=== PATIENT | male | born 1965 | race Caucasian/White ===

== ENCOUNTER 2016-11-10 09:14 | Day surgery (SDC) | payer OTHER ==
[2016-11-04 13:09] VITALS: BMI 28.1
[2016-11-10 16:20] VITALS: PULSE 90
[2016-11-10 16:58] VITALS: TEMP 97.8
[2016-11-10 17:15] VITALS: BP 142/80
== END 2016-11-10 17:16 | disposition home or self-care (01) ==
LOC: JRADIR 09:14
PROVIDERS: ATTEND Internal Medicine Nephrology
PROC: BT42ZZZ Ultrasonography of Left Kidney (ICD-10-PCS; principal; 2016-11-10)
PROC: 0TB03ZX Excision of Right Kidney, Percutaneous Approach, Diagnostic (ICD-10-PCS; 2016-11-10)
DX: N28.9 Disorder of kidney and ureter, unspecified (principal)
CPT/HCPCS: 50200; 76775-TC; 76942-TC

== ENCOUNTER 2016-11-13 16:09 | Inpatient (IN) | payer OTHER ==
--- NOTE | 2016-11-13 16:45 | PDOC ---
History of Present Illness <Fawad Savage - Last Filed: 11/13/16 18:50> - General History Source: Patient Exam Limitations: No Limitations - History of Present Illness Initial Comments: 11/13/16 16:42 51y M hx of ckd presents with worsening sob, pt states that the past few days when he is walking around he feels very out of breath. The patient had a recent diagnosis of kidney failure upon admission, and then was referred out to renal. The pt had a recent renal biopsy on 11/11 for his workup. The pt denies any fever/chills, abd pain, chest pain, back pain. Pt does note that his legs have beeen more swollen and he is on lasix. pt noted to be hypoxic 82% on RA here. pt staets he went to his doctors office yesterday and was given a neb but his SOB has worsened since then. <Jameson Meehan - Last Filed: 11/18/16 09:30> - General Chief Complaint: Shortness of Breath Stated Complaint: DIFF BREATHING/TIRED Time Seen by Provider: 11/13/16 16:23 Past History <Fawad Savage - Last Filed: 11/13/16 18:50> - Past Medical History Dementia: Yes Diabetes: Yes HTN: Yes - Immunization History Immunization Up to Date: Yes - Psycho/Social/Smoking Cessation Hx Anxiety: No Suicidal Ideation: No Smoking History: Never smoked Have you smoked in the past 12 months: No Information on smoking cessation initiated: No Hx Alcohol Use: No Drug/Substance Use Hx: No Substance Use Type: None Hx Substance Use Treatment: No <Jameson Meehan - Last Filed: 11/18/16 09:30> - Past Medical History Allergies/Adverse Reactions: Allergies Allergy/AdvReac Type Severity Reaction Status Date / Time Penicillins Allergy Verified 11/10/16 10:22 Home Medications: Ambulatory Orders Amlodipine Besylate [Norvasc -] 10 mg PO DAILY 10/31/16 Ferrous Gluconate [Fergon -] 324 mg PO BID 10/31/16 Lisinopril 5 mg PO DAILY 10/31/16 Folic Acid - 1 mg PO DAILY #30 tablet 11/04/16 Thiamine HCl [Vitamin B1 -] 100 mg PO DAILY #30 tablet 11/04/16 Furosemide [Lasix -] 60 mg PO BID@0600,1400 11/13/16 Review of Systems - Review of Systems Able to Perform ROS?: Yes Comments:: 11/13/16 16:47 Constitutional - no reported Fever, Chills, weakness, HEENT: no reported vision changes, sore throat Respiratory: +sob, no reported cough, hemoptysis Cardiac: +leg swelling no reported chest pain, palpitations, light headedness, Abd/GI: no reported abd pain, nausea, vomiting, blood per rectum, melena, diarrhea : no reported dysuria, frequency, discharge Musculskelatal - no reported back pain, joint swelling skin - no reported bruising, erythema, rash neurological: no reported headache, numbness, focal weakness, tingling, ataxia, weakness hematologic: no reported anemia, easy bruising, easy bleeding <Jameson Meehan - Last Filed: 11/18/16 09:30> *Physical Exam - Vital Signs Last Vital Signs Temp Pulse Resp BP Pulse Ox 98.3 F 101 H 20 150/86 91 L 11/13/16 16:19 11/13/16 16:19 11/13/16 17:00 11/13/16 16:19 11/13/16 17:00 <Fawad Savage - Last Filed: 11/13/16 18:50> - Vital Signs Last Vital Signs Temp Pulse Resp BP Pulse Ox 98.3 F 101 H 22 150/86 82 L 11/13/16 16:19 11/13/16 16:19 11/13/16 16:19 11/13/16 16:19 11/13/16 16:19 - Physical Exam Comments: 11/13/16 16:47 GENERAL: The patient is awake, alert, and fully oriented, Nontoxic - in no acute distress. HEAD: Normocephalic, atraumatic. EYES: extraocular movements intact, sclera anicteric, conjunctiva clear. ENT: Normal voice, Moist mucous membranes. NECK: Normal range of motion, supple LUNGS: basilar rales b/l HEART: Regular rate and rhythm, normal S1 and S2 without murmur, rub or gallop. ABDOMEN: Soft, nontender, normoactive bowel sounds. No guarding, no rebound. . No CVA tenderness EXTREMITIES: Normal range of motion, +2pitting edema bl without any calf tenderness. NEUROLOGICAL: No facial assymetry, Normal speech, PSYCH: Normal mood, normal affect. SKIN: Warm, Dry, normal turgor, <Jameson Meehan - Last Filed: 11/18/16 09:30> Heart Score/ECG Review - ECG Impressions Comment:: 11/13/16 16:48 Twelve-lead EKG was performed and reviewed by me. There is normal sinus rhythm with a rate of 103 The axis is normal. The intervals are normal. There is normal R wave progression There are no ST or T wave abnormalities. Impression: sinus tachcyardia <Jameson Meehan - Last Filed: 11/18/16 09:30> ED Treatment Course - LABORATORY CBC & Chemistry Diagram: 11/13/16 17:00 11/13/16 17:00 - ADDITIONAL ORDERS Additional order review: Laboratory Results 11/13/16 11/13/16 17:00 17:00 INR 1.20 H Sodium 142 Potassium 4.7 Chloride 111 H Carbon Dioxide 20 L Anion Gap 11 BUN 50 H Creatinine 2.8 H Creat Clearance w eGFR 24.21 Random Glucose 94 Calcium 8.0 L Magnesium 1.9 Total Bilirubin 0.4 AST 21 D ALT 24 Alkaline Phosphatase 213 H Creatine Kinase 115 Troponin I < 0.02 B-Natriuretic Peptide 01676.64 H Total Protein 7.3 Albumin 2.5 L 11/13/16 17:00 RBC 3.16 L MCV 79.1 L MCHC 32.5 RDW 15.1 MPV 7.9 Neutrophils % 74.5 Lymphocytes % 12.6 Monocytes % 7.9 Eosinophils % 3.6 Basophils % 1.4 <Fawad Savage - Last Filed: 11/13/16 18:50> - LABORATORY CBC & Chemistry Diagram: 11/17/16 06:20 11/18/16 06:45 - RADIOLOGY Radiology Studies Ordered: Category Date Time Status CHEST PA & LAT [RAD] Stat Radiology 11/13/16 16:37 Ordered <Jameson Meehan - Last Filed: 11/18/16 09:30> Medical Decision Making - Medical Decision Making 11/13/16 18:50 Call made to , awaiting call back. <Fawad Savage - Last Filed: 11/13/16 18:50> - Medical Decision Making 11/13/16 16:50 51y M hx of ckd/nephrotic syndrome presenting with maurer/sob fort he past several days, noted to be hypxoic to 82% here cxr noted to have vascular congestion likely secondary to fulid retention/ ovarload the patients labs are consistent with his prior cr pt was given supplemental o2 with improvement case d/w dr. thibodeaux who agrees with admission for further management and giving the pt lasix for diuresis case d/w hospitalist regarding admission stable for admissiont o med surg Case discussed in detail with admitting physician including history, physical exam and ancillary studies. Admitting physician has assumed care for the patient, will follow all pending diagnostics and will complete the evaluation and treatment. <Jameson Meehan - Last Filed: 11/18/16 09:30> *DC/Admit/Observation/Transfer <Fawad Savage - Last Filed: 11/13/16 18:50> - Discharge Dispostion Admit: Yes <Jameson Meehan - Last Filed: 11/18/16 09:30> Diagnosis at time of Disposition: Nephrotic syndrome Fluid overload, unspecified Qualifiers: Hypervolemia type: unspecified Qualified Code(s): E87.70 - Fluid overload, unspecified
[2016-11-13 17:19] LABS: BASOPHIL 1.4 % (0-2.0); EOSINOPHIL 3.6 % (0-4.5); MCH 25.7 pg (25.7-33.7); MCHC 32.5 g/dl (32.0-35.9); MEAN CELL VOLUME 79.1 fl (80-96); MEAN PLT VOLUME 7.9 fl (7.5-11.1); NEUTROPHILS 74.5 % (42.8-82.8); PLATELET COUNT 229 K/MM3 (134-434); RDW 15.1 % (11.9-15.9); WHITE BLOOD COUNT 8.5 K/mm3 (4.0-10.0)
[2016-11-13 17:53] LABS: INR 1.2 (0.82-1.09); PROTHROMBIN TIME (PATIENT) 13.3 SEC (9.98-11.88)
[2016-11-13 18:10] LABS: ALBUMIN 2.5 g/dl (3.4-5.0); ANION GAP 11 (8-16); CO2 20 mmol/L (21-32); GLUCOSE,RANDOM 94 mg/dL (74-106); MAGNESIUM 1.9 mg/dL (1.8-2.4)
[2016-11-13 18:16] LABS: ALK PHOS 213 U/L (45-117); BILIRUBIN,TOTAL 0.4 mg/dL (0.2-1.0); CREATININE 2.8 mg/dL (0.7-1.3); SGOT/AST 21 U/L (15-37); SGPT/ALT 24 U/L (12-78); TOT PROT 7.3 g/dl (6.4-8.2); TROPONIN I < 0.02 ng/ml (0.00-0.05)
[2016-11-13] MEDS ORDERED: FUROSEMIDE 40 MG/4 ML INJECTABLE VIAL IVPUSH ONE (19:01)
--- NOTE | 2016-11-13 19:16 | HP ---
CHIEF COMPLAINT: SOB PCP: Dr. Katherine Cruz HISTORY OF PRESENT ILLNESS: This is a 51 y/o male with a past medical history of HTN, DM, CKD. Who presents to the emergency department with increased SOB x 1-2 days. Patient reports being seen by his PCP for SOB, but became worse today. He reports having a non-productive cough. Patient had a recent admission 10/31-11/04 for SOB and Renal Failure. Patient denies fever, chills, CP, AP, N/V/D ER course was notable for: (1) Hypoxia- on arrival Spo2 80's- placed on venturi mask 50%, given Lasix IV- now improved Spo2 96-97% (2) Chest Xray- congestive changes, cardiomegaly (3) BNP 99201 Recent Travel: None PAST MEDICAL HISTORY: See HPI PAST SURGICAL HISTORY: Social History: Smoking: Never Alcohol: None Drugs: None Family History: Allergies Penicillins Allergy (Verified 11/10/16 10:22) GENERALIZED EDEMA "MY KIDNEYS FAILED>" HOME MEDICATIONS: Home Medications Medication Instructions Recorded Amlodipine Besylate [Norvasc -] 10 mg PO DAILY 10/31/16 Ferrous Gluconate [Fergon -] 324 mg PO BID 10/31/16 Lisinopril 5 mg PO DAILY 10/31/16 Folic Acid - 1 mg PO DAILY #30 tablet 11/04/16 Furosemide [Lasix -] 40 mg PO BID@0600,1400 #60 tablet 11/04/16 Thiamine HCl [Vitamin B1 -] 100 mg PO DAILY #30 tablet 11/04/16 REVIEW OF SYSTEMS CONSTITUTIONAL: Absent: fever, chills, diaphoresis, generalized weakness, malaise, loss of appetite, weight change HEENT: Absent: rhinorrhea, nasal congestion, throat pain, throat swelling, difficulty swallowing, mouth swelling, ear pain, eye pain, visual changes CARDIOVASCULAR: Absent: chest pain, syncope, palpitations, irregular heart rate, lightheadedness , peripheral edema RESPIRATORY: cough, shortness of breath, dyspnea with exertion Absent: orthopnea, wheezing, stridor, hemoptysis GASTROINTESTINAL: Absent: abdominal pain, abdominal distension, nausea, vomiting, diarrhea, constipation, melena, hematochezia GENITOURINARY: Absent: dysuria, frequency, urgency, hesitancy, hematuria, flank pain, genital pain MUSCULOSKELETAL: Absent: myalgia, arthralgia, joint swelling, back pain, neck pain SKIN: Absent: rash, itching, pallor HEMATOLOGIC/IMMUNOLOGIC: Absent: easy bleeding, easy bruising, lymphadenopathy, frequent infections ENDOCRINE: Absent: unexplained weight gain, unexplained weight loss, heat intolerance, cold intolerance NEUROLOGIC: Absent: headache, focal weakness or paresthesias, dizziness, unsteady gait, seizure, mental status changes, bladder or bowel incontinence PSYCHIATRIC: Absent: anxiety, depression, suicidal or homicidal ideation, hallucinations. PHYSICAL EXAMINATION Vital Signs - 24 hr 11/13/16 11/13/16 16:19 17:00 Temperature 98.3 F Pulse Rate 101 H Respiratory 22 20 Rate Blood Pressure 150/86 O2 Sat by Pulse 82 L 91 L Oximetry (%) GENERAL: Asleep but arousable and fully oriented, in no acute distress. HEAD: Normal with no signs of trauma. EYES: Pupils equal, round and reactive to light, extraocular movements intact, sclera anicteric, conjunctiva clear. No lid lag. EARS, NOSE, THROAT: Ears normal, nares patent, oropharynx clear without exudates. Moist mucous membranes. NECK: Normal range of motion, supple without lymphadenopathy, JVD, or masses. LUNGS: Breath sounds diminished to bases. No wheezes, and no crackles. No accessory muscle use. HEART: Regular rate and rhythm, normal S1 and S2 without murmur, rub or gallop. ABDOMEN: Soft, nontender, not distended, normoactive bowel sounds, no guarding, no rebound, no masses. No hepatomegaly or splenomegaly. MUSCULOSKELETAL: Normal range of motion at all joints. No bony deformities or tenderness. No CVA tenderness. UPPER EXTREMITIES: 2+ pulses, warm, well-perfused. No cyanosis. No clubbing. Cap refill <2 seconds. No peripheral edema. LOWER EXTREMITIES: 2+ pulses, warm, well-perfused. No calf tenderness. No peripheral edema. NEUROLOGICAL: Cranial nerves II-XII intact. Normal speech. Gait not observed. PSYCHIATRIC: Cooperative. Good eye contact. Appropriate mood and affect. SKIN: Warm, dry, normal turgor, no rashes or lesions noted. Laboratory Results - last 24 hr 11/13/16 11/13/16 11/13/16 17:00 17:00 17:00 WBC 8.5 RBC 3.16 L Hgb 8.1 L Hct 25.0 L MCV 79.1 L MCHC 32.5 RDW 15.1 Plt Count 229 MPV 7.9 Neutrophils % 74.5 Lymphocytes % 12.6 Monocytes % 7.9 Eosinophils % 3.6 Basophils % 1.4 INR 1.20 H Sodium 142 Potassium 4.7 Chloride 111 H Carbon Dioxide 20 L Anion Gap 11 BUN 50 H Creatinine 2.8 H Creat Clearance w eGFR 24.21 Random Glucose 94 Calcium 8.0 L Magnesium 1.9 Total Bilirubin 0.4 AST 21 D ALT 24 Alkaline Phosphatase 213 H Creatine Kinase 115 Troponin I < 0.02 B-Natriuretic Peptide 21349.64 H Total Protein 7.3 Albumin 2.5 L ECG Impressions Comment:: 11/13/16 16:48 Twelve-lead EKG was performed and reviewed by me. There is normal sinus rhythm with a rate of 103 The axis is normal. The intervals are normal. There is normal R wave progression There are no ST or T wave abnormalities. Impression: sinus tachycardia ASSESSMENT/PLAN: This is a 51 y/o male with a PMHx of: CKD, DM, HTN. Who presents to the ED with SOB, POMPA. Admitted to M/[facility] for Nephrotic Syndrome for further evaluation of their emergent condition. Plan: 1. Nephrotic Syndrome - Likely secondary to fluid overload - Given Lasix in the ED - Continue Lasix IV - Strict INOs - Appreciate Nephrology Consult - Monitor BMP 2. Hypoxia - Likely secondary to Fluid Overload - Continue O2- Venturi Mask 50% - 2LNC as tolerated - ABG reviewed - Monitor Spo2 3. Diabetes Mellitus - BGMs - ISS - HgbA1C in am 4. HTN - Monitor BP - Continue home med 5. FEN - PO fluid restriction < 1L - Replete lytes prn - Low Na, Renal Diet 6. DVT Prophylaxis - OOB - SCDs - Heparin SQ, monitor H/H Code Status: Full Code Problem List - Problem (1) Nephrotic syndrome Code(s): N04.9 - NEPHROTIC SYNDROME WITH UNSPECIFIED MORPHOLOGIC CHANGES (2) Fluid overload, unspecified Code(s): E87.70 - FLUID OVERLOAD, UNSPECIFIED Qualifiers: Hypervolemia type: unspecified Qualified Code(s): E87.70 - Fluid overload, unspecified (3) Hypoxia Code(s): R09.02 - HYPOXEMIA (4) Diabetes 1.5, managed as type 1 Code(s): E13.9 - OTHER SPECIFIED DIABETES MELLITUS WITHOUT COMPLICATIONS (5) Hypertension Code(s): I10 - ESSENTIAL (PRIMARY) HYPERTENSION Qualifiers: Hypertension type: essential hypertension Qualified Code(s): I10 - Essential (primary) hypertension (6) Renal failure Code(s): N19 - UNSPECIFIED KIDNEY FAILURE (7) Liver disease Code(s): K76.9 - LIVER DISEASE, UNSPECIFIED (8) DVT prophylaxis Code(s): OOM3370 - Visit type - Emergency Visit Emergency Visit: Yes ED Registration Date: 11/13/16 Care time: The patient presented to the Emergency Department on the above date and was hospitalized for further evaluation of their emergent condition. - New Patient This patient is new to me today: Yes Date on this admission: 11/13/16 - Critical Care Critical Care patient: No
[2016-11-13 19:49] LABS: ARTERIAL BLOOD GAS BASE EXCESS -6.3 meq/l (-2-2)
[2016-11-13 19:50] LABS: ALLENS TEST POSITIVE; ART PUNCT SITE RIGHT RADIAL; LPM/O2% 3L; METHEMOGLOBIN 1.5 % (0.4-1.5); PT. ON O2? YES; TYPE OF O2 NASAL
[2016-11-13 19:51] LABS: ARTERIAL BLD GAS O2 SATURATION 79.7 % (90-98.9); ARTERIAL BLOOD GAS HCO3 18.8 meq/L (22-26); ARTERIAL BLOOD GAS PO2 48.3 mmHg (80-100); ARTERIAL BLOOD GAS pH 7.31 (7.35-7.45)
[2016-11-13 23:21] VITALS: BMI 28.1
[2016-11-14] MEDS ORDERED: FUROSEMIDE 40 MG/4 ML INJECTABLE VIAL IVPUSH SCH (06:00)
[2016-11-14] MEDS: FUROSEMIDE 40 MG/4 ML INJECTABLE VIAL IVPUSH SCH ×2 (06:08→13:50)
[2016-11-14 08:20] LABS: MCH 25.3 pg (25.7-33.7); MCHC 31.7 g/dl (32.0-35.9); MEAN CELL VOLUME 79.6 fl (80-96); MEAN PLT VOLUME 7.9 fl (7.5-11.1); NEUTROPHILS 70.8 % (42.8-82.8); PLATELET COUNT 233 K/MM3 (134-434); WHITE BLOOD COUNT 7.3 K/mm3 (4.0-10.0)
[2016-11-14 08:50] LABS: CALCIUM 8.3 mg/dL (8.5-10.1); CREATININE 2.7 mg/dL (0.7-1.3)
--- NOTE | 2016-11-14 08:50 | PN ---
Physical Exam: SUBJECTIVE: Patient seen and examined at bedside. Describes several months of worsening SOB, POMPA, and orthopnea. Has been followed by multiple providers at [facility] and has been to [facility] multiple times. He describes episodes of edema that extend from is feet to his abdomen. He takes Lasix at home, but the SOB has gotten progressively worse. He used to take diabetic medication but not any longer. OBJECTIVE: Vital Signs Period Temp Pulse Resp BP Sys/Benz Pulse Ox Last 24 Hr 99.0 F 98-102 20-21 132-142/75-85 100 GENERAL: The patient is awake, alert, and fully oriented, in no acute distress. HEAD: Normal with no signs of trauma. EYES: PERRL, extraocular movements intact, sclera anicteric, conjunctiva clear. No ptosis. ENT: Ears normal, nares patent, oropharynx clear without exudates, moist mucous membranes. NECK: Trachea midline, full range of motion, supple. LUNGS: Diffuse crackles. No wheezing, no rhonchi. No accessory muscle use on nasal cannula. HEART: Regular rate and rhythm, S1, S2 without murmur, rub or gallop. ABDOMEN: Soft, +distended, not tender EXTREMITIES: 1+ bilateral pedal edema. NEUROLOGICAL: Cranial nerves II through XII grossly intact. Normal speech, gait not observed. Laboratory Results - last 24 hr 11/13/16 11/14/16 19:39 07:30 Puncture Site Right radial ABG pH 7.31 L ABG pCO2 at Pt Temp 38.2 ABG pO2 at Pt Temp 48.3 L* D ABG HCO3 18.8 L ABG O2 Sat (Measured) 79.7 L ABG O2 Content 9.3 L* ABG Base Excess -6.3 L Ty Test Positive Carboxyhemoglobin 1.8 Methemoglobin 1.5 O2 Delivery Device Nasal Oxygen Flow Rate 3l PEEP 0.0 Sodium 143 Potassium 4.4 Chloride 112 H Current Medications Generic Name Dose Route Start Last Admin Trade Name Freq PRN Reason Stop Dose Admin Amlodipine Besylate 10 mg 11/14/16 10:00 11/14/16 09:13 Norvasc - PO 10 mg DAILY LEMUEL Administration Aspirin 81 mg 11/14/16 11:30 11/14/16 11:42 Ecotrin - PO 81 mg DAILY LEMUEL Administration Ferrous Gluconate 324 mg 11/13/16 22:00 11/14/16 09:13 Fergon - PO 324 mg BID LEMUEL Administration Folic Acid 1 mg 11/14/16 10:00 11/14/16 09:14 Folic Acid - PO 1 mg DAILY LEMUEL Administration Furosemide 60 mg 11/14/16 06:00 11/14/16 06:08 Lasix Injection - IVPUSH 60 mg BID@0600,1400 LEMUEL Administration Lisinopril 5 mg 11/14/16 10:00 11/14/16 09:13 Prinivil PO 5 mg DAILY LEMUEL Administration Metoprolol Tartrate 25 mg 11/14/16 11:30 11/14/16 11:42 Lopressor - PO 25 mg BID LEMUEL Administration Thiamine HCl 100 mg 11/14/16 10:00 11/14/16 09:14 Vitamin B1 - PO 100 mg DAILY LEMUEL Administration Imaging 11/02/16 Echo: LV normal; RV normal; mild to moderate MR; mild to moderate TR; mild pHTN 11/13/16 CXR: pulmonary vascular congestion; bilateral pleural effusions; CHF ASSESSMENT/PLAN 51 year-old male with a PMH of HTN, CKD, and DM, admitted for hypoxia secondary to volume overload. Acute hypoxic respiratory failure secondary to volume overload --initial ABG showed PaO2 48 on 3L NC --aggressively diuresed, off venti mask, on NC, satting in high 90s Acute on chronic diastolic heart failure --patient describes bilateral lower extremity edema, SOB, POMPA, 4-pillow orthopnea, and BNP 11,881 --echo on 11/02 as above --continue IV Lasix 60 BID --continue lisinopril, amlodipine, add metoprolol 25mg BID --consider nuclear myocardial perfusion imaging once euvolemic --cardiology following CKD --admitted to [facility] 11/01-->11/04 for CKD, Cr 2.9 on date of discharge; Cr today 2.7 --renal biopsy done on 11/10, need to get results --renal consult requested IDDM --HgbA1C 7.1 --Novolog sliding scale coverage Hypertension --continue lisinopril, amlodipine, metoprolol F/E/N Fluids: PO intake adequate Electrolytes: replete as indicated Nutrition: diabetic low sodium DVT prophylaxis: subq heparin, oob, ambulation Rehab PT evaluation Daily PT Dispo: continues to require inpatient care. Full Code. Visit type - Emergency Visit Emergency Visit: Yes ED Registration Date: 11/13/16 Care time: The patient presented to the Emergency Department on the above date and was hospitalized for further evaluation of their emergent condition. - New Patient This patient is new to me today: Yes Date on this admission: 11/14/16 - Critical Care Critical Care patient: No
[2016-11-14 08:52] LABS: URINE APPEARANCE CLEAR; URINE BILIRUBIN NEGATIVE (NEGATIVE); URINE COLOR STRAW; URINE GLUCOSE (UA) 1+ (NEGATIVE); URINE KETONE NEGATIVE (NEGATIVE); URINE LEUK ESTERASE NEGATIVE (NEGATIVE); URINE NITRITE NEGATIVE (NEGATIVE); URINE UROBILINOGEN NEGATIVE E.U./dl (0.2-1.0)
[2016-11-14 08:57] LABS: URINE BLOOD 1+ (NEGATIVE); URINE PROTEIN 3+ (NEGATIVE)
[2016-11-14 08:59] LABS: GRANULAR CASTS 1 /lpf; URINE MUCUS RARE; URINE RBC 1 /hpf (0-3); URINE WBC 1 /hpf (3-5)
[2016-11-14] MEDS: FERROUS GLUCONATE 324 MG TAB (FP) PO SCH ×3 (09:07→22:06)
[2016-11-14] MEDS: LISINOPRIL 5 MG TABLET (FP) PO SCH (09:13)
[2016-11-14] MEDS: amLODIPine BESYLATE 10 MG TABLET (FP) PO SCH (09:13)
[2016-11-14] MEDS: FOLIC ACID 1 MG TABLET (FP) PO SCH (09:14)
[2016-11-14] MEDS: THIAMINE HCL 100 MG TABLET (FP) PO SCH (09:14)
--- NOTE | 2016-11-14 11:06 | CON.CARD ---
Consult Consult Specialty:: Cardiology Referred by:: Hospitalist Reason for Consultation:: Cardiac evaluation - History of Present Illness Chief Complaint: Shortness of breath History of Present Illness: Patient is a 51 year old male with history of HTN, Insulin requiring diabetes mellitus and CKD now presents with increased shortness of breath. He was hypoxic to 82% on room air. Currently he is on O2 via NC. He denies chest pain or palpitations. He denies paroxysmal nocturnal dyspnea, but appears to have mild orthopnea. He denies fever or chills. Denies headache or lightheadedness. He denies prior episodes of current symptoms. Patient had a transthoracic echocardiography (October 2016) which revealed normal left ventricular systolic function, mild to moderate mitral valve and tricuspid valve regurgitation and mild pulmonary hypertension. Patient also had a renal biopsy for which pathology is pending. He is on diuretics at this time. Cardiology consultation was called for further evaluation. - History Source History Provided By: Patient, Medical Record Limitations to Obtaining History: No Limitations - Past Medical History Cardio/Vascular: Yes: HTN Renal/: Yes: Renal Inusuff Endocrine: Yes: Diabetes Mellitus - Past Surgical History Additional Surgical History: Renal biopsy - Alcohol/Substance Use Hx Alcohol Use: Yes (social) - Smoking History Smoking history: Never smoked Have you smoked in the past 12 months: No Home Medications - Allergies Allergies/Adverse Reactions: Allergies Allergy/AdvReac Type Severity Reaction Status Date / Time Penicillins Allergy Verified 11/10/16 10:22 - Home Medications Home Medications: Ambulatory Orders Amlodipine Besylate [Norvasc -] 10 mg PO DAILY 10/31/16 Ferrous Gluconate [Fergon -] 324 mg PO BID 10/31/16 Lisinopril 5 mg PO DAILY 10/31/16 Folic Acid - 1 mg PO DAILY #30 tablet 11/04/16 Thiamine HCl [Vitamin B1 -] 100 mg PO DAILY #30 tablet 11/04/16 Furosemide [Lasix -] 60 mg PO BID@0600,1400 11/13/16 Family Disease History - Family Disease History Family Disease History: Diabetes: Mother, Heart Disease: Mother Review of Systems - Review of Systems Constitutional: denies: Chills, Fever Cardiovascular: reports: Shortness of Breath. denies: Chest Pain, Palpitations Respiratory: reports: Orthopnea, SOB, SOB on Exertion. denies: Cough, Hemoptysis, PND, Wheezing Gastrointestinal: denies: Abdominal Pain, Constipation, Diarrhea, Melena, Nausea , Rectal Bleeding, Vomiting Genitourinary: denies: Dysuria Musculoskeletal: denies: Joint Pain Neurological: denies: Dizziness, Headache, Seizure, Syncope Vital Signs: Vital Signs Temperature 99.0 F 11/14/16 06:05 Pulse Rate 98 H 11/14/16 06:05 Respiratory Rate 21 11/14/16 06:05 Blood Pressure 132/75 11/14/16 06:05 O2 Sat by Pulse Oximetry (%) 95 11/14/16 09:00 Neck: Yes: Supple Respiratory: Yes: Diminished Gastrointestinal: Yes: Normal Bowel Sounds, Soft. No: Tenderness Cardiovascular: Yes: Regular Rate and Rhythm, Tachycardia JVD: No Carotid Bruit: No PMI: Non-Displaced Heart Sounds: Yes: S1, S2 Murmur: Yes: Systolic Murmur, Grade 1 Edema: No - Other Data Labs, Other Data: CBC, BMP 11/14/16 07:30 11/14/16 07:30 INR, PTT INR 1.20 (0.82-1.09) H 11/13/16 17:00 Laboratory Results - last 24 hr 11/13/16 11/13/16 11/13/16 17:00 17:00 17:00 WBC 8.5 RBC 3.16 L Hgb 8.1 L Hct 25.0 L MCV 79.1 L MCHC 32.5 RDW 15.1 Plt Count 229 MPV 7.9 Neutrophils % 74.5 Lymphocytes % 12.6 Monocytes % 7.9 Eosinophils % 3.6 Basophils % 1.4 INR 1.20 H Puncture Site ABG pH ABG pCO2 at Pt Temp ABG pO2 at Pt Temp ABG HCO3 ABG O2 Sat (Measured) ABG O2 Content ABG Base Excess Ty Test Carboxyhemoglobin Methemoglobin O2 Delivery Device Oxygen Flow Rate PEEP Sodium 142 Potassium 4.7 Chloride 111 H Carbon Dioxide 20 L Anion Gap 11 BUN 50 H Creatinine 2.8 H Creat Clearance w eGFR 24.21 Random Glucose 94 Lactic Acid Calcium 8.0 L Magnesium 1.9 Total Bilirubin 0.4 AST 21 D ALT 24 Alkaline Phosphatase 213 H Creatine Kinase 115 Troponin I < 0.02 B-Natriuretic Peptide 38669.64 H Total Protein 7.3 Albumin 2.5 L Urine Color Urine Appearance Urine pH Ur Specific [place] Urine Protein Urine Glucose (UA) Urine Ketones Urine Blood Urine Nitrite Urine Bilirubin Urine Urobilinogen Ur Leukocyte Esterase Urine RBC Urine WBC Granular Casts Urine Mucus 11/13/16 11/13/16 11/14/16 17:00 19:39 07:00 WBC RBC Hgb Hct MCV MCHC RDW Plt Count MPV Neutrophils % Lymphocytes % Monocytes % Eosinophils % Basophils % INR Puncture Site Right radial ABG pH 7.31 L ABG pCO2 at Pt Temp 38.2 ABG pO2 at Pt Temp 48.3 L* D ABG HCO3 18.8 L ABG O2 Sat (Measured) 79.7 L ABG O2 Content 9.3 L* ABG Base Excess -6.3 L Ty Test Positive Carboxyhemoglobin 1.8 Methemoglobin 1.5 O2 Delivery Device Nasal Oxygen Flow Rate 3l PEEP 0.0 Sodium Potassium Chloride Carbon Dioxide Anion Gap BUN Creatinine Creat Clearance w eGFR Random Glucose Lactic Acid 0.908 Calcium Magnesium Total Bilirubin AST ALT Alkaline Phosphatase Creatine Kinase Troponin I B-Natriuretic Peptide Total Protein Albumin Urine Color Straw Urine Appearance Clear Urine pH 5.0 Ur Specific [place] 1.010 Urine Protein 3+ H Urine Glucose (UA) 1+ H Urine Ketones Negative Urine Blood 1+ H Urine Nitrite Negative Urine Bilirubin Negative Urine Urobilinogen Negative Ur Leukocyte Esterase Negative Urine RBC 1 Urine WBC 1 Granular Casts 1 Urine Mucus Rare 11/14/16 11/14/16 07:30 07:30 WBC 7.3 RBC 3.31 L Hgb 8.4 L Hct 26.3 L MCV 79.6 L MCHC 31.7 L RDW 15.0 Plt Count 233 MPV 7.9 Neutrophils % 70.8 Lymphocytes % 16.7 D Monocytes % 7.5 Eosinophils % 4.0 Basophils % 1.0 INR Puncture Site ABG pH ABG pCO2 at Pt Temp ABG pO2 at Pt Temp ABG HCO3 ABG O2 Sat (Measured) ABG O2 Content ABG Base Excess Ty Test Carboxyhemoglobin Methemoglobin O2 Delivery Device Oxygen Flow Rate PEEP Sodium 143 Potassium 4.4 Chloride 112 H Carbon Dioxide 20 L Anion Gap 11 BUN 50 H Creatinine 2.7 H Creat Clearance w eGFR Random Glucose 72 L D Lactic Acid Calcium 8.3 L Magnesium Total Bilirubin AST ALT Alkaline Phosphatase Creatine Kinase Troponin I B-Natriuretic Peptide Total Protein Albumin Urine Color Urine Appearance Urine pH Ur Specific [place] Urine Protein Urine Glucose (UA) Urine Ketones Urine Blood Urine Nitrite Urine Bilirubin Urine Urobilinogen Ur Leukocyte Esterase Urine RBC Urine WBC Granular Casts Urine Mucus Sinus tachycardia, no ST-T abnormality Echo: Report Reviewed (As reported on HPI) Imaging - Results Chest X-ray: Report Reviewed EKG: Report Reviewed Problem List - Problems (1) Fluid overload, unspecified Code(s): E87.70 - FLUID OVERLOAD, UNSPECIFIED Qualifiers: Hypervolemia type: unspecified Qualified Code(s): E87.70 - Fluid overload, unspecified (2) Diabetes 1.5, managed as type 1 Code(s): E13.9 - OTHER SPECIFIED DIABETES MELLITUS WITHOUT COMPLICATIONS (3) Hypertension Code(s): I10 - ESSENTIAL (PRIMARY) HYPERTENSION Qualifiers: Hypertension type: essential hypertension Qualified Code(s): I10 - Essential (primary) hypertension (4) Hypoxia Code(s): R09.02 - HYPOXEMIA (5) Renal failure Code(s): N19 - UNSPECIFIED KIDNEY FAILURE Assessment/Plan 1. Clinical presentation suggest acute on chronic diastolic heart failure with elevated BNP in the presence of renal insufficiency and volume overload 2. CKD 3. HTN 4. Sinus tachycardia PLAN: 1. Continue diuretics IV and monitor renal function and electrolytes 2. Continue Lisinopril and Amlodipine 3. Consider Metoprolol Tartrate 25 mg twice a day 4. Add ASA 81 mg once a day 5. Echocardiography report was noted 6. Consider nuclear myocardial perfusion imaging once euvolemic 7. If patient continues to be hypoxic, may consider further pulmonary evaluation (lung scan as patient not able to get CT chest with contrast due to underlying renal insufficiency) 8. Await renal biopsy result Further plans are to follow Mitul Hightower MD
[2016-11-14] MEDS: METOPROLOL TARTRATE 25 MG TABLET (FP) PO SCH ×2 (11:42→22:06)
[2016-11-14] MEDS: ASPIRIN COATED 81 MG TABLET.EC PO SCH (11:42)
--- NOTE | 2016-11-14 13:39 | EKG ---
Test Reason : Blood Pressure : / mmHG Vent. Rate : 103 BPM Atrial Rate : 103 BPM P-R Int : 136 ms QRS Dur : 082 ms QT Int : 330 ms P-R-T Axes : 059 056 007 degrees QTc Int : 432 ms SINUS TACHYCARDIA POSSIBLE LEFT ATRIAL ENLARGEMENT BORDERLINE ECG WHEN COMPARED WITH ECG OF 01-NOV-2016 11:15, NO SIGNIFICANT CHANGE WAS FOUND Confirmed by CRISTOPHER TEJEDA MD ([id number]) on 11/14/2016 1:39:25 PM Referred By: Confirmed By:CRISTOPHER TEJEDA MD
--- NOTE | 2016-11-14 13:41 | CON.NEP ---
Consult Consult Specialty:: Nephrology Referred by:: Dr Meehan Reason for Consultation:: CKD - History of Present Illness History of Present Illness: Patient is a 51 year old male with history of HTN, DM and CKD with Nephrotic Syndrom that presented with increased shortness of breath on exertion and with orthopnea. He has been unable to walk up inclines and can only walk 1/2 a block on level ground prior to having to stop because of dyspnea.He has no associated chest pain or palpitations. ALEE (October 2016) which revealed normal left ventricular systolic function, mild to moderate mitral valve and tricuspid valve regurgitation and mild pulmonary hypertension. Patient renal presentation was atypical for a diabetic nephropathy so a diagnostic percutaneous right renal biopsy was done last week and the the result of which is still pending. - History Source History Provided By: Patient Limitations to Obtaining History: No Limitations - Past Medical History Cardio/Vascular: Yes: HTN Renal/: Yes: Renal Inusuff Endocrine: Yes: Diabetes Mellitus - Past Surgical History Additional Surgical History: Renal biopsy - Alcohol/Substance Use Hx Alcohol Use: Yes (social) - Smoking History Smoking history: Never smoked Have you smoked in the past 12 months: No Home Medications - Allergies Allergies/Adverse Reactions: Allergies Allergy/AdvReac Type Severity Reaction Status Date / Time Penicillins Allergy Verified 11/10/16 10:22 - Home Medications Home Medications: Ambulatory Orders Amlodipine Besylate [Norvasc -] 10 mg PO DAILY 10/31/16 Ferrous Gluconate [Fergon -] 324 mg PO BID 10/31/16 Lisinopril 5 mg PO DAILY 10/31/16 Folic Acid - 1 mg PO DAILY #30 tablet 11/04/16 Thiamine HCl [Vitamin B1 -] 100 mg PO DAILY #30 tablet 11/04/16 Furosemide [Lasix -] 60 mg PO BID@0600,1400 11/13/16 Family Disease History - Family Disease History Family Disease History: Diabetes: Mother, Heart Disease: Mother Nephrology Consult - Height Height: 5 ft 7 in - Weight Weight: 180 lb - BMI Body Mass Index (BMI): 28.1 - Lab Results CBC,BMP: CBC, BMP 11/14/16 07:30 11/14/16 07:30 Laboratory Tests 11/13/16 11/14/16 19:39 07:00 ABG pH 7.31 L ABG pCO2 at Pt Temp 38.2 ABG pO2 at Pt Temp 48.3 L* D ABG HCO3 18.8 L ABG O2 Sat (Measured) 79.7 L Urine Appearance Clear Urine pH 5.0 Ur Specific [place] 1.010 Urine Protein 3+ H Urine Glucose (UA) 1+ H Urine Ketones Negative Urine Blood 1+ H Urine Nitrite Negative Urine Bilirubin Negative Urine Urobilinogen Negative Ur Leukocyte Esterase Negative Urine RBC 1 Urine WBC 1 Granular Casts 1 Urine Mucus Rare Anion Gap: Anion Gap Anion Gap 11 (8-16) 11/14/16 07:30 - Imaging Chest X-ray: Report Reviewed EKG: Other (Sinus Tachycardia with LAE) - Physical Examination Vital Signs: Vital Signs Temperature 99 F 11/14/16 12:00 Pulse Rate 105 H 11/14/16 12:00 Respiratory Rate 19 11/14/16 12:00 Blood Pressure 148/72 11/14/16 12:00 O2 Sat by Pulse Oximetry (%) 95 11/14/16 09:00 Cardiovascular: Yes: JVD, S1, S2, Other (SSEM) Respiratory: Yes: Other (Decreased BS at posterior bases) Gastrointestinal: Yes: Soft, Other. No: Tenderness, Rebound Renal/: Yes: Other. No: Bladder Distention Edema: LLE: 2+, RLE: 2+ Assessment/Plan Impression Dyspnea on exertion and orthopnea in pt with Nephrotic Syndrome, CKD and Valvular heart disease NS Ruling out other causes besides DM DM HTN Microcytic anemia Plan Continue with BID IV Lasix at 60 mgs for now Daily wts GI and DVT PPX- High risk for DVT given the NS Await Bx results Rpt labs in am with lipid panel Increase ACEi slowly Statin as indicated Anemia w/u as per primary care- Needs a colonoscopy if not recently done especially if renal bx shows a membranous GN. Appreciated cardiology opinion Discussed with Hospitalist Thank You Will follow Dr Hebert
[2016-11-14] MEDS: INSULIN (NOVOLOG) ASPART 100 UNITS/ML 10ML VIAL SQ SCH ×2 (17:08→22:06)
[2016-11-14] MEDS: HEPARIN NA (PORCINE) 5,000 UNITS/ML 1ML VIAL SQ SCH (22:07)
[2016-11-15] MEDS: INSULIN (NOVOLOG) ASPART 100 UNITS/ML 10ML VIAL SQ SCH ×4 (06:11→22:36)
[2016-11-15] MEDS: FUROSEMIDE 40 MG/4 ML INJECTABLE VIAL IVPUSH SCH ×2 (06:11→14:43)
[2016-11-15 07:25] LABS: BASOPHIL 0.9 % (0-2.0); EOSINOPHIL 6.2 % (0-4.5); MCH 25.4 pg (25.7-33.7); MCHC 32.2 g/dl (32.0-35.9); MEAN CELL VOLUME 78.6 fl (80-96); MEAN PLT VOLUME 7.8 fl (7.5-11.1); NEUTROPHILS 62.6 % (42.8-82.8); PLATELET COUNT 223 K/MM3 (134-434); RDW 15.2 % (11.9-15.9); WHITE BLOOD COUNT 6.5 K/mm3 (4.0-10.0)
[2016-11-15 08:26] LABS: ALBUMIN 2.3 g/dl (3.4-5.0); BILIRUBIN,TOTAL 0.4 mg/dL (0.2-1.0); CREATININE 2.8 mg/dL (0.7-1.3); FERRITIN 64.15 ng/ml (16.4-293.9); MAGNESIUM 1.7 mg/dL (1.8-2.4); PHOSPHOROUS 3.8 mg/dL (2.5-4.9); TOT PROT 7.1 g/dl (6.4-8.2)
[2016-11-15] MEDS: HEPARIN NA (PORCINE) 5,000 UNITS/ML 1ML VIAL SQ SCH ×2 (09:35→22:41)
[2016-11-15] MEDS: METOPROLOL TARTRATE 25 MG TABLET (FP) PO SCH ×2 (09:36→22:41)
[2016-11-15] MEDS: ASPIRIN COATED 81 MG TABLET.EC PO SCH (09:36)
[2016-11-15] MEDS: FOLIC ACID 1 MG TABLET (FP) PO SCH (09:36)
[2016-11-15] MEDS: amLODIPine BESYLATE 10 MG TABLET (FP) PO SCH (09:36)
[2016-11-15] MEDS: THIAMINE HCL 100 MG TABLET (FP) PO SCH (09:36)
[2016-11-15] MEDS: PANTOPRAZOLE 40 MG TABLET (FP) PO SCH (09:36)
[2016-11-15] MEDS: LISINOPRIL 5 MG TABLET (FP) PO SCH (09:36)
[2016-11-15] MEDS: FERROUS GLUCONATE 324 MG TAB (FP) PO SCH ×2 (09:36→22:40)
--- NOTE | 2016-11-15 10:29 | PN ---
Progress Note, Physician Chief Complaint: Feels better History of Present Illness: Patient was seen and examined. Awake and alert. Chart was reviewed Denies chest pain or palpitations Intermittent shortness of breath - Current Medication List Current Medications: Active Medications Amlodipine Besylate (Norvasc -) 10 mg PO DAILY [facility] Last Admin: 11/15/16 09:36 Dose: 10 mg Aspirin (Ecotrin -) 81 mg PO DAILY [facility] Last Admin: 11/15/16 09:36 Dose: 81 mg Ferrous Gluconate (Fergon -) 324 mg PO BID [facility] Last Admin: 11/15/16 09:36 Dose: 324 mg Folic Acid (Folic Acid -) 1 mg PO DAILY [facility] Last Admin: 11/15/16 09:36 Dose: 1 mg Furosemide (Lasix Injection -) 60 mg IVPUSH BID@0600,1400 [facility] Last Admin: 11/15/16 06:11 Dose: 60 mg Heparin Sodium (Porcine) (Heparin -) 5,000 unit SQ BID [facility] Last Admin: 11/15/16 09:35 Dose: 5,000 unit Insulin Aspart (Novolog Vial) 0 units SQ ACHS [facility] PRN Reason: Protocol Last Admin: 11/15/16 06:11 Dose: Not Given Lisinopril (Prinivil) 5 mg PO DAILY [facility] Last Admin: 11/15/16 09:36 Dose: 5 mg Metoprolol Tartrate (Lopressor -) 25 mg PO BID [facility] Last Admin: 11/15/16 09:36 Dose: 25 mg Pantoprazole Sodium (Protonix -) 40 mg PO DAILY [facility] Last Admin: 11/15/16 09:36 Dose: 40 mg Thiamine HCl (Vitamin B1 -) 100 mg PO DAILY [facility] Last Admin: 11/15/16 09:36 Dose: 100 mg - Objective Vital Signs: Vital Signs Temperature 98.2 F 11/15/16 06:00 Pulse Rate 85 11/15/16 06:00 Respiratory Rate 18 11/15/16 06:00 Blood Pressure 138/74 11/15/16 06:00 O2 Sat by Pulse Oximetry (%) 94 L 11/14/16 21:00 Neck: Yes: Supple Cardiovascular: Yes: Regular Rate and Rhythm, Murmur (Soft SM), S1, S2 Respiratory: Yes: Diminished Gastrointestinal: Yes: Normal Bowel Sounds, Soft. No: Tenderness Edema: No Labs: CBC, BMP 11/15/16 06:35 11/15/16 06:35 Problem List - Problems (1) Fluid overload, unspecified Code(s): E87.70 - FLUID OVERLOAD, UNSPECIFIED Qualifiers: Hypervolemia type: unspecified Qualified Code(s): E87.70 - Fluid overload, unspecified (2) Diabetes 1.5, managed as type 1 Code(s): E13.9 - OTHER SPECIFIED DIABETES MELLITUS WITHOUT COMPLICATIONS (3) Hypertension Code(s): I10 - ESSENTIAL (PRIMARY) HYPERTENSION Qualifiers: Hypertension type: essential hypertension Qualified Code(s): I10 - Essential (primary) hypertension (4) Hypoxia Code(s): R09.02 - HYPOXEMIA (5) Renal failure Code(s): N19 - UNSPECIFIED KIDNEY FAILURE Assessment/Plan 1. Clinical presentation suggest acute on chronic diastolic heart failure with elevated BNP in the presence of renal insufficiency and volume overload 2. CKD 3. HTN 4. Sinus tachycardia PLAN: 1. Continue diuretics IV and monitor renal function and electrolytes 2. Continue Lisinopril and Amlodipine 3. Consider Metoprolol Tartrate 4. Continue ASA 81 mg once a day 5. Consider nuclear myocardial perfusion imaging once euvolemic 6. Await renal biopsy result Further plans are to follow Mitul Hightower MD
--- NOTE | 2016-11-15 12:32 | PN ---
Progress Note, Physician History of Present Illness: Renal F/U Pt has less dyspnea and orthopnea since he states he was able to sleep more in the recumbent position last night than previous evening. He lost 2-3 lbs since yesterday LDL 81 - Current Medication List Current Medications: Active Medications Amlodipine Besylate (Norvasc -) 10 mg PO DAILY [facility] Last Admin: 11/15/16 09:36 Dose: 10 mg Aspirin (Ecotrin -) 81 mg PO DAILY [facility] Last Admin: 11/15/16 09:36 Dose: 81 mg Ferrous Gluconate (Fergon -) 324 mg PO BID [facility] Last Admin: 11/15/16 09:36 Dose: 324 mg Folic Acid (Folic Acid -) 1 mg PO DAILY [facility] Last Admin: 11/15/16 09:36 Dose: 1 mg Furosemide (Lasix Injection -) 60 mg IVPUSH BID@0600,1400 [facility] Last Admin: 11/15/16 06:11 Dose: 60 mg Heparin Sodium (Porcine) (Heparin -) 5,000 unit SQ BID [facility] Last Admin: 11/15/16 09:35 Dose: 5,000 unit Insulin Aspart (Novolog Vial) 0 units SQ ACHS [facility] PRN Reason: Protocol Last Admin: 11/15/16 11:07 Dose: Not Given Lisinopril (Prinivil) 5 mg PO DAILY [facility] Last Admin: 11/15/16 09:36 Dose: 5 mg Metoprolol Tartrate (Lopressor -) 25 mg PO BID [facility] Last Admin: 11/15/16 09:36 Dose: 25 mg Pantoprazole Sodium (Protonix -) 40 mg PO DAILY [facility] Last Admin: 11/15/16 09:36 Dose: 40 mg Thiamine HCl (Vitamin B1 -) 100 mg PO DAILY [facility] Last Admin: 11/15/16 09:36 Dose: 100 mg - Objective Vital Signs: Vital Signs Temperature 98.2 F 11/15/16 12:00 Pulse Rate 97 H 11/15/16 12:00 Respiratory Rate 20 11/15/16 12:00 Blood Pressure 140/79 11/15/16 12:00 O2 Sat by Pulse Oximetry (%) 96 11/15/16 09:00 Constitutional: Yes: No Distress Cardiovascular: Yes: S1, S2 Respiratory: Yes: Other (Decreased BS at vthe posterior bases) Gastrointestinal: Yes: Soft. No: Tenderness, Rebound Genitourinary: No: Bladder Distention Edema: LLE: 1+, RLE: 1+ Wound/Incision: Yes: Other (Presacral edema Trace) Labs: CBC, BMP 11/15/16 06:35 11/15/16 06:35 INR, PTT INR 1.20 (0.82-1.09) H 11/13/16 17:00 Assessment/Plan Impression Dyspnea on exertion and orthopnea in pt with Nephrotic Syndrome, CKD and Valvular heart disease NS Ruling out other causes besides DM DM HTN Microcytic anemia Plan Will add Metolazone 5 mg JENNIFER an hour before the next lasix dose Lasix is 60 mgs IV BID Daily wts GI and DVT PPX- High risk for DVT given the NS Await Bx results Awaiting lipid panel Increase ACEi slowly Statin as indicated Anemia w/u as per primary care- Needs a colonoscopy if not recently done especially if renal bx shows a membranous GN. Dr Hebert
[2016-11-15] MEDS ORDERED: METOLAZONE 5 MG TABLET PO ONE (12:33)
[2016-11-15] MEDS ORDERED: MAGNESIUM OXIDE 400 MG TABLET (FP) PO ONE (12:35)
--- NOTE | 2016-11-15 13:20 | PN ---
Physical Exam: SUBJECTIVE: Patient seen and examined. Observed lying almost completely flat without SOB. OBJECTIVE: Vital Signs Period Temp Pulse Resp BP Sys/Benz Pulse Ox Last 24 Hr 98.2 F-98.3 F 85-98 18-20 138-147/74-82 94-96 GENERAL: The patient is awake, alert, and fully oriented, in no acute distress. HEAD: Normal with no signs of trauma. EYES: PERRL, extraocular movements intact, sclera anicteric, conjunctiva clear. No ptosis. ENT: Ears normal, nares patent, oropharynx clear without exudates, moist mucous membranes. NECK: Trachea midline, full range of motion, supple. LUNGS: Bilateral crackles intermediate up, improved from yesterday. No wheezing, no rhonchi. No accessory muscle use on nasal cannula. HEART: Regular rate and rhythm, S1, S2 without murmur, rub or gallop. ABDOMEN: Soft, +distended, not tender EXTREMITIES: Bilateral edema resolved. NEUROLOGICAL: Cranial nerves II through XII grossly intact. Normal speech, gait not observed. Laboratory Results - last 24 hr 11/14/16 11/14/16 11/15/16 16:49 22:05 06:10 WBC RBC Hgb Hct MCV MCHC RDW Plt Count MPV Neutrophils % Lymphocytes % Monocytes % Eosinophils % Basophils % Sodium Potassium Chloride Carbon Dioxide Anion Gap BUN Creatinine Creat Clearance w eGFR POC Glucometer 91 123 100 Random Glucose Calcium Phosphorus Magnesium Ferritin Total Bilirubin AST ALT Alkaline Phosphatase Total Protein Albumin Triglycerides Cholesterol Total LDL Cholesterol HDL Cholesterol 11/15/16 11/15/16 11/15/16 06:35 06:35 11:07 WBC 6.5 RBC 3.32 L Hgb 8.4 L Hct 26.1 L MCV 78.6 L MCHC 32.2 RDW 15.2 Plt Count 223 MPV 7.8 Neutrophils % 62.6 Lymphocytes % 21.9 D Monocytes % 8.4 Eosinophils % 6.2 H Basophils % 0.9 Sodium 142 Potassium 4.5 Chloride 111 H Carbon Dioxide 20 L Anion Gap 11 BUN 50 H Creatinine 2.8 H Creat Clearance w eGFR 24.21 POC Glucometer 147 Random Glucose 86 Calcium 8.0 L Phosphorus 3.8 Magnesium 1.7 L Ferritin 64.150 Total Bilirubin 0.4 AST 22 ALT 25 Alkaline Phosphatase 218 H Total Protein 7.1 Albumin 2.3 L Triglycerides 103 D Cholesterol 125 Total LDL Cholesterol 81 D HDL Cholesterol 37 L Active Medications Generic Name Dose Route Start Last Admin Trade Name Stephanie PRN Reason Stop Dose Admin Amlodipine Besylate 10 mg 11/14/16 10:00 11/15/16 09:36 Norvasc - PO 10 mg DAILY [facility] Administration Aspirin 81 mg 11/14/16 11:30 11/15/16 09:36 Ecotrin - PO 81 mg DAILY [facility] Administration Ferrous Gluconate 324 mg 11/13/16 22:00 11/15/16 09:36 Fergon - PO 324 mg BID [facility] Administration Folic Acid 1 mg 11/14/16 10:00 11/15/16 09:36 Folic Acid - PO 1 mg DAILY [facility] Administration Furosemide 60 mg 11/14/16 06:00 11/15/16 06:11 Lasix Injection - IVPUSH 60 mg BID@0600,1400 [facility] Administration Heparin Sodium (Porcine) 5,000 unit 11/14/16 22:00 11/15/16 09:35 Heparin - SQ 5,000 unit BID [facility] Administration Insulin Aspart 0 units 11/14/16 16:30 11/15/16 11:07 Novolog Vial SQ Not Given [facility]S [facility] Protocol Lisinopril 5 mg 11/14/16 10:00 11/15/16 09:36 Prinivil PO 5 mg DAILY [facility] Administration Metoprolol Tartrate 25 mg 11/14/16 11:30 11/15/16 09:36 Lopressor - PO 25 mg BID [facility] Administration Pantoprazole Sodium 40 mg 11/15/16 10:00 11/15/16 09:36 Protonix - PO 40 mg DAILY [facility] Administration Thiamine HCl 100 mg 11/14/16 10:00 11/15/16 09:36 Vitamin B1 - PO 100 mg DAILY [facility] Administration Imaging 11/02/16 Echo: LV normal; RV normal; mild to moderate MR; mild to moderate TR; mild pHTN 11/13/16 CXR: pulmonary vascular congestion; bilateral pleural effusions; CHF ASSESSMENT/PLAN 51 year-old male with a PMH of HTN, CKD, and DM, admitted for hypoxia secondary to volume overload. Acute hypoxic respiratory failure secondary to volume overload --improved with aggressive diuresis, satting 96% on 3L Acute on chronic diastolic heart failure --echo on 11/02 as above --continue IV Lasix 60 BID; down 1.1kg from 05/13 --continue lisinopril, amlodipine, metoprolol --consider nuclear myocardial perfusion imaging once euvolemic --cardiology following CKD --Cr 2.8 --renal biopsy done on 11/10, pending results --renal following Microcytic anemia --iron studies pending IDDM --HgbA1C 7.1 --Novolog sliding scale coverage Hypertension --BP well-controlled --continue lisinopril, amlodipine, metoprolol F/E/N Fluids: PO intake adequate Electrolytes: replete as indicated Nutrition: diabetic low sodium DVT prophylaxis: subq heparin, oob, ambulation Rehab PT evaluation Daily PT Dispo: continues to require inpatient care. Full Code. Visit type - Emergency Visit Emergency Visit: Yes ED Registration Date: 11/13/16 Care time: The patient presented to the Emergency Department on the above date and was hospitalized for further evaluation of their emergent condition. - New Patient This patient is new to me today: No - Critical Care Critical Care patient: No
[2016-11-15] MEDS ORDERED: MAGNESIUM SULF 50% (8.12 MEQ/2 ML-1 GM VIAL) IVPB ONE (13:29)
[2016-11-16 06:06] LABS: SERUM IRON 24 ug/dL (38-169); TOTAL IRON BINDING CAPACITY 242 ug/dL (250-450); UIBC 218 ug/dL (111-343)
[2016-11-16] MEDS: FUROSEMIDE 40 MG/4 ML INJECTABLE VIAL IVPUSH SCH ×2 (06:06→13:34)
[2016-11-16] MEDS: INSULIN (NOVOLOG) ASPART 100 UNITS/ML 10ML VIAL SQ SCH ×4 (06:10→21:38)
[2016-11-16 08:24] LABS: MCH 25.2 pg (25.7-33.7); MCHC 32.5 g/dl (32.0-35.9); MEAN CELL VOLUME 77.7 fl (80-96); MEAN PLT VOLUME 7.6 fl (7.5-11.1); NEUTROPHILS 67.8 % (42.8-82.8); PLATELET COUNT 238 K/MM3 (134-434); WHITE BLOOD COUNT 6.6 K/mm3 (4.0-10.0)
[2016-11-16 09:14] LABS: ALBUMIN 2.5 g/dl (3.4-5.0); BILIRUBIN,TOTAL 0.5 mg/dL (0.2-1.0); CALCIUM 8.6 mg/dL (8.5-10.1); CREATININE 2.8 mg/dL (0.7-1.3); MAGNESIUM 2.1 mg/dL (1.8-2.4); PHOSPHOROUS 3.9 mg/dL (2.5-4.9); TOT PROT 7.5 g/dl (6.4-8.2)
[2016-11-16] MEDS: FERROUS GLUCONATE 324 MG TAB (FP) PO SCH ×2 (09:21→21:36)
[2016-11-16] MEDS: amLODIPine BESYLATE 10 MG TABLET (FP) PO SCH (09:21)
[2016-11-16] MEDS: PANTOPRAZOLE 40 MG TABLET (FP) PO SCH (09:21)
[2016-11-16] MEDS: FOLIC ACID 1 MG TABLET (FP) PO SCH (09:21)
[2016-11-16] MEDS: LISINOPRIL 5 MG TABLET (FP) PO SCH (09:22)
[2016-11-16] MEDS: THIAMINE HCL 100 MG TABLET (FP) PO SCH (09:22)
[2016-11-16] MEDS: ASPIRIN COATED 81 MG TABLET.EC PO SCH (09:22)
[2016-11-16] MEDS: METOPROLOL TARTRATE 25 MG TABLET (FP) PO SCH ×2 (09:22→21:37)
[2016-11-16] MEDS: HEPARIN NA (PORCINE) 5,000 UNITS/ML 1ML VIAL SQ SCH ×2 (09:22→21:36)
--- NOTE | 2016-11-16 11:40 | PN ---
Physical Exam: SUBJECTIVE: Patient seen and examined at bedside. OBJECTIVE: Vital Signs Period Temp Pulse Resp BP Sys/Benz Pulse Ox Last 24 Hr 98.0 F-98.4 F 62-97 16-20 140-160/79-87 95 GENERAL: The patient is awake, alert, and fully oriented, in no acute distress. HEAD: Normal with no signs of trauma. EYES: PERRL, extraocular movements intact, sclera anicteric, conjunctiva clear. No ptosis. ENT: Ears normal, nares patent, oropharynx clear without exudates, moist mucous membranes. NECK: Trachea midline, full range of motion, supple. LUNGS: Bilateral crackles nursing home up. unchanged from yesterday. No wheezing, no rhonchi. No accessory muscle use. HEART: Regular rate and rhythm, S1, S2 without murmur, rub or gallop. ABDOMEN: Soft, +distended, not tender EXTREMITIES: Bilateral edema resolved. NEUROLOGICAL: Cranial nerves II through XII grossly intact. Normal speech, gait not observed. Laboratory Results - last 24 hr 11/15/16 11/15/16 11/15/16 06:35 16:40 22:35 WBC RBC Hgb Hct MCV MCHC RDW Plt Count MPV Neutrophils % Lymphocytes % Monocytes % Eosinophils % Basophils % Sodium Potassium Chloride Carbon Dioxide Anion Gap BUN Creatinine Creat Clearance w eGFR POC Glucometer 142 150 Random Glucose Calcium Phosphorus Magnesium Iron 24 L TIBC 242 L Iron Saturation 10 L Total Bilirubin AST ALT Alkaline Phosphatase Total Protein Albumin 11/16/16 11/16/16 11/16/16 06:09 07:00 07:00 WBC 6.6 RBC 3.43 L Hgb 8.6 L Hct 26.6 L MCV 77.7 L MCHC 32.5 RDW 15.0 Plt Count 238 MPV 7.6 Neutrophils % 67.8 Lymphocytes % 17.7 Monocytes % 7.5 Eosinophils % 6.0 H Basophils % 1.0 Sodium 141 Potassium 4.5 Chloride 109 H Carbon Dioxide 24 Anion Gap 8 BUN 51 H Creatinine 2.8 H Creat Clearance w eGFR 24.21 POC Glucometer 108 Random Glucose 100 Calcium 8.6 Phosphorus 3.9 Magnesium 2.1 D Iron TIBC Iron Saturation Total Bilirubin 0.5 D AST 20 ALT 23 Alkaline Phosphatase 222 H Total Protein 7.5 Albumin 2.5 L Active Medications Generic Name Dose Route Start Last Admin Trade Name Freq PRN Reason Stop Dose Admin Amlodipine Besylate 10 mg 11/14/16 10:00 11/16/16 09:21 Norvasc - PO 10 mg DAILY [facility] Administration Aspirin 81 mg 11/14/16 11:30 11/16/16 09:22 Ecotrin - PO 81 mg DAILY [facility] Administration Ferrous Gluconate 324 mg 11/13/16 22:00 11/16/16 09:21 Fergon - PO 324 mg BID [facility] Administration Folic Acid 1 mg 11/14/16 10:00 11/16/16 09:21 Folic Acid - PO 1 mg DAILY [facility] Administration Furosemide 60 mg 11/14/16 06:00 11/16/16 06:06 Lasix Injection - IVPUSH 60 mg BID@0600,1400 [facility] Administration Heparin Sodium (Porcine) 5,000 unit 11/14/16 22:00 11/16/16 09:22 Heparin - SQ 5,000 unit BID [facility] Administration Insulin Aspart 0 units 11/14/16 16:30 11/16/16 06:10 Novolog Vial SQ Not Given ACHS [facility] Protocol Lisinopril 5 mg 11/14/16 10:00 11/16/16 09:22 Prinivil PO 5 mg DAILY [facility] Administration Metoprolol Tartrate 25 mg 11/14/16 11:30 11/16/16 09:22 Lopressor - PO 25 mg BID [facility] Administration Pantoprazole Sodium 40 mg 11/15/16 10:00 11/16/16 09:21 Protonix - PO 40 mg DAILY [facility] Administration Thiamine HCl 100 mg 11/14/16 10:00 11/16/16 09:22 Vitamin B1 - PO 100 mg DAILY [facility] Administration Imaging 11/02/16 Echo: LV normal; RV normal; mild to moderate MR; mild to moderate TR; mild pHTN 11/13/16 CXR: pulmonary vascular congestion; bilateral pleural effusions; CHF ASSESSMENT/PLAN 51 year-old male with a PMH of HTN, CKD, and DM, admitted for hypoxia secondary to volume overload. Acute hypoxic respiratory failure secondary to volume overload --improved with aggressive diuresis, satting 95% on room air --pre post for discharge planning Acute on chronic diastolic heart failure --echo on 11/02 as above --continue IV Lasix 60 BID; down 1.6 kg from 11/13 without rise in Cr --continue lisinopril, amlodipine, metoprolol --consider nuclear myocardial perfusion imaging once euvolemic --cardiology following CKD --Cr 2.8, baseline, stable --renal biopsy done on 11/10, pending results --renal following Anemia of chronic disease --continue ferrous gluconate --h/h stable IDDM --HgbA1C 7.1 --Novolog sliding scale coverage Hypertension --BP well-controlled --continue lisinopril, amlodipine, metoprolol F/E/N Fluids: PO intake adequate Electrolytes: replete as indicated Nutrition: diabetic low sodium DVT prophylaxis: subq heparin, oob, ambulation Rehab PT evaluation Daily PT Dispo: continues to require inpatient care. Full Code. Visit type - Emergency Visit Emergency Visit: Yes ED Registration Date: 11/13/16 Care time: The patient presented to the Emergency Department on the above date and was hospitalized for further evaluation of their emergent condition. - New Patient This patient is new to me today: No - Critical Care Critical Care patient: No
--- NOTE | 2016-11-16 13:17 | PN ---
Progress Note, Physician Chief Complaint: Feels better Sitting in chair History of Present Illness: Patient was seen and examined. Awake and alert. Chart was reviewed Denies chest pain or palpitations Intermittent shortness of breath improved - Current Medication List Current Medications: Active Medications Amlodipine Besylate (Norvasc -) 10 mg PO DAILY [facility] Last Admin: 11/16/16 09:21 Dose: 10 mg Aspirin (Ecotrin -) 81 mg PO DAILY [facility] Last Admin: 11/16/16 09:22 Dose: 81 mg Ferrous Gluconate (Fergon -) 324 mg PO BID [facility] Last Admin: 11/16/16 09:21 Dose: 324 mg Folic Acid (Folic Acid -) 1 mg PO DAILY [facility] Last Admin: 11/16/16 09:21 Dose: 1 mg Furosemide (Lasix Injection -) 60 mg IVPUSH BID@0600,1400 [facility] Last Admin: 11/16/16 06:06 Dose: 60 mg Heparin Sodium (Porcine) (Heparin -) 5,000 unit SQ BID [facility] Last Admin: 11/16/16 09:22 Dose: 5,000 unit Insulin Aspart (Novolog Vial) 0 units SQ ACHS [facility] PRN Reason: Protocol Last Admin: 11/16/16 11:56 Dose: Not Given Lisinopril (Prinivil) 5 mg PO DAILY [facility] Last Admin: 11/16/16 09:22 Dose: 5 mg Metoprolol Tartrate (Lopressor -) 25 mg PO BID [facility] Last Admin: 11/16/16 09:22 Dose: 25 mg Pantoprazole Sodium (Protonix -) 40 mg PO DAILY [facility] Last Admin: 11/16/16 09:21 Dose: 40 mg Thiamine HCl (Vitamin B1 -) 100 mg PO DAILY [facility] Last Admin: 11/16/16 09:22 Dose: 100 mg - Objective Vital Signs: Vital Signs Temperature 98.4 F 11/16/16 05:55 Pulse Rate 85 11/16/16 11:00 Respiratory Rate 18 11/16/16 11:00 Blood Pressure 151/80 11/16/16 11:00 O2 Sat by Pulse Oximetry (%) 98 11/16/16 09:00 Neck: Yes: Supple Cardiovascular: Yes: Regular Rate and Rhythm, Murmur (Soft SM), S1, S2 Respiratory: Yes: Diminished Gastrointestinal: Yes: Normal Bowel Sounds, Soft. No: Tenderness Edema: No Labs: CBC, BMP 11/16/16 07:00 11/16/16 07:00 Problem List - Problems (1) Fluid overload, unspecified Code(s): E87.70 - FLUID OVERLOAD, UNSPECIFIED Qualifiers: Hypervolemia type: unspecified Qualified Code(s): E87.70 - Fluid overload, unspecified (2) Diabetes 1.5, managed as type 1 Code(s): E13.9 - OTHER SPECIFIED DIABETES MELLITUS WITHOUT COMPLICATIONS (3) Hypertension Code(s): I10 - ESSENTIAL (PRIMARY) HYPERTENSION Qualifiers: Hypertension type: essential hypertension Qualified Code(s): I10 - Essential (primary) hypertension (4) Hypoxia Code(s): R09.02 - HYPOXEMIA (5) Renal failure Code(s): N19 - UNSPECIFIED KIDNEY FAILURE Assessment/Plan 1. Clinical presentation suggest acute on chronic diastolic heart failure with elevated BNP in the presence of renal insufficiency and volume overload 2. CKD 3. HTN 4. Sinus tachycardia PLAN: 1. Continue diuretics IV and monitor renal function and electrolytes 2. Continue Lisinopril and Amlodipine 3. Continue Metoprolol Tartrate - increase dose to 50 mg BID 4. Continue ASA 81 mg once a day 5. Nuclear myocardial perfusion imaging tomorrow 6. Await renal biopsy result Further plans are to follow Mitul Hightower MD
--- NOTE | 2016-11-16 14:24 | PN ---
Progress Note, Physician History of Present Illness: Pt seen and examined at bedside. He feels that his breathing is improved. He denies shortness of breath at this time. - Current Medication List Current Medications: Active Medications Amlodipine Besylate (Norvasc -) 10 mg PO DAILY [facility] Last Admin: 11/16/16 09:21 Dose: 10 mg Aspirin (Ecotrin -) 81 mg PO DAILY [facility] Last Admin: 11/16/16 09:22 Dose: 81 mg Ferrous Gluconate (Fergon -) 324 mg PO BID [facility] Last Admin: 11/16/16 09:21 Dose: 324 mg Folic Acid (Folic Acid -) 1 mg PO DAILY [facility] Last Admin: 11/16/16 09:21 Dose: 1 mg Furosemide (Lasix Injection -) 60 mg IVPUSH BID@0600,1400 [facility] Last Admin: 11/16/16 13:34 Dose: 60 mg Heparin Sodium (Porcine) (Heparin -) 5,000 unit SQ BID [facility] Last Admin: 11/16/16 09:22 Dose: 5,000 unit Insulin Aspart (Novolog Vial) 0 units SQ ACHS [facility] PRN Reason: Protocol Last Admin: 11/16/16 11:56 Dose: Not Given Lisinopril (Prinivil) 5 mg PO DAILY [facility] Last Admin: 11/16/16 09:22 Dose: 5 mg Metoprolol Tartrate (Lopressor -) 25 mg PO BID [facility] Last Admin: 11/16/16 09:22 Dose: 25 mg Pantoprazole Sodium (Protonix -) 40 mg PO DAILY [facility] Last Admin: 11/16/16 09:21 Dose: 40 mg Thiamine HCl (Vitamin B1 -) 100 mg PO DAILY [facility] Last Admin: 11/16/16 09:22 Dose: 100 mg - Objective Vital Signs: Vital Signs Temperature 97.9 F 11/16/16 14:00 Pulse Rate 80 11/16/16 14:00 Respiratory Rate 20 11/16/16 14:00 Blood Pressure 151/80 11/16/16 11:00 O2 Sat by Pulse Oximetry (%) 98 11/16/16 09:00 Constitutional: Yes: Calm Eyes: Yes: Conjunctiva Clear HENT: Yes: Atraumatic Neck: Yes: Supple Cardiovascular: Yes: S1, S2 Respiratory: Yes: CTA Bilaterally Gastrointestinal: Yes: Soft Genitourinary: Yes: WNL Musculoskeletal: Yes: WNL Edema: Yes Edema: LLE: Trace, RLE: Trace Neurological: Yes: Oriented Psychiatric: Yes: Oriented Labs: CBC, BMP 11/16/16 07:00 11/16/16 07:00 INR, PTT INR 1.20 (0.82-1.09) H 11/13/16 17:00 Problem List - Problems (1) Fluid overload, unspecified Code(s): E87.70 - FLUID OVERLOAD, UNSPECIFIED Qualifiers: Hypervolemia type: unspecified Qualified Code(s): E87.70 - Fluid overload, unspecified (2) Anasarca Code(s): R60.1 - GENERALIZED EDEMA (3) Diabetes 1.5, managed as type 1 Code(s): E13.9 - OTHER SPECIFIED DIABETES MELLITUS WITHOUT COMPLICATIONS (4) Hypertension Code(s): I10 - ESSENTIAL (PRIMARY) HYPERTENSION Qualifiers: Hypertension type: essential hypertension Qualified Code(s): I10 - Essential (primary) hypertension (5) CKD (chronic kidney disease) Code(s): N18.9 - CHRONIC KIDNEY DISEASE, UNSPECIFIED Assessment/Plan Current Medications Generic Name Dose Route Start Last Admin Trade Name Stephanie PRN Reason Stop Dose Admin Amlodipine Besylate 10 mg 11/14/16 10:00 11/16/16 09:21 Norvasc - PO 10 mg DAILY [facility] Administration Aspirin 81 mg 11/14/16 11:30 11/16/16 09:22 Ecotrin - PO 81 mg DAILY [facility] Administration Ferrous Gluconate 324 mg 11/13/16 22:00 11/16/16 09:21 Fergon - PO 324 mg BID [facility] Administration Folic Acid 1 mg 11/14/16 10:00 11/16/16 09:21 Folic Acid - PO 1 mg DAILY [facility] Administration Furosemide 60 mg 11/14/16 06:00 11/16/16 13:34 Lasix Injection - IVPUSH 60 mg BID@0600,1400 [facility] Administration Heparin Sodium (Porcine) 5,000 unit 11/14/16 22:00 11/16/16 09:22 Heparin - SQ 5,000 unit BID [facility] Administration Insulin Aspart 0 units 11/14/16 16:30 11/16/16 11:56 Novolog Vial SQ Not Given ACHS [facility] Protocol Lisinopril 5 mg 11/14/16 10:00 11/16/16 09:22 Prinivil PO 5 mg DAILY [facility] Administration Metoprolol Tartrate 25 mg 11/14/16 11:30 11/16/16 09:22 Lopressor - PO 25 mg BID [facility] Administration Pantoprazole Sodium 40 mg 11/15/16 10:00 11/16/16 09:21 Protonix - PO 40 mg DAILY [facility] Administration Thiamine HCl 100 mg 11/14/16 10:00 11/16/16 09:22 Vitamin B1 - PO 100 mg DAILY [facility] Administration Impression 1. CKD 2. fluid overload 3. HTN 4. DM 5. proteinuria 6. dyspnea Plan - cont with lasix - cont dontae - pt has nephrotic range proteinuria - prelim biopsy shows diabetic nephropathy, spoke to path on phone but did not see report - will follow Dr Oleary
[2016-11-17] MEDS: FUROSEMIDE 40 MG/4 ML INJECTABLE VIAL IVPUSH SCH ×2 (06:10→14:20)
[2016-11-17] MEDS: INSULIN (NOVOLOG) ASPART 100 UNITS/ML 10ML VIAL SQ SCH ×4 (06:11→21:30)
[2016-11-17 08:01] LABS: BASOPHIL 0.9 % (0-2.0); EOSINOPHIL 5.1 % (0-4.5); MCH 24.8 pg (25.7-33.7); MCHC 31.9 g/dl (32.0-35.9); MEAN CELL VOLUME 77.5 fl (80-96); MEAN PLT VOLUME 7.5 fl (7.5-11.1); NEUTROPHILS 67.5 % (42.8-82.8); PLATELET COUNT 215 K/MM3 (134-434); RDW 14.8 % (11.9-15.9); WHITE BLOOD COUNT 6.8 K/mm3 (4.0-10.0)
[2016-11-17 08:43] LABS: ALBUMIN 2.3 g/dl (3.4-5.0); BILIRUBIN,TOTAL 0.5 mg/dL (0.2-1.0); CALCIUM 8.1 mg/dL (8.5-10.1); PHOSPHOROUS 4.3 mg/dL (2.5-4.9)
[2016-11-17] MEDS ORDERED: WATER IVPB ONE (10:00)
[2016-11-17] MEDS ORDERED: DIPYRIDAMOLE STRESS TEST IVPB ONE (10:00)
[2016-11-17] MEDS ORDERED: DEXTROSE 5% IVPB ONE (10:00)
[2016-11-17] MEDS: ASPIRIN COATED 81 MG TABLET.EC PO SCH ×2 (10:26→14:21)
[2016-11-17] MEDS: HEPARIN NA (PORCINE) 5,000 UNITS/ML 1ML VIAL SQ SCH ×3 (10:27→21:36)
[2016-11-17] MEDS: FERROUS GLUCONATE 324 MG TAB (FP) PO SCH ×3 (10:27→21:36)
[2016-11-17] MEDS: amLODIPine BESYLATE 10 MG TABLET (FP) PO SCH ×2 (10:27→14:22)
[2016-11-17] MEDS: FOLIC ACID 1 MG TABLET (FP) PO SCH ×2 (10:27→14:22)
[2016-11-17] MEDS: METOPROLOL TARTRATE 25 MG TABLET (FP) PO SCH ×2 (10:27→14:21)
[2016-11-17] MEDS: THIAMINE HCL 100 MG TABLET (FP) PO SCH ×2 (10:28→14:22)
[2016-11-17] MEDS: LISINOPRIL 5 MG TABLET (FP) PO SCH ×2 (10:28→14:22)
[2016-11-17] MEDS: PANTOPRAZOLE 40 MG TABLET (FP) PO SCH ×2 (10:28→14:22)
--- NOTE | 2016-11-17 15:29 | PN ---
Progress Note, Physician History of Present Illness: Pt seen and examined at bedside. He feels much better. He feels that his lower extremity edema is improving. - Current Medication List Current Medications: Active Medications Amlodipine Besylate (Norvasc -) 10 mg PO DAILY [facility] Last Admin: 11/17/16 14:22 Dose: 10 mg Aspirin (Ecotrin -) 81 mg PO DAILY [facility] Last Admin: 11/17/16 14:21 Dose: 81 mg Ferrous Gluconate (Fergon -) 324 mg PO BID [facility] Last Admin: 11/17/16 14:21 Dose: 324 mg Folic Acid (Folic Acid -) 1 mg PO DAILY [facility] Last Admin: 11/17/16 14:22 Dose: 1 mg Furosemide (Lasix Injection -) 60 mg IVPUSH BID@0600,1400 [facility] Last Admin: 11/17/16 14:20 Dose: 60 mg Heparin Sodium (Porcine) (Heparin -) 5,000 unit SQ BID [facility] Last Admin: 11/17/16 14:21 Dose: 5,000 unit Insulin Aspart (Novolog Vial) 0 units SQ ACHS [facility] PRN Reason: Protocol Last Admin: 11/17/16 10:28 Dose: Not Given Lisinopril (Prinivil) 5 mg PO DAILY [facility] Last Admin: 11/17/16 14:22 Dose: 5 mg Metoprolol Tartrate (Lopressor -) 25 mg PO BID [facility] Last Admin: 11/17/16 14:21 Dose: 25 mg Pantoprazole Sodium (Protonix -) 40 mg PO DAILY [facility] Last Admin: 11/17/16 14:22 Dose: 40 mg Thiamine HCl (Vitamin B1 -) 100 mg PO DAILY [facility] Last Admin: 11/17/16 14:22 Dose: 100 mg - Objective Vital Signs: Vital Signs Temperature 98.1 F 11/17/16 13:33 Pulse Rate 80 11/17/16 13:33 Respiratory Rate 21 11/17/16 13:33 Blood Pressure 152/88 11/17/16 08:00 O2 Sat by Pulse Oximetry (%) 94 L 11/17/16 13:14 Constitutional: Yes: Calm Eyes: Yes: Conjunctiva Clear HENT: Yes: Atraumatic Neck: Yes: Supple Cardiovascular: Yes: S1, S2 Respiratory: Yes: CTA Bilaterally Gastrointestinal: Yes: Soft Genitourinary: Yes: WNL Musculoskeletal: Yes: WNL Edema: Yes Edema: LLE: Trace, RLE: Trace Integumentary: Yes: WNL Neurological: Yes: Oriented Psychiatric: Yes: Oriented Labs: CBC, BMP 11/17/16 06:20 11/17/16 06:20 INR, PTT INR 1.20 (0.82-1.09) H 11/13/16 17:00 Problem List - Problems (1) Fluid overload, unspecified Code(s): E87.70 - FLUID OVERLOAD, UNSPECIFIED Qualifiers: Hypervolemia type: unspecified Qualified Code(s): E87.70 - Fluid overload, unspecified (2) Anasarca Code(s): R60.1 - GENERALIZED EDEMA (3) Diabetes 1.5, managed as type 1 Code(s): E13.9 - OTHER SPECIFIED DIABETES MELLITUS WITHOUT COMPLICATIONS (4) Hypertension Code(s): I10 - ESSENTIAL (PRIMARY) HYPERTENSION Qualifiers: Hypertension type: essential hypertension Qualified Code(s): I10 - Essential (primary) hypertension (5) CKD (chronic kidney disease) Code(s): N18.9 - CHRONIC KIDNEY DISEASE, UNSPECIFIED Assessment/Plan Current Medications Generic Name Dose Route Start Last Admin Trade Name Freq PRN Reason Stop Dose Admin Amlodipine Besylate 10 mg 11/14/16 10:00 11/17/16 14:22 Norvasc - PO 10 mg DAILY [facility] Administration Aspirin 81 mg 11/14/16 11:30 11/17/16 14:21 Ecotrin - PO 81 mg DAILY [facility] Administration Ferrous Gluconate 324 mg 11/13/16 22:00 11/17/16 14:21 Fergon - PO 324 mg BID [facility] Administration Folic Acid 1 mg 11/14/16 10:00 11/17/16 14:22 Folic Acid - PO 1 mg DAILY [facility] Administration Furosemide 60 mg 11/14/16 06:00 11/17/16 14:20 Lasix Injection - IVPUSH 60 mg BID@0600,1400 [facility] Administration Heparin Sodium (Porcine) 5,000 unit 11/14/16 22:00 11/17/16 14:21 Heparin - SQ 5,000 unit BID [facility] Administration Insulin Aspart 0 units 11/14/16 16:30 11/17/16 10:28 Novolog Vial SQ Not Given ACHS [facility] Protocol Lisinopril 5 mg 11/14/16 10:00 11/17/16 14:22 Prinivil PO 5 mg DAILY [facility] Administration Metoprolol Tartrate 25 mg 11/14/16 11:30 11/17/16 14:21 Lopressor - PO 25 mg BID [facility] Administration Pantoprazole Sodium 40 mg 11/15/16 10:00 11/17/16 14:22 Protonix - PO 40 mg DAILY [facility] Administration Thiamine HCl 100 mg 11/14/16 10:00 11/17/16 14:22 Vitamin B1 - PO 100 mg DAILY [facility] Administration Impression 1. CKD 2. fluid overload 3. HTN 4. DM 5. proteinuria 6. dyspnea Plan - increase lisinopril to 10 mg - monitor renal function - cont with lasix, can switch over to PO tomorrow - pt will need close outpt follow up with Dr Willingham, this was explained to him - pt has nephrotic range proteinuria - prelim biopsy shows diabetic nephropathy, spoke to path on phone but did not see report - will follow Dr Oleary
[2016-11-17] MEDS ORDERED: INSULIN (NOVOLOG) ASPART 100 UNITS/ML 10ML VIAL ONE (15:49)
--- NOTE | 2016-11-17 17:18 | PN ---
Progress Note, Physician Chief Complaint: Feels better Patient was seen in Cardiology while having nuclear myocardial perfusion imaging History of Present Illness: Patient was seen and examined. Awake and alert. Chart was reviewed Denies chest pain or palpitations Intermittent shortness of breath improved Nuclear stress test performed - Current Medication List Current Medications: Active Medications Amlodipine Besylate (Norvasc -) 10 mg PO DAILY [facility] Last Admin: 11/17/16 14:22 Dose: 10 mg Aspirin (Ecotrin -) 81 mg PO DAILY [facility] Last Admin: 11/17/16 14:21 Dose: 81 mg Ferrous Gluconate (Fergon -) 324 mg PO BID [facility] Last Admin: 11/17/16 14:21 Dose: 324 mg Folic Acid (Folic Acid -) 1 mg PO DAILY [facility] Last Admin: 11/17/16 14:22 Dose: 1 mg Furosemide (Lasix Injection -) 60 mg IVPUSH BID@0600,1400 [facility] Last Admin: 11/17/16 14:20 Dose: 60 mg Heparin Sodium (Porcine) (Heparin -) 5,000 unit SQ BID [facility] Last Admin: 11/17/16 14:21 Dose: 5,000 unit Insulin Aspart (Novolog Vial) 0 units SQ ACHS [facility] PRN Reason: Protocol Last Admin: 11/17/16 15:54 Dose: 2 units Lisinopril (Prinivil) 10 mg PO DAILY [facility] Metoprolol Tartrate (Lopressor -) 25 mg PO BID [facility] Last Admin: 11/17/16 14:21 Dose: 25 mg Pantoprazole Sodium (Protonix -) 40 mg PO DAILY [facility] Last Admin: 11/17/16 14:22 Dose: 40 mg Thiamine HCl (Vitamin B1 -) 100 mg PO DAILY [facility] Last Admin: 11/17/16 14:22 Dose: 100 mg - Objective Vital Signs: Vital Signs Temperature 98.1 F 11/17/16 13:33 Pulse Rate 80 11/17/16 13:33 Respiratory Rate 21 11/17/16 13:33 Blood Pressure 152/88 11/17/16 08:00 O2 Sat by Pulse Oximetry (%) 94 L 11/17/16 13:14 Neck: Yes: Supple Cardiovascular: Yes: Regular Rate and Rhythm, Murmur (Soft SM), S1, S2 Respiratory: Yes: CTA Bilaterally Gastrointestinal: Yes: Normal Bowel Sounds, Soft. No: Tenderness Edema: Yes Edema: LLE: Trace, RLE: Trace Additional Findings/Remarks: - Review of Systems Constitutional: denies: Chills, Fever Cardiovascular: (+) Shortness of Breath. denies: Chest Pain, Palpitations Respiratory: denies: Cough. denies: Hemoptysis, Orthopnea, PND Gastrointestinal: denies: Abdominal Pain, Constipation, Diarrhea, Melena, Nausea , Rectal Bleeding, Vomiting Musculoskeletal: denies: Joint Pain Neurological: denies: Dizziness, denies: Headache, Seizure, Syncope Labs: CBC, BMP 11/17/16 06:20 11/17/16 06:20 Problem List - Problems (1) Fluid overload, unspecified Code(s): E87.70 - FLUID OVERLOAD, UNSPECIFIED Qualifiers: Hypervolemia type: unspecified Qualified Code(s): E87.70 - Fluid overload, unspecified (2) Diabetes 1.5, managed as type 1 Code(s): E13.9 - OTHER SPECIFIED DIABETES MELLITUS WITHOUT COMPLICATIONS (3) Hypertension Code(s): I10 - ESSENTIAL (PRIMARY) HYPERTENSION Qualifiers: Hypertension type: essential hypertension Qualified Code(s): I10 - Essential (primary) hypertension (4) Hypoxia Code(s): R09.02 - HYPOXEMIA (5) Renal failure Code(s): N19 - UNSPECIFIED KIDNEY FAILURE (6) CAD (coronary artery disease) Code(s): I25.10 - ATHSCL HEART DISEASE OF [place] CORONARY ARTERY W/O ANG PCTRS Qualifiers: Coronary Disease-Associated Artery/Lesion type: [place] artery [place] vs. transplanted heart: [place] heart Associated angina: without angina Qualified Code(s): I25.10 - Atherosclerotic heart disease of [place] coronary artery without angina pectoris Assessment/Plan 1. Clinical presentation suggest acute on chronic diastolic heart failure with elevated BNP in the presence of renal insufficiency and volume overload 2. Rule out CAD 3. CKD 4. HTN PLAN: 1. Continue diuretics IV and monitor renal function and electrolytes - consider switch to PO 2. Continue Lisinopril and Amlodipine 3. Continue Metoprolol Tartrate - continue with 50 mg BID 4. Continue ASA 81 mg once a day 5. Nuclear myocardial perfusion imaging reveals small to moderate inferior and inferolateral reversible defect from base to apex and small anterior defect base to mid-cavity c/w mild ischemia and LVEF of 56%. In view of above result, he should proceed with cardiac catheterization/coronary angiography, but would wait until renal function stabilizes. Monitor BUN/cr and will need to discuss with renal team. Further decision and timing to follow 6. Await renal biopsy result Further plans are to follow Mitul Hightower MD
--- NOTE | 2016-11-17 17:23 | PN ---
Physical Exam: SUBJECTIVE: Patient seen and examined. OBJECTIVE: Vital Signs Period Temp Pulse Resp BP Sys/Benz Pulse Ox Last 24 Hr 98.0 F-98.7 F 78-92 18-21 148-156/82-95 94-96 GENERAL: The patient is awake, alert, and fully oriented, in no acute distress. HEAD: Normal with no signs of trauma. EYES: PERRL, extraocular movements intact, sclera anicteric, conjunctiva clear. No ptosis. ENT: Ears normal, nares patent, oropharynx clear without exudates, moist mucous membranes. NECK: Trachea midline, full range of motion, supple. LUNGS: Bilateral crackles long-term up. unchanged from yesterday. No wheezing, no rhonchi. No accessory muscle use. HEART: Regular rate and rhythm, S1, S2 without murmur, rub or gallop. ABDOMEN: Soft, +distended, not tender EXTREMITIES: Bilateral edema resolved. NEUROLOGICAL: Cranial nerves II through XII grossly intact. Normal speech, gait not observed. Laboratory Results - last 24 hr 11/16/16 11/17/16 11/17/16 21:38 06:06 06:20 WBC 6.8 RBC 3.40 L Hgb 8.4 L Hct 26.3 L MCV 77.5 L MCHC 31.9 L RDW 14.8 Plt Count 215 MPV 7.5 Neutrophils % 67.5 Lymphocytes % 18.3 Monocytes % 8.2 Eosinophils % 5.1 H Basophils % 0.9 Sodium Potassium Chloride Carbon Dioxide Anion Gap BUN Creatinine Creat Clearance w eGFR POC Glucometer 153 119 Random Glucose Calcium Phosphorus Magnesium Total Bilirubin AST ALT Alkaline Phosphatase Total Protein Albumin 11/17/16 11/17/16 06:20 15:47 WBC RBC Hgb Hct MCV MCHC RDW Plt Count MPV Neutrophils % Lymphocytes % Monocytes % Eosinophils % Basophils % Sodium 139 Potassium 4.5 Chloride 106 Carbon Dioxide 27 Anion Gap 6 L BUN 54 H Creatinine 3.0 H Creat Clearance w eGFR 22.35 POC Glucometer 179 Random Glucose 119 H Calcium 8.1 L Phosphorus 4.3 Magnesium 2.0 Total Bilirubin 0.5 AST 21 ALT 21 Alkaline Phosphatase 200 H Total Protein 7.0 Albumin 2.3 L Active Medications Generic Name Dose Route Start Last Admin Trade Name Freq PRN Reason Stop Dose Admin Amlodipine Besylate 10 mg 11/14/16 10:00 11/17/16 14:22 Norvasc - PO 10 mg DAILY LEMUEL Administration Aspirin 81 mg 11/14/16 11:30 11/17/16 14:21 Ecotrin - PO 81 mg DAILY LEMUEL Administration Ferrous Gluconate 324 mg 11/13/16 22:00 11/17/16 14:21 Fergon - PO 324 mg BID LEMUEL Administration Folic Acid 1 mg 11/14/16 10:00 11/17/16 14:22 Folic Acid - PO 1 mg DAILY LEMUEL Administration Furosemide 60 mg 11/14/16 06:00 11/17/16 14:20 Lasix Injection - IVPUSH 60 mg BID@0600,1400 LEMUEL Administration Heparin Sodium (Porcine) 5,000 unit 11/14/16 22:00 11/17/16 14:21 Heparin - SQ 5,000 unit BID LEMUEL Administration Insulin Aspart 0 units 11/14/16 16:30 11/17/16 15:54 Novolog Vial SQ 2 units ACHS LEMUEL Administration Protocol Lisinopril 10 mg 11/17/16 15:29 Prinivil PO DAILY [facility] Metoprolol Tartrate 25 mg 11/14/16 11:30 11/17/16 14:21 Lopressor - PO 25 mg BID LEMUEL Administration Pantoprazole Sodium 40 mg 11/15/16 10:00 11/17/16 14:22 Protonix - PO 40 mg DAILY LEMUEL Administration Thiamine HCl 100 mg 11/14/16 10:00 11/17/16 14:22 Vitamin B1 - PO 100 mg DAILY LEMUEL Administration Imaging 11/02/16 Echo: LV normal; RV normal; mild to moderate MR; mild to moderate TR; mild pHTN 11/13/16 CXR: pulmonary vascular congestion; bilateral pleural effusions; CHF ASSESSMENT/PLAN 51 year-old male with a PMH of HTN, CKD, and DM, admitted for hypoxia secondary to volume overload. Acute hypoxic respiratory failure secondary to volume overload --resolved with aggressive diuresis --satting 97% on room air, 94% on room air with ambulation Acute on chronic diastolic heart failure --echo on 11/02 as above --down 5.2 kg from 11/13 --continue lisinopril, amlodipine, metoprolol increased to 50mg BID Ischemic heart disease --11/17 Persantine stress: small to moderate zone of inferior and inferolateral defect from base to apex, and small anterior defect from base to mid-cavity which appears to reverse with rest; EF 56% --continue ASA --start statin CKD --Cr bump top 3.0 from 2.8 baseline --scale back Lasix to 40mg PO BID --renal biopsy done on 11/10, pending results Anemia of chronic disease --continue ferrous gluconate --h/h stable IDDM --HgbA1C 7.1 --Novolog sliding scale coverage Hypertension --BP well-controlled --continue lisinopril, amlodipine, metoprolol F/E/N Fluids: PO intake adequate Electrolytes: replete as indicated Nutrition: diabetic low sodium DVT prophylaxis: subq heparin, oob, ambulation Rehab PT evaluation Daily PT Dispo: continues to require inpatient care. Full Code. Visit type - Emergency Visit Emergency Visit: Yes ED Registration Date: 11/13/16 Care time: The patient presented to the Emergency Department on the above date and was hospitalized for further evaluation of their emergent condition. - New Patient This patient is new to me today: No - Critical Care Critical Care patient: No
[2016-11-17] MEDS: ATORVASTATIN CA 20 MG TABLET (FP) PO SCH (21:36)
[2016-11-17] MEDS: METOPROLOL TARTRATE 50 MG TABLET (FP) PO SCH (21:36)
[2016-11-18] MEDS: INSULIN (NOVOLOG) ASPART 100 UNITS/ML 10ML VIAL SQ SCH ×4 (06:11→21:43)
[2016-11-18] MEDS: FUROSEMIDE 40 MG TABLET (FP) PO SCH ×2 (06:13→14:18)
[2016-11-18 07:43] LABS: CALCIUM 7.8 mg/dL (8.5-10.1)
[2016-11-18] MEDS: ASPIRIN COATED 81 MG TABLET.EC PO SCH (09:15)
[2016-11-18] MEDS: LISINOPRIL 10 MG TABLET (FP) PO SCH (09:15)
[2016-11-18] MEDS: PANTOPRAZOLE 40 MG TABLET (FP) PO SCH (09:15)
[2016-11-18] MEDS: FERROUS GLUCONATE 324 MG TAB (FP) PO SCH ×2 (09:15→21:43)
[2016-11-18] MEDS: THIAMINE HCL 100 MG TABLET (FP) PO SCH (09:15)
[2016-11-18] MEDS: HEPARIN NA (PORCINE) 5,000 UNITS/ML 1ML VIAL SQ SCH ×2 (09:15→21:45)
[2016-11-18] MEDS: FOLIC ACID 1 MG TABLET (FP) PO SCH (09:15)
[2016-11-18] MEDS: METOPROLOL TARTRATE 50 MG TABLET (FP) PO SCH ×2 (09:15→21:42)
[2016-11-18] MEDS: amLODIPine BESYLATE 10 MG TABLET (FP) PO SCH (09:15)
[2016-11-18] MEDS ORDERED: INSULIN (NOVOLOG) ASPART 100 UNITS/ML 10ML VIAL ONE ×2 (11:15→21:39)
--- NOTE | 2016-11-18 12:14 | PN ---
Physical Exam: SUBJECTIVE: Patient seen and examined sitting on edge of bed eating lunch. Feels well. Offers no complaints. Seen ambulating in hallway. OBJECTIVE: Vital Signs Period Temp Pulse Resp BP Sys/Benz Pulse Ox Last 24 Hr 98.1 F-98.4 F 80-92 20-21 139-146/76-89 94-98 GENERAL: The patient is awake, alert, and fully oriented, in no acute distress. HEAD: Normal with no signs of trauma. EYES: PERRL, extraocular movements intact, sclera anicteric, conjunctiva clear. No ptosis. ENT: Ears normal, nares patent, oropharynx clear without exudates, moist mucous membranes. NECK: Trachea midline, full range of motion, supple. LUNGS: Bilateral crackles care home up. unchanged from yesterday. No wheezing, no rhonchi. No accessory muscle use. HEART: Regular rate and rhythm, S1, S2 without murmur, rub or gallop. ABDOMEN: Soft, +distended, not tender EXTREMITIES: Bilateral edema resolved. NEUROLOGICAL: Cranial nerves II through XII grossly intact. Normal speech, steady gait. Laboratory Results - last 24 hr 11/17/16 11/17/16 11/18/16 15:47 21:13 04:16 Sodium Potassium Chloride Carbon Dioxide Anion Gap BUN Creatinine POC Glucometer 179 204 112 Random Glucose Calcium 11/18/16 11/18/16 11/18/16 06:07 06:45 11:13 Sodium 141 Potassium 4.5 Chloride 108 H Carbon Dioxide 27 Anion Gap 6 L BUN 55 H Creatinine 3.0 H POC Glucometer 119 166 Random Glucose 107 H Calcium 7.8 L Active Medications Generic Name Dose Route Start Last Admin Trade Name Fuentesq PRN Reason Stop Dose Admin Amlodipine Besylate 10 mg 11/14/16 10:00 11/18/16 09:15 Norvasc - PO 10 mg DAILY LEMUEL Administration Aspirin 81 mg 11/14/16 11:30 11/18/16 09:15 Ecotrin - PO 81 mg DAILY LEMUEL Administration Atorvastatin Calcium 20 mg 11/17/16 22:00 11/17/16 21:36 Lipitor - PO 20 mg HS LEMUEL Administration Ferrous Gluconate 324 mg 11/13/16 22:00 11/18/16 09:15 Fergon - PO 324 mg BID LEMUEL Administration Folic Acid 1 mg 11/14/16 10:00 11/18/16 09:15 Folic Acid - PO 1 mg DAILY LEMUEL Administration Furosemide 40 mg 11/18/16 06:00 11/18/16 06:13 Lasix - PO 40 mg BID@0600,1400 LEMUEL Administration Heparin Sodium (Porcine) 5,000 unit 11/14/16 22:00 11/18/16 09:15 Heparin - SQ 5,000 unit BID LEMUEL Administration Insulin Aspart 0 units 11/14/16 16:30 11/18/16 11:18 Novolog Vial SQ 2 units ACHS LEMUEL Administration Protocol Lisinopril 10 mg 11/17/16 15:29 11/18/16 09:15 Prinivil PO 10 mg DAILY LEMUEL Administration Metoprolol Tartrate 50 mg 11/17/16 17:32 11/18/16 09:15 Lopressor - PO 50 mg BID LEMUEL Administration Pantoprazole Sodium 40 mg 11/15/16 10:00 11/18/16 09:15 Protonix - PO 40 mg DAILY LEMUEL Administration Thiamine HCl 100 mg 11/14/16 10:00 11/18/16 09:15 Vitamin B1 - PO 100 mg DAILY LEMUEL Administration Imaging 11/02/16 Echo: LV normal; RV normal; mild to moderate MR; mild to moderate TR; mild pHTN 11/13/16 CXR: pulmonary vascular congestion; bilateral pleural effusions; CHF ASSESSMENT/PLAN 51 year-old male with a PMH of HTN, CKD, and DM, admitted for hypoxia secondary to volume overload. Acute hypoxic respiratory failure secondary to volume overload --resolved with aggressive diuresis --satting 97% on room air, 94% on room air with ambulation Acute on chronic diastolic heart failure --echo on 11/02 as above --down 6.2 kg from 11/13 --continue lisinopril, amlodipine, metoprolol Ischemic heart disease --11/17 Persantine stress: small to moderate zone of inferior and inferolateral defect from base to apex, and small anterior defect from base to mid-cavity which appears to reverse with rest; EF 56% --continue ASA --start statin --cardiology following, to decide on cath CKD --Cr 3.0 (baseline 2.8) --continue Lasix --renal biopsy done on 11/10, findings suggestive of diabetic nephropathy Anemia of chronic disease --continue ferrous gluconate --h/h stable IDDM --HgbA1C 7.1 --Novolog sliding scale coverage Hypertension --BP well-controlled --continue lisinopril, amlodipine, metoprolol F/E/N Fluids: PO intake adequate Electrolytes: replete as indicated Nutrition: diabetic low sodium DVT prophylaxis: subq heparin, oob, ambulation Rehab PT evaluation Daily PT Dispo: cardiology to make decision re: cath; renal workup is complete; continues to require inpatient care. Full Code. Visit type - Emergency Visit Emergency Visit: Yes ED Registration Date: 11/13/16 Care time: The patient presented to the Emergency Department on the above date and was hospitalized for further evaluation of their emergent condition. - New Patient This patient is new to me today: No - Critical Care Critical Care patient: No
--- NOTE | 2016-11-18 17:55 | PN ---
Progress Note, Physician History of Present Illness: Pt seen and examined at bedside. He is awake and alert. He denies shortness of breath. - Current Medication List Current Medications: Active Medications Amlodipine Besylate (Norvasc -) 10 mg PO DAILY [facility] Last Admin: 11/18/16 09:15 Dose: 10 mg Aspirin (Ecotrin -) 81 mg PO DAILY [facility] Last Admin: 11/18/16 09:15 Dose: 81 mg Atorvastatin Calcium (Lipitor -) 20 mg PO HS [facility] Last Admin: 11/17/16 21:36 Dose: 20 mg Ferrous Gluconate (Fergon -) 324 mg PO BID [facility] Last Admin: 11/18/16 09:15 Dose: 324 mg Folic Acid (Folic Acid -) 1 mg PO DAILY [facility] Last Admin: 11/18/16 09:15 Dose: 1 mg Furosemide (Lasix -) 40 mg PO BID@0600,1400 [facility] Last Admin: 11/18/16 14:18 Dose: 40 mg Heparin Sodium (Porcine) (Heparin -) 5,000 unit SQ BID [facility] Last Admin: 11/18/16 09:15 Dose: 5,000 unit Insulin Aspart (Novolog Vial) 0 units SQ ACHS [facility] PRN Reason: Protocol Last Admin: 11/18/16 11:18 Dose: 2 units Lisinopril (Prinivil) 10 mg PO DAILY [facility] Last Admin: 11/18/16 09:15 Dose: 10 mg Metoprolol Tartrate (Lopressor -) 50 mg PO BID [facility] Last Admin: 11/18/16 09:15 Dose: 50 mg Pantoprazole Sodium (Protonix -) 40 mg PO DAILY [facility] Last Admin: 11/18/16 09:15 Dose: 40 mg Thiamine HCl (Vitamin B1 -) 100 mg PO DAILY [facility] Last Admin: 11/18/16 09:15 Dose: 100 mg - Objective Vital Signs: Vital Signs Temperature 98.1 F 11/18/16 14:00 Pulse Rate 77 11/18/16 14:00 Respiratory Rate 17 11/18/16 14:00 Blood Pressure 148/81 11/18/16 12:00 O2 Sat by Pulse Oximetry (%) 95 11/18/16 11:19 Constitutional: Yes: Calm Eyes: Yes: Conjunctiva Clear HENT: Yes: Atraumatic Neck: Yes: Supple Cardiovascular: Yes: S1, S2 Respiratory: Yes: CTA Bilaterally Gastrointestinal: Yes: Soft Genitourinary: Yes: WNL Musculoskeletal: Yes: WNL Edema: Yes Edema: LLE: Trace, RLE: Trace Integumentary: Yes: Venous Stasis Changes Neurological: Yes: Oriented Psychiatric: Yes: Oriented Labs: CBC, BMP 11/17/16 06:20 11/18/16 06:45 INR, PTT INR 1.20 (0.82-1.09) H 11/13/16 17:00 Problem List - Problems (1) Fluid overload, unspecified Code(s): E87.70 - FLUID OVERLOAD, UNSPECIFIED Qualifiers: Hypervolemia type: unspecified Qualified Code(s): E87.70 - Fluid overload, unspecified (2) Anasarca Code(s): R60.1 - GENERALIZED EDEMA (3) Diabetes 1.5, managed as type 1 Code(s): E13.9 - OTHER SPECIFIED DIABETES MELLITUS WITHOUT COMPLICATIONS (4) Hypertension Code(s): I10 - ESSENTIAL (PRIMARY) HYPERTENSION Qualifiers: Hypertension type: essential hypertension Qualified Code(s): I10 - Essential (primary) hypertension (5) CKD (chronic kidney disease) Code(s): N18.9 - CHRONIC KIDNEY DISEASE, UNSPECIFIED Assessment/Plan Current Medications Generic Name Dose Route Start Last Admin Trade Name Freq PRN Reason Stop Dose Admin Amlodipine Besylate 10 mg 11/14/16 10:00 11/18/16 09:15 Norvasc - PO 10 mg DAILY LEMUEL Administration Aspirin 81 mg 11/14/16 11:30 11/18/16 09:15 Ecotrin - PO 81 mg DAILY LEMUEL Administration Atorvastatin Calcium 20 mg 11/17/16 22:00 11/17/16 21:36 Lipitor - PO 20 mg HS LEMUEL Administration Ferrous Gluconate 324 mg 11/13/16 22:00 11/18/16 09:15 Fergon - PO 324 mg BID LEMUEL Administration Folic Acid 1 mg 11/14/16 10:00 11/18/16 09:15 Folic Acid - PO 1 mg DAILY LEMUEL Administration Furosemide 40 mg 11/18/16 06:00 11/18/16 14:18 Lasix - PO 40 mg BID@0600,1400 LEMUEL Administration Heparin Sodium (Porcine) 5,000 unit 11/14/16 22:00 11/18/16 09:15 Heparin - SQ 5,000 unit BID LEMUEL Administration Insulin Aspart 0 units 02/18/17 16:30 11/18/16 11:18 Novolog Vial SQ 2 units ACHS LEMUEL Administration Protocol Lisinopril 10 mg 11/17/16 15:29 11/18/16 09:15 Prinivil PO 10 mg DAILY LEMUEL Administration Metoprolol Tartrate 50 mg 11/17/16 17:32 11/18/16 09:15 Lopressor - PO 50 mg BID LEMUEL Administration Pantoprazole Sodium 40 mg 11/15/16 10:00 11/18/16 09:15 Protonix - PO 40 mg DAILY LEMUEL Administration Thiamine HCl 100 mg 11/14/16 10:00 11/18/16 09:15 Vitamin B1 - PO 100 mg DAILY LEMUEL Administration Impression 1. CKD 2. fluid overload 3. HTN 4. DM 5. proteinuria 6. dyspnea Plan - cont current meds - discussed with medical team, pt will need to be prepped before cath if her were to go for cath - cardio follow up - cont with lasix - pt will need close outpt follow up with Dr Willingham, this was explained to him - pt has nephrotic range proteinuria, cont with dontae - prelim biopsy shows diabetic nephropathy - will follow Dr Oleary
[2016-11-18] MEDS: ATORVASTATIN CA 20 MG TABLET (FP) PO SCH (21:43)
[2016-11-19] MEDS: INSULIN (NOVOLOG) ASPART 100 UNITS/ML 10ML VIAL SQ SCH ×2 (06:00→11:37)
[2016-11-19 07:28] LABS: BASOPHIL 0.9 % (0-2.0); EOSINOPHIL 4.6 % (0-4.5); MCH 24.6 pg (25.7-33.7); MCHC 31.8 g/dl (32.0-35.9); MEAN CELL VOLUME 77.3 fl (80-96); MEAN PLT VOLUME 7.8 fl (7.5-11.1); NEUTROPHILS 69.6 % (42.8-82.8); PLATELET COUNT 202 K/MM3 (134-434); RDW 15.1 % (11.9-15.9); WHITE BLOOD COUNT 7.5 K/mm3 (4.0-10.0)
[2016-11-19 08:09] LABS: ALBUMIN 2.3 g/dl (3.4-5.0); BILIRUBIN,TOTAL 0.5 mg/dL (0.2-1.0); CREATININE 3.3 mg/dL (0.7-1.3); PHOSPHOROUS 4.6 mg/dL (2.5-4.9)
[2016-11-19] MEDS ORDERED: FUROSEMIDE 40 MG TABLET (FP) PO SCH (10:00)
[2016-11-19] MEDS: THIAMINE HCL 100 MG TABLET (FP) PO SCH (10:13)
[2016-11-19] MEDS: HEPARIN NA (PORCINE) 5,000 UNITS/ML 1ML VIAL SQ SCH (10:13)
[2016-11-19] MEDS: PANTOPRAZOLE 40 MG TABLET (FP) PO SCH (10:13)
[2016-11-19] MEDS: LISINOPRIL 10 MG TABLET (FP) PO SCH (10:13)
[2016-11-19] MEDS: METOPROLOL TARTRATE 50 MG TABLET (FP) PO SCH (10:13)
[2016-11-19] MEDS: amLODIPine BESYLATE 10 MG TABLET (FP) PO SCH (10:13)
[2016-11-19] MEDS: ASPIRIN COATED 81 MG TABLET.EC PO SCH (10:14)
[2016-11-19] MEDS: FERROUS GLUCONATE 324 MG TAB (FP) PO SCH (10:14)
[2016-11-19] MEDS: FOLIC ACID 1 MG TABLET (FP) PO SCH (10:14)
--- NOTE | 2016-11-19 10:54 | PN ---
Progress Note, Physician History of Present Illness: Dyspnea on exertion resolved, can climb stairs without sxs, denies chest pain. - Current Medication List Current Medications: Active Medications Amlodipine Besylate (Norvasc -) 10 mg PO DAILY [facility] Last Admin: 11/19/16 10:13 Dose: 10 mg Aspirin (Ecotrin -) 81 mg PO DAILY [facility] Last Admin: 11/19/16 10:14 Dose: 81 mg Atorvastatin Calcium (Lipitor -) 20 mg PO HS [facility] Last Admin: 11/18/16 21:43 Dose: 20 mg Ferrous Gluconate (Fergon -) 324 mg PO BID [facility] Last Admin: 11/19/16 10:14 Dose: 324 mg Folic Acid (Folic Acid -) 1 mg PO DAILY [facility] Last Admin: 11/19/16 10:14 Dose: 1 mg Furosemide (Lasix -) 40 mg PO DAILY [facility] Last Admin: 11/19/16 10:16 Dose: 40 mg Heparin Sodium (Porcine) (Heparin -) 5,000 unit SQ BID [facility] Last Admin: 11/19/16 10:13 Dose: 5,000 unit Insulin Aspart (Novolog Vial) 0 units SQ [facility] PRN Reason: Protocol Last Admin: 11/19/16 06:00 Dose: Not Given Lisinopril (Prinivil) 10 mg PO DAILY [facility] Last Admin: 11/19/16 10:13 Dose: 10 mg Metoprolol Tartrate (Lopressor -) 50 mg PO BID [facility] Last Admin: 11/19/16 10:13 Dose: 50 mg Pantoprazole Sodium (Protonix -) 40 mg PO DAILY [facility] Last Admin: 11/19/16 10:13 Dose: 40 mg Thiamine HCl (Vitamin B1 -) 100 mg PO DAILY [facility] Last Admin: 11/19/16 10:13 Dose: 100 mg - Objective Vital Signs: Vital Signs Temperature 98.2 F 11/19/16 08:35 Pulse Rate 89 11/19/16 08:49 Respiratory Rate 20 11/19/16 08:49 Blood Pressure 137/79 11/19/16 08:49 O2 Sat by Pulse Oximetry (%) 95 11/19/16 06:00 Constitutional: Yes: No Distress, Calm Neck: Yes: Supple Cardiovascular: Yes: Regular Rate and Rhythm Respiratory: Yes: Regular, CTA Bilaterally Gastrointestinal: Yes: Normal Bowel Sounds, Soft Edema: No Labs: CBC, BMP 11/19/16 05:35 11/19/16 05:35 INR, PTT INR 1.20 (0.82-1.09) H 11/13/16 17:00 Problem List - Problems (1) CAD (coronary artery disease) Code(s): I25.10 - ATHSCL HEART DISEASE OF [place] CORONARY ARTERY W/O ANG PCTRS Qualifiers: Coronary Disease-Associated Artery/Lesion type: [place] artery [place] vs. transplanted heart: [place] heart Associated angina: without angina Qualified Code(s): I25.10 - Atherosclerotic heart disease of [place] coronary artery without angina pectoris (2) CKD (chronic kidney disease) Code(s): N18.9 - CHRONIC KIDNEY DISEASE, UNSPECIFIED Qualifiers: Chronic kidney disease stage: stage 4 (severe) Qualified Code(s): N18.4 - Chronic kidney disease, stage 4 (severe) (3) Nephrotic syndrome Code(s): N04.9 - NEPHROTIC SYNDROME WITH UNSPECIFIED MORPHOLOGIC CHANGES (4) Diabetes 1.5, managed as type 1 Code(s): E13.9 - OTHER SPECIFIED DIABETES MELLITUS WITHOUT COMPLICATIONS (5) Hypertension Code(s): I10 - ESSENTIAL (PRIMARY) HYPERTENSION Qualifiers: Hypertension type: essential hypertension Qualified Code(s): I10 - Essential (primary) hypertension (6) Renal failure Code(s): N19 - UNSPECIFIED KIDNEY FAILURE Assessment/Plan Nuclear myocardial perfusion imaging reveals small to moderate inferior and inferolateral reversible defect from base to apex and small anterior defect base to mid-cavity c/w mild ischemia and LVEF of 56%. In view of above result, he should proceed with cardiac catheterization/coronary angiography, but would wait until renal function stabilizes. Monitor BUN/cr and will need to discuss with renal team. Further decision and timing to follow 1. Acute on chronic diastolic heart failure with elevated BNP in the presence of renal insufficiency and volume overload resolved 2. Rule out CAD 3. CKD with proteinuria 4. HTN 5. Type 2 DM PLAN: 1. Continue Lasix 40 qd and monitor renal function and electrolytes 2. Change lisinopril to Diovan 160 qd and Amlodipine 10 qd 3. Continue Metoprolol Tartrate 50 mg BID and Lipitor 20 qhs 4. Continue ASA 81 mg once a day 5. Prelim renal biopsy result shows diabetic nephropathy 6. F/u echocardiogram to assess LV and valve fxn, will defer cath given significant renal insufficiency, risk of AUSTEN and resolution of CHF sxs
[2016-11-19 11:54] VITALS: TEMP 97.8
--- NOTE | 2016-11-19 12:31 | DS ---
Physical Exam: SUBJECTIVE: Patient seen and examined. OBJECTIVE: Vital Signs Period Temp Pulse Resp BP Sys/Benz Pulse Ox Last 24 Hr 97.8 F-98.8 F 77-89 17-20 137-154/76-87 95-96 PHYSICAL EXAM GENERAL: The patient is awake, alert, and fully oriented, in no acute distress. HEAD: Normal with no signs of trauma. EYES: PERRL, extraocular movements intact, sclera anicteric, conjunctiva clear. No ptosis. ENT: Ears normal, nares patent, oropharynx clear without exudates, moist mucous membranes. NECK: Trachea midline, full range of motion, supple. LUNGS: Bilateral crackles chcf up. unchanged from yesterday. No wheezing, no rhonchi. No accessory muscle use. HEART: Regular rate and rhythm, S1, S2 without murmur, rub or gallop. ABDOMEN: Soft, +distended, not tender EXTREMITIES: Bilateral edema resolved. NEUROLOGICAL: Cranial nerves II through XII grossly intact. Normal speech, steady gait. LABS Laboratory Results - last 24 hr 11/18/16 11/19/16 11/19/16 21:22 05:35 05:35 WBC 7.5 RBC 3.55 L Hgb 8.7 L Hct 27.5 L MCV 77.3 L MCHC 31.8 L RDW 15.1 Plt Count 202 MPV 7.8 Neutrophils % 69.6 Lymphocytes % 17.1 Monocytes % 7.8 Eosinophils % 4.6 H Basophils % 0.9 Sodium 139 Potassium 4.5 Chloride 105 Carbon Dioxide 24 Anion Gap 10 BUN 56 H Creatinine 3.3 H Creat Clearance w eGFR 20.03 POC Glucometer 194 Random Glucose 126 H Calcium 8.0 L Phosphorus 4.6 Magnesium 2.0 Total Bilirubin 0.5 AST 22 ALT 23 Alkaline Phosphatase 196 H Total Protein 7.0 Albumin 2.3 L 11/19/16 11/19/16 05:43 11:04 WBC RBC Hgb Hct MCV MCHC RDW Plt Count MPV Neutrophils % Lymphocytes % Monocytes % Eosinophils % Basophils % Sodium Potassium Chloride Carbon Dioxide Anion Gap BUN Creatinine Creat Clearance w eGFR POC Glucometer 146 228 Random Glucose Calcium Phosphorus Magnesium Total Bilirubin AST ALT Alkaline Phosphatase Total Protein Albumin HOSPITAL COURSE: Date of Admission:11/13/16 Date of Discharge: 11/19/16 Imaging 11/02/16 Echo: LV normal; RV normal; mild to moderate MR; mild to moderate TR; mild pHTN 11/13/16 CXR: pulmonary vascular congestion; bilateral pleural effusions; CHF Initial hospital course This is a 51 y/o male with a past medical history of HTN, DM, CKD who presented to the emergency department with increased SOB x 1-2 days. Patient reported being seen by his PCP for SOB, but became worse. He reported a non-productive cough. Patient had a recent admission 10/31-11/04 for SOB and renal failure. ER course was notable for: (1) Hypoxia- on arrival Spo2 80's- placed on venturi mask 50%, given Lasix IV- now improved Spo2 96-97% (2) Chest Xray- congestive changes, cardiomegaly (3) BNP 16428 Subsequent hospital course 51 year-old male with a PMH of HTN, CKD, and DM, admitted for hypoxia secondary to volume overload. Acute hypoxic respiratory failure secondary to volume overload --resolved with aggressive diuresis --satting 97% on room air, 94% on room air with ambulation Acute on chronic diastolic heart failure --echo on 11/02 as above --down 6.2 kg from 11/13 --increased lisinopril, amlodipine, added metoprolol Ischemic heart disease --11/17 Persantine stress: small to moderate zone of inferior and inferolateral defect from base to apex, and small anterior defect from base to mid-cavity which appears to reverse with rest; EF 56% --continue ASA --started Lipitor --per cardiology, should proceed with cardiac catheterization/coronary angiography, but defer given significant renal insufficiency, risk of AUSTEN and resolution of CHF sxs --close outpatient followup CKD with proteinuria --Cr 3.3 (baseline 2.8) --continue Lasix --renal biopsy done on 11/10, findings suggestive of diabetic nephropathy --close outpatient followup with renal Anemia of chronic disease --continue ferrous gluconate --h/h stable IDDM --HgbA1C 7.1 --Novolog sliding scale coverage Hypertension --BP well-controlled --increased lisinopril, amlodipine, metoprolol Minutes to complete discharge: 45 Discharge Summary Reason For Visit: NEPHROTIC SYNDROME Current Active Problems CAD (coronary artery disease) (Acute) CKD (chronic kidney disease) (Acute) DVT prophylaxis (Acute) Fluid overload, unspecified (Acute) Nephrotic syndrome (Acute) - Instructions Referrals: Katherine Cruz [Primary Care Provider] - - Home Medications Comprehensive Discharge Medication List: Ambulatory Orders Amlodipine Besylate [Norvasc -] 10 mg PO DAILY 10/31/16 Ferrous Gluconate [Fergon -] 324 mg PO BID 10/31/16 Lisinopril 5 mg PO DAILY 10/31/16 Folic Acid - 1 mg PO DAILY #30 tablet 11/04/16 Thiamine HCl [Vitamin B1 -] 100 mg PO DAILY #30 tablet 11/04/16 Furosemide [Lasix -] 60 mg PO BID@0600,1400 11/13/16 This patient is new to me today: No Emergency Visit: Yes ED Registration Date: 11/13/16 Care time: The patient presented to the Emergency Department on the above date and was hospitalized for further evaluation of their emergent condition. Critical Care patient: No - Discharge Referral Referred to [facility] Med P.C.: No
--- NOTE | 2016-11-19 13:36 | PN ---
Progress Note, Physician History of Present Illness: Pt seen and examined at bedside. He is awake and alert. He denies shortness of breath. He feels that his lower extremity edema is improved. His sat is 97 percent on room air while ambulating. - Current Medication List Current Medications: Active Medications Amlodipine Besylate (Norvasc -) 10 mg PO DAILY [facility] Last Admin: 11/19/16 10:13 Dose: 10 mg Aspirin (Ecotrin -) 81 mg PO DAILY [facility] Last Admin: 11/19/16 10:14 Dose: 81 mg Atorvastatin Calcium (Lipitor -) 20 mg PO HS [facility] Last Admin: 11/18/16 21:43 Dose: 20 mg Ferrous Gluconate (Fergon -) 324 mg PO BID [facility] Last Admin: 11/19/16 10:14 Dose: 324 mg Folic Acid (Folic Acid -) 1 mg PO DAILY [facility] Last Admin: 11/19/16 10:14 Dose: 1 mg Furosemide (Lasix -) 40 mg PO DAILY [facility] Last Admin: 11/19/16 10:16 Dose: 40 mg Heparin Sodium (Porcine) (Heparin -) 5,000 unit SQ BID [facility] Last Admin: 11/19/16 10:13 Dose: 5,000 unit Insulin Aspart (Novolog Vial) 0 units SQ ACHS [facility] PRN Reason: Protocol Last Admin: 11/19/16 11:37 Dose: 4 units Lisinopril (Prinivil) 20 mg PO DAILY [facility] Metoprolol Tartrate (Lopressor -) 50 mg PO BID [facility] Last Admin: 11/19/16 10:13 Dose: 50 mg Pantoprazole Sodium (Protonix -) 40 mg PO DAILY [facility] Last Admin: 11/19/16 10:13 Dose: 40 mg Thiamine HCl (Vitamin B1 -) 100 mg PO DAILY [facility] Last Admin: 11/19/16 10:13 Dose: 100 mg - Objective Vital Signs: Vital Signs Temperature 97.8 F 11/19/16 11:53 Pulse Rate 77 11/19/16 11:53 Respiratory Rate 18 11/19/16 11:53 Blood Pressure 144/79 11/19/16 11:53 O2 Sat by Pulse Oximetry (%) 95 11/19/16 06:00 Constitutional: Yes: Calm Eyes: Yes: Conjunctiva Clear HENT: Yes: Atraumatic Neck: Yes: Supple Cardiovascular: Yes: S1, S2 Respiratory: Yes: CTA Bilaterally Gastrointestinal: Yes: Soft Genitourinary: Yes: WNL Musculoskeletal: Yes: WNL Edema: LLE: Trace, RLE: Trace Peripheral Pulses WNL: Yes Neurological: Yes: Oriented Psychiatric: Yes: Oriented Labs: CBC, BMP 11/19/16 05:35 11/19/16 05:35 INR, PTT INR 1.20 (0.82-1.09) H 11/13/16 17:00 Problem List - Problems (1) Fluid overload, unspecified Code(s): E87.70 - FLUID OVERLOAD, UNSPECIFIED Qualifiers: Hypervolemia type: unspecified Qualified Code(s): E87.70 - Fluid overload, unspecified (2) Anasarca Code(s): R60.1 - GENERALIZED EDEMA (3) Diabetes 1.5, managed as type 1 Code(s): E13.9 - OTHER SPECIFIED DIABETES MELLITUS WITHOUT COMPLICATIONS (4) Hypertension Code(s): I10 - ESSENTIAL (PRIMARY) HYPERTENSION Qualifiers: Hypertension type: essential hypertension Qualified Code(s): I10 - Essential (primary) hypertension (5) CKD (chronic kidney disease) Code(s): N18.9 - CHRONIC KIDNEY DISEASE, UNSPECIFIED Qualifiers: Chronic kidney disease stage: stage 4 (severe) Qualified Code(s): N18.4 - Chronic kidney disease, stage 4 (severe) Assessment/Plan Current Medications Generic Name Dose Route Start Last Admin Trade Name Freq PRN Reason Stop Dose Admin Amlodipine Besylate 10 mg 11/14/16 10:00 11/19/16 10:13 Norvasc - PO 10 mg DAILY [facility] Administration Aspirin 81 mg 11/14/16 11:30 11/19/16 10:14 Ecotrin - PO 81 mg DAILY [facility] Administration Atorvastatin Calcium 20 mg 11/17/16 22:00 11/18/16 21:43 Lipitor - PO 20 mg HS [facility] Administration Ferrous Gluconate 324 mg 11/13/16 22:00 11/19/16 10:14 Fergon - PO 324 mg BID [facility] Administration Folic Acid 1 mg 11/14/16 10:00 11/19/16 10:14 Folic Acid - PO 1 mg DAILY [facility] Administration Furosemide 40 mg 11/19/16 10:00 11/19/16 10:16 Lasix - PO 40 mg DAILY [facility] Administration Heparin Sodium (Porcine) 5,000 unit 11/14/16 22:00 11/19/16 10:13 Heparin - SQ 5,000 unit BID [facility] Administration Insulin Aspart 0 units 11/14/16 16:30 11/19/16 11:37 Novolog Vial SQ 4 units ACHS [facility] Administration Protocol Lisinopril 20 mg 11/20/16 10:00 Prinivil PO DAILY [facility] Metoprolol Tartrate 50 mg 11/17/16 17:32 11/19/16 10:13 Lopressor - PO 50 mg BID [facility] Administration Pantoprazole Sodium 40 mg 11/15/16 10:00 11/19/16 10:13 Protonix - PO 40 mg DAILY [facility] Administration Thiamine HCl 100 mg 11/14/16 10:00 11/19/16 10:13 Vitamin B1 - PO 100 mg DAILY [facility] Administration Impression 1. CKD 2. fluid overload 3. HTN 4. DM 5. proteinuria 6. dyspnea Plan - cont with diuretics - pts weight is 156 pounds and he feels comfortable - will need follow up with cardiology - will monitor renal function as outpt - will need to be prepped if he were to get a cardiac cath - renal biopsy shows diabetic nephropathy - cont with dontae - will follow Dr Oleary
[2016-11-19 16:22] VITALS: BP 140/80; PULSE 76
[2016-11-20] MEDS ORDERED: VALSARTAN 160 MG TABLET (UD) PO SCH (10:00)
[2016-11-20] MEDS ORDERED: LISINOPRIL 20 MG TABLET (FP) PO SCH (10:00)
== END 2016-11-19 17:24 | disposition home or self-care (01) | DRG 462 ==
LOC: JER 16:09 → JERBED 19:29 → J6S 21:15 → J4W 11-18 14:35
PROVIDERS: ADMIT Internal Medicine; ATTEND Nurse Practitioner Acute Care
PROC: 3E0F7GC Introduction of Other Therapeutic Substance into Respiratory Tract, Via Natural or Artificial Opening (ICD-10-PCS; principal; 2016-11-13)
DX: N04.9 Nephrotic syndrome with unspecified morphologic changes (principal); E87.70 Fluid overload, unspecified; J96.01 Acute respiratory failure with hypoxia; E11.21 Type 2 diabetes mellitus with diabetic nephropathy; E11.22 Type 2 diabetes mellitus with diabetic chronic kidney disease; I13.0 Hypertensive heart and chronic kidney disease with heart failure and stage 1 through stage 4 chronic kidney disease, or unspecified chronic kidney disease; N18.4 Chronic kidney disease, stage 4 (severe); I50.33 Acute on chronic diastolic (congestive) heart failure; I34.0 Nonrheumatic mitral (valve) insufficiency; I36.1 Nonrheumatic tricuspid (valve) insufficiency; R00.0 Tachycardia, unspecified; D63.1 Anemia in chronic kidney disease; R80.9 Proteinuria, unspecified; I25.10 Atherosclerotic heart disease of native coronary artery without angina pectoris; I25.9 Chronic ischemic heart disease, unspecified
CPT/HCPCS: 36415; 36600; 71010-TC; 78452-TC; 80048; 80053; 80061; 81003; 81015; 82375; 82550; 82728; 82803; 83050; 83540; 83550; 83605; 83721; 83735; 83880; 84100; 84484; 85025; 85610; 93005; 93010; 93017; 94761; 97116-GP; 97161-GP; 99283-25; A9502; J1245; J1644

== ENCOUNTER 2017-04-23 12:58 | Inpatient (IN) | payer OTHER ==
[2017-04-23] MEDS ORDERED: ONDANSETRON 4 MG/2 ML VIAL IVPUSH ONE (14:38)
[2017-04-23] MEDS ORDERED: ONDANSETRON 4 MG/2 ML VIAL ONE (14:55)
[2017-04-23 15:21] LABS: URINE APPEARANCE CLEAR; URINE BILIRUBIN NEGATIVE (NEGATIVE); URINE BLOOD 1+ (NEGATIVE); URINE COLOR STRAW; URINE GLUCOSE (UA) 2+ (NEGATIVE); URINE KETONE NEGATIVE (NEGATIVE); URINE LEUK ESTERASE NEGATIVE (NEGATIVE); URINE NITRITE NEGATIVE (NEGATIVE); URINE PROTEIN 3+ (NEGATIVE); URINE UROBILINOGEN NEGATIVE mg/dL (0.2-1.0)
[2017-04-23 15:25] LABS: BASOPHIL 0.7 % (0-2.0); EOSINOPHIL 1.9 % (0-4.5); MCH 25.1 pg (25.7-33.7); MCHC 31.7 g/dl (32.0-35.9); MEAN CELL VOLUME 79.4 fl (80-96); MEAN PLT VOLUME 7.8 fl (7.5-11.1); NEUTROPHILS 76.9 % (42.8-82.8); PLATELET COUNT 154 K/MM3 (134-434); RDW 19.1 % (11.9-15.9); WHITE BLOOD COUNT 7.7 K/mm3 (4.0-10.0)
[2017-04-23 15:29] LABS: INR 1.15 (0.82-1.09); PROTHROMBIN TIME (PATIENT) 12.7 SEC (9.98-11.88)
[2017-04-23 15:31] LABS: URINE MUCUS RARE; URINE RBC 5 /hpf (0-3); URINE WBC 1 /hpf (3-5)
[2017-04-23 16:00] LABS: ALBUMIN 1.8 g/dl (3.4-5.0); ALK PHOS 91 U/L (45-117); ANION GAP 10 (8-16); BILIRUBIN,TOTAL 0.3 mg/dL (0.2-1.0); CO2 21 mmol/L (21-32); CPK 138 IU/L (39-308); CREATININE 6.1 mg/dL (0.7-1.3); GLUCOSE,RANDOM 83 mg/dL (74-106); MAGNESIUM 2.1 mg/dL (1.8-2.4); SGOT/AST 15 U/L (15-37); SGPT/ALT 11 U/L (12-78); TOT PROT 5.6 g/dl (6.4-8.2)
[2017-04-23 16:02] LABS: TROPONIN I 0.02 ng/ml (0.00-0.05)
[2017-04-23 16:07] LABS: CALCIUM 6.9 mg/dL (8.5-10.1)
--- NOTE | 2017-04-23 16:55 | PDOC ---
History of Present Illness - General Chief Complaint: Shortness of Breath Stated Complaint: SOB, VOMITING Time Seen by Provider: 04/23/17 13:37 History Source: Patient Exam Limitations: No Limitations - History of Present Illness Initial Comments: 04/23/17 16:41 51-year-old female male presents to the ED for evaluation of intermittent diarrhea for the past 6 months associated with nausea. Patient has no other complaints at this time but does state history of hypertension and borderline renal failure. Patient states was placed on Lasix by his PCP 6 months ago but stopped taking it since he said the fluid in his feet improved and has been drinking and urinating adequately. Patient is followed at the [facility]. Pt sates for the past week has been having more dyspnea on exertion but denies cough, palpitations chest pain, or lower extremity edema. Timing/Duration: intermittent Severity: moderate Associated Symptoms: reports: nausea/vomiting, shortness of breath (on exertion) Past History - Past Medical History Allergies/Adverse Reactions: Allergies Allergy/AdvReac Type Severity Reaction Status Date / Time Penicillins Allergy Verified 04/23/17 13:06 Home Medications: Ambulatory Orders Amlodipine Besylate [Norvasc -] 10 mg PO DAILY 10/31/16 Ferrous Gluconate [Fergon -] 324 mg PO BID 10/31/16 Folic Acid - 1 mg PO DAILY #30 tablet 11/04/16 Thiamine HCl [Vitamin B1 -] 100 mg PO DAILY #30 tablet 11/04/16 Aspirin Coated [Ecotrin -] 81 mg PO DAILY tablet.ec 11/19/16 Atorvastatin Ca [Lipitor] 20 mg PO HS #30 tablet 11/19/16 Furosemide [Lasix -] 40 mg PO DAILY #30 tablet 11/19/16 Lisinopril [Prinivil] 20 mg PO DAILY #30 tablet 11/19/16 Metoprolol Tartrate [Lopressor -] 50 mg PO BID #60 tablet 11/19/16 Cardiac Disorders: Yes (valvular heart disease) Dementia: Yes Diabetes: Yes HTN: Yes - Immunization History Immunization Up to Date: Yes - Psycho/Social/Smoking Cessation Hx Anxiety: No Suicidal Ideation: No Smoking History: Former smoker Have you smoked in the past 12 months: No Information on smoking cessation initiated: No Hx Alcohol Use: No Drug/Substance Use Hx: No Substance Use Type: None Hx Substance Use Treatment: No Patient Lives Alone: No Review of Systems - Review of Systems Able to Perform ROS?: Yes Constitutional: No: Symptoms Reported HEENTM: No: Symptoms Reported Respiratory: Yes: SOB with Exertion ABD/GI: Yes: Diarrhea, Nausea, Vomiting (dry heaving) : No: Symptoms Reported Musculoskeletal: No: Symptoms Reported Integumentary: No: Symptoms Reported Neurological: No: Symptoms reported Hematologic/Lymphatic: No: Symptoms Reported *Physical Exam - Vital Signs Last Vital Signs Temp Pulse Resp BP Pulse Ox 99 F 96 H 19 164/100 99 04/23/17 13:07 04/23/17 13:07 04/23/17 13:07 04/23/17 13:04/23/17 13:07 - Physical Exam General Appearance: Yes: Nourished, Appropriately Dressed. No: Apparent Distress HEENT: positive: EOMI, Pharynx Normal. negative: Pale Conjunctivae Neck: negative: Lymphadenopathy (R), Lymphadenopathy (L) Respiratory/Chest: positive: Lungs Clear, Normal Breath Sounds. negative: Chest Tender, Respiratory Distress, Accessory Muscle Use Cardiovascular: positive: Regular Rhythm, Regular Rate. negative: Murmur Gastrointestinal/Abdominal: positive: Normal Bowel Sounds, Soft. negative: Distended, Guarding, Rebound, Tenderness Musculoskeletal: negative: CVA Tenderness Extremity: positive: Normal Capillary Refill, Pedal Edema (1+ pitting ble) Integumentary: positive: Normal Color, Dry, Warm Neurologic: positive: Normal Mood/Affect, Motor Strength 5/5 (ambulatory) Heart Score/ECG Review - ECG Intrepretation Rhythm: Regular Rhythm (rate 98. Normal sinus rhythm. unchanged from previous October 2016) ED Treatment Course - LABORATORY CBC & Chemistry Diagram: 04/23/17 14:53 04/23/17 14:53 - ADDITIONAL ORDERS Additional order review: Laboratory Results 04/23/17 04/23/17 04/23/17 14:53 14:53 14:53 INR 1.15 H Sodium 141 Potassium 4.8 Chloride 110 H Carbon Dioxide 21 Anion Gap 10 BUN 66 H Creatinine 6.1 H D Creat Clearance w eGFR 9.86 Random Glucose 83 D Calcium 6.9 L* Magnesium 2.1 Total Bilirubin 0.3 D AST 15 D ALT 11 L D Alkaline Phosphatase 91 D Creatine Kinase 138 Troponin I 0.02 Total Protein 5.6 L Albumin 1.8 L D Urine Color Straw Urine Appearance Clear Urine pH 6.0 Urine Protein 3+ H Urine Glucose (UA) 2+ H Urine Ketones Negative Urine Blood 1+ H Urine Nitrite Negative Urine Bilirubin Negative Urine Urobilinogen Negative Ur Leukocyte Esterase Negative Urine RBC 5 Urine WBC 1 Ur Epithelial Cells Rare Urine Mucus Rare 04/23/17 14:53 RBC 3.12 L MCV 79.4 L MCHC 31.7 L RDW 19.1 H D MPV 7.8 Neutrophils % 76.9 Lymphocytes % 15.0 Monocytes % 5.5 Eosinophils % 1.9 Basophils % 0.7 - RADIOLOGY Radiology Studies Ordered: Category Date Time Status ABDOMEN & PELVIS CT W/O CONTR [CT] Stat CT Scan 04/23/17 14:37 Ordered CHEST X-RAY PORTABLE* [RAD] Stat Radiology 04/23/17 14:38 Completed - Medications Given in the ED: ED Medications Discontinued Medications Generic Name Dose Route Start Last Admin Trade Name Freq PRN Reason Stop Dose Admin Ondansetron HCl 4 mg 04/23/17 14:38 04/23/17 14:52 Zofran Injection IVPUSH 04/23/17 14:39 4 mg ONCE ONE Administration Medical Decision Making - Medical Decision Making 04/23/17 16:05 Patient here for continual intermittent diarrhea along with nausea and vomiting for the past 6 months. Patient states he just feels like something's wrong and stating he's had more shortness of breath on exertion. Patient was admitted here back in October to the hospitalist team for renal insufficiency and had a punch biopsy done and at that time was placed on Lasix which he discontinued on his own since he felt the swelling of his lower extremities had decreased and had no other concerns. Patient concerning for worsening renal failure patient ordered for chest x-ray, EKG, labs, urinalysis coags, magnesium, and abdomen/ pelvic CT with by mouth contrast. patient will revitalized 04/23/17 17:17 Laboratory Tests 11/17/16 11/18/16 11/19/16 06:20 06:45 05:35 WBC Hgb 8.4 L 8.7 L Hct Plt Count INR Sodium Potassium Chloride Carbon Dioxide Anion Gap BUN Creatinine 3.0 H Calcium Magnesium AST ALT Albumin Urine Protein Urine Glucose (UA) Urine Blood Ur Leukocyte Esterase Urine RBC Urine WBC 11/19/16 04/23/17 04/23/17 05:35 14:53 14:53 WBC 7.7 Hgb 7.8 L D Hct 24.7 L Plt Count 154 D INR 1.15 H Sodium Potassium Chloride Carbon Dioxide Anion Gap BUN Creatinine 3.3 H Calcium Magnesium AST ALT Albumin Urine Protein Urine Glucose (UA) Urine Blood Ur Leukocyte Esterase Urine RBC Urine WBC 04/23/17 04/23/17 14:53 14:53 WBC Hgb Hct Plt Count INR Sodium 141 Potassium 4.8 Chloride 110 H Carbon Dioxide 21 Anion Gap 10 BUN 66 H Creatinine 6.1 H D Calcium 6.9 L* Magnesium 2.1 AST 15 D ALT 11 L D Albumin 1.8 L D Urine Protein 3+ H Urine Glucose (UA) 2+ H Urine Blood 1+ H Ur Leukocyte Esterase Negative Urine RBC 5 Urine WBC 1 Patient ordered for 1 unit of packed cells secondary to symptomatic anemia and 1 g of calcium gluconate for corrective calcium of 8.2. Case discussed with hospitalist MANUFACTURING HELPER and accepted to [facility]. Dr. Hebert drawing kiln supervisor had consult on patient in the past. *DC/Admit/Observation/Transfer Diagnosis at time of Disposition: Symptomatic anemia, Worsening renal function - Discharge Dispostion Admit: Yes
[2017-04-23] MEDS ORDERED: CALCIUM GLUCONATE 10% - 1,000 MG/10 ML VIAL IVPB ONE (17:00)
[2017-04-23] MEDS ORDERED: ONDANSETRON 4 MG/2 ML VIAL IVPB PRN (17:14)
[2017-04-23] MEDS ORDERED: ACETAMINOPHEN 325 MG TABLET (FP) PO PRN (17:14)
--- NOTE | 2017-04-23 17:16 | HP ---
CHIEF COMPLAINT: Diarrhea PCP: [facility] HISTORY OF PRESENT ILLNESS: This is a 51 year old male with a history of CKD and nephrotic syndrome (has not been following with a digital performance analyst), anemia, NIDDM (no longer on medications), HTN, and CHF (self-discontinued his Lasix) who presented to the ED complaining of 6 months of diarrhea which has been "constant" throughout the day. He was hospitalized in October and underwent a renal biopsy at that time; he states that symptoms began shortly after this. He denies recent travel or sick contacts. He has had subjective fevers. He has not had abdominal pain. He has had mild nausea, but no vomiting. He also endorses dyspnea on exertion and generalized weakness. ER course was notable for: (1) Cr 6.1 (3.3 on prior visit in October) (2) H/H 7.8/24.7 Recent Travel: None PAST MEDICAL HISTORY: As above PAST SURGICAL HISTORY: None Social History: , employed Smoking: None Alcohol: None Drugs: None Allergies Penicillins Allergy (Verified 04/23/17 13:06) GENERALIZED EDEMA "MY KIDNEYS FAILED>" HOME MEDICATIONS: Home Medications Medication Instructions Recorded Amlodipine Besylate [Norvasc -] 10 mg PO DAILY 10/31/16 Ferrous Gluconate [Fergon -] 324 mg PO BID 10/31/16 Folic Acid - 1 mg PO DAILY #30 tablet 11/04/16 Thiamine HCl [Vitamin B1 -] 100 mg PO DAILY #30 tablet 11/04/16 Aspirin Coated [Ecotrin -] 81 mg PO DAILY tablet.ec 11/19/16 Atorvastatin Ca [Lipitor] 20 mg PO HS #30 tablet 11/19/16 Furosemide [Lasix -] 40 mg PO DAILY #30 tablet 11/19/16 Lisinopril [Prinivil] 20 mg PO DAILY #30 tablet 11/19/16 Metoprolol Tartrate [Lopressor -] 50 mg PO BID #60 tablet 11/19/16 REVIEW OF SYSTEMS CONSTITUTIONAL: Subjective fever, generalized weakness, malaise Absent: diaphoresis, loss of appetite, weight change HEENT: Absent: rhinorrhea, nasal congestion, throat pain, throat swelling, difficulty swallowing, mouth swelling, ear pain, eye pain, visual changes CARDIOVASCULAR: Absent: chest pain, syncope, palpitations, irregular heart rate, lightheadedness , peripheral edema RESPIRATORY: Absent: cough, shortness of breath, dyspnea with exertion, orthopnea, wheezing, stridor, hemoptysis GASTROINTESTINAL: Diarrhea, nausea Absent: abdominal pain, abdominal distension, nausea, constipation, melena, hematochezia GENITOURINARY: Absent: dysuria, frequency, urgency, hesitancy, hematuria, flank pain, genital pain MUSCULOSKELETAL: Absent: myalgia, arthralgia, joint swelling, back pain, neck pain SKIN: Absent: rash, itching, pallor HEMATOLOGIC/IMMUNOLOGIC: Absent: easy bleeding, easy bruising, lymphadenopathy, frequent infections ENDOCRINE: Absent: unexplained weight gain, unexplained weight loss, heat intolerance, cold intolerance NEUROLOGIC: Absent: headache, focal weakness or paresthesias, dizziness, unsteady gait, seizure, mental status changes, bladder or bowel incontinence PSYCHIATRIC: Absent: anxiety, depression, suicidal or homicidal ideation, hallucinations. PHYSICAL EXAMINATION Vital Signs - 24 hr 04/23/17 13:07 Temperature 99 F Pulse Rate 96 H Respiratory 19 Rate Blood Pressure 164/100 O2 Sat by Pulse 99 Oximetry (%) GENERAL: Awake, alert, and fully oriented, in no acute distress. HEAD: Normal with no signs of trauma. EYES: Pupils equal, round and reactive to light, extraocular movements intact, sclera anicteric, conjunctiva clear. No lid lag. EARS, NOSE, THROAT: Ears normal, nares patent, oropharynx clear without exudates. Moist mucous membranes. NECK: Normal range of motion, supple without lymphadenopathy, JVD, or masses. LUNGS: Fine rales at bases. No wheezing or accessory muscle use. HEART: Regular rate and rhythm, normal S1 and S2 without murmur, rub or gallop. ABDOMEN: Soft, nontender, not distended, normoactive bowel sounds, no guarding, no rebound, no masses. No hepatomegaly or splenomegaly. MUSCULOSKELETAL: Normal range of motion at all joints. No bony deformities or tenderness. No CVA tenderness. UPPER EXTREMITIES: 2+ pulses, warm, well-perfused. No cyanosis. No clubbing. No peripheral edema. LOWER EXTREMITIES: 2+ pulses, warm, well-perfused. No calf tenderness. Trace peripheral edema. NEUROLOGICAL: Cranial nerves II-XII intact. Normal speech. Normal gait. PSYCHIATRIC: Cooperative. Good eye contact. Appropriate mood and affect. SKIN: Warm, dry, normal turgor, no rashes or lesions noted, normal capillary refill. Laboratory Results - last 24 hr 04/23/17 04/23/17 04/23/17 14:53 14:53 14:53 WBC 7.7 RBC 3.12 L Hgb 7.8 L D Hct 24.7 L MCV 79.4 L MCH 25.1 L MCHC 31.7 L RDW 19.1 H D Plt Count 154 D MPV 7.8 Neutrophils % 76.9 Lymphocytes % 15.0 Monocytes % 5.5 Eosinophils % 1.9 Basophils % 0.7 INR 1.15 H Sodium Potassium Chloride Carbon Dioxide Anion Gap BUN Creatinine Creat Clearance w eGFR Random Glucose Calcium Magnesium Total Bilirubin AST ALT Alkaline Phosphatase Creatine Kinase Troponin I Total Protein Albumin Urine Color Straw Urine Appearance Clear Urine pH 6.0 Urine Protein 3+ H Urine Glucose (UA) 2+ H Urine Ketones Negative Urine Blood 1+ H Urine Nitrite Negative Urine Bilirubin Negative Urine Urobilinogen Negative Ur Leukocyte Esterase Negative Urine RBC 5 Urine WBC 1 Ur Epithelial Cells Rare Urine Mucus Rare 04/23/17 14:53 WBC RBC Hgb Hct MCV MCH MCHC RDW Plt Count MPV Neutrophils % Lymphocytes % Monocytes % Eosinophils % Basophils % INR Sodium 141 Potassium 4.8 Chloride 110 H Carbon Dioxide 21 Anion Gap 10 BUN 66 H Creatinine 6.1 H D Creat Clearance w eGFR 9.86 Random Glucose 83 D Calcium 6.9 L* Magnesium 2.1 Total Bilirubin 0.3 D AST 15 D ALT 11 L D Alkaline Phosphatase 91 D Creatine Kinase 138 Troponin I 0.02 Total Protein 5.6 L Albumin 1.8 L D Urine Color Urine Appearance Urine pH Urine Protein Urine Glucose (UA) Urine Ketones Urine Blood Urine Nitrite Urine Bilirubin Urine Urobilinogen Ur Leukocyte Esterase Urine RBC Urine WBC Ur Epithelial Cells Urine Mucus ASSESSMENT/PLAN: 51 year old male with BETH-on-CKD and symptomatic anemia. Problem List - Problem (1) BETH (acute kidney injury) Assessment/Plan: -Does have history of several months of diarrhea, however BUN:Cr ratio suggestive of intra-renal process -Send urine electrolytes -Renal biopsy 11/11/16: Nodular diabetic glomerulosclerosis, moderate to severe; tubular atrophy and interstitial fibrosis, moderate to severe; arteriosclerosis with hyalinosis, severe -Hold Lisinopril -Nephrology consultation requested Code(s): N17.9 - ACUTE KIDNEY FAILURE, UNSPECIFIED (2) Symptomatic anemia Assessment/Plan: -Dyspnea on exertion -Transfused 1 unit PRBC in ED -Add on iron studies to pre-transfusion labs -Follow Code(s): D64.9 - ANEMIA, UNSPECIFIED (3) CAD (coronary artery disease) Assessment/Plan: -No active issues -Continue ASA, Lipitor, Metoprolol Code(s): I25.10 - ATHSCL HEART DISEASE OF [place] CORONARY ARTERY W/O ANG PCTRS Qualifiers: Coronary Disease-Associated Artery/Lesion type: [place] artery [place] vs. transplanted heart: [place] heart Associated angina: without angina Qualified Code(s): I25.10 - Atherosclerotic heart disease of [place] coronary artery without angina pectoris (4) Diabetes Assessment/Plan: -No home medications -Euglycemic here -Check A1C Code(s): E11.9 - TYPE 2 DIABETES MELLITUS WITHOUT COMPLICATIONS (5) Diarrhea Assessment/Plan: -Follow up CTAP results -Send stool for c difficile Code(s): R19.7 - DIARRHEA, UNSPECIFIED (6) Hypertension Assessment/Plan: -Above goal in 200s systolic -Home dose Metoprolol, Norvasc (did not take today) -Hydralazine 10mg po x 1 dose -Hold Lisinopril in setting of BETH -Monitor Code(s): I10 - ESSENTIAL (PRIMARY) HYPERTENSION Qualifiers: Hypertension type: essential hypertension Qualified Code(s): I10 - Essential (primary) hypertension (7) DVT prophylaxis Assessment/Plan: -Ambulation -SCDs -No chemical ppx for now given anemia Code(s): [id number] - Visit type - Emergency Visit Emergency Visit: Yes ED Registration Date: 04/23/17 Care time: The patient presented to the Emergency Department on the above date and was hospitalized for further evaluation of their emergent condition. - New Patient This patient is new to me today: Yes Date on this admission: 04/23/17 - Critical Care Critical Care patient: No
[2017-04-23] MEDS ORDERED: CALCIUM GLUCONATE 10% - 1,000 MG/10 ML VIAL ONE (17:21)
[2017-04-23] MEDS ORDERED: SODIUM CHLORIDE 1,000 ML IV SCH (18:15)
[2017-04-23 18:30] VITALS: BMI 27.3
[2017-04-23] MEDS ORDERED: hydrALAZINE HCL 25 MG TABLET (FP) PO ONE (19:23)
[2017-04-23] MEDS ORDERED: METOPROLOL TARTRATE 50 MG TABLET (FP) PO ONE (19:25)
[2017-04-23] MEDS ORDERED: amLODIPine BESYLATE 10 MG TABLET (FP) PO ONE (19:26)
[2017-04-23 20:51] LABS: FERRITIN 56.135 ng/ml (16.4-293.9)
[2017-04-23] MEDS: ATORVASTATIN CA 20 MG TABLET (FP) PO SCH (22:47)
[2017-04-23] MEDS: METOPROLOL TARTRATE 50 MG TABLET (FP) PO SCH (22:47)
[2017-04-23] MEDS: FERROUS GLUCONATE 324 MG TAB (FP) PO SCH (22:47)
[2017-04-24 07:54] LABS: BASOPHIL 0.7 % (0-2.0); EOSINOPHIL 4.5 % (0-4.5); MCH 26.4 pg (25.7-33.7); MCHC 33.1 g/dl (32.0-35.9); MEAN CELL VOLUME 79.8 fl (80-96); MEAN PLT VOLUME 7.6 fl (7.5-11.1); NEUTROPHILS 72.4 % (42.8-82.8); PLATELET COUNT 169 K/MM3 (134-434); RDW 18.7 % (11.9-15.9); WHITE BLOOD COUNT 7.8 K/mm3 (4.0-10.0)
[2017-04-24 08:11] LABS: ALBUMIN 1.7 g/dl (3.4-5.0); ANION GAP 11 (8-16); CALCIUM 7.5 mg/dL (8.5-10.1); CO2 20 mmol/L (21-32); GLUCOSE,RANDOM 89 mg/dL (74-106)
[2017-04-24 08:16] LABS: ALK PHOS 87 U/L (45-117); BILIRUBIN,TOTAL 0.7 mg/dL (0.2-1.0); CREATININE 6.1 mg/dL (0.7-1.3); PHOSPHOROUS 6.4 mg/dL (2.5-4.9); SGOT/AST 15 U/L (15-37); SGPT/ALT 10 U/L (12-78); TOT PROT 5.5 g/dl (6.4-8.2)
[2017-04-24] MEDS: ASPIRIN COATED 81 MG TABLET.EC PO SCH (10:07)
[2017-04-24] MEDS: amLODIPine BESYLATE 10 MG TABLET (FP) PO SCH (10:07)
[2017-04-24] MEDS: FERROUS GLUCONATE 324 MG TAB (FP) PO SCH ×2 (10:07→22:10)
[2017-04-24] MEDS: THIAMINE HCL 100 MG TABLET (FP) PO SCH (10:07)
[2017-04-24] MEDS: METOPROLOL TARTRATE 50 MG TABLET (FP) PO SCH ×2 (10:07→22:10)
[2017-04-24] MEDS: FOLIC ACID 1 MG TABLET (FP) PO SCH (10:08)
--- NOTE | 2017-04-24 10:18 | PN ---
Progress Note (short form) - Note Progress Note: Subjective: The patient was seen and examined at the bedside, he reports feeling good today. He states he is still experiencing diarrhea Cr 6.1 today. Patient reports making urine Current Medications Generic Name Dose Route Start Last Admin Trade Name Freq PRN Reason Stop Dose Admin Acetaminophen 650 mg 04/23/17 17:14 04/23/17 19:44 Tylenol - PO 650 mg Q4H PRN Administration FEVER OR PAIN Amlodipine Besylate 10 mg 04/24/17 10:00 04/24/17 10:07 Norvasc - PO 10 mg DAILY LEMUEL Administration Aspirin 81 mg 04/24/17 10:00 04/24/17 10:07 Ecotrin - PO 81 mg DAILY LEMUEL Administration Atorvastatin Calcium 20 mg 04/23/17 22:00 04/23/17 22:47 Lipitor - PO 20 mg HS LEMUEL Administration Ferrous Gluconate 324 mg 04/23/17 22:00 04/24/17 10:07 Fergon - PO 324 mg BID LEMUEL Administration Folic Acid 1 mg 04/24/17 10:00 04/24/17 10:08 Folic Acid - PO 1 mg DAILY LEMUEL Administration Metoprolol Tartrate 50 mg 04/23/17 22:00 04/24/17 10:07 Lopressor - PO 50 mg BID LEMUEL Administration Ondansetron HCl 4 mg 04/23/17 17:14 Zofran Injection IVPB Q6H PRN NAUSEA Thiamine HCl 100 mg 04/24/17 10:00 04/24/17 10:07 Vitamin B1 - PO 100 mg DAILY LEMUEL Administration Objective: Vital Signs Period Temp Pulse Resp BP Sys/Benz Pulse Ox Last 24 Hr 98.1 F-99 F 84-96 18-20 150-204/82-111 94-99 Physical Exam: Patient refused CBCD WBC 7.8 K/mm3 (4.0-10.0) 04/24/17 06:00 RBC 3.52 M/mm3 (4.00-5.60) L 04/24/17 06:00 Hgb 9.3 GM/dL (11.7-16.9) L D 04/24/17 06:00 Hct 28.1 % (35.4-49) L 04/24/17 06:00 MCV 79.8 fl (80-96) L 04/24/17 06:00 MCHC 33.1 g/dl (32.0-35.9) 04/24/17 06:00 RDW 18.7 % (11.9-15.9) H 04/24/17 06:00 Plt Count 169 K/MM3 (134-434) 04/24/17 06:00 MPV 7.6 fl (7.5-11.1) 04/24/17 06:00 CMP Sodium 141 mmol/L (136-145) 04/24/17 06:00 Potassium 4.8 mmol/L (3.5-5.1) 04/24/17 06:00 Chloride 110 mmol/L (98-107) H 04/24/17 06:00 Carbon Dioxide 20 mmol/L (21-32) L 04/24/17 06:00 Anion Gap 11 (8-16) 04/24/17 06:00 BUN 66 mg/dL (7-18) H 04/24/17 06:00 Creatinine 6.1 mg/dL (0.7-1.3) H 04/24/17 06:00 Creat Clearance w eGFR 9.86 (>60) 04/24/17 06:00 Random Glucose 89 mg/dL (74-106) 04/24/17 06:00 Calcium 7.5 mg/dL (8.5-10.1) L 04/24/17 06:00 Total Bilirubin 0.7 mg/dL (0.2-1.0) D 04/24/17 06:00 AST 15 U/L (15-37) 04/24/17 06:00 ALT 10 U/L (12-78) L 04/24/17 06:00 Alkaline Phosphatase 87 U/L (45-117) 04/24/17 06:00 Total Protein 5.5 g/dl (6.4-8.2) L 04/24/17 06:00 Albumin 1.7 g/dl (3.4-5.0) L 04/24/17 06:00 CARDIAC ENZYMES Creatine Kinase 138 IU/L (39-308) 04/23/17 14:53 Troponin I 0.02 ng/ml (0.00-0.05) 04/23/17 14:53 CTAP: A very small amount of free fluid is seen within the lover pelvis. Small bilateral pleural effusions. Mild bilateral thickening of the anterior and posterior pararenal fasciae. The pancreatic head is mildly prominent probably on the basis of normal variation and less likely inflammation or neoplastic disease. Mild splenomegaly. Cholelithiasis. 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 Plan: 1) : BETH on CKD - Baseline Cr ~3 - Renal biopsy 11/11/16: Nodular diabetic glomerulosclerosis, moderate to severe ; tubular atrophy and interstitial fibrosis, moderate to severe; arteriosclerosis with hyalinosis - F/u urine electrolytes - Strict I&O - Hold all nephrotoxic agents - F/u neprhology consult 2) GI: Diarrhea x 6 months - F/u c.diff, stool culture, ova and parasite Prominent pancreatic head - Follow-up with pcp as an outpatient for MRI to evaluate pancreas 3) Cardiology: CAD - Continue ASA - Continue Lipitor - Continue Metoprolol HTN - Continue Norvasc - Continue Lopressor - Hold Lisinopril in setting of BETH 4) Endocrine: DM? - HgbA1c 6.5 - Not on home medications - Glucose here in the 80s - Will place on diabetic diet and instruct the patient on lifestyle modifications 5) F/E/N: - Monitor electrolytes - Renal, diabetic diet 6) Prophylaxis: - OOB ambulating - Heparin 5,000u sq tid 7) Dispo: - Requires continued inpatient care CODE STATUS: FULL CODE Visit type - Emergency Visit Emergency Visit: Yes ED Registration Date: 04/23/17 Care time: The patient presented to the Emergency Department on the above date and was hospitalized for further evaluation of their emergent condition. - New Patient This patient is new to me today: Yes Date on this admission: 04/25/17 - Critical Care Critical Care patient: No
[2017-04-24] MEDS: HEPARIN NA (PORCINE) 5,000 UNITS/ML 1ML VIAL SQ SCH ×2 (13:27→22:10)
--- NOTE | 2017-04-24 18:48 | CONSULT ---
Consult Consult Specialty:: Nephrology Reason for Consultation:: BETH on CKD - History of Present Illness Chief Complaint: diarhhea History of Present Illness: Pt is a 51 year old make with pmhx of CKD, HTN and DM who presents to the ER complaining of diarrhea. He says that it has been a problem for about 6 months. He says it has worsening recently so he came to ER. He has not followed up in the office since he was last discharged for CKD. He has poor outpt follow up and titrated his medications on his own. He was found to have worsening of his renal failure. He denies cchest pain or palpitations. He denies shortness of breath. He denies edema and has stopped his diuretics months ago. He denies dysuria. He denies nsaid use. - History Source History Provided By: Patient - Past Medical History Cardio/Vascular: Yes: HTN Renal/: Yes: Renal Inusuff Endocrine: Yes: Diabetes Mellitus - Alcohol/Substance Use Hx Alcohol Use: No - Smoking History Smoking history: Former smoker Have you smoked in the past 12 months: No Home Medications - Allergies Allergies/Adverse Reactions: Allergies Allergy/AdvReac Type Severity Reaction Status Date / Time Penicillins Allergy Verified 04/23/17 13:06 - Home Medications Home Medications: Ambulatory Orders Amlodipine Besylate [Norvasc -] 10 mg PO DAILY 10/31/16 Ferrous Gluconate [Fergon -] 324 mg PO BID 10/31/16 Folic Acid - 1 mg PO DAILY #30 tablet 11/04/16 Thiamine HCl [Vitamin B1 -] 100 mg PO DAILY #30 tablet 11/04/16 Aspirin Coated [Ecotrin -] 81 mg PO DAILY tablet.ec 11/19/16 Atorvastatin Ca [Lipitor] 20 mg PO HS #30 tablet 11/19/16 Furosemide [Lasix -] 40 mg PO DAILY #30 tablet 11/19/16 Lisinopril [Prinivil] 20 mg PO DAILY #30 tablet 11/19/16 Metoprolol Tartrate [Lopressor -] 50 mg PO BID #60 tablet 11/19/16 Family Disease History - Family Disease History Family Disease History: Diabetes: Mother, Heart Disease: Mother Review of Systems - Review of Systems Constitutional: reports: No Symptoms Eyes: reports: No Symptoms HENT: reports: No Symptoms Neck: reports: No Symptoms Cardiovascular: reports: No Symptoms Respiratory: reports: No Symptoms Gastrointestinal: reports: Diarrhea Genitourinary: reports: No Symptoms Musculoskeletal: reports: No Symptoms Integumentary: reports: No Symptoms Neurological: reports: No Symptoms Endocrine: reports: No Symptoms Hematology/Lymphatic: reports: No Symptoms Psychiatric: reports: No Symptoms Physical Exam Vital Signs: Vital Signs Temperature 98.0 F 04/24/17 14:00 Pulse Rate 81 04/24/17 14:00 Respiratory Rate 20 04/24/17 14:00 Blood Pressure 141/73 04/24/17 14:00 O2 Sat by Pulse Oximetry (%) 95 04/23/17 21:44 Constitutional: Yes: Calm Eyes: Yes: Conjunctiva Clear HENT: Yes: Atraumatic Cardiovascular: Yes: S1, S2 Respiratory: Yes: CTA Bilaterally Gastrointestinal: Yes: Normal Bowel Sounds, Soft Renal/: Yes: WNL Musculoskeletal: Yes: WNL Edema: No Neurological: Yes: Oriented Psychiatric: Yes: Oriented Labs: CBC, BMP 04/24/17 06:00 04/24/17 06:00 Laboratory Tests 11/17/16 11/18/16 11/19/16 06:20 06:45 05:35 WBC Hgb Sodium Potassium Chloride Carbon Dioxide BUN Creatinine 3.0 H 3.0 H 3.3 H Calcium Albumin 04/23/17 04/23/17 04/24/17 14:53 14:53 06:00 WBC 7.8 Hgb 7.8 L D 9.3 L D Sodium Potassium Chloride Carbon Dioxide BUN Creatinine 6.1 H D Calcium Albumin 04/24/17 06:00 WBC Hgb Sodium 141 Potassium 4.8 Chloride 110 H Carbon Dioxide 20 L BUN 66 H Creatinine 6.1 H Calcium 7.5 L Albumin 1.7 L Imaging - Results Chest X-ray: Report Reviewed Problem List - Problems (1) BETH (acute kidney injury) Code(s): N17.9 - ACUTE KIDNEY FAILURE, UNSPECIFIED (2) Diabetes Code(s): E11.9 - TYPE 2 DIABETES MELLITUS WITHOUT COMPLICATIONS (3) Diarrhea Code(s): R19.7 - DIARRHEA, UNSPECIFIED (4) Worsening renal function Code(s): N25.9 - DISORDER RSLT FROM IMPAIRED RENAL TUBULAR FUNCTION, UNSP (5) CAD (coronary artery disease) Code(s): I25.10 - ATHSCL HEART DISEASE OF [place] CORONARY ARTERY W/O ANG PCTRS Qualifiers: Coronary Disease-Associated Artery/Lesion type: [place] artery [place] vs. transplanted heart: [place] heart Associated angina: without angina Qualified Code(s): I25.10 - Atherosclerotic heart disease of [place] coronary artery without angina pectoris Assessment/Plan Current Medications Generic Name Dose Route Start Last Admin Trade Name Freq PRN Reason Stop Dose Admin Acetaminophen 650 mg 04/23/17 17:14 04/23/17 19:44 Tylenol - PO 650 mg Q4H PRN Administration FEVER OR PAIN Amlodipine Besylate 10 mg 04/24/17 10:00 04/24/17 10:07 Norvasc - PO 10 mg DAILY LEMUEL Administration Aspirin 81 mg 04/24/17 10:00 04/24/17 10:07 Ecotrin - PO 81 mg DAILY LEMUEL Administration Atorvastatin Calcium 20 mg 04/23/17 22:00 04/23/17 22:47 Lipitor - PO 20 mg HS LEMUEL Administration Ferrous Gluconate 324 mg 04/23/17 22:00 04/24/17 10:07 Fergon - PO 324 mg BID LEMUEL Administration Folic Acid 1 mg 04/24/17 10:00 04/24/17 10:08 Folic Acid - PO 1 mg DAILY LEMUEL Administration Heparin Sodium (Porcine) 5,000 unit 04/24/17 14:00 04/24/17 13:27 Heparin - SQ 5,000 unit TID LEMUEL Administration Metoprolol Tartrate 50 mg 04/23/17 22:00 04/24/17 10:07 Lopressor - PO 50 mg BID LEMUEL Administration Ondansetron HCl 4 mg 04/23/17 17:14 Zofran Injection IVPB Q6H PRN NAUSEA Thiamine HCl 100 mg 04/24/17 10:00 04/24/17 10:07 Vitamin B1 - PO 100 mg DAILY LEMUEL Administration Impression 1. CKD 2. BETH 3. HTN 4. DM 5. proteinuria 6. 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
[2017-04-24] MEDS ORDERED: SODIUM CHLORIDE 0.45% 1,000 ML IV SCH ×2 (19:00)
[2017-04-24] MEDS: SODIUM BICARBONATE 650 MG TABLET PO SCH (22:10)
[2017-04-24] MEDS: ATORVASTATIN CA 20 MG TABLET (FP) PO SCH (22:10)
[2017-04-25 00:05] LABS: URINE APPEARANCE CLEAR; URINE BILIRUBIN NEGATIVE (NEGATIVE); URINE BLOOD 1+ (NEGATIVE); URINE COLOR LTYELLOW; URINE GLUCOSE (UA) 3+ (NEGATIVE); URINE KETONE NEGATIVE (NEGATIVE); URINE LEUK ESTERASE NEGATIVE (NEGATIVE); URINE NITRITE NEGATIVE (NEGATIVE); URINE UROBILINOGEN NEGATIVE mg/dL (0.2-1.0)
[2017-04-25 00:11] LABS: URINE PROTEIN 3+ (NEGATIVE)
[2017-04-25 00:14] LABS: URINE BACTERIA FEW /hpf (NONE SEEN); URINE MUCUS RARE; URINE RBC 2 /hpf (0-3); URINE WBC 3 /hpf (3-5)
[2017-04-25] MEDS: HEPARIN NA (PORCINE) 5,000 UNITS/ML 1ML VIAL SQ SCH ×3 (06:03→21:11)
[2017-04-25 06:36] LABS: SERUM IRON 50 ug/dL (38-169); TOTAL IRON BINDING CAPACITY 230 ug/dL (250-450); UIBC 180 ug/dL (111-343)
[2017-04-25 08:11] LABS: BASOPHIL 0.8 % (0-2.0); MCH 26.4 pg (25.7-33.7); MCHC 33.3 g/dl (32.0-35.9); MEAN CELL VOLUME 79.3 fl (80-96); MEAN PLT VOLUME 7.8 fl (7.5-11.1); NEUTROPHILS 73.2 % (42.8-82.8); PLATELET COUNT 175 K/MM3 (134-434); RDW 18.1 % (11.9-15.9); WHITE BLOOD COUNT 8.1 K/mm3 (4.0-10.0)
[2017-04-25 08:58] LABS: ALBUMIN 1.8 g/dl (3.4-5.0); ALK PHOS 95 U/L (45-117); ANION GAP 10 (8-16); BILIRUBIN,TOTAL 0.5 mg/dL (0.2-1.0); CALCIUM 7.1 mg/dL (8.5-10.1); CO2 18 mmol/L (21-32); CREATININE 6.2 mg/dL (0.7-1.3); GLUCOSE,RANDOM 101 mg/dL (74-106); SGPT/ALT 12 U/L (12-78); TOT PROT 5.7 g/dl (6.4-8.2)
[2017-04-25 09:03] LABS: SGOT/AST 17 U/L (15-37)
[2017-04-25] MEDS: amLODIPine BESYLATE 10 MG TABLET (FP) PO SCH (09:58)
[2017-04-25] MEDS: FERROUS GLUCONATE 324 MG TAB (FP) PO SCH ×2 (09:58→21:11)
[2017-04-25] MEDS: FOLIC ACID 1 MG TABLET (FP) PO SCH (09:58)
[2017-04-25] MEDS: THIAMINE HCL 100 MG TABLET (FP) PO SCH (09:59)
[2017-04-25] MEDS: METOPROLOL TARTRATE 50 MG TABLET (FP) PO SCH ×2 (09:59→21:11)
[2017-04-25] MEDS: ASPIRIN COATED 81 MG TABLET.EC PO SCH (09:59)
[2017-04-25] MEDS: SODIUM BICARBONATE 650 MG TABLET PO SCH ×2 (10:00→21:11)
--- NOTE | 2017-04-25 13:44 | PN ---
Progress Note (short form) - Note Progress Note: Subjective: The patient was seen and examined at the bedside, he reports feeling good today. He denies having any diarrhea since arriving in the ED Current Medications Generic Name Dose Route Start Last Admin Trade Name Stephanie PRN Reason Stop Dose Admin Acetaminophen 650 mg 04/23/17 17:14 04/23/17 19:44 Tylenol - PO 650 mg Q4H PRN Administration FEVER OR PAIN Amlodipine Besylate 10 mg 04/24/17 10:00 04/25/17 09:58 Norvasc - PO 10 mg DAILY LEMUEL Administration Aspirin 81 mg 04/24/17 10:00 04/25/17 09:59 Ecotrin - PO 81 mg DAILY LEMUEL Administration Atorvastatin Calcium 20 mg 04/23/17 22:00 04/24/17 22:10 Lipitor - PO 20 mg HS LEMUEL Administration Ferrous Gluconate 324 mg 04/23/17 22:00 04/25/17 09:58 Fergon - PO 324 mg BID LEMUEL Administration Folic Acid 1 mg 04/24/17 10:00 04/25/17 09:58 Folic Acid - PO 1 mg DAILY LEMUEL Administration Heparin Sodium (Porcine) 5,000 unit 04/24/17 14:00 04/25/17 06:03 Heparin - SQ 5,000 unit TID LEMUEL Administration Sodium Chloride 1,000 mls @ 40 mls/hr 04/24/17 19:00 04/24/17 20:11 1/2 Normal Saline IV 40 mls/hr ASDIR LEMUEL Administration Metoprolol Tartrate 50 mg 04/23/17 22:00 04/25/17 09:59 Lopressor - PO 50 mg BID LEMUEL Administration Ondansetron HCl 4 mg 04/23/17 17:14 Zofran Injection IVPB Q6H PRN NAUSEA Sodium Bicarbonate 650 mg 04/24/17 22:00 04/25/17 10:00 Sodium Bicarbonate - PO 650 mg BID LEMUEL Administration Thiamine HCl 100 mg 04/24/17 10:00 04/25/17 09:59 Vitamin B1 - PO 100 mg DAILY LEMUEL Administration Objective: Vital Signs Period Temp Pulse Resp BP Sys/Benz Pulse Ox Last 24 Hr 98 F-98.6 F 81-89 20-20 141-158/73-89 95 Physical Exam: General: NAD, A&Ox3 Lungs: CTA bilaterally Heart: RRR, S1S2 AbD: Soft, non-tender, non-distended. Normoactive bowel sounds Ext: Warm, well-perfused CBCD WBC 8.1 K/mm3 (4.0-10.0) 04/25/17 06:20 RBC 3.47 M/mm3 (4.00-5.60) L 04/25/17 06:20 Hgb 9.2 GM/dL (11.7-16.9) L 04/25/17 06:20 Hct 27.5 % (35.4-49) L 04/25/17 06:20 MCV 79.3 fl (80-96) L 04/25/17 06:20 MCHC 33.3 g/dl (32.0-35.9) 04/25/17 06:20 RDW 18.1 % (11.9-15.9) H 04/25/17 06:20 Plt Count 175 K/MM3 (134-434) 04/25/17 06:20 MPV 7.8 fl (7.5-11.1) 04/25/17 06:20 CMP Sodium 136 mmol/L (136-145) 04/25/17 06:20 Potassium 4.8 mmol/L (3.5-5.1) 04/25/17 06:20 Chloride 108 mmol/L (98-107) H 04/25/17 06:20 Carbon Dioxide 18 mmol/L (21-32) L 04/25/17 06:20 Anion Gap 10 (8-16) 04/25/17 06:20 BUN 67 mg/dL (7-18) H 04/25/17 06:20 Creatinine 6.2 mg/dL (0.7-1.3) H 04/25/17 06:20 Creat Clearance w eGFR 9.67 (>60) 04/25/17 06:20 Random Glucose 101 mg/dL (74-106) 04/25/17 06:20 Calcium 7.1 mg/dL (8.5-10.1) L 04/25/17 06:20 Total Bilirubin 0.5 mg/dL (0.2-1.0) D 04/25/17 06:20 AST 17 U/L (15-37) 04/25/17 06:20 ALT 12 U/L (12-78) 04/25/17 06:20 Alkaline Phosphatase 95 U/L (45-117) 04/25/17 06:20 Total Protein 5.7 g/dl (6.4-8.2) L 04/25/17 06:20 Albumin 1.8 g/dl (3.4-5.0) L 04/25/17 06:20 CARDIAC ENZYMES Creatine Kinase 138 IU/L (39-308) 04/23/17 14:53 Troponin I 0.02 ng/ml (0.00-0.05) 04/23/17 14:53 Microbiology 04/23/17 14:53 Urine - Urine Clean Catch Urine Culture - Preliminary Strep Agalactiae Group B CTAP: A very small amount of free fluid is seen within the lover pelvis. Small bilateral pleural effusions. Mild bilateral thickening of the anterior and posterior pararenal fasciae. The pancreatic head is mildly prominent probably on the basis of normal variation and less likely inflammation or neoplastic disease. Mild splenomegaly. Cholelithiasis. Atheroclerotic vascular calcifications Renal/Bladder ultrasound: No interval change from prior ultrasound 10/2016. Kidneys appear unremarkable. 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 Plan: 1) : BETH on CKD - Baseline Cr ~3 - Renal biopsy 11/11/16: Nodular diabetic glomerulosclerosis, moderate to severe ; tubular atrophy and interstitial fibrosis, moderate to severe; arteriosclerosis with hyalinosis - FeNa 2.2, intrinsic - Strict I&O - Hold all nephrotoxic agents - Appreciate neprhology consult 2) GI: Diarrhea x 6 months - Patient now reporting no longer experiencing diarrhea - F/u c.diff, stool culture, ova and parasite Prominent pancreatic head - Follow-up with pcp as an outpatient for MRI to evaluate pancreas 3) Cardiology: CAD - Continue ASA - Continue Lipitor - Continue Metoprolol HTN - Continue Norvasc - Continue Lopressor - Hold Lisinopril in setting of BETH 4) Endocrine: DM? - HgbA1c 6.5 - Not on home medications - Glucose here in the 80s - Will place on diabetic diet and instruct the patient on lifestyle modifications 5) F/E/N: - Monitor electrolytes - Renal, diabetic diet 6) Prophylaxis: - OOB ambulating - Heparin 5,000u sq tid 7) Dispo: - Requires continued inpatient care CODE STATUS: FULL CODE Visit type - Emergency Visit Emergency Visit: Yes ED Registration Date: 04/23/17 Care time: The patient presented to the Emergency Department on the above date and was hospitalized for further evaluation of their emergent condition. - New Patient This patient is new to me today: No - Critical Care Critical Care patient: No
--- NOTE | 2017-04-25 17:25 | PN ---
Progress Note, Physician History of Present Illness: Pt seen and examined at bedside. He is awake and alert. He denies shortness of breath or palpitations. He denies loss of appetite. We discussed HD and HD access at length. I also discussed PD with with him. - Current Medication List Current Medications: Active Medications Acetaminophen (Tylenol -) 650 mg PO Q4H PRN PRN Reason: FEVER OR PAIN Last Admin: 04/23/17 19:44 Dose: 650 mg Amlodipine Besylate (Norvasc -) 10 mg PO DAILY [facility] Last Admin: 04/25/17 09:58 Dose: 10 mg Aspirin (Ecotrin -) 81 mg PO DAILY [facility] Last Admin: 04/25/17 09:59 Dose: 81 mg Atorvastatin Calcium (Lipitor -) 20 mg PO HS [facility] Last Admin: 04/24/17 22:10 Dose: 20 mg Ferrous Gluconate (Fergon -) 324 mg PO BID [facility] Last Admin: 04/25/17 09:58 Dose: 324 mg Folic Acid (Folic Acid -) 1 mg PO DAILY [facility] Last Admin: 04/25/17 09:58 Dose: 1 mg Heparin Sodium (Porcine) (Heparin -) 5,000 unit SQ TID [facility] Last Admin: 04/25/17 14:33 Dose: 5,000 unit Sodium Chloride (1/2 Normal Saline) 1,000 mls @ 40 mls/hr IV ASDIR [facility] Last Admin: 04/24/17 20:11 Dose: 40 mls/hr Metoprolol Tartrate (Lopressor -) 50 mg PO BID [facility] Last Admin: 04/25/17 09:59 Dose: 50 mg Ondansetron HCl (Zofran Injection) 4 mg IVPB Q6H PRN PRN Reason: NAUSEA Sodium Bicarbonate (Sodium Bicarbonate -) 650 mg PO BID [facility] Last Admin: 04/25/17 10:00 Dose: 650 mg Thiamine HCl (Vitamin B1 -) 100 mg PO DAILY [facility] Last Admin: 04/25/17 09:59 Dose: 100 mg - Objective Vital Signs: Vital Signs Temperature 98.7 F 04/25/17 14:06 Pulse Rate 82 04/25/17 14:06 Respiratory Rate 20 04/25/17 10:24 Blood Pressure 155/85 04/25/17 14:06 O2 Sat by Pulse Oximetry (%) 95 04/24/17 21:00 Constitutional: Yes: Calm Eyes: Yes: Conjunctiva Clear HENT: Yes: Atraumatic Neck: Yes: Supple Cardiovascular: Yes: S1, S2 Respiratory: Yes: CTA Bilaterally Gastrointestinal: Yes: Normal Bowel Sounds, Soft Genitourinary: Yes: WNL Musculoskeletal: Yes: WNL Edema: No Neurological: Yes: Oriented Psychiatric: Yes: Oriented Labs: CBC, BMP 04/25/17 06:20 04/25/17 06:20 INR, PTT INR 1.15 (0.82-1.09) H 04/23/17 14:53 Problem List - Problems (1) BETH (acute kidney injury) Code(s): N17.9 - ACUTE KIDNEY FAILURE, UNSPECIFIED (2) Diabetes Code(s): E11.9 - TYPE 2 DIABETES MELLITUS WITHOUT COMPLICATIONS (3) Diarrhea Code(s): R19.7 - DIARRHEA, UNSPECIFIED (4) Worsening renal function Code(s): N25.9 - DISORDER RSLT FROM IMPAIRED RENAL TUBULAR FUNCTION, UNSP (5) CAD (coronary artery disease) Code(s): I25.10 - ATHSCL HEART DISEASE OF [place] CORONARY ARTERY W/O ANG PCTRS Qualifiers: Coronary Disease-Associated Artery/Lesion type: [place] artery [place] vs. transplanted heart: [place] heart Associated angina: without angina Qualified Code(s): I25.10 - Atherosclerotic heart disease of [place] coronary artery without angina pectoris Assessment/Plan Current Medications Generic Name Dose Route Start Last Admin Trade Name Freq PRN Reason Stop Dose Admin Acetaminophen 650 mg 04/23/17 17:14 04/23/17 19:44 Tylenol - PO 650 mg Q4H PRN Administration FEVER OR PAIN Amlodipine Besylate 10 mg 04/24/17 10:00 04/25/17 09:58 Norvasc - PO 10 mg DAILY LEMUEL Administration Aspirin 81 mg 04/24/17 10:00 04/25/17 09:59 Ecotrin - PO 81 mg DAILY LEMUEL Administration Atorvastatin Calcium 20 mg 04/23/17 22:00 04/24/17 22:10 Lipitor - PO 20 mg HS LEMUEL Administration Ferrous Gluconate 324 mg 04/23/17 22:00 04/25/17 09:58 Fergon - PO 324 mg BID LEMUEL Administration Folic Acid 1 mg 04/24/17 10:00 04/25/17 09:58 Folic Acid - PO 1 mg DAILY LEMUEL Administration Heparin Sodium (Porcine) 5,000 unit 04/24/17 14:00 04/25/17 14:33 Heparin - SQ 5,000 unit TID LEMUEL Administration Sodium Chloride 1,000 mls @ 40 mls/hr 04/24/17 19:00 04/24/17 20:11 1/2 Normal Saline IV 40 mls/hr ASDIR LEMUEL Administration Metoprolol Tartrate 50 mg 04/23/17 22:00 04/25/17 09:59 Lopressor - PO 50 mg BID LEMUEL Administration Ondansetron HCl 4 mg 04/23/17 17:14 Zofran Injection IVPB Q6H PRN NAUSEA Sodium Bicarbonate 650 mg 04/24/17 22:00 04/25/17 10:00 Sodium Bicarbonate - PO 650 mg BID LEMUEL Administration Thiamine HCl 100 mg 04/24/17 10:00 04/25/17 09:59 Vitamin B1 - PO 100 mg DAILY LEMUEL Administration Impression 1. CKD 2. BETH 3. HTN 4. DM 5. proteinuria 6. diarrhea Plan - can stop fluids - discussed HD with pt at length (spent about 30 minutes). Pt's mother was on dialysis and he is familiar with the procedure - will recommend that vascular surgery evaluate him for fistula - repeat labs in am - discussed importance of follow up - cont PO bicarb - diarrhea has resolved - discussed with medical team - hold off dontae Dr Oleary
[2017-04-25] MEDS: ATORVASTATIN CA 20 MG TABLET (FP) PO SCH (21:11)
[2017-04-26] MEDS: HEPARIN NA (PORCINE) 5,000 UNITS/ML 1ML VIAL SQ SCH ×3 (06:10→21:27)
[2017-04-26 07:05] LABS: BASOPHIL 0.6 % (0-2.0); EOSINOPHIL 4.1 % (0-4.5); MCH 26.3 pg (25.7-33.7); MCHC 33.4 g/dl (32.0-35.9); MEAN CELL VOLUME 78.9 fl (80-96); MEAN PLT VOLUME 7.7 fl (7.5-11.1); NEUTROPHILS 72.5 % (42.8-82.8); PLATELET COUNT 163 K/MM3 (134-434); RDW 18.4 % (11.9-15.9); WHITE BLOOD COUNT 8.9 K/mm3 (4.0-10.0)
[2017-04-26 07:29] LABS: ALBUMIN 1.7 g/dl (3.4-5.0); ANION GAP 10 (8-16); CO2 20 mmol/L (21-32); GLUCOSE,RANDOM 102 mg/dL (74-106); SGOT/AST 13 U/L (15-37)
[2017-04-26 07:31] LABS: ALK PHOS 103 U/L (45-117); BILIRUBIN,TOTAL 0.8 mg/dL (0.2-1.0); CREATININE 6.4 mg/dL (0.7-1.3); SGPT/ALT 11 U/L (12-78); TOT PROT 5.4 g/dl (6.4-8.2)
[2017-04-26 08:57] LABS: CALCIUM 6.8 mg/dL (8.5-10.1)
--- NOTE | 2017-04-26 09:51 | EKG ---
Test Reason : Blood Pressure : / mmHG Vent. Rate : 098 BPM Atrial Rate : 098 BPM P-R Int : 134 ms QRS Dur : 082 ms QT Int : 362 ms P-R-T Axes : 059 063 055 degrees QTc Int : 462 ms NORMAL SINUS RHYTHM POSSIBLE LEFT ATRIAL ENLARGEMENT BORDERLINE ECG WHEN COMPARED WITH ECG OF 13-NOV-2016 16:37, T WAVE VARIATION Confirmed by CRISTOPHER TEJEDA MD ([id number]) on 04/26/2017 9:51:24 AM Referred By: Confirmed By:CRISTOPHER TEJEDA MD
[2017-04-26] MEDS: FOLIC ACID 1 MG TABLET (FP) PO SCH (10:30)
[2017-04-26] MEDS: THIAMINE HCL 100 MG TABLET (FP) PO SCH (10:30)
[2017-04-26] MEDS: amLODIPine BESYLATE 10 MG TABLET (FP) PO SCH (10:30)
[2017-04-26] MEDS: METOPROLOL TARTRATE 50 MG TABLET (FP) PO SCH ×2 (10:30→21:27)
[2017-04-26] MEDS: SODIUM BICARBONATE 650 MG TABLET PO SCH ×2 (10:30→21:27)
[2017-04-26] MEDS: FERROUS GLUCONATE 324 MG TAB (FP) PO SCH ×2 (10:30→21:27)
[2017-04-26] MEDS: ASPIRIN COATED 81 MG TABLET.EC PO SCH (10:30)
--- NOTE | 2017-04-26 10:32 | CONSULT ---
Consult - Past Medical History Cardio/Vascular: Yes: HTN Renal/: Yes: Renal Inusuff Endocrine: Yes: Diabetes Mellitus - Alcohol/Substance Use Hx Alcohol Use: No - Smoking History Smoking history: Former smoker Have you smoked in the past 12 months: No Home Medications - Allergies Allergies/Adverse Reactions: Allergies Allergy/AdvReac Type Severity Reaction Status Date / Time Penicillins Allergy Verified 04/23/17 13:06 - Home Medications Home Medications: Ambulatory Orders Amlodipine Besylate [Norvasc -] 10 mg PO DAILY 10/31/16 Ferrous Gluconate [Fergon -] 324 mg PO BID 10/31/16 Folic Acid - 1 mg PO DAILY #30 tablet 11/04/16 Thiamine HCl [Vitamin B1 -] 100 mg PO DAILY #30 tablet 11/04/16 Aspirin Coated [Ecotrin -] 81 mg PO DAILY tablet.ec 11/19/16 Atorvastatin Ca [Lipitor] 20 mg PO HS #30 tablet 11/19/16 Furosemide [Lasix -] 40 mg PO DAILY #30 tablet 11/19/16 Lisinopril [Prinivil] 20 mg PO DAILY #30 tablet 11/19/16 Metoprolol Tartrate [Lopressor -] 50 mg PO BID #60 tablet 11/19/16 Family Disease History - Family Disease History Family Disease History: Diabetes: Mother, Heart Disease: Mother Physical Exam Vital Signs: Vital Signs Temperature 98.8 F 04/26/17 05:00 Pulse Rate 83 04/26/17 05:00 Respiratory Rate 18 04/26/17 05:00 Blood Pressure 152/79 04/26/17 05:00 O2 Sat by Pulse Oximetry (%) 95 04/25/17 21:00 Labs: CBC, BMP 04/26/17 05:55 04/26/17 05:55 Assessment/Plan VAscular Surgery 51-year-old female male presents to the ED for evaluation of intermittent diarrhea for the past 6 months associated with nausea. Patient has no other complaints at this time but does state history of hypertension and borderline renal failure. Patient states was placed on Lasix by his PCP 6 months ago but stopped taking it since he said the fluid in his feet improved and has been drinking and urinating adequately. Patient is followed at the [facility]. Pt sates for the past week has been having more dyspnea on exertion but denies cough, palpitations chest pain, or lower extremity edema. Timing/Duration: intermittent Severity: moderate Associated Symptoms: reports: nausea/vomiting, shortness of breath (on exertion) Past History - Past Medical History Allergies/Adverse Reactions: Allergies Allergy/AdvReac Type Severity Reaction Status Date / Time Penicillins Allergy Verified 04/23/17 13:06 Home Medications: Ambulatory Orders Amlodipine Besylate [Norvasc -] 10 mg PO DAILY 10/31/16 Ferrous Gluconate [Fergon -] 324 mg PO BID 10/31/16 Folic Acid - 1 mg PO DAILY #30 tablet 11/04/16 Thiamine HCl [Vitamin B1 -] 100 mg PO DAILY #30 tablet 11/04/16 Aspirin Coated [Ecotrin -] 81 mg PO DAILY tablet.ec 11/19/16 Atorvastatin Ca [Lipitor] 20 mg PO HS #30 tablet 11/19/16 Furosemide [Lasix -] 40 mg PO DAILY #30 tablet 11/19/16 Lisinopril [Prinivil] 20 mg PO DAILY #30 tablet 11/19/16 Metoprolol Tartrate [Lopressor -] 50 mg PO BID #60 tablet 11/19/16 PE Head - NC/AT lung - CTA Heart - RRR abd - soft,nt,nd ext - warm, pink. Pt is right handed CRF 1. Change IV to right arm. 2. VEin mapping for fistula placement. 3. spoke to pt about all options. Zachariah Barros DO
--- NOTE | 2017-04-26 15:01 | PN ---
Progress Note, Physician History of Present Illness: Pt seen and examined at bedside. He is awake and alert. He is getting vein mapping. - Current Medication List Current Medications: Active Medications Acetaminophen (Tylenol -) 650 mg PO Q4H PRN PRN Reason: FEVER OR PAIN Last Admin: 04/23/17 19:44 Dose: 650 mg Amlodipine Besylate (Norvasc -) 10 mg PO DAILY [facility] Last Admin: 04/26/17 10:30 Dose: 10 mg Aspirin (Ecotrin -) 81 mg PO DAILY [facility] Last Admin: 04/26/17 10:30 Dose: 81 mg Atorvastatin Calcium (Lipitor -) 20 mg PO HS [facility] Last Admin: 04/25/17 21:11 Dose: 20 mg Ferrous Gluconate (Fergon -) 324 mg PO BID [facility] Last Admin: 04/26/17 10:30 Dose: 324 mg Folic Acid (Folic Acid -) 1 mg PO DAILY [facility] Last Admin: 04/26/17 10:30 Dose: 1 mg Heparin Sodium (Porcine) (Heparin -) 5,000 unit SQ TID [facility] Last Admin: 04/26/17 06:10 Dose: 5,000 unit Metoprolol Tartrate (Lopressor -) 50 mg PO BID [facility] Last Admin: 04/26/17 10:30 Dose: 50 mg Ondansetron HCl (Zofran Injection) 4 mg IVPB Q6H PRN PRN Reason: NAUSEA Last Admin: 04/26/17 10:38 Dose: 4 mg Sodium Bicarbonate (Sodium Bicarbonate -) 650 mg PO BID [facility] Last Admin: 04/26/17 10:30 Dose: 650 mg Thiamine HCl (Vitamin B1 -) 100 mg PO DAILY [facility] Last Admin: 04/26/17 10:30 Dose: 100 mg - Objective Vital Signs: Vital Signs Temperature 98.8 F 04/26/17 05:00 Pulse Rate 90 04/26/17 09:00 Respiratory Rate 18 04/26/17 09:00 Blood Pressure 155/94 04/26/17 09:00 O2 Sat by Pulse Oximetry (%) 95 04/26/17 09:00 Constitutional: Yes: Calm Eyes: Yes: Conjunctiva Clear HENT: Yes: Atraumatic Neck: Yes: Supple Cardiovascular: Yes: S1, S2 Respiratory: Yes: CTA Bilaterally Gastrointestinal: Yes: WNL Genitourinary: Yes: WNL Edema: No Integumentary: Yes: WNL Neurological: Yes: Oriented Psychiatric: Yes: Oriented Labs: CBC, BMP 04/26/17 05:55 04/26/17 05:55 INR, PTT INR 1.15 (0.82-1.09) H 04/23/17 14:53 Problem List - Problems (1) BETH (acute kidney injury) Code(s): N17.9 - ACUTE KIDNEY FAILURE, UNSPECIFIED (2) Diabetes Code(s): E11.9 - TYPE 2 DIABETES MELLITUS WITHOUT COMPLICATIONS (3) Diarrhea Code(s): R19.7 - DIARRHEA, UNSPECIFIED (4) Worsening renal function Code(s): N25.9 - DISORDER RSLT FROM IMPAIRED RENAL TUBULAR FUNCTION, UNSP (5) CAD (coronary artery disease) Code(s): I25.10 - ATHSCL HEART DISEASE OF [place] CORONARY ARTERY W/O ANG PCTRS Qualifiers: Coronary Disease-Associated Artery/Lesion type: [place] artery [place] vs. transplanted heart: [place] heart Associated angina: without angina Qualified Code(s): I25.10 - Atherosclerotic heart disease of [place] coronary artery without angina pectoris Assessment/Plan Current Medications Generic Name Dose Route Start Last Admin Trade Name Freq PRN Reason Stop Dose Admin Acetaminophen 650 mg 04/23/17 17:14 04/23/17 19:44 Tylenol - PO 650 mg Q4H PRN Administration FEVER OR PAIN Amlodipine Besylate 10 mg 04/24/17 10:00 04/26/17 10:30 Norvasc - PO 10 mg DAILY LEMUEL Administration Aspirin 81 mg 04/24/17 10:00 04/26/17 10:30 Ecotrin - PO 81 mg DAILY LEMUEL Administration Atorvastatin Calcium 20 mg 04/23/17 22:00 04/25/17 21:11 Lipitor - PO 20 mg HS LEMUEL Administration Ferrous Gluconate 324 mg 04/23/17 22:00 04/26/17 10:30 Fergon - PO 324 mg BID LEMUEL Administration Folic Acid 1 mg 04/24/17 10:00 04/26/17 10:30 Folic Acid - PO 1 mg DAILY LEMUEL Administration Heparin Sodium (Porcine) 5,000 unit 04/24/17 14:00 04/26/17 06:10 Heparin - SQ 5,000 unit TID LEMUEL Administration Metoprolol Tartrate 50 mg 04/23/17 22:00 04/26/17 10:30 Lopressor - PO 50 mg BID LEMUEL Administration Ondansetron HCl 4 mg 04/23/17 17:14 04/26/17 10:38 Zofran Injection IVPB 4 mg Q6H PRN Administration NAUSEA Sodium Bicarbonate 650 mg 04/24/17 22:00 04/26/17 10:30 Sodium Bicarbonate - PO 650 mg BID LEMUEL Administration Thiamine HCl 100 mg 04/24/17 10:00 04/26/17 10:30 Vitamin B1 - PO 100 mg DAILY LEMUEL Administration Impression 1. CKD 2. BETH 3. HTN 4. DM 5. proteinuria 6. diarrhea Plan - renal function is worsening - pt is getting vein mapping - recommend placing fistula - he will think about starting dialysis, discussed with him - cont PO bicarb - diarrhea has resolved - hold off dontae Dr Oleary
--- NOTE | 2017-04-26 16:10 | PN ---
Progress Note (short form) - Note Progress Note: Subjective: The patient was seen and examined at the bedside, he reports feeling good today. Current Medications Generic Name Dose Route Start Last Admin Trade Name Stephanie PRN Reason Stop Dose Admin Acetaminophen 650 mg 04/23/17 17:14 04/23/17 19:44 Tylenol - PO 650 mg Q4H PRN Administration FEVER OR PAIN Amlodipine Besylate 10 mg 04/24/17 10:00 04/26/17 10:30 Norvasc - PO 10 mg DAILY LEMUEL Administration Aspirin 81 mg 04/24/17 10:00 04/26/17 10:30 Ecotrin - PO 81 mg DAILY LEMUEL Administration Atorvastatin Calcium 20 mg 04/23/17 22:00 04/25/17 21:11 Lipitor - PO 20 mg HS LEMUEL Administration Ferrous Gluconate 324 mg 04/23/17 22:00 04/26/17 10:30 Fergon - PO 324 mg BID LEMUEL Administration Folic Acid 1 mg 04/24/17 10:00 04/26/17 10:30 Folic Acid - PO 1 mg DAILY LEMUEL Administration Heparin Sodium (Porcine) 5,000 unit 04/24/17 14:00 04/26/17 15:26 Heparin - SQ 5,000 unit TID LEMUEL Administration Metoprolol Tartrate 50 mg 04/23/17 22:00 04/26/17 10:30 Lopressor - PO 50 mg BID LEMUEL Administration Ondansetron HCl 4 mg 04/23/17 17:14 04/26/17 10:38 Zofran Injection IVPB 4 mg Q6H PRN Administration NAUSEA Sodium Bicarbonate 650 mg 04/24/17 22:00 04/26/17 10:30 Sodium Bicarbonate - PO 650 mg BID LEMUEL Administration Thiamine HCl 100 mg 04/24/17 10:00 04/26/17 10:30 Vitamin B1 - PO 100 mg DAILY LEMUEL Administration Objective: Vital Signs Period Temp Pulse Resp BP Sys/Benz Pulse Ox Last 24 Hr 98.8 F-98.9 F 80-90 18-19 102-159/70-94 95-95 Physical Exam: General: NAD, A&Ox3 Lungs: CTA bilaterally Heart: RRR, S1S2 AbD: Soft, non-tender, non-distended. Normoactive bowel sounds Ext: Warm, well-perfused CBCD WBC 8.9 K/mm3 (4.0-10.0) 04/26/17 05:55 RBC 3.38 M/mm3 (4.00-5.60) L 04/26/17 05:55 Hgb 8.9 GM/dL (11.7-16.9) L 04/26/17 05:55 Hct 26.7 % (35.4-49) L 04/26/17 05:55 MCV 78.9 fl (80-96) L 04/26/17 05:55 MCHC 33.4 g/dl (32.0-35.9) 04/26/17 05:55 RDW 18.4 % (11.9-15.9) H 04/26/17 05:55 Plt Count 163 K/MM3 (134-434) 04/26/17 05:55 MPV 7.7 fl (7.5-11.1) 04/26/17 05:55 CMP Sodium 137 mmol/L (136-145) 04/26/17 05:55 Potassium 4.9 mmol/L (3.5-5.1) 04/26/17 05:55 Chloride 107 mmol/L (98-107) 04/26/17 05:55 Carbon Dioxide 20 mmol/L (21-32) L 04/26/17 05:55 Anion Gap 10 (8-16) 04/26/17 05:55 BUN 70 mg/dL (7-18) H 04/26/17 05:55 Creatinine 6.4 mg/dL (0.7-1.3) H 04/26/17 05:55 Creat Clearance w eGFR 9.32 (>60) 04/26/17 05:55 Random Glucose 102 mg/dL (74-106) 04/26/17 05:55 Calcium 6.8 mg/dL (8.5-10.1) L* 04/26/17 05:55 Total Bilirubin 0.8 mg/dL (0.2-1.0) D 04/26/17 05:55 AST 13 U/L (15-37) L D 04/26/17 05:55 ALT 11 U/L (12-78) L 04/26/17 05:55 Alkaline Phosphatase 103 U/L (45-117) 04/26/17 05:55 Total Protein 5.4 g/dl (6.4-8.2) L 04/26/17 05:55 Albumin 1.7 g/dl (3.4-5.0) L 04/26/17 05:55 CARDIAC ENZYMES Creatine Kinase 138 IU/L (39-308) 04/23/17 14:53 Troponin I 0.02 ng/ml (0.00-0.05) 04/23/17 14:53 Microbiology 04/23/17 14:53 Urine - Urine Clean Catch Urine Culture - Final Strep Agalactiae Group B CTAP: A very small amount of free fluid is seen within the lover pelvis. Small bilateral pleural effusions. Mild bilateral thickening of the anterior and posterior pararenal fasciae. The pancreatic head is mildly prominent probably on the basis of normal variation and less likely inflammation or neoplastic disease. Mild splenomegaly. Cholelithiasis. Atheroclerotic vascular calcifications Renal/Bladder ultrasound: No interval change from prior ultrasound 10/2016. Kidneys appear unremarkable. 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 Plan: 1) : worsening CKD - Renal biopsy 11/11/16: Nodular diabetic glomerulosclerosis, moderate to severe ; tubular atrophy and interstitial fibrosis, moderate to severe; arteriosclerosis with hyalinosis - Vein mapping - Patient still thinking about dialysis - Will need fistula if agreeable - Hold all nephrotoxic agents - Appreciate neprhology consult 2) GI: Diarrhea x 6 months - Patient now reporting no longer experiencing diarrhea Prominent pancreatic head - Follow-up with pcp as an outpatient for MRI to evaluate pancreas 3) Cardiology: CAD - Continue ASA - Continue Lipitor - Continue Metoprolol HTN - Continue Norvasc - Continue Lopressor - Hold Lisinopril in setting of BETH 4) Endocrine: DM? - HgbA1c 6.5 - Not on home medications - Glucose here in the 80s - Will place on diabetic diet and instruct the patient on lifestyle modifications 5) F/E/N: - Monitor electrolytes - Renal, diabetic diet 6) Prophylaxis: - OOB ambulating - Heparin 5,000u sq tid 7) Dispo: - Requires continued inpatient care CODE STATUS: FULL CODE Visit type - Emergency Visit Emergency Visit: Yes ED Registration Date: 04/23/17 Care time: The patient presented to the Emergency Department on the above date and was hospitalized for further evaluation of their emergent condition. - New Patient This patient is new to me today: No - Critical Care Critical Care patient: No
[2017-04-26] MEDS: ATORVASTATIN CA 20 MG TABLET (FP) PO SCH (21:27)
[2017-04-27 00:06] LABS: HEP B SURFACE AB Non Reactive (.)
[2017-04-27] MEDS: guaiFENesin 200 MG/10 ML 10 ML UNIT-DOSE CUPS PO PRN ×4 (00:22→21:10)
[2017-04-27] MEDS: HEPARIN NA (PORCINE) 5,000 UNITS/ML 1ML VIAL SQ SCH ×3 (05:50→21:05)
[2017-04-27 07:37] LABS: MCH 25.9 pg (25.7-33.7); MCHC 32.3 g/dl (32.0-35.9); MEAN CELL VOLUME 80.1 fl (80-96); MEAN PLT VOLUME 7.9 fl (7.5-11.1); PLATELET COUNT 180 K/MM3 (134-434); RDW 18.4 % (11.9-15.9); WHITE BLOOD COUNT 8.6 K/mm3 (4.0-10.0)
[2017-04-27 08:05] LABS: ALBUMIN 1.9 g/dl (3.4-5.0); ALK PHOS 98 U/L (45-117); ANION GAP 7 (8-16); BILIRUBIN,TOTAL 0.2 mg/dL (0.2-1.0); CALCIUM 7.5 mg/dL (8.5-10.1); CO2 21 mmol/L (21-32); CREATININE 6.6 mg/dL (0.7-1.3); GLUCOSE,RANDOM 89 mg/dL (74-106); SGOT/AST 16 U/L (15-37); SGPT/ALT 10 U/L (12-78)
[2017-04-27] MEDS: FERROUS GLUCONATE 324 MG TAB (FP) PO SCH ×2 (09:57→21:05)
[2017-04-27] MEDS: ASPIRIN COATED 81 MG TABLET.EC PO SCH (09:57)
[2017-04-27] MEDS: FOLIC ACID 1 MG TABLET (FP) PO SCH (09:57)
[2017-04-27] MEDS: METOPROLOL TARTRATE 50 MG TABLET (FP) PO SCH ×2 (09:58→21:05)
[2017-04-27] MEDS: THIAMINE HCL 100 MG TABLET (FP) PO SCH (09:58)
[2017-04-27] MEDS: SODIUM BICARBONATE 650 MG TABLET PO SCH ×2 (09:58→21:05)
[2017-04-27] MEDS: amLODIPine BESYLATE 10 MG TABLET (FP) PO SCH (09:58)
--- NOTE | 2017-04-27 10:02 | PN ---
Progress Note (short form) - Note Progress Note: Vascular Surgery Vein mapping reviewed. Pt has a left cephalic vein that can be used for his AVF Will be on stand by for avf placement Zachariah Barros DO
--- NOTE | 2017-04-27 12:25 | PN ---
Progress Note (short form) - Note Progress Note: Subjective: The patient was seen and examined at the bedside, he reports feeling good today. Agreeable to dialysis Current Medications Generic Name Dose Route Start Last Admin Trade Name Stephanie PRN Reason Stop Dose Admin Acetaminophen 650 mg 04/23/17 17:14 04/23/17 19:44 Tylenol - PO 650 mg Q4H PRN Administration FEVER OR PAIN Amlodipine Besylate 10 mg 04/24/17 10:00 04/27/17 09:58 Norvasc - PO 10 mg DAILY LEMUEL Administration Aspirin 81 mg 04/24/17 10:00 04/27/17 09:57 Ecotrin - PO 81 mg DAILY LEMUEL Administration Atorvastatin Calcium 20 mg 04/23/17 22:00 04/26/17 21:27 Lipitor - PO 20 mg HS LEMUEL Administration Ferrous Gluconate 324 mg 04/23/17 22:00 04/27/17 09:57 Fergon - PO 324 mg BID LEMUEL Administration Folic Acid 1 mg 04/24/17 10:00 04/27/17 09:57 Folic Acid - PO 1 mg DAILY LEMUEL Administration Guaifenesin 10 ml 04/27/17 00:04 04/27/17 11:29 Robitussin - PO 10 ml Q4H PRN Administration COUGH Heparin Sodium (Porcine) 5,000 unit 04/24/17 14:00 04/27/17 05:50 Heparin - SQ 5,000 unit TID LEMUEL Administration Metoprolol Tartrate 50 mg 04/23/17 22:00 04/27/17 09:58 Lopressor - PO 50 mg BID LEMUEL Administration Ondansetron HCl 4 mg 04/23/17 17:14 04/26/17 10:38 Zofran Injection IVPB 4 mg Q6H PRN Administration NAUSEA Sodium Bicarbonate 650 mg 04/24/17 22:00 04/27/17 09:58 Sodium Bicarbonate - PO 650 mg BID LEMUEL Administration Thiamine HCl 100 mg 04/24/17 10:00 04/27/17 09:58 Vitamin B1 - PO 100 mg DAILY LEMUEL Administration Objective: Vital Signs Period Temp Pulse Resp BP Sys/Benz Pulse Ox Last 24 Hr 98.7 F-99.7 F 80-89 20-200 143-159/86-98 95 Physical Exam: General: NAD, A&Ox3 Lungs: CTA bilaterally Heart: RRR, S1S2 AbD: Soft, non-tender, non-distended. Normoactive bowel sounds Ext: Warm, well-perfused CBCD WBC 8.9 K/mm3 (4.0-10.0) 04/26/17 05:55 RBC 3.38 M/mm3 (4.00-5.60) L 04/26/17 05:55 Hgb 8.9 GM/dL (11.7-16.9) L 04/26/17 05:55 Hct 26.7 % (35.4-49) L 04/26/17 05:55 MCV 78.9 fl (80-96) L 04/26/17 05:55 MCHC 33.4 g/dl (32.0-35.9) 04/26/17 05:55 RDW 18.4 % (11.9-15.9) H 04/26/17 05:55 Plt Count 163 K/MM3 (134-434) 04/26/17 05:55 MPV 7.7 fl (7.5-11.1) 04/26/17 05:55 CMP Sodium 137 mmol/L (136-145) 04/26/17 05:55 Potassium 4.9 mmol/L (3.5-5.1) 04/26/17 05:55 Chloride 107 mmol/L (98-107) 04/26/17 05:55 Carbon Dioxide 20 mmol/L (21-32) L 04/26/17 05:55 Anion Gap 10 (8-16) 04/26/17 05:55 BUN 70 mg/dL (7-18) H 04/26/17 05:55 Creatinine 6.4 mg/dL (0.7-1.3) H 04/26/17 05:55 Creat Clearance w eGFR 9.32 (>60) 04/26/17 05:55 Random Glucose 102 mg/dL (74-106) 04/26/17 05:55 Calcium 6.8 mg/dL (8.5-10.1) L* 04/26/17 05:55 Total Bilirubin 0.8 mg/dL (0.2-1.0) D 04/26/17 05:55 AST 13 U/L (15-37) L D 04/26/17 05:55 ALT 11 U/L (12-78) L 04/26/17 05:55 Alkaline Phosphatase 103 U/L (45-117) 04/26/17 05:55 Total Protein 5.4 g/dl (6.4-8.2) L 04/26/17 05:55 Albumin 1.7 g/dl (3.4-5.0) L 04/26/17 05:55 CARDIAC ENZYMES Creatine Kinase 138 IU/L (39-308) 04/23/17 14:53 Troponin I 0.02 ng/ml (0.00-0.05) 04/23/17 14:53 Microbiology 04/23/17 14:53 Urine - Urine Clean Catch Urine Culture - Final Strep Agalactiae Group B CTAP: A very small amount of free fluid is seen within the lover pelvis. Small bilateral pleural effusions. Mild bilateral thickening of the anterior and posterior pararenal fasciae. The pancreatic head is mildly prominent probably on the basis of normal variation and less likely inflammation or neoplastic disease. Mild splenomegaly. Cholelithiasis. Atheroclerotic vascular calcifications Renal/Bladder ultrasound: No interval change from prior ultrasound 10/2016. Kidneys appear unremarkable. 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 Plan: 1) : worsening CKD - Renal biopsy 11/11/16: Nodular diabetic glomerulosclerosis, moderate to severe ; tubular atrophy and interstitial fibrosis, moderate to severe; arteriosclerosis with hyalinosis - Vein mapping - For permacath and AVF creation tomorrow - Hold all nephrotoxic agents - Appreciate neprhology consult 2) GI: Diarrhea x 6 months - Patient now reporting no longer experiencing diarrhea Prominent pancreatic head - Follow-up with pcp as an outpatient for MRI to evaluate pancreas 3) Cardiology: CAD - Continue ASA - Continue Lipitor - Continue Metoprolol HTN - Continue Norvasc - Continue Lopressor - Hold Lisinopril in setting of BETH 4) Endocrine: DM? - HgbA1c 6.5 - Not on home medications - Glucose here in the 80s - Will place on diabetic diet and instruct the patient on lifestyle modifications 5) F/E/N: - Monitor electrolytes - Renal, diabetic diet - NPO after midnight 6) Prophylaxis: - OOB ambulating - Heparin 5,000u sq tid 7) Dispo: - Requires continued inpatient care CODE STATUS: FULL CODE Visit type - Emergency Visit Emergency Visit: Yes ED Registration Date: 04/23/17 Care time: The patient presented to the Emergency Department on the above date and was hospitalized for further evaluation of their emergent condition. - New Patient This patient is new to me today: No - Critical Care Critical Care patient: No
--- NOTE | 2017-04-27 15:12 | PN ---
Progress Note, Physician History of Present Illness: Pt seen and examined at bedside. He is awake and alert. He agrees to start HD. He denies shortness of breath. - Current Medication List Current Medications: Active Medications Acetaminophen (Tylenol -) 650 mg PO Q4H PRN PRN Reason: FEVER OR PAIN Last Admin: 04/23/17 19:44 Dose: 650 mg Amlodipine Besylate (Norvasc -) 10 mg PO DAILY [facility] Last Admin: 04/27/17 09:58 Dose: 10 mg Aspirin (Ecotrin -) 81 mg PO DAILY [facility] Last Admin: 04/27/17 09:57 Dose: 81 mg Atorvastatin Calcium (Lipitor -) 20 mg PO HS [facility] Last Admin: 04/26/17 21:27 Dose: 20 mg Ferrous Gluconate (Fergon -) 324 mg PO BID [facility] Last Admin: 04/27/17 09:57 Dose: 324 mg Folic Acid (Folic Acid -) 1 mg PO DAILY [facility] Last Admin: 04/27/17 09:57 Dose: 1 mg Guaifenesin (Robitussin -) 10 ml PO Q4H PRN PRN Reason: COUGH Last Admin: 04/27/17 11:29 Dose: 10 ml Heparin Sodium (Porcine) (Heparin -) 5,000 unit SQ TID [facility] Last Admin: 04/27/17 14:19 Dose: 5,000 unit Metoprolol Tartrate (Lopressor -) 50 mg PO BID [facility] Last Admin: 04/27/17 09:58 Dose: 50 mg Ondansetron HCl (Zofran Injection) 4 mg IVPB Q6H PRN PRN Reason: NAUSEA Last Admin: 04/26/17 10:38 Dose: 4 mg Sodium Bicarbonate (Sodium Bicarbonate -) 650 mg PO BID [facility] Last Admin: 04/27/17 09:58 Dose: 650 mg Thiamine HCl (Vitamin B1 -) 100 mg PO DAILY [facility] Last Admin: 04/27/17 09:58 Dose: 100 mg - Objective Vital Signs: Vital Signs Temperature 98.4 F 04/27/17 14:51 Pulse Rate 82 04/27/17 14:51 Respiratory Rate 18 04/27/17 14:51 Blood Pressure 140/70 04/27/17 14:51 O2 Sat by Pulse Oximetry (%) 95 04/27/17 09:00 Constitutional: Yes: Calm Eyes: Yes: Conjunctiva Clear HENT: Yes: Atraumatic Cardiovascular: Yes: S1, S2 Respiratory: Yes: CTA Bilaterally Gastrointestinal: Yes: Soft Genitourinary: Yes: WNL Musculoskeletal: Yes: WNL Edema: No Neurological: Yes: Oriented Psychiatric: Yes: Oriented Labs: CBC, BMP 04/27/17 06:10 04/27/17 06:10 INR, PTT INR 1.15 (0.82-1.09) H 04/23/17 14:53 Problem List - Problems (1) BETH (acute kidney injury) Code(s): N17.9 - ACUTE KIDNEY FAILURE, UNSPECIFIED (2) Diabetes Code(s): E11.9 - TYPE 2 DIABETES MELLITUS WITHOUT COMPLICATIONS (3) Diarrhea Code(s): R19.7 - DIARRHEA, UNSPECIFIED (4) Worsening renal function Code(s): N25.9 - DISORDER RSLT FROM IMPAIRED RENAL TUBULAR FUNCTION, UNSP (5) CAD (coronary artery disease) Code(s): I25.10 - ATHSCL HEART DISEASE OF [place] CORONARY ARTERY W/O ANG PCTRS Qualifiers: Coronary Disease-Associated Artery/Lesion type: [place] artery [place] vs. transplanted heart: [place] heart Associated angina: without angina Qualified Code(s): I25.10 - Atherosclerotic heart disease of [place] coronary artery without angina pectoris Assessment/Plan Current Medications Generic Name Dose Route Start Last Admin Trade Name Freq PRN Reason Stop Dose Admin Acetaminophen 650 mg 04/23/17 17:14 04/23/17 19:44 Tylenol - PO 650 mg Q4H PRN Administration FEVER OR PAIN Amlodipine Besylate 10 mg 04/24/17 10:00 04/27/17 09:58 Norvasc - PO 10 mg DAILY LEMUEL Administration Aspirin 81 mg 04/24/17 10:00 04/27/17 09:57 Ecotrin - PO 81 mg DAILY LEMUEL Administration Atorvastatin Calcium 20 mg 04/23/17 22:00 04/26/17 21:27 Lipitor - PO 20 mg HS LEMUEL Administration Ferrous Gluconate 324 mg 04/23/17 22:00 04/27/17 09:57 Fergon - PO 324 mg BID LEMUEL Administration Folic Acid 1 mg 04/24/17 10:00 04/27/17 09:57 Folic Acid - PO 1 mg DAILY LEMUEL Administration Guaifenesin 10 ml 04/27/17 00:04 04/27/17 11:29 Robitussin - PO 10 ml Q4H PRN Administration COUGH Heparin Sodium (Porcine) 5,000 unit 04/24/17 14:00 04/27/17 14:19 Heparin - SQ 5,000 unit TID LEMUEL Administration Metoprolol Tartrate 50 mg 04/23/17 22:00 04/27/17 09:58 Lopressor - PO 50 mg BID LEMUEL Administration Ondansetron HCl 4 mg 04/23/17 17:14 04/26/17 10:38 Zofran Injection IVPB 4 mg Q6H PRN Administration NAUSEA Sodium Bicarbonate 650 mg 04/24/17 22:00 04/27/17 09:58 Sodium Bicarbonate - PO 650 mg BID LEMUEL Administration Thiamine HCl 100 mg 04/24/17 10:00 04/27/17 09:58 Vitamin B1 - PO 100 mg DAILY LEMUEL Administration Impression 1. CKD 2. BETH 3. HTN 4. DM 5. proteinuria 6. diarrhea Plan - pt going for permacath and for fistula - will start HD in the next two days - discussed with medical team - discussed with vascular - cont current meds - cont PO bicarb - diarrhea has resolved - hold off dontae Dr Oleary
[2017-04-27] MEDS: ATORVASTATIN CA 20 MG TABLET (FP) PO SCH (21:05)
[2017-04-28] MEDS: HEPARIN NA (PORCINE) 5,000 UNITS/ML 1ML VIAL SQ SCH ×3 (06:03→21:42)
[2017-04-28] MEDS: THIAMINE HCL 100 MG TABLET (FP) PO SCH (09:28)
[2017-04-28] MEDS: FERROUS GLUCONATE 324 MG TAB (FP) PO SCH ×2 (09:28→21:41)
[2017-04-28] MEDS: amLODIPine BESYLATE 10 MG TABLET (FP) PO SCH (09:28)
[2017-04-28] MEDS: SODIUM BICARBONATE 650 MG TABLET PO SCH ×2 (09:28→21:41)
[2017-04-28] MEDS: METOPROLOL TARTRATE 50 MG TABLET (FP) PO SCH ×2 (09:28→21:41)
[2017-04-28] MEDS: FOLIC ACID 1 MG TABLET (FP) PO SCH (09:28)
[2017-04-28] MEDS: ASPIRIN COATED 81 MG TABLET.EC PO SCH (09:28)
--- NOTE | 2017-04-28 13:22 | PN ---
Progress Note, Physician History of Present Illness: Pt seen and examined at bedside. He is awake and alert. He is going for fistula and permacath today. - Current Medication List Current Medications: Active Medications Acetaminophen (Tylenol -) 650 mg PO Q4H PRN PRN Reason: FEVER OR PAIN Last Admin: 04/23/17 19:44 Dose: 650 mg Amlodipine Besylate (Norvasc -) 10 mg PO DAILY [facility] Last Admin: 04/28/17 09:28 Dose: 10 mg Aspirin (Ecotrin -) 81 mg PO DAILY [facility] Last Admin: 04/28/17 09:28 Dose: 81 mg Atorvastatin Calcium (Lipitor -) 20 mg PO HS [facility] Last Admin: 04/27/17 21:05 Dose: 20 mg Ferrous Gluconate (Fergon -) 324 mg PO BID [facility] Last Admin: 04/28/17 09:28 Dose: 324 mg Folic Acid (Folic Acid -) 1 mg PO DAILY [facility] Last Admin: 04/28/17 09:28 Dose: 1 mg Guaifenesin (Robitussin -) 10 ml PO Q4H PRN PRN Reason: COUGH Last Admin: 04/27/17 21:10 Dose: 10 ml Heparin Sodium (Porcine) (Heparin -) 5,000 unit SQ TID [facility] Last Admin: 04/28/17 06:03 Dose: Not Given Metoprolol Tartrate (Lopressor -) 50 mg PO BID [facility] Last Admin: 04/28/17 09:28 Dose: 50 mg Ondansetron HCl (Zofran Injection) 4 mg IVPB Q6H PRN PRN Reason: NAUSEA Last Admin: 04/26/17 10:38 Dose: 4 mg Sodium Bicarbonate (Sodium Bicarbonate -) 650 mg PO BID [facility] Last Admin: 04/28/17 09:28 Dose: 650 mg Thiamine HCl (Vitamin B1 -) 100 mg PO DAILY [facility] Last Admin: 04/28/17 09:28 Dose: 100 mg - Objective Vital Signs: Vital Signs Temperature 98.4 F 04/28/17 08:10 Pulse Rate 82 04/28/17 08:10 Respiratory Rate 18 04/28/17 08:10 Blood Pressure 161/87 04/28/17 08:10 O2 Sat by Pulse Oximetry (%) 95 04/27/17 21:00 Constitutional: Yes: Calm Eyes: Yes: Conjunctiva Clear Cardiovascular: Yes: S1, S2 Respiratory: Yes: CTA Bilaterally Gastrointestinal: Yes: Normal Bowel Sounds, Soft Genitourinary: Yes: WNL Musculoskeletal: Yes: WNL Edema: No Neurological: Yes: Oriented Psychiatric: Yes: Oriented Labs: CBC, BMP 04/27/17 06:10 04/27/17 06:10 INR, PTT INR 1.15 (0.82-1.09) H 04/23/17 14:53 Problem List - Problems (1) BETH (acute kidney injury) Code(s): N17.9 - ACUTE KIDNEY FAILURE, UNSPECIFIED (2) Diabetes Code(s): E11.9 - TYPE 2 DIABETES MELLITUS WITHOUT COMPLICATIONS (3) Diarrhea Code(s): R19.7 - DIARRHEA, UNSPECIFIED (4) Worsening renal function Code(s): N25.9 - DISORDER RSLT FROM IMPAIRED RENAL TUBULAR FUNCTION, UNSP (5) CAD (coronary artery disease) Code(s): I25.10 - ATHSCL HEART DISEASE OF [place] CORONARY ARTERY W/O ANG PCTRS Qualifiers: Coronary Disease-Associated Artery/Lesion type: [place] artery [place] vs. transplanted heart: [place] heart Associated angina: without angina Qualified Code(s): I25.10 - Atherosclerotic heart disease of [place] coronary artery without angina pectoris Assessment/Plan Current Medications Generic Name Dose Route Start Last Admin Trade Name Freq PRN Reason Stop Dose Admin Acetaminophen 650 mg 04/23/17 17:14 04/23/17 19:44 Tylenol - PO 650 mg Q4H PRN Administration FEVER OR PAIN Amlodipine Besylate 10 mg 04/24/17 10:00 04/28/17 09:28 Norvasc - PO 10 mg DAILY [facility] Administration Aspirin 81 mg 04/24/17 10:00 04/28/17 09:28 Ecotrin - PO 81 mg DAILY [facility] Administration Atorvastatin Calcium 20 mg 04/23/17 22:00 04/27/17 21:05 Lipitor - PO 20 mg HS [facility] Administration Ferrous Gluconate 324 mg 04/23/17 22:00 04/28/17 09:28 Fergon - PO 324 mg BID [facility] Administration Folic Acid 1 mg 04/24/17 10:00 04/28/17 09:28 Folic Acid - PO 1 mg DAILY [facility] Administration Guaifenesin 10 ml 04/27/17 00:04 04/27/17 21:10 Robitussin - PO 10 ml Q4H PRN Administration COUGH Heparin Sodium (Porcine) 5,000 unit 04/24/17 14:00 04/28/17 06:03 Heparin - SQ Not Given TID [facility] Metoprolol Tartrate 50 mg 04/23/17 22:00 04/28/17 09:28 Lopressor - PO 50 mg BID [facility] Administration Ondansetron HCl 4 mg 04/23/17 17:14 04/26/17 10:38 Zofran Injection IVPB 4 mg Q6H PRN Administration NAUSEA Sodium Bicarbonate 650 mg 04/24/17 22:00 04/28/17 09:28 Sodium Bicarbonate - PO 650 mg BID [facility] Administration Thiamine HCl 100 mg 04/24/17 10:00 04/28/17 09:28 Vitamin B1 - PO 100 mg DAILY [facility] Administration Impression 1. CKD 2. BETH 3. HTN 4. DM 5. proteinuria 6. diarrhea Plan - pt going for permacath and fistula today - HD tomorrow - will need outpt placement - cont current meds - cont PO bicarb, will stop after he start dialysis - check cbc and bmp - diarrhea has resolved - hold off odntae Dr Oleary
[2017-04-28] MEDS ORDERED: MIDAZOLAM HCL 2 MG/2 ML SINGLE DOSE VIAL ONE ×3 (14:22→16:52)
[2017-04-28] MEDS ORDERED: ROPIVACAINE HCL 0.5% 30ML VIAL ONE (14:23)
[2017-04-28] MEDS ORDERED: HEPARIN NA (PORCINE) 5,000 UNITS/ML 1ML VIAL ONE (16:06)
[2017-04-28] MEDS ORDERED: LIDOCAINE HCL 1%, 10 MG/ML (20ML VIAL) ONE (16:07)
[2017-04-28] MEDS ORDERED: PROPOFOL 20 ML ONE (16:53)
[2017-04-28] MEDS ORDERED: CLINDAMYCIN PHOSPHATE 600 MG/4 ML VIAL ONE (16:53)
[2017-04-28] MEDS ORDERED: CLINDAMYCIN 600 MG PREMIX BAG IVPB ONE (16:55)
--- NOTE | 2017-04-28 18:08 | PN ---
Physical Exam: SUBJECTIVE: Patient seen and examined prior to procedure. He has no active complaints. Aware of HD plan OBJECTIVE: Vital Signs Period Temp Pulse Resp BP Sys/Benz Pulse Ox Last 24 Hr 98.0 F-99.3 F 80-88 18-20 144-161/70-87 95 PE Neuro: alert, awake, cn 2-12intact Pulm: CTAB CV: s1 s2 rrr no mrg Abd: s nt nd +bs Ext: warm, no le edema Laboratory Results - last 24 hr 04/27/17 04/28/17 04/28/17 21:04 06:01 11:08 POC Glucometer 160 102 88 Active Medications Generic Name Dose Route Start Last Admin Trade Name Freq PRN Reason Stop Dose Admin Acetaminophen 650 mg 04/23/17 17:14 04/23/17 19:44 Tylenol - PO 650 mg Q4H PRN Administration FEVER OR PAIN Amlodipine Besylate 10 mg 04/24/17 10:00 04/28/17 09:28 Norvasc - PO 10 mg DAILY [facility] Administration Aspirin 81 mg 04/24/17 10:00 04/28/17 09:28 Ecotrin - PO 81 mg DAILY [facility] Administration Atorvastatin Calcium 20 mg 04/23/17 22:00 04/27/17 21:05 Lipitor - PO 20 mg HS [facility] Administration Fentanyl 50 mcg 04/28/17 16:04 Sublimaze Injection - IVPUSH 05/01/17 16:05 [id number] PRN PAIN Ferrous Gluconate 324 mg 04/23/17 22:00 04/28/17 09:28 Fergon - PO 324 mg BID [facility] Administration Folic Acid 1 mg 04/24/17 10:00 04/28/17 09:28 Folic Acid - PO 1 mg DAILY [facility] Administration Guaifenesin 10 ml 04/27/17 00:04 04/27/17 21:10 Robitussin - PO 10 ml Q4H PRN Administration COUGH Heparin Sodium (Porcine) 5,000 unit 04/24/17 14:00 04/28/17 13:36 Heparin - SQ Not Given TID [facility] Metoprolol Tartrate 50 mg 04/23/17 22:00 04/28/17 09:28 Lopressor - PO 50 mg BID [facility] Administration Ondansetron HCl 4 mg 04/23/17 17:14 04/26/17 10:38 Zofran Injection IVPB 4 mg Q6H PRN Administration NAUSEA Sodium Bicarbonate 650 mg 04/24/17 22:00 04/28/17 09:28 Sodium Bicarbonate - PO 650 mg BID [facility] Administration Thiamine HCl 100 mg 04/24/17 10:00 04/28/17 09:28 Vitamin B1 - PO 100 mg DAILY [facility] Administration Imaging: - CTAP: A very small amount of free fluid is seen within the lover pelvis. Small bilateral pleural effusions. Mild bilateral thickening of the anterior and posterior pararenal fasciae. The pancreatic head is mildly prominent probably on the basis of normal variation and less likely inflammation or neoplastic disease. Mild splenomegaly. Cholelithiasis. Atheroclerotic vascular calcifications - Renal/Bladder ultrasound: No interval change from prior ultrasound 10/2016. Kidneys appear unremarkable. 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 Plan: 1. Worsening CKD - Renal biopsy 11/11/16: Nodular diabetic glomerulosclerosis, moderate to severe ; tubular atrophy and interstitial fibrosis, moderate to severe; arteriosclerosis with hyalinosis - For AVF and permacath today - HD tomorrow - Continue Po bicarb until after HD - Renal following 2. Diarrhea x 6 months - Resolved at present 3. Prominent pancreatic head - Follow-up with pcp as an outpatient for MRI to evaluate pancreas 4. CAD - Continue ASA - Continue Lipitor - Continue Metoprolol 5.. HTN - Stable this afternoon - Continue Norvasc - Continue Lopressor - Hold Lisinopril 6. 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 Nutrition - NPO after midnight 8. Prophylaxis - heparin sq q8 Visit type - Emergency Visit Emergency Visit: Yes ED Registration Date: 04/23/17 Care time: The patient presented to the Emergency Department on the above date and was hospitalized for further evaluation of their emergent condition. - New Patient This patient is new to me today: Yes Date on this admission: 04/28/17 - Critical Care Critical Care patient: No
--- NOTE | 2017-04-28 19:13 | OP ---
Operative Note - Note: Operative Date: 04/28/17 Pre-Operative Diagnosis: CRF Operation: Insertion of permacath, creation of left cephalic vein fistula Post-Operative Diagnosis: Same as Pre-op Surgeon: Zachariah Barros Anesthesia: Fractional Estimated Blood Loss (mls): 50 Operative Report Dictated: Yes
[2017-04-28] MEDS ORDERED: ONDANSETRON 4 MG/2 ML VIAL IVPB PRN (19:43)
[2017-04-28] MEDS: guaiFENesin 200 MG/10 ML 10 ML UNIT-DOSE CUPS PO PRN (21:41)
[2017-04-28] MEDS: ATORVASTATIN CA 20 MG TABLET (FP) PO SCH (21:42)
[2017-04-29] MEDS: ACETAMINOPHEN 325 MG TABLET (FP) PO PRN ×3 (02:50→17:13)
[2017-04-29] MEDS: HEPARIN NA (PORCINE) 5,000 UNITS/ML 1ML VIAL SQ SCH (06:28)
[2017-04-29 08:45] LABS: EOSINOPHIL 2.6 % (0-4.5); MCH 26.1 pg (25.7-33.7); MCHC 32.5 g/dl (32.0-35.9); MEAN CELL VOLUME 80.3 fl (80-96); MEAN PLT VOLUME 7.8 fl (7.5-11.1); NEUTROPHILS 77.6 % (42.8-82.8); PLATELET COUNT 197 K/MM3 (134-434); RDW 18.9 % (11.9-15.9); WHITE BLOOD COUNT 9.7 K/mm3 (4.0-10.0)
[2017-04-29 09:06] LABS: ALBUMIN 1.9 g/dl (3.4-5.0); ANION GAP 10 (8-16); CALCIUM 7.4 mg/dL (8.5-10.1); CO2 19 mmol/L (21-32); CREATININE 6.7 mg/dL (0.7-1.3); GLUCOSE,RANDOM 126 mg/dL (74-106); SGOT/AST 10 U/L (15-37); SGPT/ALT 10 U/L (12-78)
[2017-04-29 09:07] LABS: ALK PHOS 102 U/L (45-117); BILIRUBIN,TOTAL 0.5 mg/dL (0.2-1.0); TOT PROT 5.9 g/dl (6.4-8.2)
--- NOTE | 2017-04-29 09:19 | OP ---
DATE OF OPERATION: 04/28/2017 PREOPERATIVE DIAGNOSIS: Chronic renal failure. POSTOPERATIVE DIAGNOSIS: Chronic renal failure. PROCEDURE: Insertion of permacath, creation of left cephalic vein fistula. SURGEON: Zachariah Hernández MD ANESTHESIA: Fractional. BLOOD LOSS: 50 mL. DESCRIPTION OF PROCEDURE: The patient is a 51-year-old male with chronic renal failure and need for dialysis access placement, needing temporary and permanent dialysis access placement. Preoperatively, he had an ultrasound for vein mapping performed showing that he had a good left cephalic vein. Patient was then consented for the procedure understanding all risks, benefits, and alternatives, and then brought to OR holding. In OR holding, he had a left supraclavicular nerve block performed for the left arm. He was then brought into the operating room and laid down on the operating table in the supine manner. The area of the right neck and chest was prepped and draped in a sterile surgical manner. Under ultrasound guidance, we visualized the right internal jugular vein, and 10 mL of 0.5% lidocaine was injected over it. We then took our micropuncture needle and punctured the right internal jugular vein. A micropuncture wire was inserted. A micropuncture sheath was then inserted. A 0.035 floppy guidewire was inserted under fluoroscopy. We then injected 10 mL of Lidocaine 1% above and below the clavicle. We then took a No. 11 blade, we made a 1-cm incision at the puncture site. We then took a 15 blade and made a 1-cm incision below the clavicle. We then tunneled the permacath up to the puncture site. We then placed our breakaway sheath over the guidewire into the vein under fluoroscopy, and the cannula and guidewire were removed. The catheter was placed inside the sheath. The sheath was broken away as the catheter was placed inside the vein. Neck of the catheter was nice and smooth. Tip of the catheter was located outside the right atrium. We then willi back on each port, and there was good flow, and heparinized saline was injected. Then, 2000 units of IV heparin were injected into each port. We used 4-0 Biosyn, and two simple sutures were placed at the puncture site. A 3-0 nylon was used, and the catheter was attached to the skin. Biopatch, Steri-Strips, 4x4, and Tegaderm were placed. The patient tolerated this part of the procedure. We then went ahead and prepped and draped the left arm in a sterile surgical manner preoperatively in the holding. We had marked the cephalic vein and the brachial artery above the antecubital fascia under ultrasound guidance, and a transverse incision was drawn out using the skin marker. We then prepped and draped the left arm in a sterile surgical manner. We then went ahead and using a No. 15 blade, made an 8-cm incision. Bovie electrocautery was used to control hemostasis. We were then able to get down through all the subcutaneous tissues and get down to the cephalic vein. The cephalic vein was then dissected anteriorly and posteriorly, and all branches were ligated using 4-0 silk. We then went medially, and we then dissected, went through the bicipital aponeurosis, and we were able to dissect out the brachial artery. Brachial artery was dissected anteriorly and posteriorly, and vessel loops were placed proximally and distally. Then, 5000 units of IV heparin were administered to the patient. We then used 2-0 silk, and our vein was ligated distally. We then transposed the vein over to the artery. Using Micro Chanel Scissors, we made a 7-mm venotomy on the vein. After 3 minutes of being on IV heparin, we got distal and proximal control on the artery. Using a 15-blade, we made an arteriotomy, extended it 7 mm using Chanel scissors. Then, 6-0 Prolene stay sutures were placed. We then used 6-0 Prolene double-armed, we went outside-in on the vein and inside-out on the artery and ran the stitch around forming an anastomosis suture in the vein and the artery. Once completed, we opened the distal artery first, then the proximal artery, and there was a good thrill in our AV fistula. We then irrigated the vein copiously. Then, 3-0 Vicryl was used and the subcutaneous tissue was approximated in an interrupted manner. Skin was closed with skin franco. Then, 4x4 and Tegaderm were placed. Patient tolerated the procedure with no complications. Patient transferred to PACU in stable condition. ZACHARIAH HERNÁNDEZ DO [id number]
[2017-04-29] MEDS: guaiFENesin 200 MG/10 ML 10 ML UNIT-DOSE CUPS PO PRN (09:48)
[2017-04-29] MEDS ORDERED: FOLIC ACID 1 MG TABLET (FP) PO SCH (10:00)
[2017-04-29] MEDS ORDERED: THIAMINE HCL 100 MG TABLET (FP) PO SCH (10:00)
[2017-04-29] MEDS ORDERED: ASPIRIN COATED 81 MG TABLET.EC PO SCH (10:00)
[2017-04-29] MEDS ORDERED: PT OWN MED DRAWER 7, Y5N ONE (10:34)
[2017-04-29] MEDS: amLODIPine BESYLATE 10 MG TABLET (FP) PO SCH (10:37)
[2017-04-29] MEDS: METOPROLOL TARTRATE 50 MG TABLET (FP) PO SCH ×2 (10:37→21:07)
[2017-04-29] MEDS: SODIUM BICARBONATE 650 MG TABLET PO SCH (10:37)
[2017-04-29] MEDS: FERROUS GLUCONATE 324 MG TAB (FP) PO SCH ×2 (10:38→21:08)
--- NOTE | 2017-04-29 11:17 | PN ---
Progress Note (short form) - Note Progress Note: Post op day 31.S/p Left upper arm AVF and permacath placement under MAC uneventful.Patient stable.No any anesthesia related problem.Patient Dc from the anesthesia care.
[2017-04-29] MEDS ORDERED: HEPARIN NA (PORCINE) 5,000 UNITS/ML 1ML VIAL IVPUSH ONE (13:00)
--- NOTE | 2017-04-29 16:17 | PN ---
Progress Note, Physician History of Present Illness: Pt seen and examined at bedside. He is tolerating dialysis. He denies shortness of breath. - Current Medication List Current Medications: Active Medications Acetaminophen (Tylenol -) 650 mg PO Q4H PRN PRN Reason: FEVER OR PAIN Last Admin: 04/29/17 07:15 Dose: 650 mg Amlodipine Besylate (Norvasc -) 10 mg PO DAILY [facility] Last Admin: 04/29/17 10:37 Dose: 10 mg Aspirin (Ecotrin -) 81 mg PO DAILY [facility] Last Admin: 04/29/17 10:37 Dose: 81 mg Atorvastatin Calcium (Lipitor -) 20 mg PO HS [facility] Last Admin: 04/28/17 21:42 Dose: 20 mg Fentanyl (Sublimaze Injection -) 50 mcg IVPUSH [id number] PRN PRN Reason: PAIN Stop: 05/01/17 16:05 Ferrous Gluconate (Fergon -) 324 mg PO BID [facility] Last Admin: 04/29/17 10:38 Dose: 324 mg Folic Acid (Folic Acid -) 1 mg PO DAILY [facility] Last Admin: 04/29/17 10:37 Dose: 1 mg Guaifenesin (Robitussin -) 10 ml PO Q4H PRN PRN Reason: COUGH Last Admin: 04/29/17 09:48 Dose: 10 ml Heparin Sodium (Porcine) (Heparin -) 5,000 unit SQ TID [facility] Last Admin: 04/29/17 06:28 Dose: Not Given Metoprolol Tartrate (Lopressor -) 50 mg PO BID [facility] Last Admin: 04/29/17 10:37 Dose: 50 mg Ondansetron HCl (Zofran Injection) 4 mg IVPB Q6H PRN PRN Reason: NAUSEA Sodium Bicarbonate (Sodium Bicarbonate -) 650 mg PO BID [facility] Last Admin: 04/29/17 10:37 Dose: 650 mg Thiamine HCl (Vitamin B1 -) 100 mg PO DAILY [facility] Last Admin: 04/29/17 10:37 Dose: 100 mg - Objective Vital Signs: Vital Signs Temperature 98.2 F 04/29/17 12:40 Pulse Rate 94 H 04/29/17 15:15 Respiratory Rate 18 04/29/17 15:15 Blood Pressure 169/80 04/29/17 15:15 O2 Sat by Pulse Oximetry (%) 98 04/28/17 21:00 Constitutional: Yes: Calm Eyes: Yes: Conjunctiva Clear HENT: Yes: Atraumatic Cardiovascular: Yes: S1, S2 Respiratory: Yes: CTA Bilaterally Gastrointestinal: Yes: Normal Bowel Sounds, Soft Genitourinary: Yes: WNL Musculoskeletal: Yes: WNL Extremities: Yes: Other (left arm fistula with thrill and bruit) Edema: No Neurological: Yes: Oriented Psychiatric: Yes: Oriented Labs: CBC, BMP 04/29/17 08:00 04/29/17 08:00 INR, PTT INR 1.15 (0.82-1.09) H 04/23/17 14:53 Problem List - Problems (1) BETH (acute kidney injury) Code(s): N17.9 - ACUTE KIDNEY FAILURE, UNSPECIFIED (2) Diabetes Code(s): E11.9 - TYPE 2 DIABETES MELLITUS WITHOUT COMPLICATIONS (3) Diarrhea Code(s): R19.7 - DIARRHEA, UNSPECIFIED (4) Worsening renal function Code(s): N25.9 - DISORDER RSLT FROM IMPAIRED RENAL TUBULAR FUNCTION, UNSP (5) CAD (coronary artery disease) Code(s): I25.10 - ATHSCL HEART DISEASE OF [place] CORONARY ARTERY W/O ANG PCTRS Qualifiers: Coronary Disease-Associated Artery/Lesion type: [place] artery [place] vs. transplanted heart: [place] heart Associated angina: without angina Qualified Code(s): I25.10 - Atherosclerotic heart disease of [place] coronary artery without angina pectoris Assessment/Plan Current Medications Generic Name Dose Route Start Last Admin Trade Name Freq PRN Reason Stop Dose Admin Acetaminophen 650 mg 04/28/17 19:43 04/29/17 07:15 Tylenol - PO 650 mg Q4H PRN Administration FEVER OR PAIN Amlodipine Besylate 10 mg 04/29/17 10:00 04/29/17 10:37 Norvasc - PO 10 mg DAILY [facility] Administration Aspirin 81 mg 04/29/17 10:00 04/29/17 10:37 Ecotrin - PO 81 mg DAILY [facility] Administration Atorvastatin Calcium 20 mg 04/28/17 22:00 04/28/17 21:42 Lipitor - PO 20 mg HS [facility] Administration Fentanyl 50 mcg 04/28/17 19:43 Sublimaze Injection - IVPUSH 05/01/17 16:05 [id number] PRN PAIN Ferrous Gluconate 324 mg 04/28/17 22:00 04/29/17 10:38 Fergon - PO 324 mg BID [facility] Administration Folic Acid 1 mg 04/29/17 10:00 04/29/17 10:37 Folic Acid - PO 1 mg DAILY [facility] Administration Guaifenesin 10 ml 04/28/17 19:43 04/29/17 09:48 Robitussin - PO 10 ml Q4H PRN Administration COUGH Heparin Sodium (Porcine) 5,000 unit 04/28/17 22:00 04/29/17 06:28 Heparin - SQ Not Given TID [facility] Metoprolol Tartrate 50 mg 04/28/17 22:00 04/29/17 10:37 Lopressor - PO 50 mg BID [facility] Administration Ondansetron HCl 4 mg 04/28/17 19:43 Zofran Injection IVPB Q6H PRN NAUSEA Sodium Bicarbonate 650 mg 04/28/17 22:00 04/29/17 10:37 Sodium Bicarbonate - PO 650 mg BID [facility] Administration Thiamine HCl 100 mg 04/29/17 10:00 04/29/17 10:37 Vitamin B1 - PO 100 mg DAILY [facility] Administration Impression 1. CKD 2. BETH 3. HTN 4. DM 5. proteinuria 6. diarrhea Plan - pt getting HD today - can stop bicarb - check bmp in am - cont current meds - will assess for HD in am - pt has outpt dialysis set up for Wednesday - diarrhea has resolved - hold off dontae Dr Oleary
--- NOTE | 2017-04-29 16:46 | PN ---
Physical Exam: SUBJECTIVE: Patient seen and examined on HD. Tolerating well, has some pain from AVF site. OBJECTIVE: Vital Signs Period Temp Pulse Resp BP Sys/Benz Pulse Ox Last 24 Hr 98.0 F-98.7 F 75-94 10-20 119-169/72-88 95-98 PE Neuro: alert, awake, cn 2-12intact Pulm: CTAB CV: s1 s2 rrr no mrg Abd: s nt nd +bs Ext: L AVF with + thrill mild tenderness, no le edema Laboratory Results - last 24 hr 04/28/17 04/29/17 04/29/17 21:40 06:15 08:00 WBC 9.7 RBC 3.39 L Hgb 8.9 L Hct 27.2 L MCV 80.3 MCH 26.1 MCHC 32.5 RDW 18.9 H Plt Count 197 MPV 7.8 Neutrophils % 77.6 Lymphocytes % 12.8 Monocytes % 6.0 Eosinophils % 2.6 Basophils % 1.0 Sodium Potassium Chloride Carbon Dioxide Anion Gap BUN Creatinine Creat Clearance w eGFR POC Glucometer 221 121 Random Glucose Calcium Total Bilirubin AST ALT Alkaline Phosphatase Total Protein Albumin 04/29/17 04/29/17 08:00 11:17 WBC RBC Hgb Hct MCV MCH MCHC RDW Plt Count MPV Neutrophils % Lymphocytes % Monocytes % Eosinophils % Basophils % Sodium 138 Potassium 5.7 H Chloride 109 H Carbon Dioxide 19 L Anion Gap 10 BUN 72 H Creatinine 6.7 H Creat Clearance w eGFR 8.84 POC Glucometer 145 Random Glucose 126 H D Calcium 7.4 L Total Bilirubin 0.5 D AST 10 L D ALT 10 L Alkaline Phosphatase 102 Total Protein 5.9 L Albumin 1.9 L Active Medications Generic Name Dose Route Start Last Admin Trade Name Freq PRN Reason Stop Dose Admin Acetaminophen 650 mg 04/28/17 19:43 04/29/17 07:15 Tylenol - PO 650 mg Q4H PRN Administration FEVER OR PAIN Amlodipine Besylate 10 mg 04/29/17 10:00 04/29/17 10:37 Norvasc - PO 10 mg DAILY [facility] Administration Aspirin 81 mg 04/29/17 10:00 04/29/17 10:37 Ecotrin - PO 81 mg DAILY [facility] Administration Atorvastatin Calcium 20 mg 04/28/17 22:00 04/28/17 21:42 Lipitor - PO 20 mg HS [facility] Administration Fentanyl 50 mcg 04/28/17 19:43 Sublimaze Injection - IVPUSH 05/01/17 16:05 [id number] PRN PAIN Ferrous Gluconate 324 mg 04/28/17 22:00 04/29/17 10:38 Fergon - PO 324 mg BID [facility] Administration Folic Acid 1 mg 04/29/17 10:00 04/29/17 10:37 Folic Acid - PO 1 mg DAILY [facility] Administration Guaifenesin 10 ml 04/28/17 19:43 04/29/17 09:48 Robitussin - PO 10 ml Q4H PRN Administration COUGH Heparin Sodium (Porcine) 5,000 unit 04/28/17 22:00 04/29/17 06:28 Heparin - SQ Not Given TID [facility] Metoprolol Tartrate 50 mg 04/28/17 22:00 04/29/17 10:37 Lopressor - PO 50 mg BID [facility] Administration Ondansetron HCl 4 mg 04/28/17 19:43 Zofran Injection IVPB Q6H PRN NAUSEA Thiamine HCl 100 mg 04/29/17 10:00 04/29/17 10:37 Vitamin B1 - PO 100 mg DAILY [facility] Administration Imaging: - CTAP: A very small amount of free fluid is seen within the lover pelvis. Small bilateral pleural effusions. Mild bilateral thickening of the anterior and posterior pararenal fasciae. The pancreatic head is mildly prominent probably on the basis of normal variation and less likely inflammation or neoplastic disease. Mild splenomegaly. Cholelithiasis. Atheroclerotic vascular calcifications - Renal/Bladder ultrasound: No interval change from prior ultrasound 10/2016. Kidneys appear unremarkable. 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 Plan: 1. Worsening CKD - Renal biopsy 11/11/16: Nodular diabetic glomerulosclerosis, moderate to severe ; tubular atrophy and interstitial fibrosis, moderate to severe; arteriosclerosis with hyalinosis - AVF and permacath placed 8/2 - HD today - HD tomorrow - Stop bicarb - Outpt HD scheduled for Wednesday with [facility] 2. Diarrhea x 6 months - Resolved at present 3. Prominent pancreatic head - Follow-up with pcp as an outpatient for MRI to evaluate pancreas 4. CAD - Continue ASA - Continue Lipitor - Continue Metoprolol 5. HTN - Will monitor BP, aware elevated this afternoon - Can restart MIGUEL tomorrow 6. 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 Prophylaxis - heparin sq q8 8. Dispo - Home after HD tomorrow Visit type - Emergency Visit Emergency Visit: Yes ED Registration Date: 04/23/17 Care time: The patient presented to the Emergency Department on the above date and was hospitalized for further evaluation of their emergent condition. - New Patient This patient is new to me today: No - Critical Care Critical Care patient: No
--- NOTE | 2017-04-29 20:17 | PN ---
Progress Note (short form) - Note Progress Note: VAscular Surgery Pt seen and examined. Doing well. Dressing changed left arm. AVF with good thrill. Cont present care. Zachariah Barros dO
[2017-04-29] MEDS: ATORVASTATIN CA 20 MG TABLET (FP) PO SCH (21:08)
[2017-04-30] MEDS: ACETAMINOPHEN 325 MG TABLET (FP) PO PRN (01:22)
[2017-04-30] MEDS: guaiFENesin 200 MG/10 ML 10 ML UNIT-DOSE CUPS PO PRN (01:23)
[2017-04-30] MEDS: HEPARIN NA (PORCINE) 5,000 UNITS/ML 1ML VIAL SQ SCH ×2 (06:29→17:47)
[2017-04-30 07:13] LABS: ANION GAP 8 (8-16); CALCIUM 7.1 mg/dL (8.5-10.1); CO2 26 mmol/L (21-32); CREATININE 5.4 mg/dL (0.7-1.3); GLUCOSE,RANDOM 105 mg/dL (74-106)
[2017-04-30] MEDS: amLODIPine BESYLATE 10 MG TABLET (FP) PO SCH (10:16)
[2017-04-30] MEDS: METOPROLOL TARTRATE 50 MG TABLET (FP) PO SCH (10:16)
--- NOTE | 2017-04-30 10:26 | DS ---
Physical Exam: SUBJECTIVE: Patient seen and examined. He feels well, his AVF site is less tender. OBJECTIVE: Vital Signs Period Temp Pulse Resp BP Sys/Benz Pulse Ox Last 24 Hr 98.2 F-99.9 F 75-94 18-24 119-169/72-88 99 PE Neuro: alert, awake, cn 2-12intact Pulm: CTAB CV: s1 s2 rrr no mrg Abd: s nt nd +bs Ext: L AVF with + thrill mild tenderness, no le edema Laboratory Results - last 24 hr 04/29/17 04/29/17 04/29/17 11:17 17:11 20:51 Sodium Potassium Chloride Carbon Dioxide Anion Gap BUN Creatinine POC Glucometer 145 179 204 Random Glucose Calcium 04/30/17 04/30/17 05:36 06:10 Sodium 137 Potassium 4.3 D Chloride 103 Carbon Dioxide 26 D Anion Gap 8 BUN 50 H D Creatinine 5.4 H POC Glucometer 118 Random Glucose 105 Calcium 7.1 L HOSPITAL COURSE: Date of Admission:04/23/17 Date of Discharge: 04/30/17 Minutes to complete discharge: 36 Discharge Summary Reason For Visit: WORSENING RENAL FUNCTION Current Active Problems BETH (acute kidney injury) (Acute) Diabetes (Acute) Diarrhea (Acute) Symptomatic anemia (Acute) Worsening renal function (Acute) Hospital Course: Initial Hospital Course: Briefly, this 51 year old male with a history of CKD and nephrotic syndrome ( 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 He was hospitalized in October and underwent a renal biopsy at that time; he stated that symptoms began shortly after this. He had subjective fevers. He had abdominal pain, mild nausea, but no vomiting. He also endorsed dyspnea on exertion and generalized weakness. Imaging: - CTAP: A very small amount of free fluid is seen within the lover pelvis. Small bilateral pleural effusions. Mild bilateral thickening of the anterior and posterior pararenal fasciae. The pancreatic head is mildly prominent probably on the basis of normal variation and less likely inflammation or neoplastic disease. Mild splenomegaly. Cholelithiasis. Atheroclerotic vascular calcifications - Renal/Bladder ultrasound: No interval change from prior ultrasound 10/2016. Kidneys appear unremarkable. 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 Plan: 1. Worsening CKD - Renal biopsy 11/11/16: Nodular diabetic glomerulosclerosis, moderate to severe ; tubular atrophy and interstitial fibrosis, moderate to severe; arteriosclerosis with hyalinosis - AVF and permacath placed 04/28 - HD MWF - Outpt HD scheduled for Wednesday with [facility] 0615am 2. Diarrhea x 6 months - Resolved at present 3. Prominent pancreatic head - Follow-up with pcp as an outpatient for MRI to evaluate pancreas 4. CAD - Continue ASA - Continue Lipitor - Continue Metoprolol 5. HTN - Restart lisinopril 20mg on dc 6. 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 Anemia of chronic disease - Ferrous sulfate BID Dispo: - Home with above meds and outpt HD Thursday 05/03 615am - PT aware and agrees to above plan Condition: Stable - Instructions Diet, Activity, Other Instructions: Please return to the ED for any new, persistent, or worsening symptoms. Follow up with your PCP in 1 week . Take medications as directed on home medication list. Stop lasix Next dialysis is Wednesday with [facility] at 0615am, new schedule MWF Referrals: Juani Oleary MD [Staff Physician] - Disposition: HOME - Home Medications Comprehensive Discharge Medication List: Ambulatory Orders Amlodipine Besylate [Norvasc -] 10 mg PO DAILY 10/31/16 Ferrous Gluconate [Fergon -] 324 mg PO BID 10/31/16 Folic Acid - 1 mg PO DAILY #30 tablet 11/04/16 Thiamine HCl [Vitamin B1 -] 100 mg PO DAILY #30 tablet 11/04/16 Aspirin Coated [Ecotrin -] 81 mg PO DAILY tablet.ec 11/19/16 Atorvastatin Ca [Lipitor] 20 mg PO HS #30 tablet 11/19/16 Lisinopril [Prinivil] 20 mg PO DAILY #30 tablet 11/19/16 Metoprolol Tartrate [Lopressor -] 50 mg PO BID #60 tablet 11/19/16 This patient is new to me today: No Emergency Visit: Yes ED Registration Date: 04/23/17 Care time: The patient presented to the Emergency Department on the above date and was hospitalized for further evaluation of their emergent condition. Critical Care patient: No - Discharge Referral Referred to [facility] Med [facility].C[facility] No Physician Referral: Zachariah Barros DO ([facility])
[2017-04-30] MEDS ORDERED: RAMIPRIL 5 MG CAPSULE (FP) PO SCH (11:45)
[2017-04-30] MEDS ORDERED: EPOETIN ALFA 2,000 UNITS/1 ML VIAL IVPUSH ONE (16:00)
[2017-04-30] MEDS ORDERED: HEPARIN NA (PORCINE) 5,000 UNITS/ML 1ML VIAL IVPUSH ONE (16:00)
--- NOTE | 2017-04-30 16:10 | PN ---
Progress Note, Physician History of Present Illness: Pt seen and examined at bedside. He is awake and alert. He is tolerating HD. - Current Medication List Current Medications: Active Medications Acetaminophen (Tylenol -) 650 mg PO Q4H PRN PRN Reason: FEVER OR PAIN Last Admin: 04/30/17 01:22 Dose: 650 mg Amlodipine Besylate (Norvasc -) 10 mg PO DAILY [facility] Last Admin: 04/30/17 10:16 Dose: 10 mg Aspirin (Ecotrin -) 81 mg PO DAILY [facility] Last Admin: 04/29/17 10:37 Dose: 81 mg Atorvastatin Calcium (Lipitor -) 20 mg PO HS [facility] Last Admin: 04/29/17 21:08 Dose: 20 mg Fentanyl (Sublimaze Injection -) 50 mcg IVPUSH [id number] PRN PRN Reason: PAIN Stop: 05/01/17 16:05 Ferrous Gluconate (Fergon -) 324 mg PO BID [facility] Last Admin: 04/29/17 21:08 Dose: 324 mg Folic Acid (Folic Acid -) 1 mg PO DAILY [facility] Last Admin: 04/29/17 10:37 Dose: 1 mg Guaifenesin (Robitussin -) 10 ml PO Q4H PRN PRN Reason: COUGH Last Admin: 04/30/17 01:23 Dose: 10 ml Heparin Sodium (Porcine) (Heparin -) 5,000 unit SQ TID [facility] Last Admin: 04/30/17 06:29 Dose: Not Given Metoprolol Tartrate (Lopressor -) 50 mg PO BID [facility] Last Admin: 04/30/17 10:16 Dose: 50 mg Ondansetron HCl (Zofran Injection) 4 mg IVPB Q6H PRN PRN Reason: NAUSEA Ramipril (Altace -) 20 mg PO DAILY [facility] Last Admin: 04/30/17 11:46 Dose: 20 mg Thiamine HCl (Vitamin B1 -) 100 mg PO DAILY [facility] Last Admin: 04/29/17 10:37 Dose: 100 mg - Objective Vital Signs: Vital Signs Temperature 98.2 F 04/30/17 09:00 Pulse Rate 85 04/30/17 09:00 Respiratory Rate 20 04/30/17 09:00 Blood Pressure 155/81 04/30/17 09:00 O2 Sat by Pulse Oximetry (%) 94 L 04/30/17 09:00 Constitutional: Yes: Calm Eyes: Yes: Conjunctiva Clear HENT: Yes: Atraumatic Neck: Yes: Supple Cardiovascular: Yes: S1, S2 Respiratory: Yes: CTA Bilaterally Gastrointestinal: Yes: Normal Bowel Sounds, Soft Genitourinary: Yes: WNL Musculoskeletal: Yes: Other (fistula with thrill and bruit) Edema: No Neurological: Yes: Oriented Psychiatric: Yes: Oriented Labs: CBC, BMP 04/29/17 08:00 04/30/17 06:10 INR, PTT INR 1.15 (0.82-1.09) H 04/23/17 14:53 Problem List - Problems (1) BETH (acute kidney injury) Code(s): N17.9 - ACUTE KIDNEY FAILURE, UNSPECIFIED (2) Diabetes Code(s): E11.9 - TYPE 2 DIABETES MELLITUS WITHOUT COMPLICATIONS (3) Diarrhea Code(s): R19.7 - DIARRHEA, UNSPECIFIED (4) Worsening renal function Code(s): N25.9 - DISORDER RSLT FROM IMPAIRED RENAL TUBULAR FUNCTION, UNSP (5) CAD (coronary artery disease) Code(s): I25.10 - ATHSCL HEART DISEASE OF [place] CORONARY ARTERY W/O ANG PCTRS Qualifiers: Coronary Disease-Associated Artery/Lesion type: [place] artery [place] vs. transplanted heart: [place] heart Associated angina: without angina Qualified Code(s): I25.10 - Atherosclerotic heart disease of [place] coronary artery without angina pectoris Assessment/Plan Current Medications Generic Name Dose Route Start Last Admin Trade Name Freq PRN Reason Stop Dose Admin Acetaminophen 650 mg 04/28/17 19:43 04/30/17 01:22 Tylenol - PO 650 mg Q4H PRN Administration FEVER OR PAIN Amlodipine Besylate 10 mg 04/29/17 10:00 04/30/17 10:16 Norvasc - PO 10 mg DAILY LEMUEL Administration Aspirin 81 mg 04/29/17 10:00 04/29/17 10:37 Ecotrin - PO 81 mg DAILY LEMUEL Administration Atorvastatin Calcium 20 mg 04/28/17 22:00 04/29/17 21:08 Lipitor - PO 20 mg HS LEMUEL Administration Fentanyl 50 mcg 04/28/17 19:43 Sublimaze Injection - IVPUSH 05/01/17 16:05 [id number] PRN PAIN Ferrous Gluconate 324 mg 04/28/17 22:00 04/29/17 21:08 Fergon - PO 324 mg BID LEMUEL Administration Folic Acid 1 mg 04/29/17 10:00 04/29/17 10:37 Folic Acid - PO 1 mg DAILY LEMUEL Administration Guaifenesin 10 ml 04/28/17 19:43 04/30/17 01:23 Robitussin - PO 10 ml Q4H PRN Administration COUGH Heparin Sodium (Porcine) 5,000 unit 04/28/17 22:00 04/30/17 06:29 Heparin - SQ Not Given TID LEMUEL Metoprolol Tartrate 50 mg 04/28/17 22:00 04/30/17 10:16 Lopressor - PO 50 mg BID LEMUEL Administration Ondansetron HCl 4 mg 04/28/17 19:43 Zofran Injection IVPB Q6H PRN NAUSEA Ramipril 20 mg 04/30/17 11:45 04/30/17 11:46 Altace - PO 20 mg DAILY LEMUEL Administration Thiamine HCl 100 mg 04/29/17 10:00 04/29/17 10:37 Vitamin B1 - PO 100 mg DAILY LEMUEL Administration Impression 1. CKD/ESRD 2. BETH 3. HTN 4. DM 5. proteinuria 6. diarrhea Plan - pt is tolerating HD - he is scheduled for HD on Wednesday morning - cont with dontae - cont current meds - called and discussed with HD unit - discussed with medical team Dr Oleary
[2017-04-30 19:03] VITALS: BP 160/88; PULSE 94; TEMP 98.1
== END 2017-04-30 19:17 | disposition home or self-care (01) | DRG 447 ==
LOC: JER 12:58 → JERBED 17:22 → J6S 19:05
PROVIDERS: ADMIT Internal Medicine; ATTEND Nurse Practitioner Acute Care
PROC: 30233N1 Transfusion of Nonautologous Red Blood Cells into Peripheral Vein, Percutaneous Approach (ICD-10-PCS; 2017-04-23)
PROC: B513ZZA Fluoroscopy of Right Jugular Veins, Guidance (ICD-10-PCS; 2017-04-28)
PROC: 03180JD Bypass Left Brachial Artery to Upper Arm Vein with Synthetic Substitute, Open Approach (ICD-10-PCS; 2017-04-28)
PROC: B214YZZ Fluoroscopy of Right Heart using Other Contrast (ICD-10-PCS; 2017-04-28)
PROC: 02H633Z Insertion of Infusion Device into Right Atrium, Percutaneous Approach (ICD-10-PCS; principal; 2017-04-28 14:30)
PROC: 5A1D60Z (ICD-10-PCS; 2017-04-29)
DX: N17.9 Acute kidney failure, unspecified (principal); I25.10 Atherosclerotic heart disease of native coronary artery without angina pectoris; R19.7 Diarrhea, unspecified; E11.9 Type 2 diabetes mellitus without complications; I13.0 Hypertensive heart and chronic kidney disease with heart failure and stage 1 through stage 4 chronic kidney disease, or unspecified chronic kidney disease; E11.21 Type 2 diabetes mellitus with diabetic nephropathy; E11.22 Type 2 diabetes mellitus with diabetic chronic kidney disease; N18.9 Chronic kidney disease, unspecified; I50.9 Heart failure, unspecified; N25.9 Disorder resulting from impaired renal tubular function, unspecified; D63.8 Anemia in other chronic diseases classified elsewhere; R80.8 Other proteinuria; E83.51 Hypocalcemia
CPT/HCPCS: 36415; 36430; 71010-TC; 74176-TC; 76000-TC; 76775-TC; 76856-TC; 80048; 80053; 81003; 81015; 82436; 82570; 82607; 82728; 83036; 83540; 83550; 83735; 84100; 84133; 84300; 84484; 84540; 85025; 85027; 85610; 86704; 86706; 86708; 86803; 86850; 86900; 86901; 86922; 87086; 87186; 87340; 93005; 93010; 93970-TC; 94760; 99285-25; J0885; J1644; P9038; P9058

== ENCOUNTER 2017-05-07 12:51 | Emergency (ER) | payer OTHER ==
[2017-05-07 13:05] VITALS: BP 143/71; PULSE 100; TEMP 98.7; BMI 27.2
--- NOTE | 2017-05-07 13:53 | PDOC ---
Suture Removal/Wound Check HPI - History of Present Illness Chief Complaint: Suture/Staple Removal (other) Stated Complaint: STAPLE REMOVAL FOR AV FISTULA Time Seen by Provider: 05/07/17 13:30 History Source: Yes: Patient Exam Limitations: Yes: No Limitations - Previous ED Treatment Type of procedure performed on last visit: Yes: Other (left arm AVF placed ) Antibiotics Prescribed: Yes (pt on antibiotics) - Onset of Previous Treatment Comment:: 05/07/17 13:48 pt states he is here for staple removal from having AV fistula placed in this hospital 04/28/17. pt states he had dialysis this am . Pt currently on antibiotics . pt has no fever . Past History - Past Medical History Allergies/Adverse Reactions: Allergies Penicillins Allergy (Verified 05/07/17 13:01) GENERALIZED EDEMA "MY KIDNEYS FAILED>" Home Medications: Ambulatory Orders Ferrous Gluconate [Fergon -] 324 mg PO BID 10/31/16 Folic Acid - 1 mg PO DAILY #30 tablet 11/04/16 Thiamine HCl [Vitamin B1 -] 100 mg PO DAILY #30 tablet 11/04/16 Aspirin Coated [Ecotrin -] 81 mg PO DAILY tablet.ec 11/19/16 Atorvastatin Ca [Lipitor] 20 mg PO HS #30 tablet 11/19/16 Amlodipine Besylate [Norvasc -] 10 mg PO DAILY #30 tab 04/30/17 Lisinopril [Prinivil] 20 mg PO DAILY #30 tab 04/30/17 Metoprolol Tartrate [Lopressor -] 50 mg PO BID #60 tab 04/30/17 - Immunization History Immunizations Up to Date: Yes - Social History Smoking Status: Never smoked Suture Removal/Wound Check PE - Physical Exam Laceration/Wound Check Symptoms: reports: None Comments: 05/07/17 13:46 left arm AC with 8 franco , positive thrill mild erythema surrounding the area with scant drainage, nv intact FROM of the arm Procedures - Additional Procedures Progress: 05/07/17 13:53 franco removed from surgical site edges CDI mild erythema noted Medical Decision Making - Medical Decision Making 05/07/17 13:53 cc: staple removal pt told to return to ER to have franco removed from left arm AV fistual placed 04/28/17 pt states he is on antibiotics for prophylaxsis franco removed wound is red, skin intact clean scant amount of discharge pt states he has had that sincew the placement and his doctor is aware *DC/Admit/Observation/Transfer Diagnosis at time of Disposition: Encounter for staple removal - Discharge Dispostion Disposition: HOME Condition at time of disposition: Good - Patient Instructions Additional Instructions: keep clean and dry follow with your primary care doctor for follow up Wednesday or Wednesday
== END 2017-05-07 13:50 | disposition home or self-care (01) ==
LOC: JERFT 12:51
DX: Z48.02 Encounter for removal of sutures (principal)
CPT/HCPCS: 99281-25

== ENCOUNTER 2017-05-13 12:38 | Inpatient (IN) | payer OTHER ==
[2017-05-13 13:59] LABS: BASOPHIL 0.2 % (0-2.0); EOSINOPHIL 3.6 % (0-4.5); MCH 25.7 pg (25.7-33.7); MCHC 31.5 g/dl (32.0-35.9); MEAN CELL VOLUME 81.8 fl (80-96); NEUTROPHILS 80.1 % (42.8-82.8); PLATELET COUNT 229 K/MM3 (134-434); RDW 17.3 % (11.9-15.9); WHITE BLOOD COUNT 11.7 K/mm3 (4.0-10.0)
[2017-05-13 14:34] LABS: ALBUMIN 2.1 g/dl (3.4-5.0); ANION GAP 11 (8-16); CALCIUM 7.2 mg/dL (8.5-10.1); CO2 24 mmol/L (21-32); CREATININE 6.2 mg/dL (0.7-1.3); GLUCOSE,RANDOM 257 mg/dL (74-106); SGOT/AST 23 U/L (15-37); SGPT/ALT 47 U/L (12-78)
[2017-05-13 14:36] LABS: ALK PHOS 166 U/L (45-117); BILIRUBIN,TOTAL 0.3 mg/dL (0.2-1.0); TOT PROT 6.6 g/dl (6.4-8.2)
--- NOTE | 2017-05-13 17:58 | PDOC ---
History of Present Illness - General Chief Complaint: Diarrhea Stated Complaint: DIARRHEA Time Seen by Provider: 05/13/17 13:11 - History of Present Illness Initial Comments: 05/13/17 17:53 The patient is a 51 year old male, with a significant past medical history of dialysis (3x a week), hyperlipidemia, diabetes mellitus, hypertension, congestive heart failure, nephrotic syndrome, who presents to the emergency department complaining of diarrhea beginning on Wednesday after he took Clinidamycin for his fistula surgery on Wednesday. The patient states that upon waking he experienced constant diarrhea throughout the day described as loose, watery and black in color. The patient reports he has been experiencing diarrhea approx. 6 - 12x a day.. The patient reports associated symptoms of chills, N/V, abdominal pain. He denies any recent fevers, headache or dizziness. He denies any recent vomit or hematochezia. Patient denies recent travel. He denies any recent chest pain or shortness of breath. He denies any recent dysuria, frequency, urgency or hematuria. Allergies: Penicillins Past surgical history: None Social History: Nonsmoker. Denies EtOH use and recreational drug use. Past History - Past Medical History Allergies/Adverse Reactions: Allergies Allergy/AdvReac Type Severity Reaction Status Date / Time Penicillins Allergy Verified 05/13/17 12:38 Home Medications: Ambulatory Orders Ferrous Gluconate [Fergon -] 324 mg PO BID 10/31/16 Folic Acid - 1 mg PO DAILY #30 tablet 11/04/16 Thiamine HCl [Vitamin B1 -] 100 mg PO DAILY #30 tablet 11/04/16 Aspirin Coated [Ecotrin -] 81 mg PO DAILY tablet.ec 11/19/16 Atorvastatin Ca [Lipitor] 20 mg PO HS #30 tablet 11/19/16 Amlodipine Besylate [Norvasc -] 10 mg PO DAILY #30 tab 04/30/17 Lisinopril [Prinivil] 20 mg PO DAILY #30 tab 04/30/17 Metoprolol Tartrate [Lopressor -] 50 mg PO BID #60 tab 04/30/17 Cardiac Disorders: Yes (valvular heart disease) Dementia: Yes Diabetes: Yes (BORDER LINE) Dialysis: Yes (M-W-F) HTN: Yes - Immunization History Immunization Up to Date: Yes - Psycho/Social/Smoking Cessation Hx Anxiety: No Suicidal Ideation: No Smoking History: Never smoked Have you smoked in the past 12 months: No Information on smoking cessation initiated: No Hx Alcohol Use: No Drug/Substance Use Hx: No Substance Use Type: None Hx Substance Use Treatment: No Review of Systems - Review of Systems Comments:: 05/13/17 17:53 GENERAL/CONSTITUTIONAL: +Chills. No fever. HEAD, EYES, EARS, NOSE AND THROAT: No change in vision. No ear pain or discharge. No sore throat. CARDIOVASCULAR: No chest pain or shortness of breath. RESPIRATORY: No cough No wheezing, or hemoptysis. GASTROINTESTINAL: +Diarrhea. +Nausea. No vomiting. GENITOURINARY: No dysuria, frequency, or change in urination. MUSCULOSKELETAL: No joint or muscle swelling or pain. No neck or back pain. SKIN: No rash NEUROLOGIC: No headache, vertigo, loss of consciousness, or change in strength/ sensation. ENDOCRINE: No increased thirst. No abnormal weight change. HEMATOLOGIC/LYMPHATIC: No anemia, easy bleeding, or history of blood clots. ALLERGIC/IMMUNOLOGIC: No hives or skin allergy. *Physical Exam - Vital Signs Last Vital Signs Temp Pulse Resp BP Pulse Ox 98.2 F 82 18 114/58 100 05/13/17 12:39 05/13/17 12:39 05/13/17 12:39 05/13/17 12:39 05/13/17 12:39 - Physical Exam Comments: 05/13/17 17:53 GENERAL: Awake, alert, and fully oriented, in no acute distress HEAD: No signs of trauma EYES: PERRLA, EOMI, sclera anicteric, conjunctiva clear ENT: Auricles normal inspection, hearing grossly normal, nares patent, oropharynx clear without exudates. Moist mucosa NECK: Normal ROM, supple, no lymphadenopathy, JVD, or masses LUNGS: Breath sounds equal, clear to auscultation bilaterally. No wheezes, and no crackles HEART: Regular rate and rhythm, normal S1 and S2, no murmurs, rubs or gallops ABDOMEN: Soft, nontender, normoactive bowel sounds. No guarding, no rebound. No masses. EXTREMITIES: Normal range of motion, no edema. No clubbing or cyanosis. No cords, erythema, or tenderness NEUROLOGICAL: Normal speech, cranial nerves intact, negative pronator drift, 5/ 5 strength in all 4 extremities, normal sensation to light touch in all 4 extremities, normal cerebellar exam, normal gait, normal reflexes and tone SKIN: Warm, Dry, normal turgor, no rashes or lesions noted. Rectal exam: No hemorhoids, no active bleeding, guaic test sent to lab (negative ) ED Treatment Course - LABORATORY CBC & Chemistry Diagram: 05/14/17 07:51 05/14/17 17:00 - ADDITIONAL ORDERS Additional order review: Laboratory Results 05/13/17 05/13/17 15:23 13:50 Sodium 136 Potassium 4.0 Chloride 101 Carbon Dioxide 24 Anion Gap 11 BUN 51 H Creatinine 6.2 H Creat Clearance w eGFR 9.67 Random Glucose 257 H D Calcium 7.2 L Total Bilirubin 0.3 D AST 23 D ALT 47 D Alkaline Phosphatase 166 H D Total Protein 6.6 Albumin 2.1 L Stool Occult Blood Negative 05/13/17 13:50 RBC 2.97 L MCV 81.8 MCHC 31.5 L RDW 17.3 H MPV 8.0 Neutrophils % 80.1 Lymphocytes % 9.9 D Monocytes % 6.2 Eosinophils % 3.6 Basophils % 0.2 Medical Decision Making - Medical Decision Making 05/13/17 17:55 51yo M hx ESRD on HD, recent admission for diarrhea p/w recurrent diarrhea after taking clindamycin for placement of fistula AV graft. Exam unremarkable, with guiac negative dark stool. Concern for c.diff vs antibiotic associated diarrhea. -labs -cdiff -reassess *DC/Admit/Observation/Transfer Diagnosis at time of Disposition: Anemia Diarrhea Qualifiers: Diarrhea type: unspecified type Qualified Code(s): R19.7 - Diarrhea, unspecified
[2017-05-13] MEDS ORDERED: METRONIDAZOLE 500 MG PREMIXED 100 ML IVPB ONE ×2 (19:11→19:34)
--- NOTE | 2017-05-13 20:46 | PDOC ---
*Physical Exam - Vital Signs Last Vital Signs Temp Pulse Resp BP Pulse Ox 98.2 F 82 18 114/58 100 05/13/17 12:39 05/13/17 12:39 05/13/17 12:39 05/13/17 12:39 05/13/17 12:39 ED Treatment Course - LABORATORY CBC & Chemistry Diagram: 05/13/17 13:50 05/13/17 13:50 - ADDITIONAL ORDERS Additional order review: Laboratory Results 05/13/17 05/13/17 15:23 13:50 Sodium 136 Potassium 4.0 Chloride 101 Carbon Dioxide 24 Anion Gap 11 BUN 51 H Creatinine 6.2 H Creat Clearance w eGFR 9.67 Random Glucose 257 H D Calcium 7.2 L Total Bilirubin 0.3 D AST 23 D ALT 47 D Alkaline Phosphatase 166 H D Total Protein 6.6 Albumin 2.1 L Stool Occult Blood Negative 05/13/17 13:50 RBC 2.97 L MCV 81.8 MCHC 31.5 L RDW 17.3 H MPV 8.0 Neutrophils % 80.1 Lymphocytes % 9.9 D Monocytes % 6.2 Eosinophils % 3.6 Basophils % 0.2 - Medications Given in the ED: ED Medications Discontinued Medications Generic Name Dose Route Start Last Admin Trade Name Freq PRN Reason Stop Dose Admin Metronidazole 100 mls @ 100 mls/hr 05/13/17 19:11 05/13/17 19:39 Flagyl 500mg Premixed Ivpb - IVPB 05/13/17 20:10 100 mls/hr ONCE ONE Administration Medical Decision Making - Medical Decision Making 05/13/17 20:44 Sign-out received from outgoing Emergency Physician Dr. Loco Pt interviewed and examined Ancillary studies reviewed Case discussed in detail with oncoming Emergency Physician including history, physical exam and ancillary studies. Vital Signs Temp Pulse Resp BP Pulse Ox 98.2 F 82 18 114/58 100 05/13/17 12:39 05/13/17 12:39 05/13/17 12:39 05/13/17 12:39 05/13/17 12:39 Pt continues to have very frequent diarrhea, even after receiving signout. WBC ~11. Though, will treat as c.diff with IV flagyl. Blood cultures ordered. Pt noted to be anemic but negative guiaic. 1u PRBC ordered. Case discussed with symphony hospitalist. Admitted to med/surg observation for r /o c.diff and anemia Case discussed in detail with admitting physician including history, physical exam and ancillary studies. Admitting physician has assumed care for the patient, will follow all pending diagnostics and will complete the evaluation and treatment. *DC/Admit/Observation/Transfer Diagnosis at time of Disposition: Diarrhea Qualifiers: Diarrhea type: unspecified type Qualified Code(s): R19.7 - Diarrhea, unspecified Anemia Qualifiers: Anemia type: other cause Other causes of anemia: other cause, not classified Qualified Code(s): D64.89 - Other specified anemias - Discharge Dispostion Condition at time of disposition: Stable Admit: Yes
[2017-05-13] MEDS ORDERED: ACETAMINOPHEN 325 MG TABLET (FP) PO PRN (21:27)
[2017-05-13 22:18] LABS: EOSINOPHIL 2.7 % (0-4.5)
[2017-05-13 22:23] LABS: MCH 25.9 pg (25.7-33.7); MEAN PLT VOLUME 7.8 fl (7.5-11.1); NEUTROPHILS 82.9 % (42.8-82.8); PLATELET COUNT 187 K/MM3 (134-434); RDW 17.5 % (11.9-15.9); WHITE BLOOD COUNT 14.8 K/mm3 (4.0-10.0)
[2017-05-13 22:41] LABS: ALK PHOS 151 U/L (45-117); ANION GAP 9 (8-16); BILIRUBIN,TOTAL 0.2 mg/dL (0.2-1.0); CALCIUM 7.3 mg/dL (8.5-10.1); CO2 22 mmol/L (21-32); CREATININE 6.1 mg/dL (0.7-1.3); GLUCOSE,RANDOM 124 mg/dL (74-106); MAGNESIUM 2.2 mg/dL (1.8-2.4); SGOT/AST 19 U/L (15-37); SGPT/ALT 43 U/L (12-78); TOT PROT 6.5 g/dl (6.4-8.2)
--- NOTE | 2017-05-13 22:54 | PN ---
Teaching Attending Note Name of Resident: Ruben Kim ATTENDING PHYSICIAN STATEMENT I saw and evaluated the patient. I reviewed the resident's note and discussed the case with the resident. I agree with the resident's findings and plan as documented. SUBJECTIVE: 51 yo gentleman with ESRD s/p AV Fistula placement admitted with acute blood loss anemia requiring transfusion and leukocytosis in the setting of new onset diarrhea after apparent antibiotic complicated by acute blood loss anemia. OBJECTIVE: - Vital Signs Temp: 98.2F BP: 114/58 HR: 82 RR: 18 spO2: 100% RA - Physical Examination General: Alert, oriented and in NAD HEENT: No oropharyngeal lesions, EOMI Neck: No JVD or thyromegaly CV: RRR, S1 and S2 Pulm: CTA bilaterally Abd: Mild generalized TTP, ND, BS hyperactive Ext: Symmetrical edema in bilateral lower extremities; AVF site appreciated Lymph: No cervical or axillary lymphadenopathy - Imaging CXR reviewed CT A/P w/ Contrast Pending - Labs BUN/Cr c/w ESRD Electrolytes unremarkable Hyperglycemia 257 Mild leukocytosis H/H: 7.7/24.3 Fecal occult negative ; C. Diff and stool cx pending ASSESSMENT: Acute Blood Loss Anemia in setting of AoCD Diarrhea - r/o C. Difficile Leukocytosis in setting of above ESRD on HD Poorly controlled DM-II w/ Hyperglycemia Diastolic CHF - Not currently decompensated Essential HTN - Controlled PLAN: Admit to general medical floor for blood product transfusion and close monitoring of hemodynamic status while awaiting result of stool studies. Confirm and resume outpatient medication regimen holding all diuretics at this time Resume IV Flagyl pending culture results Basal and SSI regimen for goal inpatient glucose 160-180 ; Check A1c if not performed in past 3 months Check TSH F/U pending stool studies ; Contact precautions pending results F/U CT A/P + ( To be scheduled/performed in sequence with planned HD ) F/U Nephrology recommendations Trend leukocytosis, anemia, electrolytes and renal function DISPOSITION: Anticipate discharge in 24-48h pending no clinical issues from admission. Update Vaccinations.
--- NOTE | 2017-05-13 23:19 | HP ---
Admitting History and Physical - Admission History of Present Illness: 51yo M with significant history of ESRD s/p dialysis (MWF), DM, and HTN who presents with profuse, watery diarrhea for a week and anemia. Pt states he received AVF graft construction about 3 weeks ago and was seen post-op to remove franco. He states that he received IV Clindamycin x1 dose there. He states since then he's been having profuse, watery diarrhea that is green in color and malodorous without any blood or mucus noted. He states he's been going to the bathroom constantly and has been using Peptobismol to try and help. Pt states he has subjective chills and abdominal cramping. Denies SOB, CP , headache, lightheadedness, dizziness, recent sick contacts, abnormal foods eaten, and recent travel. ER Course notable for: 1) Pt received 500mg IV Flagyl x1 dose 2) CBC, CMP revealing WBC 11.7, Cr 6.2 (basline ESRD), HgB 7.7, Hct 23.2 3) C diff antigen and toxin evaluation pending 4) 1U PRBC ordered 5) Hemoccult negative 6) EKG - NSR; no change in baseline; no abnormalities noted History Source: Patient Limitations to Obtaining History: No Limitations - Past Medical History Cardiovascular: Yes: HTN Renal/: Yes: Renal Inusuff Heme/Onc: Yes: Anemia Endocrine: Yes: Diabetes Mellitus - Past Surgical History Past Surgical History: Yes: AV Fistula/Graft - Smoking History Smoking history: Never smoked Have you smoked in the past 12 months: No - Alcohol/Substance Use Hx Alcohol Use: No - Social History History of Recent Travel: No Home Medications - Allergies Allergies/Adverse Reactions: Allergies Allergy/AdvReac Type Severity Reaction Status Date / Time Penicillins Allergy Verified 05/13/17 12:38 - Home Medications Home Medications: Ambulatory Orders Ferrous Gluconate [Fergon -] 324 mg PO BID 10/31/16 Folic Acid - 1 mg PO DAILY #30 tablet 11/04/16 Thiamine HCl [Vitamin B1 -] 100 mg PO DAILY #30 tablet 11/04/16 Aspirin Coated [Ecotrin -] 81 mg PO DAILY tablet.ec 11/19/16 Atorvastatin Ca [Lipitor] 20 mg PO HS #30 tablet 11/19/16 Amlodipine Besylate [Norvasc -] 10 mg PO DAILY #30 tab 04/30/17 Lisinopril [Prinivil] 20 mg PO DAILY #30 tab 04/30/17 Metoprolol Tartrate [Lopressor -] 50 mg PO BID #60 tab 04/30/17 Family Disease History - Family Disease History Family Disease History: Diabetes: Mother, Heart Disease: Mother Physical Examination Vital Signs: Vital Signs Temperature 98.2 F 05/13/17 12:39 Pulse Rate 82 05/13/17 12:39 Respiratory Rate 18 05/13/17 12:39 Blood Pressure 114/58 05/13/17 12:39 O2 Sat by Pulse Oximetry (%) 100 05/13/17 12:39 Constitutional: Yes: No Distress, Calm Eyes: Yes: Conjunctiva Clear, EOM Intact, PERRL HENT: Yes: Other (Moist mucous membranes) Cardiovascular: Yes: Regular Rate and Rhythm. No: Murmur Respiratory: Yes: Regular, CTA Bilaterally. No: Rhonchi, SOB, Wheezes Gastrointestinal: Yes: Soft, Hypoactive Bowel Sounds, Other (Old-age contusion R -central located from previous trauma). No: Hepatomegaly, Palpable Mass, Splenomegaly, Tenderness, Tenderness, Rebound, Vomiting Edema: Yes (Trace LE edema) Peripheral Pulses WNL: Yes Neurological: Yes: Alert, Oriented Psychiatric: Yes: Alert, Oriented Labs: CBC, BMP 05/13/17 22:08 05/13/17 22:08 Imaging - Results EKG: Image Reviewed Assessment/Plan 51yo M with C. Diff colitis vs abx-associated colitis. Pt also anemic with no active bleeds. C diff ag/toxin pending. 1U PRBC ordered. Flagy 500 IV administered. 1) Diarrhea --WBC 11.7 (will trend), subjective fevers/chills with temp of 98.7 --C. Diff colitis vs ABX-associated --Isolation precautions for now --Will follow C diff ag/toxin --Flagyl 500 PO q8h --Pt describes black stool most likely from peptobismol; hemoccult was negative --CT abdomen with IV AND ORAL contrast in AM; will have regularly scheduled dialysis after CT scan tomorrow --Tylenol 650mg PRN on board if fever develops 2) Anemia --Hemoccult negative --Trend CBC --Some additive effect of anemia of chronic disease due to ESRD, however, Hgb decreased acutely --In light of previous echo and stress test done within 6 mo, transfuse 1U PRBC --Will hold home ASA for now in light of decreasing H/H 3) ESRD on Dialysis MWF --Consulted Nephrology --AVF construction about 3 weeks ago; permacath in place for current dialysis treatments --Previous renal Bx not seen in chart; will f/u 4) Diabetes mellitus --Pt takes no meds at home --A1C ordered; will f/u --SSI 5) HTN --Home medication continued FEN: Fluids: Gentle hydration after 1U PRBC; dialysis for tomorrow Electrolyte abnormalities: None; corrected Ca 8.9 Nutrition: NPO for overnight for some bowel rest then increase as tolerated PPX: DVT - Heparin 5000U SQ TID Dispo: Admit to M/S Visit type - Emergency Visit Emergency Visit: Yes ED Registration Date: 05/13/17 Care time: The patient presented to the Emergency Department on the above date and was hospitalized for further evaluation of their emergent condition. - New Patient This patient is new to me today: Yes Date on this admission: 05/14/17 - Critical Care Critical Care patient: No
[2017-05-14 04:45] VITALS: BMI 29.3
[2017-05-14] MEDS: METOPROLOL TARTRATE 50 MG TABLET (FP) PO SCH ×3 (06:31→21:30)
[2017-05-14] MEDS: ATORVASTATIN CA 20 MG TABLET (FP) PO SCH ×2 (06:32→21:30)
[2017-05-14] MEDS: FERROUS GLUCONATE 324 MG TAB (FP) PO SCH ×3 (06:32→21:28)
[2017-05-14] MEDS: INSULIN SLIDING SCALE (NOVOLOG) 1 VIAL SQ SCH ×5 (06:40→21:43)
[2017-05-14] MEDS: metroNIDAZOLE 250 MG TABLET PO SCH ×3 (06:43→21:28)
[2017-05-14] MEDS: HEPARIN NA (PORCINE) 5,000 UNITS/ML 1ML VIAL SQ SCH ×3 (06:43→21:29)
--- NOTE | 2017-05-14 08:19 | PN ---
Teaching Attending Note Name of Resident: Byron Cardoza ATTENDING PHYSICIAN STATEMENT I saw and evaluated the patient. I reviewed the resident's note and discussed the case with the resident. I agree with the resident's findings and plan as documented. SUBJECTIVE: No specific complaints OBJECTIVE: Vitals noted Hyperkalemia noted ASSESSMENT AND PLAN: Treat hyperkalemia Dialysis millie Follow up CT abd/pelvis Follow post transfusion CBC See resident note for full details
[2017-05-14 08:24] LABS: BASOPHIL 0.9 % (0-2.0); MCH 26.4 pg (25.7-33.7); MCHC 31.2 g/dl (32.0-35.9); MEAN CELL VOLUME 84.6 fl (80-96); MEAN PLT VOLUME 7.9 fl (7.5-11.1); NEUTROPHILS 82.7 % (42.8-82.8); PLATELET COUNT 201 K/MM3 (134-434); RDW 16.9 % (11.9-15.9); WHITE BLOOD COUNT 11.7 K/mm3 (4.0-10.0)
[2017-05-14 09:16] LABS: ALBUMIN 2.3 g/dl (3.4-5.0); ALK PHOS 159 U/L (45-117); ANION GAP 10 (8-16); BILIRUBIN,TOTAL 0.5 mg/dL (0.2-1.0); CALCIUM 7.9 mg/dL (8.5-10.1); CO2 21 mmol/L (21-32); CREATININE 6.3 mg/dL (0.7-1.3); GLUCOSE,RANDOM 152 mg/dL (74-106); MAGNESIUM 2.3 mg/dL (1.8-2.4); PHOSPHOROUS 6.1 mg/dL (2.5-4.9); SGOT/AST 16 U/L (15-37); SGPT/ALT 41 U/L (12-78); THYROID STIMULATING HORMONE 1.06 uIU/ml (0.358-3.74); TOT PROT 7.1 g/dl (6.4-8.2)
[2017-05-14] MEDS ORDERED: ASPIRIN COATED 81 MG TABLET.EC PO SCH (10:00)
[2017-05-14] MEDS ORDERED: SULFAMETHOXAZOLE/TRIMETHOPRIM 800MG/160MG D.S. TABLET PO SCH (10:15)
--- NOTE | 2017-05-14 10:23 | EKG ---
Test Reason : Blood Pressure : / mmHG Vent. Rate : 085 BPM Atrial Rate : 085 BPM P-R Int : 140 ms QRS Dur : 084 ms QT Int : 382 ms P-R-T Axes : 063 069 048 degrees QTc Int : 454 ms NORMAL SINUS RHYTHM LEFT ATRIAL ENLARGEMENT WHEN COMPARED WITH ECG OF 23-APR-2017 16:18, T WAVE AMPLITUDE HAS DECREASED IN LATERAL LEADS Confirmed by ELVER DARLING MD ([id number]) on 05/14/2017 10:22:58 AM Referred By: Confirmed By:ELVER DARLING MD
[2017-05-14] MEDS ORDERED: diphenhydrAMINE HCL 25 MG CAPSULE (FP) PO ONE ×2 (11:00→19:16)
[2017-05-14] MEDS ORDERED: PT OWN MED DRAWER 7, Y5N ONE (11:31)
[2017-05-14] MEDS: FOLIC ACID 1 MG TABLET (FP) PO SCH (11:36)
[2017-05-14] MEDS: LISINOPRIL 20 MG TABLET (FP) PO SCH (11:36)
[2017-05-14] MEDS: THIAMINE HCL 100 MG TABLET (FP) PO SCH (11:37)
[2017-05-14] MEDS: amLODIPine BESYLATE 10 MG TABLET (FP) PO SCH (11:37)
[2017-05-14] MEDS ORDERED: DEXTROSE 50%-WATER - 25 GM/50 ML VIAL IVPUSH ONE (11:45)
[2017-05-14] MEDS ORDERED: CALCIUM GLUCONATE 10% - 1,000 MG/10 ML VIAL IVPB ONE (11:45)
[2017-05-14] MEDS ORDERED: INSULIN REGULAR HUMAN 100 UNITS/ML *VIAL IVPUSH ONE (11:45)
[2017-05-14] MEDS ORDERED: SODIUM POLYSTYRENE SULFONATE 15 GM/60 ML BOTTLE PO ONE (11:45)
[2017-05-14] MEDS ORDERED: DEXTROSE 50%-WATER 50 ML DISP.SYRIN IVPUSH ONE (12:15)
[2017-05-14] MEDS: ALBUTEROL SO4 0.083% IH SOL 2.5 MG/3 ML VIAL.NEB. NEB SCH (12:22)
[2017-05-14] MEDS ORDERED: HEPARIN NA (PORCINE) 5,000 UNITS/ML 1ML VIAL IVPUSH ONE (12:30)
[2017-05-14] MEDS ORDERED: EPOETIN ALFA 2,000 UNITS/1 ML VIAL IVPUSH ONE (12:30)
--- NOTE | 2017-05-14 14:07 | PN ---
Physical Exam: SUBJECTIVE: Patient seen and examined No complaints this morning. Patient states diarrhea has not occurred since 8-10 times in the ED. OBJECTIVE: Vital Signs Period Temp Pulse Resp BP Sys/Benz Pulse Ox Last 24 Hr 98.1 F-98.7 F 68-92 15-20 118-151/66-88 100 GENERAL: The patient is awake, alert, and fully oriented, in no acute distress. HEAD: Normal with no signs of trauma. EYES: PERRL, extraocular movements intact, sclera anicteric, conjunctiva clear. No ptosis. ENT: Ears normal, nares patent, oropharynx clear without exudates, moist mucous membranes. NECK: Trachea midline, full range of motion, supple. LUNGS: Breath sounds equal, bilateral crackles at bases HEART: Regular rate and rhythm, S1, S2 without murmur, rub or gallop. ABDOMEN: Soft, nontender, nondistended, normoactive bowel sounds, no guarding, no rebound, no hepatosplenomegaly, no masses. EXTREMITIES: 2+ pulses, warm, well-perfused. Left arm- av fistula site with purulent drainage, trace lower extremity edema NEUROLOGICAL: Cranial nerves II through XII grossly intact. Normal speech, gait not observed. PSYCH: Normal mood, normal affect. SKIN: Warm, dry, normal turgor, no rashes or lesions noted Laboratory Results - last 24 hr 05/13/17 05/13/17 05/13/17 22:08 22:08 22:08 WBC 14.8 H RBC 2.86 L Hgb 7.4 L Hct 23.2 L MCV 81.0 MCH 25.9 MCHC 32.0 RDW 17.5 H Plt Count 187 MPV 7.8 Neutrophils % 82.9 H Lymphocytes % 7.9 L D Monocytes % 5.5 Eosinophils % 2.7 Basophils % 1.0 D Sodium 138 Potassium 4.0 Chloride 107 Carbon Dioxide 22 Anion Gap 9 BUN 53 H Creatinine 6.1 H Creat Clearance w eGFR 9.86 POC Glucometer Random Glucose 124 H D Hemoglobin A1c % Calcium 7.3 L Phosphorus Magnesium 2.2 Total Bilirubin 0.2 D AST 19 ALT 43 Alkaline Phosphatase 151 H Total Protein 6.5 Albumin 2.0 L TSH Free T4 Stool Occult Blood Stool O & P Wet [place] & P Permanent Slide Blood Type O POSITIVE Antibody Screen Negative Crossmatch See Detail 05/14/17 05/14/17 05/14/17 06:37 07:51 07:51 WBC 11.7 H RBC 3.81 L D Hgb 10.1 L D Hct 32.3 L D MCV 84.6 MCH 26.4 MCHC 31.2 L RDW 16.9 H Plt Count 201 MPV 7.9 Neutrophils % 82.7 Lymphocytes % 9.8 D Monocytes % 3.6 L Eosinophils % 3.0 Basophils % 0.9 Sodium 135 L Potassium 6.9 H* D Chloride 104 Carbon Dioxide 21 Anion Gap 10 BUN 53 H Creatinine 6.3 H Creat Clearance w eGFR 9.49 POC Glucometer 117 Random Glucose 152 H D Hemoglobin A1c % Calcium 7.9 L Phosphorus 6.1 H Magnesium 2.3 Total Bilirubin 0.5 D AST 16 ALT 41 Alkaline Phosphatase 159 H Total Protein 7.1 Albumin 2.3 L TSH 1.06 Free T4 Stool Occult Blood Stool O & P Wet [place] P Permanent Slide Blood Type Antibody Screen Crossmatch 05/14/17 05/14/17 05/14/17 07:51 07:51 10:08 WBC RBC Hgb Hct MCV MCH MCHC RDW Plt Count MPV Neutrophils % Lymphocytes % Monocytes % Eosinophils % Basophils % Sodium Potassium Chloride Carbon Dioxide Anion Gap BUN Creatinine Creat Clearance w eGFR POC Glucometer Random Glucose Hemoglobin A1c % 7.0 H D Calcium Phosphorus Magnesium Total Bilirubin AST ALT Alkaline Phosphatase Total Protein Albumin TSH Free T4 1.12 Stool Occult Blood Negative Stool O & P Wet [place] & P Permanent Slide Blood Type Antibody Screen Crossmatch 05/14/17 05/14/17 05/14/17 10:08 11:05 11:35 WBC RBC Hgb Hct MCV MCH MCHC RDW Plt Count MPV Neutrophils % Lymphocytes % Monocytes % Eosinophils % Basophils % Sodium Potassium 4.2 D Chloride Carbon Dioxide Anion Gap BUN Creatinine Creat Clearance w eGFR POC Glucometer 139 Random Glucose Hemoglobin A1c % Calcium Phosphorus Magnesium Total Bilirubin AST ALT Alkaline Phosphatase Total Protein Albumin TSH Free T4 Stool Occult Blood Stool O & P Wet [place] Cancelled O & P Permanent Slide Cancelled Blood Type Antibody Screen Crossmatch Active Medications Generic Name Dose Route Start Last Admin Trade Name Freq PRN Reason Stop Dose Admin Acetaminophen 650 mg 05/13/17 21:27 Tylenol - PO Q4H PRN FEVER OR PAIN Amlodipine Besylate 10 mg 05/14/17 10:00 05/14/17 11:37 Norvasc - PO 10 mg DAILY L[facility]UEL Administration Atorvastatin Calcium 20 mg 05/13/17 22:00 05/14/17 06:32 Lipitor - PO Not Given HS [facility] Ferrous Gluconate 324 mg 05/13/17 22:00 05/14/17 11:37 Fergon - PO 324 mg BID LEMUEL Administration Folic Acid 1 mg 05/14/17 10:00 05/14/17 11:36 Folic Acid - PO 1 mg DAILY LEMUEL Administration Heparin Sodium (Porcine) 5,000 unit 05/14/17 06:00 05/14/17 06:43 Heparin - SQ 5,000 unit TID LEMUEL Administration Insulin Aspart 1 vial 05/13/17 22:00 05/14/17 11:38 Novolog Vial Sliding Scale - SQ Not Given ACHS [facility] Protocol Lisinopril 20 mg 05/14/17 10:00 05/14/17 11:36 Prinivil PO 20 mg DAILY [facility] Administration Metoprolol Tartrate 50 mg 05/13/17 22:00 05/14/17 11:37 Lopressor - PO 50 mg BID LEMUEL Administration Metronidazole 500 mg 05/14/17 06:00 05/14/17 06:43 Flagyl - PO 500 mg TID L[facility] Administration Thiamine HCl 100 mg 05/14/17 10:00 05/14/17 11:37 Vitamin B1 - PO 100 mg DAILY [facility] Administration Trimethoprim/Sulfamethoxazole 1 each 05/14/17 10:15 05/14/17 11:37 Bactrim Ds - PO 1 each DAILY LEMUEL Administration ASSESSMENT/PLAN: 51yo M with C. Diff colitis vs abx-associated colitis. Pt also anemic with no active bleeds. C diff ag/toxin pending. 1U PRBC ordered. Flagy 500 IV administered. # Diarrhea --WBC 11.7, will continue to trend --C. Diff antigen positive, toxin pending --Isolation precautions --Continue Flagyl 500 PO q8h --Tylenol 650mg PRN on board if fever develops --CT abd/pelvis--Bilateral pleural effusions with lower lobe atelectasis, trace ascites, and cholelithiasis. No acute abdominal pathology # Anemia --Hemoccult negative --Hgb improved to 10.1, will continue to monitor --Pt received 1 unit PRBC # ESRD on Dialysis MWF --Consulted Nephrology --Patient to dialysis today --AVF construction about 3 weeks ago; permacath in place for current dialysis treatments. Purulent discharge noted --Start bactrim ds 1 daily .. will dose renally #Hyperkalemia --Patient's potassium resolved on own without any treatment --Will continue to monitor # Diabetes mellitus --Pt takes no meds at home --A1C 7.0 --Will discuss with patient --ISS achs --BGM achs # HTN --Home medication continued #HLD --Lipitor 20 mg po hs FEN: Fluids: none Electrolyte abnormalities: none Nutrition: Renal diet PPX: DVT - Heparin 5000U SQ TID Visit type - Emergency Visit Emergency Visit: Yes ED Registration Date: 05/13/17 Care time: The patient presented to the Emergency Department on the above date and was hospitalized for further evaluation of their emergent condition. - New Patient This patient is new to me today: Yes Date on this admission: 05/14/17 - Critical Care Critical Care patient: No
[2017-05-14 16:29] LABS: ANION GAP 8 (8-16); CALCIUM 7.6 mg/dL (8.5-10.1); CO2 31 mmol/L (21-32); CREATININE 2.1 mg/dL (0.7-1.3); GLUCOSE,RANDOM 139 mg/dL (74-106)
--- NOTE | 2017-05-14 16:33 | CONSULT ---
Consult Consult Specialty:: Nephrology Reason for Consultation:: ESRD - History of Present Illness Chief Complaint: diarrhea History of Present Illness: Pt is a 51 year old male with pmhx of ESRD, chol, DM, HTN, and CHF who present to the ER complaining of diarrhea. He says he has had about 6 to 10 episodes per day. He denies fevers or chills. I was called to evaluate him as he was due for HD today. He denies shortness of breath. He does not have much appetite. He denies vomiting. - History Source History Provided By: Patient, Medical Record - Past Medical History Cardio/Vascular: Yes: HTN Renal/: Yes: Renal Inusuff, Hemodialysis Endocrine: Yes: Diabetes Mellitus - Past Surgical History Past Surgical History: Yes: AV Fistula/Graft - Alcohol/Substance Use Hx Alcohol Use: No - Smoking History Smoking history: Never smoked Have you smoked in the past 12 months: No - Social History History of Recent Travel: No Home Medications - Allergies Allergies/Adverse Reactions: Allergies Allergy/AdvReac Type Severity Reaction Status Date / Time Penicillins Allergy Verified 05/13/17 12:38 - Home Medications Home Medications: Ambulatory Orders Ferrous Gluconate [Fergon -] 324 mg PO BID 10/31/16 Folic Acid - 1 mg PO DAILY #30 tablet 11/04/16 Thiamine HCl [Vitamin B1 -] 100 mg PO DAILY #30 tablet 11/04/16 Aspirin Coated [Ecotrin -] 81 mg PO DAILY tablet.ec 11/19/16 Atorvastatin Ca [Lipitor] 20 mg PO HS #30 tablet 11/19/16 Amlodipine Besylate [Norvasc -] 10 mg PO DAILY #30 tab 04/30/17 Lisinopril [Prinivil] 20 mg PO DAILY #30 tab 04/30/17 Metoprolol Tartrate [Lopressor -] 50 mg PO BID #60 tab 04/30/17 Family Disease History - Family Disease History Family Disease History: Diabetes: Mother, Heart Disease: Mother Review of Systems - Review of Systems Constitutional: reports: Malaise Eyes: reports: No Symptoms HENT: reports: No Symptoms Neck: reports: No Symptoms Cardiovascular: reports: No Symptoms Respiratory: reports: No Symptoms Gastrointestinal: reports: Diarrhea Genitourinary: reports: No Symptoms Musculoskeletal: reports: No Symptoms Integumentary: reports: No Symptoms Neurological: reports: No Symptoms Endocrine: reports: No Symptoms Hematology/Lymphatic: reports: No Symptoms Physical Exam Vital Signs: Vital Signs Temperature 98.1 F 05/14/17 12:00 Pulse Rate 85 05/14/17 15:40 Respiratory Rate 18 05/14/17 15:40 Blood Pressure 151/79 05/14/17 15:40 O2 Sat by Pulse Oximetry (%) 100 05/14/17 01:42 Constitutional: Yes: Calm Eyes: Yes: Conjunctiva Clear HENT: Yes: Atraumatic Neck: Yes: Supple Cardiovascular: Yes: S1, S2 Respiratory: Yes: CTA Bilaterally Gastrointestinal: Yes: Soft Musculoskeletal: Yes: WNL Extremities: Yes: WNL Edema: No Neurological: Yes: Oriented Psychiatric: Yes: Oriented Labs: CBC, BMP 05/14/17 07:51 Laboratory Tests 05/13/17 05/13/17 05/13/17 13:50 13:50 22:08 WBC Hgb 7.7 L D 7.4 L Sodium Potassium 4.0 BUN Creatinine 05/13/17 05/14/17 05/14/17 22:08 07:51 07:51 WBC 11.7 H Hgb 10.1 L D Sodium 135 L Potassium 4.0 6.9 H* D BUN 53 H 53 H Creatinine 6.1 H 6.3 H 05/14/17 11:05 WBC Hgb Sodium Potassium 4.2 D BUN Creatinine Imaging - Results Cat Scan: Report Reviewed Problem List - Problems (1) Anemia Code(s): D64.9 - ANEMIA, UNSPECIFIED Qualifiers: Anemia type: other cause Other causes of anemia: other cause, not classified Qualified Code(s): D64.89 - Other specified anemias (2) Diarrhea Code(s): R19.7 - DIARRHEA, UNSPECIFIED Qualifiers: Diarrhea type: unspecified type Qualified Code(s): R19.7 - Diarrhea, unspecified (3) ESRD (end stage renal disease) Code(s): N18.6 - END STAGE RENAL DISEASE Assessment/Plan Current Medications Generic Name Dose Route Start Last Admin Trade Name Freq PRN Reason Stop Dose Admin Acetaminophen 650 mg 05/13/17 21:27 Tylenol - PO Q4H PRN FEVER OR PAIN Amlodipine Besylate 10 mg 05/14/17 10:00 05/14/17 11:37 Norvasc - PO 10 mg DAILY [facility]EMUEL Administration Atorvastatin Calcium 20 mg 05/13/17 22:00 05/14/17 06:32 Lipitor - PO Not Given HS [facility] Doxycycline Hyclate 100 mg 05/14/17 18:00 Vibramycin - PO BID@1000,1800 [facility] Ferrous Gluconate 324 mg 05/13/17 22:00 05/14/17 11:37 Fergon - PO 324 mg BID LEMUEL Administration Folic Acid 1 mg 05/14/17 10:00 05/14/17 11:36 Folic Acid - PO 1 mg DAILY LEMUEL Administration Heparin Sodium (Porcine) 5,000 unit 05/14/17 06:00 05/14/17 16:17 Heparin - SQ Not Given TID [facility] Insulin Aspart 1 vial 05/13/17 22:00 05/14/17 16:32 Novolog Vial Sliding Scale - SQ Not Given ACHS [facility] Protocol Lisinopril 20 mg 05/14/17 10:00 05/14/17 11:36 Prinivil PO 20 mg DAILY [facility] Administration Metoprolol Tartrate 50 mg 05/13/17 22:00 05/14/17 11:37 Lopressor - PO 50 mg BID [facility]UEL Administration Metronidazole 500 mg 05/14/17 06:00 05/14/17 16:25 Flagyl - PO 500 mg TID [facility] Administration Thiamine HCl 100 mg 05/14/17 10:00 05/14/17 11:37 Vitamin B1 - PO 100 mg DAILY [facility] Administration Impression 1. ESRD 2. diarrhea 3. HTN 4. DM 5. proteinuria 6. anemia Plan - HD today - epogen for anemia - send stool for c.diff - repeat potassium pre HD was actually improved - monitor bloodwork - will follow
[2017-05-14] MEDS: DOXYCYCLINE HYCLATE 100 MG CAPSULE PO SCH (18:47)
[2017-05-14] MEDS: BACITRACIN/POLYMYXIN B SULFATE 15 GM TUBE TP SCH (21:28)
[2017-05-15] MEDS: metroNIDAZOLE 250 MG TABLET PO SCH ×2 (06:49→13:58)
[2017-05-15] MEDS: HEPARIN NA (PORCINE) 5,000 UNITS/ML 1ML VIAL SQ SCH ×3 (06:49→21:43)
[2017-05-15] MEDS: INSULIN SLIDING SCALE (NOVOLOG) 1 VIAL SQ SCH ×4 (06:52→21:44)
[2017-05-15 07:28] LABS: EOSINOPHIL 4.8 % (0-4.5); MCH 26.7 pg (25.7-33.7); MEAN CELL VOLUME 80.8 fl (80-96); NEUTROPHILS 70.3 % (42.8-82.8); PLATELET COUNT 227 K/MM3 (134-434); RDW 16.5 % (11.9-15.9); WHITE BLOOD COUNT 8.3 K/mm3 (4.0-10.0)
[2017-05-15 07:47] LABS: ANION GAP 9 (8-16); BILIRUBIN,TOTAL 0.4 mg/dL (0.2-1.0); CALCIUM 7.5 mg/dL (8.5-10.1); CO2 29 mmol/L (21-32); CREATININE 5.1 mg/dL (0.7-1.3); GLUCOSE,RANDOM 126 mg/dL (74-106); PHOSPHOROUS 3.6 mg/dL (2.5-4.9); SGOT/AST 15 U/L (15-37); SGPT/ALT 31 U/L (12-78); TOT PROT 6.4 g/dl (6.4-8.2)
[2017-05-15 07:48] LABS: ALK PHOS 150 U/L (45-117)
--- NOTE | 2017-05-15 08:36 | PN ---
Physical Exam: SUBJECTIVE: Patient seen and examined He states that he feels better. Had three episodes of diarrhea overnight. OBJECTIVE: Vital Signs Period Temp Pulse Resp BP Sys/Benz Pulse Ox Last 24 Hr 98.1 F-100.2 F 76-92 18-20 128-152/60-88 96-96 GEN: Awake, alert, NAD PULM: CTAB CVS: RRR ABD: Soft, minimal diffuse tenderness on deep palpation, NABS EXTREM: Warm, well perfused. AVF site with good thrill/bruit. Purulence resolved Laboratory Results - last 24 hr 05/14/17 05/14/17 05/14/17 07:51 07:51 07:51 WBC 11.7 H RBC 3.81 L D Hgb 10.1 L D Hct 32.3 L D MCV 84.6 MCH 26.4 MCHC 31.2 L RDW 16.9 H Plt Count 201 MPV 7.9 Neutrophils % 82.7 Lymphocytes % 9.8 D Monocytes % 3.6 L Eosinophils % 3.0 Basophils % 0.9 Sodium 135 L Potassium 6.9 H* D Chloride 104 Carbon Dioxide 21 Anion Gap 10 BUN 53 H Creatinine 6.3 H Creat Clearance w eGFR 9.49 POC Glucometer Random Glucose 152 H D Hemoglobin A1c % 7.0 H D Calcium 7.9 L Phosphorus 6.1 H Magnesium 2.3 Total Bilirubin 0.5 D AST 16 ALT 41 Alkaline Phosphatase 159 H Total Protein 7.1 Albumin 2.3 L TSH 1.06 Free T4 Stool Occult Blood Stool O & P Wet [place] & P Permanent Slide 05/14/17 05/14/17 05/14/17 07:51 10:08 10:08 WBC RBC Hgb Hct MCV MCH MCHC RDW Plt Count MPV Neutrophils % Lymphocytes % Monocytes % Eosinophils % Basophils % Sodium Potassium Chloride Carbon Dioxide Anion Gap BUN Creatinine Creat Clearance w eGFR POC Glucometer Random Glucose Hemoglobin A1c % Calcium Phosphorus Magnesium Total Bilirubin AST ALT Alkaline Phosphatase Total Protein Albumin TSH Free T4 1.12 Stool Occult Blood Negative Stool O & P Wet [place] Cancelled O & P Permanent Slide Cancelled 05/14/17 05/14/17 05/14/17 11:05 11:35 13:00 WBC RBC Hgb Hct MCV MCH MCHC RDW Plt Count MPV Neutrophils % Lymphocytes % Monocytes % Eosinophils % Basophils % Sodium 140 Potassium 4.2 D 2.8 L* D Chloride 101 Carbon Dioxide 31 D Anion Gap 8 BUN 17 D Creatinine 2.1 H D Creat Clearance w eGFR POC Glucometer 139 Random Glucose 139 H Hemoglobin A1c % Calcium 7.6 L Phosphorus Magnesium Total Bilirubin AST ALT Alkaline Phosphatase Total Protein Albumin TSH Free T4 Stool Occult Blood Stool O & P Wet [place] & P Permanent Slide 05/14/17 05/14/17 05/14/17 16:30 17:00 21:40 WBC RBC Hgb Hct MCV MCH MCHC RDW Plt Count MPV Neutrophils % Lymphocytes % Monocytes % Eosinophils % Basophils % Sodium Potassium 3.2 L Chloride Carbon Dioxide Anion Gap BUN Creatinine Creat Clearance w eGFR POC Glucometer 131 196 Random Glucose Hemoglobin A1c % Calcium Phosphorus Magnesium Total Bilirubin AST ALT Alkaline Phosphatase Total Protein Albumin TSH Free T4 Stool Occult Blood Stool O & P Wet [place] & P Permanent Slide 05/15/17 05/15/17 05/15/17 06:30 06:30 06:46 WBC 8.3 RBC 3.20 L Hgb 8.5 L D Hct 25.9 L D MCV 80.8 MCH 26.7 MCHC 33.0 RDW 16.5 H Plt Count 227 MPV 8.0 Neutrophils % 70.3 Lymphocytes % 17.3 D Monocytes % 6.6 D Eosinophils % 4.8 H Basophils % 1.0 Sodium 141 Potassium 3.7 Chloride 103 Carbon Dioxide 29 Anion Gap 9 BUN 34 H D Creatinine 5.1 H D Creat Clearance w eGFR 12.12 POC Glucometer 131 Random Glucose 126 H Hemoglobin A1c % Calcium 7.5 L Phosphorus 3.6 D Magnesium 2.0 Total Bilirubin 0.4 AST 15 ALT 31 D Alkaline Phosphatase 150 H Total Protein 6.4 Albumin 2.0 L TSH Free T4 Stool Occult Blood Stool O & P Wet [place] & P Permanent Slide Active Medications Generic Name Dose Route Start Last Admin Trade Name Freq PRN Reason Stop Dose Admin Acetaminophen 650 mg 05/13/17 21:27 Tylenol - PO Q4H PRN FEVER OR PAIN Amlodipine Besylate 10 mg 05/14/17 10:00 05/14/17 11:37 Norvasc - PO 10 mg DAILY LEMUEL Administration Atorvastatin Calcium 20 mg 05/13/17 22:00 05/14/17 21:30 Lipitor - PO 20 mg HS LEMUEL Administration Bacitracin/Polymyxin B Sulfate 1 applic 05/14/17 19:30 05/14/17 21:28 Polysporin Ointment - TP 1 applic DAILY LEMUEL Administration Doxycycline Hyclate 100 mg 05/14/17 18:00 05/14/17 18:47 Vibramycin - PO 100 mg BID@1000,1800 LEMUEL Administration Ferrous Gluconate 324 mg 05/13/17 22:00 05/14/17 21:28 Fergon - PO 324 mg BID LEMUEL Administration Folic Acid 1 mg 05/14/17 10:00 05/14/17 11:36 Folic Acid - PO 1 mg DAILY LEMUEL Administration Heparin Sodium (Porcine) 5,000 unit 05/14/17 06:00 05/15/17 06:49 Heparin - SQ 5,000 unit TID LEMUEL Administration Insulin Aspart 1 vial 05/13/17 22:00 05/15/17 06:52 Novolog Vial Sliding Scale - SQ Not Given ACHS [facility] Protocol Lisinopril 20 mg 05/14/17 10:00 05/14/17 11:36 Prinivil PO 20 mg DAILY LEMUEL Administration Metoprolol Tartrate 50 mg 05/13/17 22:00 05/14/17 21:30 Lopressor - PO 50 mg BID LEMUEL Administration Metronidazole 500 mg 05/14/17 06:00 05/15/17 06:49 Flagyl - PO 500 mg TID LEMUEL Administration Thiamine HCl 100 mg 05/14/17 10:00 05/14/17 11:37 Vitamin B1 - PO 100 mg DAILY LEMUEL Administration ASSESSMENT/PLAN: The patient is a 51 year old male with a significant past medical history of HTN , HLD, DM, ESRD (HD MWF), now HD#2 with C. Diff colitis. #GI C diff colitis Improving Isolation precautions Continue Flagyl 500 PO q8h Will consult GI and ID #PULM CT abd/pelvis showed bilateral pleural effusions with lower lobe atelectasis, trace ascites, and cholelithiasis He will need outpatient pulonary followup of these findings Will consult pulmonary now to expedite work-up #HEME Anemia, normocytic Hemoccult negative Suspect anemia of chronic renal disease Hgb improved after transfusion Continue Hussein Will continue to follow #RENAL ESRD on Dialysis MWF Continue dialysis via permacath AVF construction about 3 weeks ago Now with purulent drainage We want to cover for cMRSA given the purulence and his risk factors He claims Clindamycin allergy We are avoiding Bactrim due to CKD Contiune doxycycline Continue topical Bacitracin Vascular consult appreciated #CVS Chronic HTN, HLD Continue Lisinopril, Metoprolol, Norvasc, Lipitor #ENDO He takes no meds at home HbA1c 7.0 Continue Novolog ISS #FEN Renal diet PROPHYLAXIS: Hep SQ Eating Visit type - Emergency Visit Emergency Visit: Yes ED Registration Date: 05/13/17 Care time: The patient presented to the Emergency Department on the above date and was hospitalized for further evaluation of their emergent condition. - New Patient This patient is new to me today: No - Critical Care Critical Care patient: No
--- NOTE | 2017-05-15 08:45 | PN ---
Progress Note (short form) - Note Progress Note: Vascular Surgery Pt seen and examined yesterday. Could not write note because computer system was updating. Left avf with good bruit and thrill. Incision site intact, some erythema. apply bacitracin to area daily Zachariah Barros DO
--- NOTE | 2017-05-15 09:48 | PN ---
Progress Note (short form) - Note Progress Note: RENAL Pt is awake and alert admitted for diarrhea which he attributes to antibiotics feels better Last Vital Signs Temp Pulse Resp BP Pulse Ox 98.9 F 83 20 128/69 96 05/15/17 06:00 05/15/17 06:00 05/15/17 06:00 05/15/17 06:00 05/15/17 02:37 lungs clear cvs s1s2 rr abd soft ext no edema has a left arm avf neuro a+ox3 skin has some ecchymoses on abdomen CBC, BMP 05/15/17 06:30 05/15/17 06:30 Current Medications Generic Name Dose Route Start Last Admin Trade Name Freq PRN Reason Stop Dose Admin Acetaminophen 650 mg 05/13/17 21:27 Tylenol - PO Q4H PRN FEVER OR PAIN Amlodipine Besylate 10 mg 05/14/17 10:00 05/14/17 11:37 Norvasc - PO 10 mg DAILY [facility] Administration Atorvastatin Calcium 20 mg 05/13/17 22:00 05/14/17 21:30 Lipitor - PO 20 mg HS LEMUEL Administration Bacitracin/Polymyxin B Sulfate 1 applic 05/14/17 19:30 05/14/17 21:28 Polysporin Ointment - TP 1 applic DAILY [facility] Administration Doxycycline Hyclate 100 mg 05/14/17 18:00 05/14/17 18:47 Vibramycin - PO 100 mg BID@1000,1800 [facility] Administration Ferrous Gluconate 324 mg 05/13/17 22:00 05/14/17 21:28 Fergon - PO 324 mg BID LEMUEL Administration Folic Acid 1 mg 05/14/17 10:00 05/14/17 11:36 Folic Acid - PO 1 mg DAILY LEMUEL Administration Heparin Sodium (Porcine) 5,000 unit 05/14/17 06:00 05/15/17 06:49 Heparin - SQ 5,000 unit TID LEMUEL Administration Insulin Aspart 1 vial 05/13/17 22:00 05/15/17 06:52 Novolog Vial Sliding Scale - SQ Not Given ACHS [facility] Protocol Lisinopril 20 mg 05/14/17 10:00 05/14/17 11:36 Prinivil PO 20 mg DAILY [facility] Administration Metoprolol Tartrate 50 mg 05/13/17 22:00 05/14/17 21:30 Lopressor - PO 50 mg BID LEMUEL Administration Metronidazole 500 mg 05/14/17 06:00 05/15/17 06:49 Flagyl - PO 500 mg TID LEMUEL Administration Thiamine HCl 100 mg 05/14/17 10:00 05/14/17 11:37 Vitamin B1 - PO 100 mg DAILY LEMUEL Administration Impression 1. ESRD 2. diarrhea- Cdiff + 3. HTN 4. DM 5. proteinuria severe diabetic nephropathy 6. anemia Plan - HD tiw - epogen for anemia - continue metronidazole - would not give iv iron despite anemia while infected anemia work up, GI eval if not done already [facility]
[2017-05-15] MEDS ORDERED: PT OWN MED DRAWER 7, Y5N ONE ×2 (10:15→21:20)
[2017-05-15] MEDS: FERROUS GLUCONATE 324 MG TAB (FP) PO SCH ×2 (10:19→21:42)
[2017-05-15] MEDS: DOXYCYCLINE HYCLATE 100 MG CAPSULE PO SCH ×2 (10:20→17:49)
[2017-05-15] MEDS: LISINOPRIL 20 MG TABLET (FP) PO SCH (10:20)
[2017-05-15] MEDS: amLODIPine BESYLATE 10 MG TABLET (FP) PO SCH (10:20)
[2017-05-15] MEDS: METOPROLOL TARTRATE 50 MG TABLET (FP) PO SCH ×2 (10:20→21:44)
[2017-05-15] MEDS: FOLIC ACID 1 MG TABLET (FP) PO SCH (10:20)
[2017-05-15] MEDS: BACITRACIN/POLYMYXIN B SULFATE 15 GM TUBE TP SCH (10:21)
[2017-05-15] MEDS: THIAMINE HCL 100 MG TABLET (FP) PO SCH (10:21)
--- NOTE | 2017-05-15 11:44 | CON.PULM ---
Consult Consult Specialty:: PULMONARY Referred by:: Dr. Tidwell Reason for Consultation:: pleural effusions - History of Present Illness Chief Complaint: shortness of breath History of Present Illness: 51yo male with h/o HTN, DM, ESRD on HD x 2 weeks, who presents with diarrhea after receiving clindamycin. He does report some dyspnea with exertion, +cough productive of clear sputum. No wheezing. 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 Found to have bilateral effusions on CT A/P. Has been told of fluid around his lungs in the past. Also reports increased facial swelling and abdominal bloating. - History Source History Provided By: Patient, Medical Record Limitations to Obtaining History: No Limitations - Past Medical History Cardio/Vascular: Yes: HTN Renal/: Yes: Renal Inusuff, Hemodialysis Endocrine: Yes: Diabetes Mellitus - Past Surgical History Past Surgical History: Yes: AV Fistula/Graft - Alcohol/Substance Use Hx Alcohol Use: No - Smoking History Smoking history: Never smoked Have you smoked in the past 12 months: No - Social History History of Recent Travel: No Home Medications - Allergies Allergies/Adverse Reactions: Allergies Allergy/AdvReac Type Severity Reaction Status Date / Time Penicillins Allergy Verified 05/13/17 12:38 - Home Medications Home Medications: Ambulatory Orders Ferrous Gluconate [Fergon -] 324 mg PO BID 10/31/16 Folic Acid - 1 mg PO DAILY #30 tablet 11/04/16 Thiamine HCl [Vitamin B1 -] 100 mg PO DAILY #30 tablet 11/04/16 Aspirin Coated [Ecotrin -] 81 mg PO DAILY tablet.ec 11/19/16 Atorvastatin Ca [Lipitor] 20 mg PO HS #30 tablet 11/19/16 Amlodipine Besylate [Norvasc -] 10 mg PO DAILY #30 tab 04/30/17 Lisinopril [Prinivil] 20 mg PO DAILY #30 tab 04/30/17 Metoprolol Tartrate [Lopressor -] 50 mg PO BID #60 tab 04/30/17 Family Disease History - Family Disease History Family Disease History: Diabetes: Mother, Heart Disease: Mother Review of Systems - Review of Systems Constitutional: reports: Fever, Weakness Eyes: denies: Recent Change in Vision HENT: reports: Nasal Congestion. denies: Throat Pain Cardiovascular: reports: Shortness of Breath. denies: Chest Pain, Edema, Palpitations Respiratory: reports: Cough, SOB on Exertion. denies: Hemoptysis, Wheezing Gastrointestinal: reports: Diarrhea Genitourinary: denies: Dysuria, Hematuria Neurological: denies: Dizziness, Headache Endocrine: denies: Unexplained Weight Loss Physical Exam Vital Sings: Vital Signs Temperature 98.9 F 05/15/17 06:00 Pulse Rate 83 05/15/17 06:00 Respiratory Rate 20 05/15/17 06:00 Blood Pressure 128/69 05/15/17 06:00 O2 Sat by Pulse Oximetry (%) 96 05/15/17 02:37 Constitutional: Yes: Calm Eyes: Yes: Conjunctiva Clear, EOM Intact HENT: Yes: Atraumatic, Normocephalic Neck: Yes: Supple, Trachea Midline Cardiovascular: Yes: Regular Rate and Rhythm Respiratory: Yes: Rales (bibasilar 1/3 up) ...Clubbing: No Gastrointestinal: Yes: Normal Bowel Sounds, Soft. No: Tenderness Edema: No Neurological: Yes: Alert, Oriented Labs: CBC, BMP 05/15/17 06:30 05/15/17 06:30 Imaging - Results Cat Scan: Report Reviewed, Image Reviewed (bilateral effusions) Problem List - Problems (1) Diarrhea Code(s): R19.7 - DIARRHEA, UNSPECIFIED Qualifiers: Diarrhea type: unspecified type Qualified Code(s): R19.7 - Diarrhea, unspecified (2) ESRD (end stage renal disease) Code(s): N18.6 - END STAGE RENAL DISEASE (3) Diabetes Code(s): E11.9 - TYPE 2 DIABETES MELLITUS WITHOUT COMPLICATIONS (4) Fluid overload, unspecified Code(s): E87.70 - FLUID OVERLOAD, UNSPECIFIED Qualifiers: Hypervolemia type: unspecified Qualified Code(s): E87.70 - Fluid overload, unspecified (5) Hypertension Code(s): I10 - ESSENTIAL (PRIMARY) HYPERTENSION Qualifiers: Hypertension type: essential hypertension Qualified Code(s): I10 - Essential (primary) hypertension (6) Nephrotic syndrome Code(s): N04.9 - NEPHROTIC SYNDROME WITH UNSPECIFIED MORPHOLOGIC CHANGES Assessment/Plan ESRD on HD Pleural Effusions Volume Overload +C Diff Ag HTN DM - will check CXR - HD per renal with increased ultrafiltration - continue flagyl - will start flonase as pt c/o of nasal congestion - CXR after next HD session - DVT prophylaxis Thank you for this consult Niko Curtis MD
[2017-05-15] MEDS: FLUTICASONE PROP 0.05% 16 GM NASAL SPRAY NS SCH ×2 (13:59→21:49)
--- NOTE | 2017-05-15 17:08 | HOSP ---
Subjective - Review of Symptoms Subjective: Called to see by patient by his nurse due to complains of "leg tingling" and "feeling tired." S: The patient reports worseningof chronic BLLE paresthesias. These are usually mild and restricted to the area below his midshins. They are now more severe and extend from the knees down. He denies associated LE weakness. He denies bladder or bowel incontinence or retention. He denies back pain. No fevers. No trauma. He also complains of feeling "tired." O: Vitals noted BLLE strength is 5/5 No objective sensory defecits Toes are downgoing bilaterally Normoreflexic CBC drop was noted from yesterday to today It is possible that this is precipitating an acute exacerbation of his chronic BLLE paresthesias as well as his fatigue No evidence of spinal epidural hematoma given lack of back pain and hard neurological findings Will obtain stat CBC, chemistries and electrolytes Nursing aware of the plan Physical Examination Vital Signs: Vital Signs Temperature 98.4 F 05/15/17 15:05 Pulse Rate 77 05/15/17 15:05 Respiratory Rate 16 05/15/17 15:05 Blood Pressure 125/66 05/15/17 15:05 O2 Sat by Pulse Oximetry (%) 96 05/15/17 10:00 Labs: CBC, BMP 05/15/17 06:30 05/15/17 06:30
--- NOTE | 2017-05-15 17:49 | PN ---
Progress Note (short form) - Note Progress Note: ID consult dictated imp/reccd asked to see this 51 year old man for positive cdiff antigen- he developed diarrhea after starting clindamycin for a superficial AVF cellulitis - cellulitis improved diarrhea improved but c/o worsening neuropathy d/w Dr bennett perhaps the metronidazole is worsening his neuropathy would switch to po vancomycin would d/w renal whether he needs repeat HD repeat cxray in am consider echo patient and staff report arm is much improved anemia workup
[2017-05-15 18:22] LABS: BASOPHIL 1.1 % (0-2.0); EOSINOPHIL 4.6 % (0-4.5); MCH 26.5 pg (25.7-33.7); MCHC 32.6 g/dl (32.0-35.9); MEAN CELL VOLUME 81.2 fl (80-96); MEAN PLT VOLUME 7.9 fl (7.5-11.1); NEUTROPHILS 71.5 % (42.8-82.8); PLATELET COUNT 215 K/MM3 (134-434); RDW 16.7 % (11.9-15.9); WHITE BLOOD COUNT 7.8 K/mm3 (4.0-10.0)
[2017-05-15 18:51] LABS: ALBUMIN 2.2 g/dl (3.4-5.0); ANION GAP 9 (8-16); CALCIUM 7.8 mg/dL (8.5-10.1); CO2 27 mmol/L (21-32); CREATININE 5.7 mg/dL (0.7-1.3); GLUCOSE,RANDOM 104 mg/dL (74-106); MAGNESIUM 2.1 mg/dL (1.8-2.4); PHOSPHOROUS 4.1 mg/dL (2.5-4.9); SGOT/AST 13 U/L (15-37); SGPT/ALT 27 U/L (12-78)
[2017-05-15] MEDS: VANCOMYCIN 250 MG/5 ML ORAL SOLUTION PO SCH (18:52)
[2017-05-15 18:53] LABS: ALK PHOS 148 U/L (45-117); BILIRUBIN,TOTAL 0.5 mg/dL (0.2-1.0); TOT PROT 6.7 g/dl (6.4-8.2)
[2017-05-15 18:55] LABS: TROPONIN I < 0.02 ng/ml (0.00-0.05)
--- NOTE | 2017-05-15 19:00 | HOSP ---
Subjective - Review of Symptoms Subjective: Addendum Pt continues to complain of generalized weakness Stat labs pending -- CBC, CMP, Mag, Phos, BNP, Troponin Cardiomediastinal contour was enlarged on last CXR compared to CT He will benefit from TTE to r/o effusion This is not available now Will obtain EKG now to look for low voltage and for electrical alternans Night team is aware and will follow Physical Examination Vital Signs: Vital Signs Temperature 98.4 F 05/15/17 15:05 Pulse Rate 77 05/15/17 15:05 Respiratory Rate 16 05/15/17 15:05 Blood Pressure 125/66 05/15/17 15:05 O2 Sat by Pulse Oximetry (%) 96 05/15/17 10:00 Labs: CBC, BMP 05/15/17 17:30
[2017-05-15] MEDS ORDERED: INSULIN (NOVOLOG) ASPART 100 UNITS/ML 10ML VIAL ONE (21:19)
[2017-05-15] MEDS: ATORVASTATIN CA 20 MG TABLET (FP) PO SCH (21:42)
[2017-05-16] MEDS ORDERED: PT OWN MED DRAWER 7, Y5N ONE ×2 (00:10→17:09)
[2017-05-16] MEDS: VANCOMYCIN 250 MG/5 ML ORAL SOLUTION PO SCH ×4 (00:15→17:14)
[2017-05-16] MEDS: HEPARIN NA (PORCINE) 5,000 UNITS/ML 1ML VIAL SQ SCH ×3 (06:36→21:42)
[2017-05-16] MEDS: INSULIN SLIDING SCALE (NOVOLOG) 1 VIAL SQ SCH ×4 (06:36→21:46)
[2017-05-16 07:43] LABS: BASOPHIL 1.3 % (0-2.0); MCH 26.7 pg (25.7-33.7); MCHC 32.8 g/dl (32.0-35.9); MEAN CELL VOLUME 81.3 fl (80-96); MEAN PLT VOLUME 8.1 fl (7.5-11.1); NEUTROPHILS 70.5 % (42.8-82.8); PLATELET COUNT 211 K/MM3 (134-434); RDW 16.7 % (11.9-15.9); WHITE BLOOD COUNT 7.6 K/mm3 (4.0-10.0)
--- NOTE | 2017-05-16 08:07 | PN ---
Progress Note (short form) - Note Progress Note: feels much better no bm this am Vital Signs Period Temp Pulse Resp BP Sys/Benz Pulse Ox Last 24 Hr 97.4 F-98.6 F 76-86 16-20 116-144/66-77 96-97 cor-rrr lungs bibasilar crackles abd soft,nt ext no edema Left avf - no drainage, minimal erythema labs pending a/p cdiff improved, seems to tolerate po vanco better avf cellulitis seems to be resolving appears volume overloaded continue po vancomycin for 10 days will sign off please call back if needed Problem List - Problems (1) Colitis due to Clostridium difficile Code(s): A04.7 - ENTEROCOLITIS DUE TO CLOSTRIDIUM DIFFICILE (2) Neuropathy Code(s): G62.9 - POLYNEUROPATHY, UNSPECIFIED
[2017-05-16 08:15] LABS: ALBUMIN 2.2 g/dl (3.4-5.0); ALK PHOS 139 U/L (45-117); ANION GAP 8 (8-16); BILIRUBIN,TOTAL 0.4 mg/dL (0.2-1.0); CALCIUM 7.7 mg/dL (8.5-10.1); CO2 28 mmol/L (21-32); CREATININE 6.4 mg/dL (0.7-1.3); GLUCOSE,RANDOM 106 mg/dL (74-106); SGOT/AST 12 U/L (15-37); SGPT/ALT 26 U/L (12-78); TOT PROT 6.5 g/dl (6.4-8.2); URIC ACID 6.7 mg/dL (2.6-7.2)
[2017-05-16] MEDS: FERROUS GLUCONATE 324 MG TAB (FP) PO SCH ×2 (10:25→21:42)
[2017-05-16] MEDS: FLUTICASONE PROP 0.05% 16 GM NASAL SPRAY NS SCH ×2 (10:25→21:51)
[2017-05-16] MEDS: BACITRACIN/POLYMYXIN B SULFATE 15 GM TUBE TP SCH (10:26)
[2017-05-16] MEDS: FOLIC ACID 1 MG TABLET (FP) PO SCH (10:26)
[2017-05-16] MEDS: METOPROLOL TARTRATE 50 MG TABLET (FP) PO SCH ×2 (10:26→21:42)
[2017-05-16] MEDS: LISINOPRIL 20 MG TABLET (FP) PO SCH (10:26)
[2017-05-16] MEDS: amLODIPine BESYLATE 10 MG TABLET (FP) PO SCH (10:26)
[2017-05-16] MEDS: DOXYCYCLINE HYCLATE 100 MG CAPSULE PO SCH ×2 (10:27→17:14)
[2017-05-16] MEDS: THIAMINE HCL 100 MG TABLET (FP) PO SCH (10:27)
--- NOTE | 2017-05-16 10:40 | PN ---
Progress Note (short form) - Note Progress Note: PULMONARY Feels better today, less short of breath. +mild nonproductive cough, nasal congestion improving. Last Vital Signs Temp Pulse Resp BP Pulse Ox 99.8 F H 88 20 150/66 97 05/16/17 10:00 05/16/17 10:00 05/16/17 10:00 05/16/17 10:00 05/16/17 02:00 Gen: NAD at rest Heart: RRR Lung: bibasilar rales Abd: soft, nontender Ext: no edema CBC, BMP 05/16/17 06:20 05/16/17 06:20 Active Medications Acetaminophen (Tylenol -) 650 mg PO Q4H PRN PRN Reason: FEVER OR PAIN Amlodipine Besylate (Norvasc -) 10 mg PO DAILY [facility] Last Admin: 05/16/17 10:26 Dose: 10 mg Atorvastatin Calcium (Lipitor -) 20 mg PO HS [facility] Last Admin: 05/15/17 21:42 Dose: 20 mg Bacitracin/Polymyxin B Sulfate (Polysporin Ointment -) 1 applic TP DAILY [facility] Last Admin: 05/16/17 10:26 Dose: 1 applic Doxycycline Hyclate (Vibramycin -) 100 mg PO BID@1000,1800 [facility] Last Admin: 05/16/17 10:27 Dose: 100 mg Ferrous Gluconate (Fergon -) 324 mg PO BID [facility] Last Admin: 05/16/17 10:25 Dose: 324 mg Fluticasone Propionate (Flonase -) 1 spray NS BID [facility] Last Admin: 05/16/17 10:25 Dose: 1 spray Folic Acid (Folic Acid -) 1 mg PO DAILY [facility] Last Admin: 05/16/17 10:26 Dose: 1 mg Heparin Sodium (Porcine) (Heparin -) 5,000 unit SQ TID [facility] Last Admin: 05/16/17 06:36 Dose: 5,000 unit Insulin Aspart (Novolog Vial Sliding Scale -) 1 vial SQ ACHS [facility] PRN Reason: Protocol Last Admin: 05/16/17 06:36 Dose: Not Given Lisinopril (Prinivil) 20 mg PO DAILY [facility] Last Admin: 05/16/17 10:26 Dose: 20 mg Metoprolol Tartrate (Lopressor -) 50 mg PO BID [facility] Last Admin: 05/16/17 10:26 Dose: 50 mg Thiamine HCl (Vitamin B1 -) 100 mg PO DAILY [facility] Last Admin: 05/16/17 10:27 Dose: 100 mg Vancomycin HCl (Vancomycin Oral Solution) 125 mg PO Q6HPO [facility] Last Admin: 05/16/17 06:36 Dose: 125 mg A/P ESRD on HD Pleural Effusions Volume Overload +C Diff Ag HTN DM - CXR today improved from admission - HD per renal with increased ultrafiltration - continue PO vanco - continue flonase for nasal congestion - CXR after next HD session - DVT prophylaxis Problem List - Problems (1) Diarrhea Code(s): R19.7 - DIARRHEA, UNSPECIFIED Qualifiers: Diarrhea type: unspecified type Qualified Code(s): R19.7 - Diarrhea, unspecified (2) ESRD (end stage renal disease) Code(s): N18.6 - END STAGE RENAL DISEASE (3) Diabetes Code(s): E11.9 - TYPE 2 DIABETES MELLITUS WITHOUT COMPLICATIONS (4) Fluid overload, unspecified Code(s): E87.70 - FLUID OVERLOAD, UNSPECIFIED Qualifiers: Hypervolemia type: unspecified Qualified Code(s): E87.70 - Fluid overload, unspecified (5) Hypertension Code(s): I10 - ESSENTIAL (PRIMARY) HYPERTENSION Qualifiers: Hypertension type: essential hypertension Qualified Code(s): I10 - Essential (primary) hypertension (6) Nephrotic syndrome Code(s): N04.9 - NEPHROTIC SYNDROME WITH UNSPECIFIED MORPHOLOGIC CHANGES
--- NOTE | 2017-05-16 11:11 | PN ---
Progress Note (short form) - Note Progress Note: RENAL Pt is awake and alert admitted for diarrhea which he attributes to antibiotics feels better. Had 3 bowel movements over night Last Vital Signs Temp Pulse Resp BP Pulse Ox 99.8 F H 88 20 150/66 97 05/16/17 10:00 05/16/17 10:00 05/16/17 10:00 05/16/17 10:00 05/16/17 02:00 lungs clear cvs s1s2 rr abd soft ext no edema has a left arm avf neuro a+ox3 skin has some ecchymoses on abdomen CBC, BMP 05/16/17 06:20 05/16/17 06:20 Current Medications Generic Name Dose Route Start Last Admin Trade Name Freq PRN Reason Stop Dose Admin Acetaminophen 650 mg 05/13/17 21:27 Tylenol - PO Q4H PRN FEVER OR PAIN Amlodipine Besylate 10 mg 05/14/17 10:00 05/16/17 10:26 Norvasc - PO 10 mg DAILY [facility] Administration Atorvastatin Calcium 20 mg 05/13/17 22:00 05/15/17 21:42 Lipitor - PO 20 mg HS LEMUEL Administration Bacitracin/Polymyxin B Sulfate 1 applic 05/14/17 19:30 05/16/17 10:26 Polysporin Ointment - TP 1 applic DAILY LEMUEL Administration Doxycycline Hyclate 100 mg 05/14/17 18:00 05/16/17 10:27 Vibramycin - PO 100 mg BID@1000,1800 L[facility]UEL Administration Ferrous Gluconate 324 mg 05/13/17 22:00 05/16/17 10:25 Fergon - PO 324 mg BID LEMUEL Administration Fluticasone Propionate 1 spray 05/15/17 13:00 05/16/17 10:25 Flonase - NS 1 spray BID LEMUEL Administration Folic Acid 1 mg 05/14/17 10:00 05/16/17 10:26 Folic Acid - PO 1 mg DAILY LEMUEL Administration Heparin Sodium (Porcine) 5,000 unit 05/14/17 06:00 05/16/17 06:36 Heparin - SQ 5,000 unit TID LEMUEL Administration Insulin Aspart 1 vial 05/13/17 22:00 05/16/17 06:36 Novolog Vial Sliding Scale - SQ Not Given ACHS [facility] Protocol Lisinopril 20 mg 05/14/17 10:00 05/16/17 10:26 Prinivil PO 20 mg DAILY LEMUEL Administration Metoprolol Tartrate 50 mg 05/13/17 22:00 05/16/17 10:26 Lopressor - PO 50 mg BID LEMUEL Administration Thiamine HCl 100 mg 05/14/17 10:00 05/16/17 10:27 Vitamin B1 - PO 100 mg DAILY LEMUEL Administration Vancomycin HCl 125 mg 05/15/17 18:00 05/16/17 06:36 Vancomycin Oral Solution PO 125 mg Q6HPO [facility] Administration Impression 1. ESRD 2. diarrhea- Cdiff + 3. HTN 4. DM 5. proteinuria severe diabetic nephropathy 6. anemia Plan - HD tiw- tomorrow - epogen for anemia - continue oral vanco per ID - would not give iv iron despite anemia while infected anemia work up, GI eval if not done already [facility]
--- NOTE | 2017-05-16 12:03 | PN ---
Physical Exam: SUBJECTIVE: Patient seen and examined He states that he feels "much better." He has 3 episodes of diarrhea overnight and none thus far today. No purulence noted at fistula site Lower extremity paresthesias are much improved and back at baseline. OBJECTIVE: Vital Signs Period Temp Pulse Resp BP Sys/Benz Pulse Ox Last 24 Hr 97.4 F-99.8 F 76-88 16-20 116-150/66-77 97 GEN: Awake, alert. He looks significantly improved. CVS: RRR PULM: CTAB ABD: soft, NT/ND, NABS EXTREM: warm ,well perfused Laboratory Results - last 24 hr 05/15/17 05/15/17 05/15/17 11:49 13:30 16:36 WBC RBC Hgb Hct MCV MCH MCHC RDW Plt Count MPV Neutrophils % Lymphocytes % Monocytes % Eosinophils % Basophils % Sodium Potassium Chloride Carbon Dioxide Anion Gap BUN Creatinine Creat Clearance w eGFR POC Glucometer 168 155 114 Random Glucose Uric Acid Calcium Phosphorus Magnesium Total Bilirubin AST ALT Alkaline Phosphatase Troponin I B-Natriuretic Peptide Total Protein Albumin 05/15/17 05/15/17 05/15/17 17:30 17:30 17:30 WBC 7.8 RBC 3.41 L Hgb 9.0 L Hct 27.7 L MCV 81.2 MCH 26.5 MCHC 32.6 RDW 16.7 H Plt Count 215 MPV 7.9 Neutrophils % 71.5 Lymphocytes % 15.9 Monocytes % 6.9 Eosinophils % 4.6 H Basophils % 1.1 Sodium 138 Potassium 3.6 Chloride 102 Carbon Dioxide 27 Anion Gap 9 BUN 38 H Creatinine 5.7 H Creat Clearance w eGFR 10.66 POC Glucometer Random Glucose 104 Uric Acid Calcium 7.8 L Phosphorus 4.1 Magnesium 2.1 Total Bilirubin 0.5 D AST 13 L ALT 27 Alkaline Phosphatase 148 H Troponin I < 0.02 B-Natriuretic Peptide 75459.13 H Total Protein 6.7 Albumin 2.2 L 05/15/17 05/16/17 05/16/17 21:40 05:55 06:20 WBC 7.6 RBC 3.13 L Hgb 8.3 L Hct 25.4 L MCV 81.3 MCH 26.7 MCHC 32.8 RDW 16.7 H Plt Count 211 MPV 8.1 Neutrophils % 70.5 Lymphocytes % 15.8 Monocytes % 7.4 Eosinophils % 5.0 H Basophils % 1.3 Sodium Potassium Chloride Carbon Dioxide Anion Gap BUN Creatinine Creat Clearance w eGFR POC Glucometer 168 120 Random Glucose Uric Acid Calcium Phosphorus Magnesium Total Bilirubin AST ALT Alkaline Phosphatase Troponin I B-Natriuretic Peptide Total Protein Albumin 05/16/17 06:20 WBC RBC Hgb Hct MCV MCH MCHC RDW Plt Count MPV Neutrophils % Lymphocytes % Monocytes % Eosinophils % Basophils % Sodium 138 Potassium 3.6 Chloride 102 Carbon Dioxide 28 Anion Gap 8 BUN 43 H Creatinine 6.4 H Creat Clearance w eGFR 9.32 POC Glucometer Random Glucose 106 Uric Acid 6.7 Calcium 7.7 L Phosphorus Magnesium 2.0 Total Bilirubin 0.4 AST 12 L ALT 26 Alkaline Phosphatase 139 H Troponin I B-Natriuretic Peptide Total Protein 6.5 Albumin 2.2 L Active Medications Generic Name Dose Route Start Last Admin Trade Name Freq PRN Reason Stop Dose Admin Acetaminophen 650 mg 05/13/17 21:27 Tylenol - PO Q4H PRN FEVER OR PAIN Amlodipine Besylate 10 mg 05/14/17 10:00 05/16/17 10:26 Norvasc - PO 10 mg DAILY LEMUEL Administration Atorvastatin Calcium 20 mg 05/13/17 22:00 05/15/17 21:42 Lipitor - PO 20 mg HS LEMUEL Administration Bacitracin/Polymyxin B Sulfate 1 applic 05/14/17 19:30 05/16/17 10:26 Polysporin Ointment - TP 1 applic DAILY LEMUEL Administration Doxycycline Hyclate 100 mg 05/14/17 18:00 05/16/17 10:27 Vibramycin - PO 100 mg BID@1000,1800 LEMUEL Administration Epoetin All 4,000 unit 05/16/17 11:11 Procrit - SQ 05/16/17 11:12 ONCE ONE Ferrous Gluconate 324 mg 05/13/17 22:00 05/16/17 10:25 Fergon - PO 324 mg BID LEMUEL Administration Fluticasone Propionate 1 spray 05/15/17 13:00 05/16/17 10:25 Flonase - NS 1 spray BID LEMUEL Administration Folic Acid 1 mg 05/14/17 10:00 05/16/17 10:26 Folic Acid - PO 1 mg DAILY LEMUEL Administration Heparin Sodium (Porcine) 5,000 unit 05/14/17 06:00 05/16/17 06:36 Heparin - SQ 5,000 unit TID LEMULE Administration Heparin Sodium (Porcine) 1,000 unit 05/16/17 11:11 Heparin - IVPUSH 05/16/17 11:12 ONCE ONE Insulin Aspart 1 vial 05/13/17 22:00 05/16/17 11:44 Novolog Vial Sliding Scale - SQ 2 unit ACHS LEMUEL Administration Protocol Lisinopril 20 mg 05/14/17 10:00 05/16/17 10:26 Prinivil PO 20 mg DAILY LEMUEL Administration Metoprolol Tartrate 50 mg 05/13/17 22:00 05/16/17 10:26 Lopressor - PO 50 mg BID LEMUEL Administration Thiamine HCl 100 mg 05/14/17 10:00 05/16/17 10:27 Vitamin B1 - PO 100 mg DAILY LEMUEL Administration Vancomycin HCl 125 mg 05/15/17 18:00 05/16/17 11:47 Vancomycin Oral Solution PO 125 mg Q6HPO LEMUEL Administration ASSESSMENT/PLAN: The patient is a 51 year old male with a significant past medical history of HTN , HLD, DM, ESRD (HD MWF), now HD#2 with C. Diff colitis. #GI C diff colitis Improving Isolation precautions Continue Vancomycin po Appreciate ID input ? if Flagyl was exacerbating his chronic LE paresthesias as they are now back at baseline #PULM/CVS CT abd/pelvis showed bilateral pleural effusions with lower lobe atelectasis, trace ascites, and cholelithiasis Appreciate pulmonary consult Todays CXR shows less pulmonary vascular congestion Mediastinum still prominent TTE is ordered for tomorrow Chronic HTN, HLD Continue Lisinopril, Metoprolol, Norvasc, Lipitor #RENAL ESRD on Dialysis MWF Continue dialysis via permacath AVF construction about 3 weeks ago Purulent drainage at AVF site much improved Contiune doxycycline Would favor 7 day course Continue topical Bacitracin Vascular consult appreciated #HEME Anemia, normocytic Hemoccult negative Suspect anemia of chronic renal disease Continue Epogen Continue Fergon Will continue to follow #ENDO He takes no meds at home HbA1c 7.0 Continue Novolog ISS #FEN Renal diet PROPHYLAXIS: Hep SQ Eating Visit type - Emergency Visit Emergency Visit: Yes ED Registration Date: 05/13/17 Care time: The patient presented to the Emergency Department on the above date and was hospitalized for further evaluation of their emergent condition. - New Patient This patient is new to me today: No - Critical Care Critical Care patient: No
--- NOTE | 2017-05-16 12:53 | EKG ---
Test Reason : Blood Pressure : / mmHG Vent. Rate : 087 BPM Atrial Rate : 087 BPM P-R Int : 146 ms QRS Dur : 080 ms QT Int : 378 ms P-R-T Axes : 063 056 034 degrees QTc Int : 454 ms NORMAL SINUS RHYTHM NORMAL ECG WHEN COMPARED WITH ECG OF 13-MAY-2017 20:18, NO SIGNIFICANT CHANGE WAS FOUND Confirmed by DARIA CHAUDHARY MD ([id number]) on 05/16/2017 12:53:02 PM Referred By: JULITA Confirmed By:DARIA CHAUDHARY MD
--- NOTE | 2017-05-16 15:40 | PN ---
Progress Note (short form) - Note Progress Note: GI CONSULTATION PLEASE SEE COMPLETE DICTATION IN BRIEF: 51M HTN/DM/ESRD--ON HD S/P LEFT ARM GRAVT ?INFECTION SO GOT CLINDAMYCIN ONSET OF PROFUSE DIARRHEA ADMIT WITH C. DIFF AG+/ TOXIN NEG. PRESUMED C. DIFF DIARRHEA VS [facility]X [facility]. DIARRHEA ON CT SCAN NO EVIDENCE OF COLITIS AND NO CLINICAL FINDINGS TO SUPPORT A "TOXIC COLITIS" AGREE WITH CURRENT RX HOWEVER, ANEMIA MAY BE OUT OF PRPORTION TO RENAL DISEASE AND AGREE THAT ONCE IMPROVED IN 4-6 WEEKS, HE SHOULD UNDERGO AN OUTPATIENT GI EVAL OF ANEMIA VIA EGD /COLON AND HAVE D/W HIM THAT RECOMMENDATION ADVANCE TO LACTOSE FREE, LOW RESIDUE DIET TOLERATED IF DIARRHEA ACCELERATES, THEN MAY NEED F/S TO DOCUMENT PSEUDOMEMBRANOUS COLITIS VS OTHER PATHOGENS [facility] MD
--- NOTE | 2017-05-16 18:54 | CONS ---
DATE OF CONSULTATION: 05/15/2017 REQUESTED BY: Hospitalist service The patient was seen and examined yesterday on the . I spoke as well with Dr. Tidwell, the covering hospitalist. This is a 51-year-old man who recently started dialysis. He was admitted in April and he had a PermCath placed on April 28 as well as a left AV fistula. He subsequently had some superficial cellulitis of the fistula, was started on clindamycin. He developed diarrhea and presented to the emergency room, where he was started on Flagyl empirically for C. difficile. He had a CAT scan of his abdomen and pelvis done that showed no appendicitis or diverticulitis. He showed bilateral pleural effusion and atelectasis. He had trace ascites and cholelithiasis. He was found to have a positive C. difficile antigen, negative toxin. He was started on Flagyl, with improvement in his diarrhea. I am asked to see him for his C. difficile. He currently was complaining of severe pain in his legs. Normally it is confined to his feet, now it is spread up to his knees. He is fatigued. He has a chronic cough, which he has had for the last 5 months. He reports his arm is markedly improved. The erythema has almost resolved. He has no fevers or chills. His past medical history is notable for hypertension, renal insufficiency--he recently started dialysis, and diabetes. Surgical history is notable for PermCath and AV fistula, both done on April 28. He is allergic to PENICILLIN. He states he took it and it caused him to swell up. His medications at home include ferrous gluconate, folic acid, thiamine, aspirin, atorvastatin, amlodipine, lisinopril, and metoprolol. His family history noncontributory. SOCIAL HISTORY: He lives in the community. He is not working. No history of cigarette or substance use. Of note, he has had a renal biopsy, which showed diabetic nephropathy, per one of Dr. Oleary's notes in the past. Family history is notable for diabetes in his mother and heart disease in his mother. REVIEW OF SYSTEMS: His diarrhea has improved. He describes this neuropathy in his legs and a chronic cough he has had for the last several months. He denies fevers or chills. PHYSICAL EXAMINATION: Vital Signs: Temperature is 98.4. Pulse 77. Blood pressure 125/66. Respiratory rate of 16. HEENT: Normocephalic. Eyes are anicteric. His face is flushed. He has no thrush or pharyngitis. Lungs: His lungs have crackles at both bases. Heart: Regular rate and rhythm. PermCath site is without tenderness. His AV fistula has a good thrill. There is some minimal erythema at the incision site. There is no purulence. Abdomen: Soft, nontender. Extremities: Without edema. His white count is 8.3, hemoglobin 8.5, platelets 227. BUN 34, creatinine 5.1, with an alkaline phosphatase of 150. C. difficile antigen is reported positive with a negative toxin. Blood cultures from admission are negative. In summary, this is a 51-year-old male admitted with diarrhea, possibly consistent with C. difficile. Perhaps the metronidazole is worsening his neuropathy. I would suggest we switch him to oral vancomycin. Discussed with Dr. Tidwell. Would discuss with renal whether he needs repeat dialysis. He seems mildly volume overloaded. Superficial AV fistula cellulitis, which appears improved. Would repeat a chest x-ray, consider an echo, and anemia workup. Would switch to oral vancomycin with the thoughts that the Flagyl is making his neuropathy worse. OPAL CALVIN M.D. [id number]
[2017-05-16] MEDS: ATORVASTATIN CA 20 MG TABLET (FP) PO SCH (21:42)
[2017-05-17] MEDS: HEPARIN NA (PORCINE) 5,000 UNITS/ML 1ML VIAL SQ SCH ×3 (06:29→21:24)
[2017-05-17] MEDS: VANCOMYCIN 250 MG/5 ML ORAL SOLUTION PO SCH ×4 (06:30→18:07)
[2017-05-17] MEDS: INSULIN SLIDING SCALE (NOVOLOG) 1 VIAL SQ SCH ×4 (06:37→21:45)
[2017-05-17 08:24] LABS: EOSINOPHIL 4.3 % (0-4.5); MCH 26.7 pg (25.7-33.7); MCHC 32.9 g/dl (32.0-35.9); MEAN CELL VOLUME 81.2 fl (80-96); MEAN PLT VOLUME 8.2 fl (7.5-11.1); NEUTROPHILS 75.2 % (42.8-82.8); PLATELET COUNT 229 K/MM3 (134-434); RDW 16.6 % (11.9-15.9); WHITE BLOOD COUNT 7.3 K/mm3 (4.0-10.0)
--- NOTE | 2017-05-17 09:03 | CONS ---
DATE OF CONSULTATION: 05/16/2017 I was asked by Dr. Prem Whiting to evaluate this patient, a 51-year-old gentleman for diarrhea. The patient apparently is a 51-year-old gentleman from [facility]. He has a significant past medical history of hypertension, diabetes, end-stage renal disease on dialysis Mondays, Wednesdays, and Fridays who presented to the hospital with watery diarrhea for a week with anemia. The patient apparently had an AV graft construction 3 weeks ago and was seen postop for staple removal. There was concern that there was infection. He was given a bag of IV clindamycin; that was a couple days and since that time he is having profuse watery diarrhea, green in color, malodorous without blood or mucus but he is having continued bowel but he is having continued bowel movements despite Pepto Bismol, feeing weak and dizzy and came to the hospital. In the emergency room the patient was given IV Flagyl. He was noted to have a white count of 11. He was noted to be significantly anemic with a hemoglobin of 7.7 and he was given a unit of packed cells. The patient tells me over the past 2 to 3 days his diarrhea has lessened. Today he has only had 1 soft bowel movement but his rectum is extremely raw and sore and he is in pain. He does not have any abdominal pain, he does not have any nausea, vomiting, fevers or sweats. He has had some chills. His appetite is poor. He has never had a colonoscopy, he has never had prior gastrointestinal disease nor a family history of such. He is noted to be ALLERGIC TO PENICILLIN. His home medications including iron, folate, thiamine, aspirin, Lipitor, Norvasc, Prinivil and Lopressor. His mother is noted to have diabetes. The patient tells me that he is currently not working, that his , and he does not smoke or drink significantly. Currently, in the hospital his medications include Tylenol, Prinivil, doxycycline, vancomycin p.o., Polysporin, heparin subcutaneous, Lopressor, Flonase and Norvasc as well as Epogen, Lipitor, NovoLog, iron, thiamine and folate. His Flagyl was discontinued. His vital signs reveal a temperature of 97, a blood pressure of 122/78, a pulse of 80. On physical exam he is in absolutely no acute distress, moving about easily. A well-developed, well-nourished gentleman who is overweight. Sclerae anicteric, neck is supple, skin is cool. Abdomen is quite soft. Bowel sounds are active. There are no masses, rebound or guarding. There is no tenderness to deep palpation. We deferred rectal exam as the patient is having significant pain in the rectal region form the profuse diarrhea. His lab data is notable in that his white count went up to 14,000 on admission, today it is 7.6. His hemoglobin was 7.7, after blood it went up and is now at 8.3. His platelet count is 211,000. His chemistries reveal a serum sodium 138, potassium 3.6, chloride 102, bicarbonate 28, BUN 43, creatinine 6.4, calcium 7.7, magnesium of 2, AST 12, ALT 26, alkaline phosphatase 139. He has got an albumin of 2.5 and a total protein of 6.5. In terms of radiologic data on admission yesterday, he had a CT scan of the abdomen and pelvis that noted bilateral pleural effusions and lower lobe atelectasis, trace ascites, gallstones without any other pathology in the abdomen. There is no evidence of any obvious colonic inflammation such as diverticulitis or appendicitis or fluid in the paracolic gutters. And in terms of the microbiology, it looks like his stool cultures failed to grow; however, his C. difficile antigen was positive for C. difficile. The toxin is either absent or below the level of detection. IMPRESSION: So it is my impression that the patient is a 51-year-old gentleman with multiple medical problems, hypertension, diabetes, end-stage renal disease on dialysis who recently had a graft placed, got a dose of clindamycin for a questionable infection and then had onset of profuse diarrhea. At the present time his diarrhea is lessening and he appears to be tolerating vancomycin and appears to be improving clinically and biochemically. His white count is significantly declined. He is feeling better. For now I would recommend continued treatment and observation, increasing his diet to a low residue lactose free. I have told him once improved in several weeks he should undergo a baseline colonoscopy due to his age and recent presumed infection. At the present time the abdomen is non-toxic and I agree with your current management. We will continue to be available to aid and manage this patient. ALLIE PEREA M.D. [id number]
[2017-05-17 09:13] LABS: CPK 43 IU/L (39-308); MAGNESIUM 2.1 mg/dL (1.8-2.4); PHOSPHOROUS 5.9 mg/dL (2.5-4.9); TROPONIN I < 0.02 ng/ml (0.00-0.05)
[2017-05-17] MEDS ORDERED: PT OWN MED DRAWER 7, Y5N ONE ×2 (10:09→12:03)
[2017-05-17] MEDS: THIAMINE HCL 100 MG TABLET (FP) PO SCH (10:11)
[2017-05-17] MEDS: FOLIC ACID 1 MG TABLET (FP) PO SCH (10:11)
[2017-05-17] MEDS: DOXYCYCLINE HYCLATE 100 MG CAPSULE PO SCH ×2 (10:11→18:06)
[2017-05-17] MEDS: FERROUS GLUCONATE 324 MG TAB (FP) PO SCH ×2 (10:11→21:23)
[2017-05-17] MEDS: FLUTICASONE PROP 0.05% 16 GM NASAL SPRAY NS SCH ×2 (10:12→21:24)
[2017-05-17] MEDS: BACITRACIN/POLYMYXIN B SULFATE 15 GM TUBE TP SCH (10:12)
[2017-05-17] MEDS ORDERED: INSULIN (NOVOLOG) ASPART 100 UNITS/ML 10ML VIAL ONE (11:42)
--- NOTE | 2017-05-17 12:56 | PN ---
Progress Note (short form) - Note Progress Note: PULMONARY Breathing continues to improve. +mild nonproductive cough, still with diarrhea. Last Vital Signs Temp Pulse Resp BP Pulse Ox 97.7 F 83 20 134/64 95 05/17/17 10:00 05/17/17 10:00 05/17/17 10:00 05/17/17 10:00 05/17/17 10:00 Gen: NAD at rest Heart: RRR Lung: bibasilar rales Abd: soft, nontender Ext: no edema CBC, BMP 05/17/17 06:00 05/16/17 06:20 Active Medications Acetaminophen (Tylenol -) 650 mg PO Q4H PRN PRN Reason: FEVER OR PAIN Amlodipine Besylate (Norvasc -) 10 mg PO DAILY [facility] Last Admin: 05/16/17 10:26 Dose: 10 mg Atorvastatin Calcium (Lipitor -) 20 mg PO HS [facility] Last Admin: 05/16/17 21:42 Dose: 20 mg Bacitracin/Polymyxin B Sulfate (Polysporin Ointment -) 1 applic TP DAILY [facility] Last Admin: 05/17/17 10:12 Dose: 1 applic Doxycycline Hyclate (Vibramycin -) 100 mg PO BID@1000,1800 [facility] Last Admin: 05/17/17 10:11 Dose: 100 mg Epoetin All (Epogen -) 4,000 units SQ ONCE ONE Stop: 05/16/17 11:12 Ferrous Gluconate (Fergon -) 324 mg PO BID [facility] Last Admin: 05/17/17 10:11 Dose: 324 mg Fluticasone Propionate (Flonase -) 1 spray NS BID [facility] Last Admin: 05/17/17 10:12 Dose: 1 spray Folic Acid (Folic Acid -) 1 mg PO DAILY [facility] Last Admin: 05/17/17 10:11 Dose: 1 mg Heparin Sodium (Porcine) (Heparin -) 5,000 unit SQ TID [facility] Last Admin: 05/17/17 06:29 Dose: 5,000 unit Heparin Sodium (Porcine) (Heparin -) 1,000 unit IVPUSH ONCE ONE Stop: 05/16/17 11:12 Insulin Aspart (Novolog Vial Sliding Scale -) 1 vial SQ ACHS LEMUEL PRN Reason: Protocol Last Admin: 05/17/17 12:00 Dose: 2 unit Lisinopril (Prinivil) 20 mg PO DAILY [facility] Last Admin: 05/16/17 10:26 Dose: 20 mg Metoprolol Tartrate (Lopressor -) 50 mg PO BID [facility] Last Admin: 05/16/17 21:42 Dose: 50 mg Thiamine HCl (Vitamin B1 -) 100 mg PO DAILY [facility] Last Admin: 05/17/17 10:11 Dose: 100 mg Vancomycin HCl (Vancomycin Oral Solution) 125 mg PO Q6HPO [facility] Last Admin: 05/17/17 12:03 Dose: 125 mg A/P ESRD on HD Pleural Effusions Volume Overload +C Diff Ag HTN DM - CXR today improved from admission - HD per renal with increased ultrafiltration - continue PO vanco - continue flonase for nasal congestion - CXR after next HD session - DVT prophylaxis Problem List - Problems (1) Diarrhea Code(s): R19.7 - DIARRHEA, UNSPECIFIED Qualifiers: Diarrhea type: unspecified type Qualified Code(s): R19.7 - Diarrhea, unspecified (2) ESRD (end stage renal disease) Code(s): N18.6 - END STAGE RENAL DISEASE (3) Diabetes Code(s): E11.9 - TYPE 2 DIABETES MELLITUS WITHOUT COMPLICATIONS (4) Fluid overload, unspecified Code(s): E87.70 - FLUID OVERLOAD, UNSPECIFIED Qualifiers: Hypervolemia type: unspecified Qualified Code(s): E87.70 - Fluid overload, unspecified (5) Hypertension Code(s): I10 - ESSENTIAL (PRIMARY) HYPERTENSION Qualifiers: Hypertension type: essential hypertension Qualified Code(s): I10 - Essential (primary) hypertension (6) Nephrotic syndrome Code(s): N04.9 - NEPHROTIC SYNDROME WITH UNSPECIFIED MORPHOLOGIC CHANGES
--- NOTE | 2017-05-17 13:00 | PN ---
Teaching Attending Note Name of Resident: Byron Cardoza ATTENDING PHYSICIAN STATEMENT I saw and evaluated the patient. I reviewed the resident's note and discussed the case with the resident. I agree with the resident's findings and plan as documented. SUBJECTIVE: Stool is more formed. He has no complaints. OBJECTIVE: Vital Signs Period Temp Pulse Resp BP Sys/Benz Pulse Ox Last 24 Hr 97.7 F-98.8 F 79-83 18-20 122-146/63-78 95-95 HEART: S1S2, RRR LUNGS: Clear ABDOMEN: Soft, non-tender, non-distended, normal BS EXTREMITIES: No edema Current Medications Generic Name Dose Route Start Last Admin Trade Name Freq PRN Reason Stop Dose Admin Acetaminophen 650 mg 05/13/17 21:27 Tylenol - PO Q4H PRN FEVER OR PAIN Amlodipine Besylate 10 mg 05/14/17 10:00 05/16/17 10:26 Norvasc - PO 10 mg DAILY LEMUEL Administration Atorvastatin Calcium 20 mg 05/13/17 22:00 05/16/17 21:42 Lipitor - PO 20 mg HS LEMUEL Administration Bacitracin/Polymyxin B Sulfate 1 applic 05/14/17 19:30 05/17/17 10:12 Polysporin Ointment - TP 1 applic DAILY LEMUEL Administration Doxycycline Hyclate 100 mg 05/14/17 18:00 05/17/17 10:11 Vibramycin - PO 100 mg BID@1000,1800 LEMUEL Administration Epoetin All 4,000 units 05/18/17 15:00 Epogen - SQ 05/18/17 15:01 ONCE ONE Ferrous Gluconate 324 mg 05/13/17 22:00 05/17/17 10:11 Fergon - PO 324 mg BID LEMUEL Administration Fluticasone Propionate 1 spray 05/15/17 13:00 05/17/17 10:12 Flonase - NS 1 spray BID LEMUEL Administration Folic Acid 1 mg 05/14/17 10:00 05/17/17 10:11 Folic Acid - PO 1 mg DAILY LEMUEL Administration Heparin Sodium (Porcine) 5,000 unit 05/14/17 06:00 05/17/17 13:40 Heparin - SQ Not Given TID LEMUEL Insulin Aspart 1 vial 05/13/17 22:00 05/17/17 12:00 Novolog Vial Sliding Scale - SQ 2 unit ACHS LEMUEL Administration Protocol Lisinopril 20 mg 05/14/17 10:00 05/16/17 10:26 Prinivil PO 20 mg DAILY LEMUEL Administration Metoprolol Tartrate 50 mg 05/13/17 22:00 05/16/17 21:42 Lopressor - PO 50 mg BID LEMUEL Administration Thiamine HCl 100 mg 05/14/17 10:00 05/17/17 10:11 Vitamin B1 - PO 100 mg DAILY LEMUEL Administration Vancomycin HCl 125 mg 05/15/17 18:00 05/17/17 12:03 Vancomycin Oral Solution PO 125 mg Q6HPO LEMUEL Administration ASSESSMENT AND PLAN: This is a 51 year old man with a history of HTN, hyperlipidemia, type 2 DM, ESRD who presented to the ER with watery green diarrhea. 1. C. difficile colitis - Improving - Continue oral Vancomycin 2. Fluid overload with vascular congestion and bilateral pleural effusions - Improved with HD 3. ESRD - Continue HD 4. Anemia secondary to CKD - Continue Epogen, ferrous gluconate 5. HTN - Continue Lisinopril, Lopressor, Norvasc 6. Hyperlipidemia - Continue Lipitor 7. Cellulitis of LUE AV fistula site - Continue Doxycycline, topical Polysporin 8. Type 2 diabetes mellitus - Continue Novolog sliding scale
--- NOTE | 2017-05-17 14:29 | MSN ---
Progress Note (SOAP) - Subjective Chief Complaint: Diarrhea History of Present Illness: Pt is feeling better today, had 3 episodes of diarrhea yesterday and only 1 so far today. Appetite has improved. No chills since yesterday. No abdominal pain, nausea, vomiting, dizziness, lightheadedness, or hematochezia. No other complaints at this time. - Current Medications Current Medications: Active Medications Acetaminophen (Tylenol -) 650 mg PO Q4H PRN PRN Reason: FEVER OR PAIN Amlodipine Besylate (Norvasc -) 10 mg PO DAILY [facility] Last Admin: 05/16/17 10:26 Dose: 10 mg Atorvastatin Calcium (Lipitor -) 20 mg PO HS [facility] Last Admin: 05/16/17 21:42 Dose: 20 mg Bacitracin/Polymyxin B Sulfate (Polysporin Ointment -) 1 applic TP DAILY [facility] Last Admin: 05/17/17 10:12 Dose: 1 applic Doxycycline Hyclate (Vibramycin -) 100 mg PO BID@1000,1800 [facility] Last Admin: 05/17/17 10:11 Dose: 100 mg Epoetin All (Epogen -) 4,000 units SQ ONCE ONE Stop: 05/16/17 11:12 Ferrous Gluconate (Fergon -) 324 mg PO BID [facility] Last Admin: 05/17/17 10:11 Dose: 324 mg Fluticasone Propionate (Flonase -) 1 spray NS BID [facility] Last Admin: 05/17/17 10:12 Dose: 1 spray Folic Acid (Folic Acid -) 1 mg PO DAILY [facility] Last Admin: 05/17/17 10:11 Dose: 1 mg Heparin Sodium (Porcine) (Heparin -) 5,000 unit SQ TID [facility] Last Admin: 05/17/17 13:40 Dose: Not Given Heparin Sodium (Porcine) (Heparin -) 1,000 unit IVPUSH ONCE ONE Stop: 05/16/17 11:12 Insulin Aspart (Novolog Vial Sliding Scale -) 1 vial SQ ACHS [facility] PRN Reason: Protocol Last Admin: 05/17/17 12:00 Dose: 2 unit Lisinopril (Prinivil) 20 mg PO DAILY [facility] Last Admin: 05/16/17 10:26 Dose: 20 mg Metoprolol Tartrate (Lopressor -) 50 mg PO BID [facility] Last Admin: 05/16/17 21:42 Dose: 50 mg Thiamine HCl (Vitamin B1 -) 100 mg PO DAILY [facility] Last Admin: 05/17/17 10:11 Dose: 100 mg Vancomycin HCl (Vancomycin Oral Solution) 125 mg PO Q6HPO [facility] Last Admin: 05/17/17 12:03 Dose: 125 mg - Objective Vital Signs: Vital Signs Temperature 97.7 F 05/17/17 10:00 Pulse Rate 83 05/17/17 10:00 Respiratory Rate 20 05/17/17 10:00 Blood Pressure 134/64 05/17/17 10:00 O2 Sat by Pulse Oximetry (%) 95 05/17/17 10:00 Constitutional: Yes: Well Nourished, No Distress, Calm Eyes: Yes: WNL, Conjunctiva Clear, EOM Intact HENT: Yes: WNL, Atraumatic, Normocephalic Neck: Yes: WNL, Supple, Trachea Midline Cardiovascular: Yes: WNL, Regular Rate and Rhythm Respiratory: Yes: WNL, Regular, CTA Bilaterally Gastrointestinal: Yes: WNL, Normal Bowel Sounds, Soft, Abdomen, Obese. No: Hematemesis, Hemorrhoids, Hepatomegaly, Melena, Palpable Mass, Pulsatile Mass, Rectal Bleeding, Splenomegaly, Tenderness, Tenderness, Epigastrium, Tenderness, Rebound, Vomiting ...Rectal Exam: Yes: Deferred Genitourinary: Yes: WNL Musculoskeletal: Yes: WNL Extremities: Yes: WNL Peripheral Pulses WNL: Yes Edema: No Integumentary: Yes: WNL Neurological: Yes: WNL, Alert ...Motor Strength: Yes: WNL Psychiatric: Yes: WNL, Alert, Oriented Labs Lab Results: CBC, BMP 05/17/17 06:00 05/16/17 06:20 Imaging - Results Cat Scan: Report Reviewed Assessment/Plan #C-difficile associated diarrhea - Hx of antibiotic exposure and positive organisms in stool, negative toxin. - CT abd/pelvis negative for toxic colitis. - Pt has been improving on PO vanco. Flagyl was discontinued due to adverse effects of neuropathy and itching. - Will appreciate ID consult for timecourse of PO vanco after completion of doxycycline course. - Monitor WBC and diarrhea. #AV fistula graft site infection - Site is no longer tender or indurated. Pt is afebrile. WBC has improved. - Continue doxycycline #Anemia - There was initially concern for GI bleed due to Hgb drop. Hgb has risen to 8.9 and is now stable. - GI saw patient, recommends outpatient assessment in 2-3 weeks. - Heme agrees with management. Pt is on Epogen and Ferrogen. #ESRD - Continue M/W/F dialysis. Received dialysis today. Tolerating well. - Cr of 6.2 consistent with baseline. #DM - Continue insulin sliding scale #HTN - Continue home antihypertensives #Asthma - Continue home inhalers as needed #DVT Prophylaxis - Continue heparin SQ 5000 TID.
[2017-05-17] MEDS ORDERED: HEPARIN NA (PORCINE) 5,000 UNITS/ML 1ML VIAL IVPUSH ONE (15:00)
--- NOTE | 2017-05-17 15:06 | PN ---
Progress Note, Physician History of Present Illness: Pt seen and examined at bedside. He is awake and alert. He feels that the diarrhea is starting to improve. - Current Medication List Current Medications: Active Medications Acetaminophen (Tylenol -) 650 mg PO Q4H PRN PRN Reason: FEVER OR PAIN Amlodipine Besylate (Norvasc -) 10 mg PO DAILY [facility] Last Admin: 05/16/17 10:26 Dose: 10 mg Atorvastatin Calcium (Lipitor -) 20 mg PO HS [facility] Last Admin: 05/16/17 21:42 Dose: 20 mg Bacitracin/Polymyxin B Sulfate (Polysporin Ointment -) 1 applic TP DAILY [facility] Last Admin: 05/17/17 10:12 Dose: 1 applic Doxycycline Hyclate (Vibramycin -) 100 mg PO BID@1000,1800 [facility] Last Admin: 05/17/17 10:11 Dose: 100 mg Epoetin All (Epogen -) 4,000 units SQ ONCE ONE Stop: 05/18/17 15:01 Ferrous Gluconate (Fergon -) 324 mg PO BID [facility] Last Admin: 05/17/17 10:11 Dose: 324 mg Fluticasone Propionate (Flonase -) 1 spray NS BID [facility] Last Admin: 05/17/17 10:12 Dose: 1 spray Folic Acid (Folic Acid -) 1 mg PO DAILY [facility] Last Admin: 05/17/17 10:11 Dose: 1 mg Heparin Sodium (Porcine) (Heparin -) 5,000 unit SQ TID [facility] Last Admin: 05/17/17 13:40 Dose: Not Given Insulin Aspart (Novolog Vial Sliding Scale -) 1 vial SQ ACHS [facility] PRN Reason: Protocol Last Admin: 05/17/17 12:00 Dose: 2 unit Lisinopril (Prinivil) 20 mg PO DAILY [facility] Last Admin: 05/16/17 10:26 Dose: 20 mg Metoprolol Tartrate (Lopressor -) 50 mg PO BID [facility] Last Admin: 05/16/17 21:42 Dose: 50 mg Thiamine HCl (Vitamin B1 -) 100 mg PO DAILY [facility] Last Admin: 05/17/17 10:11 Dose: 100 mg Vancomycin HCl (Vancomycin Oral Solution) 125 mg PO Q6HPO [facility] Last Admin: 05/17/17 12:03 Dose: 125 mg - Objective Vital Signs: Vital Signs Temperature 98.7 F 05/17/17 13:55 Pulse Rate 81 05/17/17 14:30 Respiratory Rate 18 05/17/17 14:30 Blood Pressure 129/70 05/17/17 14:30 O2 Sat by Pulse Oximetry (%) 95 05/17/17 10:00 Constitutional: Yes: Calm Eyes: Yes: Conjunctiva Clear HENT: Yes: Atraumatic Neck: Yes: Supple Cardiovascular: Yes: S1, S2 Respiratory: Yes: CTA Bilaterally Gastrointestinal: Yes: Normal Bowel Sounds, Soft Genitourinary: Yes: WNL Musculoskeletal: Yes: WNL Extremities: Yes: Other (fistula with thrill and bruit) Edema: Yes Edema: LLE: Trace, RLE: Trace Neurological: Yes: Oriented Psychiatric: Yes: Oriented Labs: CBC, BMP 05/17/17 06:00 05/16/17 06:20 Problem List - Problems (1) Anemia Code(s): D64.9 - ANEMIA, UNSPECIFIED Qualifiers: Anemia type: other cause Other causes of anemia: other cause, not classified Qualified Code(s): D64.89 - Other specified anemias (2) Diarrhea Code(s): R19.7 - DIARRHEA, UNSPECIFIED Qualifiers: Diarrhea type: unspecified type Qualified Code(s): R19.7 - Diarrhea, unspecified (3) ESRD (end stage renal disease) Code(s): N18.6 - END STAGE RENAL DISEASE Assessment/Plan Current Medications Generic Name Dose Route Start Last Admin Trade Name Freq PRN Reason Stop Dose Admin Acetaminophen 650 mg 05/13/17 21:27 Tylenol - PO Q4H PRN FEVER OR PAIN Amlodipine Besylate 10 mg 05/14/17 10:00 05/16/17 10:26 Norvasc - PO 10 mg DAILY [facility] Administration Atorvastatin Calcium 20 mg 05/13/17 22:00 05/16/17 21:42 Lipitor - PO 20 mg HS [facility] Administration Bacitracin/Polymyxin B Sulfate 1 applic 05/14/17 19:30 05/17/17 10:12 Polysporin Ointment - TP 1 applic DAILY [facility] Administration Doxycycline Hyclate 100 mg 05/14/17 18:00 05/17/17 10:11 Vibramycin - PO 100 mg BID@1000,1800 [facility] Administration Epoetin All 4,000 units 05/18/17 15:00 Epogen - SQ 05/18/17 15:01 ONCE ONE Ferrous Gluconate 324 mg 05/13/17 22:00 05/17/17 10:11 Fergon - PO 324 mg BID [facility] Administration Fluticasone Propionate 1 spray 05/15/17 13:00 05/17/17 10:12 Flonase - NS 1 spray BID [facility] Administration Folic Acid 1 mg 05/14/17 10:00 05/17/17 10:11 Folic Acid - PO 1 mg DAILY [facility] Administration Heparin Sodium (Porcine) 5,000 unit 05/14/17 06:00 05/17/17 13:40 Heparin - SQ Not Given TID [facility] Insulin Aspart 1 vial 05/13/17 22:00 05/17/17 12:00 Novolog Vial Sliding Scale - SQ 2 unit ACHS [facility] Administration Protocol Lisinopril 20 mg 05/14/17 10:00 05/16/17 10:26 Prinivil PO 20 mg DAILY [facility] Administration Metoprolol Tartrate 50 mg 05/13/17 22:00 05/16/17 21:42 Lopressor - PO 50 mg BID [facility] Administration Thiamine HCl 100 mg 05/14/17 10:00 05/17/17 10:11 Vitamin B1 - PO 100 mg DAILY [facility] Administration Vancomycin HCl 125 mg 05/15/17 18:00 05/17/17 12:03 Vancomycin Oral Solution PO 125 mg Q6HPO [facility] Administration Impression 1. ESRD 2. diarrhea 3. HTN 4. DM 5. proteinuria 6. anemia Plan - cont current meds - HD toady - cont PO vanco - wound care to fistula - vascular follow up - epogen for anemia - monitor bloodwork - will follow
[2017-05-17] MEDS: amLODIPine BESYLATE 10 MG TABLET (FP) PO SCH (18:06)
[2017-05-17] MEDS: METOPROLOL TARTRATE 50 MG TABLET (FP) PO SCH ×2 (18:06→21:24)
[2017-05-17] MEDS: LISINOPRIL 20 MG TABLET (FP) PO SCH (18:06)
--- NOTE | 2017-05-17 18:24 | PN ---
Physical Exam: SUBJECTIVE: Patient seen and examined No acute events overnight. Patient had 3 BM's since yesterday, but more formed stool. Denies any purulence at site of fistula OBJECTIVE: Vital Signs Period Temp Pulse Resp BP Sys/Benz Pulse Ox Last 24 Hr 97.7 F-98.7 F 79-90 18-20 123-164/63-87 95-95 GENERAL: The patient is awake, alert, and fully oriented, in no acute distress. HEAD: Normal with no signs of trauma. EYES: PERRL, extraocular movements intact, sclera anicteric, conjunctiva clear. No ptosis. ENT: Ears normal, nares patent, oropharynx clear without exudates, moist mucous membranes. NECK: Trachea midline, full range of motion, supple. LUNGS: Breath sounds equal, CTAB HEART: Regular rate and rhythm, S1, S2 without murmur, rub or gallop. ABDOMEN: Soft, nontender, nondistended, normoactive bowel sounds, no guarding, no rebound, no hepatosplenomegaly, no masses. EXTREMITIES: 2+ pulses, warm, well-perfused. Left arm- av fistula site with purulent drainage, trace lower extremity edema NEUROLOGICAL: Cranial nerves II through XII grossly intact. Normal speech, gait not observed. PSYCH: Normal mood, normal affect. SKIN: Warm, dry, normal turgor, no rashes or lesions noted Laboratory Results - last 24 hr 05/13/17 05/16/17 05/17/17 22:08 21:44 06:00 WBC 7.3 RBC 3.34 L Hgb 8.9 L Hct 27.1 L MCV 81.2 MCH 26.7 MCHC 32.9 RDW 16.6 H Plt Count 229 MPV 8.2 Neutrophils % 75.2 Lymphocytes % 14.0 Monocytes % 5.5 Eosinophils % 4.3 Basophils % 1.0 POC Glucometer 161 Phosphorus Magnesium Creatine Kinase Troponin I Blood Type O POSITIVE Antibody Screen Negative Crossmatch See Detail 05/17/17 05/17/17 05/17/17 06:00 06:00 06:31 WBC RBC Hgb Hct MCV MCH MCHC RDW Plt Count MPV Neutrophils % Lymphocytes % Monocytes % Eosinophils % Basophils % POC Glucometer 109 Phosphorus 5.9 H D Magnesium 2.1 Creatine Kinase 43 Troponin I < 0.02 Blood Type Antibody Screen Crossmatch 05/17/17 12:00 WBC RBC Hgb Hct MCV MCH MCHC RDW Plt Count MPV Neutrophils % Lymphocytes % Monocytes % Eosinophils % Basophils % POC Glucometer 190 Phosphorus Magnesium Creatine Kinase Troponin I Blood Type Antibody Screen Crossmatch Active Medications Generic Name Dose Route Start Last Admin Trade Name Stephanie PRN Reason Stop Dose Admin Acetaminophen 650 mg 05/13/17 21:27 Tylenol - PO Q4H PRN FEVER OR PAIN Amlodipine Besylate 10 mg 05/14/17 10:00 05/17/17 18:06 Norvasc - PO 10 mg DAILY [facility] Administration Atorvastatin Calcium 20 mg 05/13/17 22:00 05/16/17 21:42 Lipitor - PO 20 mg HS [facility] Administration Bacitracin/Polymyxin B Sulfate 1 applic 05/14/17 19:30 05/17/17 10:12 Polysporin Ointment - TP 1 applic DAILY [facility] Administration Doxycycline Hyclate 100 mg 05/14/17 18:00 05/17/17 18:06 Vibramycin - PO 100 mg BID@1000,1800 [facility] Administration Epoetin All 4,000 units 05/18/17 15:00 05/17/17 15:44 Epogen - SQ 05/18/17 15:01 4,000 units ONCE ONE Administration Ferrous Gluconate 324 mg 05/13/17 22:00 05/17/17 10:11 Fergon - PO 324 mg BID [facility] Administration Fluticasone Propionate 1 spray 05/15/17 13:00 05/17/17 10:12 Flonase - NS 1 spray BID [facility] Administration Folic Acid 1 mg 05/14/17 10:00 05/17/17 10:11 Folic Acid - PO 1 mg DAILY [facility] Administration Heparin Sodium (Porcine) 5,000 unit 05/14/17 06:00 05/17/17 13:40 Heparin - SQ Not Given TID [facility] Insulin Aspart 1 vial 05/13/17 22:00 05/17/17 18:08 Novolog Vial Sliding Scale - SQ Not Given ACHS [facility] Protocol Lisinopril 20 mg 05/14/17 10:00 05/17/17 18:06 Prinivil PO 20 mg DAILY [facility] Administration Metoprolol Tartrate 50 mg 05/13/17 22:00 05/17/17 18:06 Lopressor - PO 50 mg BID [facility] Administration Thiamine HCl 100 mg 05/14/17 10:00 05/17/17 10:11 Vitamin B1 - PO 100 mg DAILY [facility] Administration Vancomycin HCl 125 mg 05/15/17 18:00 05/17/17 18:07 Vancomycin Oral Solution PO 125 mg Q6HPO [facility] Administration ASSESSMENT/PLAN: 51yo M with C. Diff colitis vs abx-associated colitis. Pt also anemic with no active bleeds. C diff ag/toxin pending. 1U PRBC ordered. Flagy 500 IV administered. # Diarrhea --WBC 11.7, will continue to trend --C. Diff antigen positive, toxin negative --Isolation precautions --Continue PO vancomycin for 5 more adys --Tylenol 650mg PRN on board if fever develops --CT abd/pelvis--Bilateral pleural effusions with lower lobe atelectasis, trace ascites, and cholelithiasis. No acute abdominal pathology --ECHO pending looking for effusion # Anemia --Hemoccult negative --Hgb improved to 10.1, will continue to monitor --Pt received 1 unit PRBC --Continue Epogen and Ferogen # ESRD on Dialysis MWF --Consulted Nephrology --Patient to dialysis today --AVF construction about 3 weeks ago; permacath in place for current dialysis treatments. Purulent discharge noted --Continue Doxycycline 100 mg po BID for 3 more days #Hyperkalemia --Patient's potassium resolved on own without any treatment --Will continue to monitor # Diabetes mellitus --Pt takes no meds at home --A1C 7.0 --Will discuss with patient --ISS achs --BGM achs # HTN --Home medication continued #HLD --Lipitor 20 mg po hs FEN: Fluids: none Electrolyte abnormalities: none Nutrition: Renal diet PPX: DVT - Heparin 5000U SQ TID dispo: likely d/c tmrw pending echo Visit type - Emergency Visit Emergency Visit: Yes ED Registration Date: 05/13/17 Care time: The patient presented to the Emergency Department on the above date and was hospitalized for further evaluation of their emergent condition. - New Patient This patient is new to me today: No - Critical Care Critical Care patient: No
--- NOTE | 2017-05-17 19:40 | PN ---
Progress Note (short form) - Note Progress Note: Vascular Surgery Pt seen and examined. Left avf good bruit and thrill Suture line expressed. No pus found Continue antibiotics. Getting better. Zachariah Barros DO
[2017-05-17] MEDS: ATORVASTATIN CA 20 MG TABLET (FP) PO SCH (21:24)
[2017-05-18] MEDS: VANCOMYCIN 250 MG/5 ML ORAL SOLUTION PO SCH ×4 (01:06→17:13)
[2017-05-18] MEDS: INSULIN SLIDING SCALE (NOVOLOG) 1 VIAL SQ SCH ×3 (06:32→17:25)
[2017-05-18] MEDS: HEPARIN NA (PORCINE) 5,000 UNITS/ML 1ML VIAL SQ SCH ×2 (06:32→14:07)
[2017-05-18 07:54] LABS: BASOPHIL 1.1 % (0-2.0); EOSINOPHIL 3.2 % (0-4.5); MCHC 32.1 g/dl (32.0-35.9); MEAN CELL VOLUME 80.9 fl (80-96); MEAN PLT VOLUME 7.9 fl (7.5-11.1); NEUTROPHILS 71.5 % (42.8-82.8); PLATELET COUNT 212 K/MM3 (134-434); RDW 16.6 % (11.9-15.9)
[2017-05-18 08:30] LABS: ANION GAP 9 (8-16); CALCIUM 7.7 mg/dL (8.5-10.1); CO2 32 mmol/L (21-32); CREATININE 4.4 mg/dL (0.7-1.3); GLUCOSE,RANDOM 96 mg/dL (74-106); PHOSPHOROUS 3.8 mg/dL (2.5-4.9)
[2017-05-18] MEDS: THIAMINE HCL 100 MG TABLET (FP) PO SCH (11:03)
[2017-05-18] MEDS: FERROUS GLUCONATE 324 MG TAB (FP) PO SCH (11:03)
[2017-05-18] MEDS: FOLIC ACID 1 MG TABLET (FP) PO SCH (11:03)
[2017-05-18] MEDS: LISINOPRIL 20 MG TABLET (FP) PO SCH (11:03)
[2017-05-18] MEDS: DOXYCYCLINE HYCLATE 100 MG CAPSULE PO SCH ×2 (11:03→17:12)
[2017-05-18] MEDS: amLODIPine BESYLATE 10 MG TABLET (FP) PO SCH (11:03)
[2017-05-18] MEDS: METOPROLOL TARTRATE 50 MG TABLET (FP) PO SCH (11:03)
[2017-05-18] MEDS: FLUTICASONE PROP 0.05% 16 GM NASAL SPRAY NS SCH (11:04)
[2017-05-18] MEDS: BACITRACIN/POLYMYXIN B SULFATE 15 GM TUBE TP SCH (11:05)
[2017-05-18] MEDS ORDERED: FUROSEMIDE 40 MG/4 ML INJECTABLE VIAL IVPUSH ONE (14:15)
--- NOTE | 2017-05-18 14:31 | PN ---
Progress Note (short form) - Note Progress Note: PULMONARY Breathing continues to improve. Dialyzed yesterday. +mild nonproductive cough, still with diarrhea. Last Vital Signs Temp Pulse Resp BP Pulse Ox 98.0 F 88 18 148/75 95 05/18/17 10:00 05/18/17 10:00 05/18/17 10:00 05/18/17 10:00 05/17/17 21:00 Gen: NAD at rest Heart: RRR Lung: bibasilar rales Abd: soft, nontender Ext: no edema CBC, BMP 05/18/17 06:00 05/18/17 06:00 Active Medications Acetaminophen (Tylenol -) 650 mg PO Q4H PRN PRN Reason: FEVER OR PAIN Amlodipine Besylate (Norvasc -) 10 mg PO DAILY [facility] Last Admin: 05/18/17 11:03 Dose: 10 mg Atorvastatin Calcium (Lipitor -) 20 mg PO HS [facility] Last Admin: 05/17/17 21:24 Dose: 20 mg Bacitracin/Polymyxin B Sulfate (Polysporin Ointment -) 1 applic TP DAILY [facility] Last Admin: 05/18/17 11:05 Dose: 1 applic Doxycycline Hyclate (Vibramycin -) 100 mg PO BID@1000,1800 [facility] Last Admin: 05/18/17 11:03 Dose: 100 mg Epoetin All (Epogen -) 4,000 units SQ ONCE ONE Stop: 05/18/17 15:01 Last Admin: 05/17/17 15:44 Dose: 4,000 units Ferrous Gluconate (Fergon -) 324 mg PO BID [facility] Last Admin: 05/18/17 11:03 Dose: 324 mg Fluticasone Propionate (Flonase -) 1 spray NS BID [facility] Last Admin: 05/18/17 11:04 Dose: 1 spray Folic Acid (Folic Acid -) 1 mg PO DAILY [facility] Last Admin: 05/18/17 11:03 Dose: 1 mg Heparin Sodium (Porcine) (Heparin -) 5,000 unit SQ TID [facility] Last Admin: 05/18/17 14:07 Dose: Not Given Insulin Aspart (Novolog Vial Sliding Scale -) 1 vial SQ ACHS [facility] PRN Reason: Protocol Last Admin: 05/18/17 11:46 Dose: Not Given Lisinopril (Prinivil) 20 mg PO DAILY [facility] Last Admin: 05/18/17 11:03 Dose: 20 mg Metoprolol Tartrate (Lopressor -) 50 mg PO BID [facility] Last Admin: 05/18/17 11:03 Dose: 50 mg Thiamine HCl (Vitamin B1 -) 100 mg PO DAILY [facility] Last Admin: 05/18/17 11:03 Dose: 100 mg Vancomycin HCl (Vancomycin Oral Solution) 125 mg PO Q6HPO [facility] Last Admin: 05/18/17 11:41 Dose: 125 mg A/P ESRD on HD Pleural Effusions Volume Overload +C Diff Ag HTN DM - HD per renal with increased ultrafiltration - continue PO vanco - continue flonase for nasal congestion - CXR after next HD session - DVT prophylaxis Problem List - Problems (1) Diarrhea Code(s): R19.7 - DIARRHEA, UNSPECIFIED Qualifiers: Diarrhea type: unspecified type Qualified Code(s): R19.7 - Diarrhea, unspecified (2) ESRD (end stage renal disease) Code(s): N18.6 - END STAGE RENAL DISEASE (3) Diabetes Code(s): E11.9 - TYPE 2 DIABETES MELLITUS WITHOUT COMPLICATIONS (4) Fluid overload, unspecified Code(s): E87.70 - FLUID OVERLOAD, UNSPECIFIED Qualifiers: Hypervolemia type: unspecified Qualified Code(s): E87.70 - Fluid overload, unspecified (5) Hypertension Code(s): I10 - ESSENTIAL (PRIMARY) HYPERTENSION Qualifiers: Hypertension type: essential hypertension Qualified Code(s): I10 - Essential (primary) hypertension (6) Nephrotic syndrome Code(s): N04.9 - NEPHROTIC SYNDROME WITH UNSPECIFIED MORPHOLOGIC CHANGES
[2017-05-18] MEDS ORDERED: EPOETIN ALFA 2,000 UNITS/1 ML VIAL SQ ONE (15:00)
--- NOTE | 2017-05-18 15:50 | PN ---
Progress Note, Physician History of Present Illness: Pt seen and examined at bedside. He is awake and alert. He still complains of diarrhea. - Current Medication List Current Medications: Active Medications Acetaminophen (Tylenol -) 650 mg PO Q4H PRN PRN Reason: FEVER OR PAIN Amlodipine Besylate (Norvasc -) 10 mg PO DAILY [facility] Last Admin: 05/18/17 11:03 Dose: 10 mg Atorvastatin Calcium (Lipitor -) 20 mg PO HS [facility] Last Admin: 05/17/17 21:24 Dose: 20 mg Bacitracin/Polymyxin B Sulfate (Polysporin Ointment -) 1 applic TP DAILY [facility] Last Admin: 05/18/17 11:05 Dose: 1 applic Doxycycline Hyclate (Vibramycin -) 100 mg PO BID@1000,1800 [facility] Last Admin: 05/18/17 11:03 Dose: 100 mg Ferrous Gluconate (Fergon -) 324 mg PO BID [facility] Last Admin: 05/18/17 11:03 Dose: 324 mg Fluticasone Propionate (Flonase -) 1 spray NS BID [facility] Last Admin: 05/18/17 11:04 Dose: 1 spray Folic Acid (Folic Acid -) 1 mg PO DAILY [facility] Last Admin: 05/18/17 11:03 Dose: 1 mg Heparin Sodium (Porcine) (Heparin -) 5,000 unit SQ TID [facility] Last Admin: 05/18/17 14:07 Dose: Not Given Insulin Aspart (Novolog Vial Sliding Scale -) 1 vial SQ ACHS [facility] PRN Reason: Protocol Last Admin: 05/18/17 11:46 Dose: Not Given Lisinopril (Prinivil) 20 mg PO DAILY [facility] Last Admin: 05/18/17 11:03 Dose: 20 mg Metoprolol Tartrate (Lopressor -) 50 mg PO BID [facility] Last Admin: 05/18/17 11:03 Dose: 50 mg Thiamine HCl (Vitamin B1 -) 100 mg PO DAILY [facility] Last Admin: 05/18/17 11:03 Dose: 100 mg Vancomycin HCl (Vancomycin Oral Solution) 125 mg PO Q6HPO [facility] Last Admin: 05/18/17 11:41 Dose: 125 mg - Objective Vital Signs: Vital Signs Temperature 98.0 F 05/18/17 10:00 Pulse Rate 88 05/18/17 10:00 Respiratory Rate 18 05/18/17 10:00 Blood Pressure 148/75 05/18/17 10:00 O2 Sat by Pulse Oximetry (%) 95 05/17/17 21:00 Constitutional: Yes: Calm Eyes: Yes: Conjunctiva Clear HENT: Yes: Atraumatic Neck: Yes: Supple Cardiovascular: Yes: S1, S2 Respiratory: Yes: CTA Bilaterally Gastrointestinal: Yes: Soft Genitourinary: Yes: WNL Edema: No Neurological: Yes: Oriented Psychiatric: Yes: Oriented Labs: CBC, BMP 05/18/17 06:00 05/18/17 06:00 Problem List - Problems (1) Anemia Code(s): D64.9 - ANEMIA, UNSPECIFIED Qualifiers: Anemia type: other cause Other causes of anemia: other cause, not classified Qualified Code(s): D64.89 - Other specified anemias (2) Diarrhea Code(s): R19.7 - DIARRHEA, UNSPECIFIED Qualifiers: Diarrhea type: unspecified type Qualified Code(s): R19.7 - Diarrhea, unspecified (3) ESRD (end stage renal disease) Code(s): N18.6 - END STAGE RENAL DISEASE Assessment/Plan Current Medications Generic Name Dose Route Start Last Admin Trade Name Freq PRN Reason Stop Dose Admin Acetaminophen 650 mg 05/13/17 21:27 Tylenol - PO Q4H PRN FEVER OR PAIN Amlodipine Besylate 10 mg 05/14/17 10:00 05/18/17 11:03 Norvasc - PO 10 mg DAILY [facility] Administration Atorvastatin Calcium 20 mg 05/13/17 22:00 05/17/17 21:24 Lipitor - PO 20 mg HS [facility] Administration Bacitracin/Polymyxin B Sulfate 1 applic 05/14/17 19:30 05/18/17 11:05 Polysporin Ointment - TP 1 applic DAILY [facility] Administration Doxycycline Hyclate 100 mg 05/14/17 18:00 05/18/17 11:03 Vibramycin - PO 100 mg BID@1000,1800 [facility] Administration Ferrous Gluconate 324 mg 05/13/17 22:00 05/18/17 11:03 Fergon - PO 324 mg BID [facility] Administration Fluticasone Propionate 1 spray 05/15/17 13:00 05/18/17 11:04 Flonase - NS 1 spray BID [facility] Administration Folic Acid 1 mg 05/14/17 10:00 05/18/17 11:03 Folic Acid - PO 1 mg DAILY [facility] Administration Heparin Sodium (Porcine) 5,000 unit 05/14/17 06:00 05/18/17 14:07 Heparin - SQ Not Given TID [facility] Insulin Aspart 1 vial 05/13/17 22:00 05/18/17 11:46 Novolog Vial Sliding Scale - SQ Not Given ACHS [facility] Protocol Lisinopril 20 mg 05/14/17 10:00 05/18/17 11:03 Prinivil PO 20 mg DAILY [facility] Administration Metoprolol Tartrate 50 mg 05/13/17 22:00 05/18/17 11:03 Lopressor - PO 50 mg BID [facility] Administration Thiamine HCl 100 mg 05/14/17 10:00 05/18/17 11:03 Vitamin B1 - PO 100 mg DAILY [facility] Administration Vancomycin HCl 125 mg 05/15/17 18:00 05/18/17 11:41 Vancomycin Oral Solution PO 125 mg Q6HPO [facility] Administration Impression 1. ESRD 2. diarrhea 3. HTN 4. DM 5. proteinuria 6. anemia 7. c.diff Plan - HD in am - cont PO vanco - vascular input appreciated - cont wound care to fistula - epogen for anemia - will follow
--- NOTE | 2017-05-18 17:00 | DS ---
Physical Exam: LABS Selected Entries 05/13/17 05/14/17 05/14/17 12:39 10:00 12:00 Temperature 98.2 F 99.7 F H Pulse Rate 82 92 H Blood Pressure O2 Sat by Pulse Oximetry (%) Oxygen Delivery Method 05/14/17 05/17/17 05/18/17 20:00 21:00 17:04 Temperature 100.2 F H 100 F H Pulse Rate 84 Blood Pressure 136/78 O2 Sat by Pulse 95 Oximetry (%) Oxygen Delivery Room Air Method Laboratory Tests 05/13/17 05/14/17 05/14/17 13:50 07:51 07:51 WBC 11.7 H Hgb 10.1 L D Hct 32.3 L D Potassium 4.0 6.9 H* D BUN 51 H Creatinine 6.2 H Hemoglobin A1c % Troponin I B-Natriuretic Peptide 05/14/17 05/14/17 05/14/17 07:51 13:00 17:00 WBC Hgb Hct Potassium 2.8 L* D 3.2 L BUN Creatinine Hemoglobin A1c % 7.0 H D Troponin I B-Natriuretic Peptide 05/15/17 05/15/17 05/15/17 06:30 17:30 17:30 WBC Hgb 8.5 L D 9.0 L Hct 25.9 L D Potassium BUN Creatinine Hemoglobin A1c % Troponin I < 0.02 B-Natriuretic Peptide 21074.13 H 05/16/17 05/17/17 05/17/17 06:20 06:00 06:00 WBC Hgb 8.3 L 8.9 L Hct 25.4 L 27.1 L Potassium BUN Creatinine Hemoglobin A1c % Troponin I < 0.02 B-Natriuretic Peptide 05/18/17 05/18/17 06:00 06:00 WBC 7.0 Hgb 9.0 L Hct 28.1 L Potassium 3.6 BUN 21 H D Creatinine 4.4 H D Hemoglobin A1c % Troponin I B-Natriuretic Peptide Microbiology 05/14/17 10:08 Stool Salmonella/Shigella Culture - Final 05/14/17 10:08 Stool Escherichia coli 0157 Culture - Final NO GROWTH OF SALMONELLA OR SHIGELLA SPECIES OBTAINED NO GROWTH OF CAMPYLOBACTER SPECIES OBTAINED NO GROWTH OF YERSINIA SPECIES OBTAINED NO GROWTH OF VIBRIO SPECIES OBTAINED NO GROWTH OF E COLI 0157 OBTAINED 05/14/17 10:08 Stool Gram Stain - Final 05/14/17 10:08 Stool Clostridium difficile Antigen (ROQUE) - Final POSITIVE 05/14/17 10:08 Stool Clostridium difficile Toxin Assay - Final 05/13/17 15:01 Stool Clostridium difficile (PCR) - Preliminary 05/13/17 07:00 Blood - Peripheral Venous Blood Culture - Preliminary NO GROWTH OBTAINED AFTER 96 HOURS, INCUBATION TO CONTINUE FOR 1 DAYS. 05/13/17 06:20 Blood - Peripheral Venous Blood Culture - Preliminary NO GROWTH OBTAINED AFTER 96 HOURS, INCUBATION TO CONTINUE FOR 1 DAYS. Imaging- 05/14 ct abd/pelvis- 1. Bilateral pleural effusions and lower lobe atelectasis. 2. Trace ascites. 3. Cholelithiasis, no acute pathology within the abdomen or pelvis. Please see above discussion. 05/15 cxr-Since 04/28/2017, again is the large heart with right jugular line and congestive changes. There is a new right pleural effusion. A superimposed infiltrate cannot be excluded. Follow-up recommended. 05/16 cxr-Since the prior study of 05/15/2017, the congestive changes have diminished. There is still a weak inspiration, prominent mediastinum and right jugular line with tip in right atrium. Correlation recommended. HOSPITAL COURSE: Date of Admission:05/13/17 Date of Discharge: 05/18/17 51 y.o. M with pmh of ESRD s/p dialysis (MWF), DM, and HTN who presented with profuse, watery diarrhea for a week and anemia. Pt stated he received AVF graft construction about 3 weeks ago and was seen post-op to remove franco. He received IV Clindamycin x1 dose there. Since then he was having profuse, watery diarrhea that was green in color and malodorous without any blood or mucus noted. In the ED,Pt received 500mg IV Flagyl x1 dose, CBC, CMP revealing WBC 11.7, Cr 6.2 (basline ESRD), HgB 7.7, Hct 23.2, 1U PRBC ordered, Hemoccult negative, and EKG - NSR; no change in baseline; no abnormalities noted Patient was admitted. He was found to have + C. Diff antigen. Patient underwent CT abd/pelvis (results above). In addition, patient was found to have normocytic anemia,. Patient also ntoed to have purulent drainage at the AV fistula site. C. Diff Colitis- Patient started on PO flagyl 500 mg TID. Patient was complaining of itching and numbness. He was switched to po vancomycin. Patient will complete a 10 day course. Acute blood loss anemia/normocytic anemia- Patient was found to have low hemoglobin on admission. He improved with 1 unit prbc. Patient has chronic normocytic anemia. Patient will f/u with GI in 4-6 wks to do EGD/colonoscopy. He is on epogen/ferogen. Patient was hemoccult negative Purulent drainage at AV fistual site Patient is a MWF dialysis patient. Was found to have purulent drainage at his site. Patient started on doxycycline and will complete a 7 day course. Purulence improved. Bilateral pleural effusions Patient found to have bilateral pleural effusions on CT abdomen/pelvis. He received one dose of IV lasix. Patient underwent echo, which was unremarkable. Patient will follow up outpatient. Minutes to complete discharge: 45 Discharge Summary Reason For Visit: ANEMIA/DIARRHEA Current Active Problems Anemia (Acute) Colitis due to Clostridium difficile (Acute) Diarrhea (Acute) ESRD (end stage renal disease) (Acute) Neuropathy (Acute) Condition: Improved - Instructions Diet, Activity, Other Instructions: You were in the hospital due to an infection in your colon. Please follow up with your primary care provider within 1 week. Your a1c was elevated to 7.0 (diabetes number). Please repeat this test in 3 months and discuss with your primary care provider. Please follow up with a GI doctor within 4-6 week. A referral has been provided for you. You will require further testing. Please continue going to dialysis every M/W/F. Continue taking your home medications. Start taking the following medications: -Flonase 1 spray 2 times per day -Vancomycin oral solution 125 mg by mouth 4 times per day (4 more days) -Doxycycline 100 mg by mouth two times per day (2 more days) If you have chest pain, shortness of breath, or any new symptoms come back to the hospital immediately. Referrals: Leodan Salguero MD [Staff Physician] - 2 Weeks Juani Oleary MD [Staff Physician] - Disposition: HOME - Home Medications Comprehensive Discharge Medication List: Ambulatory Orders Ferrous Gluconate [Fergon -] 324 mg PO BID 10/31/16 Folic Acid - 1 mg PO DAILY #30 tablet 11/04/16 Thiamine HCl [Vitamin B1 -] 100 mg PO DAILY #30 tablet 11/04/16 Aspirin Coated [Ecotrin -] 81 mg PO DAILY tablet.ec 11/19/16 Atorvastatin Ca [Lipitor] 20 mg PO HS #30 tablet 11/19/16 Amlodipine Besylate [Norvasc -] 10 mg PO DAILY #30 tab 04/30/17 Lisinopril [Prinivil] 20 mg PO DAILY #30 tab 04/30/17 Metoprolol Tartrate [Lopressor -] 50 mg PO BID #60 tab 04/30/17 Doxycycline Hyclate [Vibramycin -] 100 mg PO BID@1000,1800 #4 cap 05/18/17 Fluticasone Prop 0.05% Nasal [Flonase -] 1 spray NS BID #1 spray 05/18/17 Vancomycin Oral Solution 125 mg PO Q6HPO #200 ml 05/18/17 This patient is new to me today: No Emergency Visit: Yes ED Registration Date: 05/13/17 Care time: The patient presented to the Emergency Department on the above date and was hospitalized for further evaluation of their emergent condition. Critical Care patient: No - Discharge Referral Referred to [facility] Med P.C.: No
[2017-05-18 17:04] VITALS: BP 136/78; PULSE 84; TEMP 100
[2017-05-18] MEDS ORDERED: INSULIN (NOVOLOG) ASPART 100 UNITS/ML 10ML VIAL ONE (17:23)
--- NOTE | 2017-05-18 17:36 | PN ---
Teaching Attending Note Name of Resident: Byron Cardoza ATTENDING PHYSICIAN STATEMENT I saw and evaluated the patient. I reviewed the resident's note and discussed the case with the resident. I agree with the resident's findings and plan as documented. SUBJECTIVE:currently asymptomatic. states he had 1 loose BM today but more formed than yesterday. reports on 2 soft BM yesterday. denies Cp, SOB, fever, chills, cough, orthopnea. OBJECTIVE: Last Vital Signs Temp Pulse Resp BP Pulse Ox 100 F H 84 20 136/78 95 05/18/17 17:04 05/18/17 17:04 05/18/17 17:04 05/18/17 17:04 05/17/17 21:00 General NAD CV S1 S2RRRR no murmur/rub/gallop no JVD Lungs crackles B/L bases no wheezing Extremities no edema. some slight discoloration around LUE fistula no oozing or drainage non tender no fluctuance. palpable thrill ASSESSMENT AND PLAN: 51 year old man with a history of HTN, hyperlipidemia, type 2 DM, ESRD who presented to the ER with watery green diarrhea. 1. C. difficile colitis- clinically improved. afebrile. diarrhea improving. on oral vanco will cont to complete 10 day course. will need to f/u with GI for further workup. 2. Fluid overload with vascular congestion and bilateral pleural effusions- no orthopnea, nocturnal cough. mild crackles heard on exam. will give lasix x1. f/ u echo. pt states his dry weight is 176 which he is currently. 3. Cellulitis of LUE AV fistula- improved. no active fluctuance or drainage. on doxy. will complete 5 day course. graft is still functioning. local wound care 4. Anemia secondary to CKD- Continue Epogen, ferrous gluconate 5. HTN-controlled. Continue Lisinopril, Lopressor, Norvasc 6. Hyperlipidemia- Continue Lipitor 7. ESRD on HD- cont HD per normal schedule (MWF). 8. Type 2 diabetes mellitus- diet controlled. continue 9. if echo wnl can be d/c home
[2017-05-19] MEDS ORDERED: EPOETIN ALFA 2,000 UNITS/1 ML VIAL IVPUSH ONE (15:50)
[2017-05-19] MEDS ORDERED: HEPARIN NA (PORCINE) 5,000 UNITS/ML 1ML VIAL IVPUSH ONE (15:50)
== END 2017-05-18 18:28 | disposition home or self-care (01) | DRG 248 ==
LOC: JER 12:38 → JERBED 20:47 → OBSVTOIN 21:27 → J8W 05-14 03:15
PROVIDERS: ADMIT Internal Medicine; ATTEND Internal Medicine
PROC: 30233N1 Transfusion of Nonautologous Red Blood Cells into Peripheral Vein, Percutaneous Approach (ICD-10-PCS; principal; 2017-05-14)
PROC: 5A1D60Z (ICD-10-PCS; 2017-05-14)
DX: A04.7 Enterocolitis due to Clostridium difficile (principal); I13.2 Hypertensive heart and chronic kidney disease with heart failure and with stage 5 chronic kidney disease, or end stage renal disease; N18.6 End stage renal disease; D62 Acute posthemorrhagic anemia; E11.22 Type 2 diabetes mellitus with diabetic chronic kidney disease; I50.32 Chronic diastolic (congestive) heart failure; E11.21 Type 2 diabetes mellitus with diabetic nephropathy; E11.40 Type 2 diabetes mellitus with diabetic neuropathy, unspecified; E11.65 Type 2 diabetes mellitus with hyperglycemia; N04.9 Nephrotic syndrome with unspecified morphologic changes; E87.5 Hyperkalemia; Z99.2 Dependence on renal dialysis; J98.11 Atelectasis; K80.20 Calculus of gallbladder without cholecystitis without obstruction; T82.7XXA Infection and inflammatory reaction due to other cardiac and vascular devices, implants and grafts, initial encounter; L03.114 Cellulitis of left upper limb; D63.1 Anemia in chronic kidney disease; Z88.0 Allergy status to penicillin; E78.5 Hyperlipidemia, unspecified; R80.9 Proteinuria, unspecified; Y83.8 Other surgical procedures as the cause of abnormal reaction of the patient, or of later complication, without mention of misadventure at the time of the procedure
CPT/HCPCS: 36415; 36430; 71010-TC; 74176-TC; 80048; 80053; 82272; 83036; 83735; 83880; 84100; 84132; 84439; 84443; 84484; 84550; 85025; 85027; 86850; 86900; 86901; 86922; 87040; 87045; 87046; 87205; 87324; 87449; 87493; 93005; 93010; 93306-TC; 99283-25; G0378; J0885; J1644; P9038; P9058

== ENCOUNTER 2017-08-14 22:51 | Emergency (ER) | payer OTHER ==
[2017-08-14 22:58] VITALS: BP 148/78; PULSE 80; TEMP 98.5; BMI 26.3
[2017-08-14] MEDS ORDERED: PANTOPRAZOLE SODIUM 40 MG VIAL IVPUSH ONE (23:32)
[2017-08-14] MEDS ORDERED: METOCLOPRAMIDE HCL INJECTION 10 MG/2 ML VIAL IVPUSH ONE (23:32)
--- NOTE | 2017-08-14 23:42 | PDOC ---
History of Present Illness - General Chief Complaint: Nausea/Vomiting Stated Complaint: FATIGUE Time Seen by Provider: 08/14/17 23:05 History Source: Patient Exam Limitations: No Limitations - History of Present Illness Travel History: No Initial Comments: 08/14/17 23:34 52yo Male patient w/ PmHx: HTN, ESRD on Dialysis (M,W,F), Fistula (Left Arm) presents to ED c/o nausea, abdominal bloating and headache. Patient states he feels like he has "liquid on his face," and he has not had a BM x 1 week. Last meal at 2pm (Steak/Salad). He denies any other complaints at this time. Nephrology: Jadyn Willingham MD. PCP: None. Timing/Duration: denies: constant, getting worse, changing over time, intermittent, resolved prior to arrival, gone now, other Quality: denies: mild, moderate, severe, aching, burning, cramping, dullness, fullness, sharpness, stabbing, throbbing, other Abdominal Pain Onset Location: reports: generalized abdomen. denies: RUQ, LUQ, RLQ, LLQ, epigastric, periumbilical, suprapubic, flank, unknown, other Pain Radiation: reports: no radiation Activities at Onset: reports: no specific activity Treatment Prior to Arrive: worse with: analgesics, antacids, cold pack, heat, laxative, enema, other Aggravating Factors: worse with: None, Defecation, Eating, Emotional upset, Exertion, [place], Movement, Voiding, Change in position Alleviating Factors: worse with: None, Belching, Shallow Breathing, Defecation, Eating, Holding Breath, Passing Gas, Change in Position, Rest, Voiding, Vomiting Past History - Travel Traveled outside of the country in the last 30 days: No Close contact w/someone who was outside of country & ill: No - Past Medical History Allergies/Adverse Reactions: Allergies Allergy/AdvReac Type Severity Reaction Status Date / Time Penicillins Allergy Verified 05/13/17 12:38 Home Medications: Ambulatory Orders Amlodipine Besylate [Norvasc -] 10 mg PO DAILY #30 tab 04/30/17 Lisinopril [Prinivil] 20 mg PO DAILY #30 tab 04/30/17 Metoprolol Tartrate [Lopressor -] 50 mg PO BID #60 tab 04/30/17 Ondansetron [Zofran Odt -] 4 mg SL Q6H PRN #30 od.tablet 08/15/17 Cardiac Disorders: Yes (valvular heart disease) COPD: No Dementia: Yes Diabetes: Yes Dialysis: Yes HTN: Yes - Immunization History Immunization Up to Date: Yes - Suicide/Smoking/Psychosocial Hx Smoking History: Never smoked Have you smoked in the past 12 months: No Information on smoking cessation initiated: No Hx Alcohol Use: No Drug/Substance Use Hx: No Substance Use Type: None Hx Substance Use Treatment: No Abd/GI Specific PMHX - Complaint Specific PMHX Colitis: No Diverticulitis: No Gall Bladder Disease: No GERD: No Hepatitis: No Irritable Bowel Synd (IBS): No Pancreatitis: No GI Ulcer Disease: No Review of Systems - Review of Systems Able to Perform ROS?: Yes Is the patient limited Irish proficient: No ABD/GI: Yes: Constipated, Nausea, Abdominal cramping (Mid abdominal pain). No: Diarrhea, Poor Appetite, Poor Fluid Intake, Vomiting Neurological: Yes: Headache All Other Systems: Reviewed and Negative *Physical Exam - Vital Signs Last Vital Signs Temp Pulse Resp BP Pulse Ox 98.5 F 80 22 148/78 92 L 08/14/17 22:52 08/14/17 22:52 08/14/17 22:52 08/14/17 22:52 08/14/17 22:52 - Physical Exam General Appearance: Yes: Nourished, Appropriately Dressed. No: Apparent Distress, Mild Distress, Moderate Distress, Severe Distress Neck: positive: Trachea midline, Supple. negative: Tender, Rigid, Stridor, Lymphadenopathy (R), Lymphadenopathy (L) Respiratory/Chest: positive: Lungs Clear, Normal Breath Sounds. negative: Chest Tender, Respiratory Distress, Accessory Muscle Use, Labored Respiration, Rapid RR, Decreased Breath Sounds, Paradoxal Breathing, Crackles, Rhonchi, Stridor, Wheezing Cardiovascular: positive: Regular Rhythm, Regular Rate Gastrointestinal/Abdominal: positive: Soft, Increased Bowel Sounds, Distended. negative: Guarding, Rebound, Tenderness Musculoskeletal: positive: Normal Inspection. negative: CVA Tenderness, Decreased Range of Motion, Vertebral Tenderness Extremity: positive: Normal Capillary Refill, Normal Inspection, Normal Range of Motion. negative: Pedal Edema, Swelling, Calf Tenderness, Erythema, Inflammation Integumentary: positive: Normal Color, Dry, Warm. 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 Patient to be d/c'd to home so that he may get to dialysis today at 3pm. *DC/Admit/Observation/Transfer Diagnosis at time of Disposition: Nausea CKD (chronic kidney disease) Qualifiers: Chronic kidney disease stage: unspecified stage Qualified Code(s): N18.9 - Chronic kidney disease, unspecified - Discharge Dispostion Disposition: HOME Condition at time of disposition: Improved Admit: No - Prescriptions Prescriptions: Ondansetron [Zofran Odt -] 4 mg SL Q6H PRN #30 od.tablet PRN Reason: Nausea - Referrals - Patient Instructions Printed Discharge Instructions: DI for Nausea -- Adult Additional Instructions: Follow up with your primary care provider. Call to schedule appointment. Take medications as prescribed. Return if symptoms worsen, or any concerns for further evaluation. Be sure to attend dialysis later today as scheduled. Print Language: [place] - Post Discharge Activity
[2017-08-15 00:04] LABS: BASOPHIL 1.2 % (0-2.0); MCH 22.7 pg (25.7-33.7); MCHC 30.5 g/dl (32.0-35.9); MEAN CELL VOLUME 74.3 fl (80-96); MEAN PLT VOLUME 7.8 fl (7.5-11.1); PLATELET COUNT 197 K/MM3 (134-434); RDW 18.1 % (11.9-15.9); WHITE BLOOD COUNT 9.4 K/mm3 (4.0-10.0)
[2017-08-15] MEDS ORDERED: METOCLOPRAMIDE HCL INJECTION 10 MG/2 ML VIAL ONE (00:07)
[2017-08-15] MEDS ORDERED: PANTOPRAZOLE SODIUM 40 MG/100 ML BAG IVPB ONE (00:07)
[2017-08-15 00:26] LABS: ALBUMIN 2.7 g/dl (3.4-5.0); AMYLASE 39 U/L (25-115); ANION GAP 10 (8-16); BILIRUBIN,TOTAL 0.5 mg/dL (0.2-1.0); CALCIUM 8.2 mg/dL (8.5-10.1); CO2 29 mmol/L (21-32); CREATININE 6.1 mg/dL (0.7-1.3); GLUCOSE,RANDOM 175 mg/dL (74-106); SGOT/AST 11 U/L (15-37); SGPT/ALT 17 U/L (12-78); TOT PROT 7.4 g/dl (6.4-8.2)
[2017-08-15 00:27] LABS: ALK PHOS 146 U/L (45-117)
[2017-08-15] MEDS ORDERED: ONDANSETRON 4 MG/2 ML VIAL IVPB ONE (01:51)
[2017-08-15] MEDS ORDERED: FAMOTIDINE 20 MG/50 ML IVPB 20 MG/50 ML MG IVPB ONE ×2 (02:19→02:46)
== END 2017-08-15 05:20 | disposition home or self-care (01) ==
LOC: JER 22:51
PROC: 3E033GC Introduction of Other Therapeutic Substance into Peripheral Vein, Percutaneous Approach (ICD-10-PCS; principal; 2017-08-14)
PROC: 3E033GC Introduction of Other Therapeutic Substance into Peripheral Vein, Percutaneous Approach (ICD-10-PCS; 2017-08-14)
PROC: 3E033GC Introduction of Other Therapeutic Substance into Peripheral Vein, Percutaneous Approach (ICD-10-PCS; 2017-08-14)
DX: R11.0 Nausea (principal); I12.0 Hypertensive chronic kidney disease with stage 5 chronic kidney disease or end stage renal disease; E11.22 Type 2 diabetes mellitus with diabetic chronic kidney disease; N18.6 End stage renal disease; N17.8 Other acute kidney failure; Z99.2 Dependence on renal dialysis; F03.90 Unspecified dementia, unspecified severity, without behavioral disturbance, psychotic disturbance, mood disturbance, and anxiety
CPT/HCPCS: 36415; 74020-TC; 80053; 82150; 83690; 85025; 96365; 96375; 99283-25

== ENCOUNTER 2017-11-24 19:28 | Observation (INO) | payer OTHER ==
--- NOTE | 2017-11-24 19:55 | PDOC ---
Rapid Medical Evaluation Time Seen by Provider: 11/24/17 19:52 Medical Evaluation: Allergies Allergy/AdvReac Type Severity Reaction Status Date / Time Penicillins Allergy Verified 05/13/17 12:38 11/24/17 19:52 I have performed a brief in-person evaluation of this patient. The patient presents with a chief complaint of: flu symptoms x 2 days including fever/vomiting, sent in from nephrology office (Dr. Oleary), pt c/o chills Pertinent physical exam findings: flushed, uncomfortable appearing I have ordered the following: sepsis workup The patient will proceed to the ED for further evaluation. Discharge Disposition - Diagnosis Flu-like symptoms - Referrals - Patient Instructions - Post Discharge Activity
[2017-11-24] MEDS ORDERED: ACETAMINOPHEN 325 MG TABLET (FP) PO ONE (21:08)
[2017-11-24 21:27] LABS: BASO % 0.4 % (0-2.0); EOS % 1.5 % (0-4.5); HEMATOCRIT 33.8 % (35.4-49); LYMPH % 4.4 % (8-40); MCH 25.7 pg (25.7-33.7); MCHC 32.6 g/dl (32.0-35.9); MEAN CELL VOLUME 78.8 fl (80-96); MEAN PLT VOLUME 8.4 fl (7.5-11.1); MONO % 5.3 % (3.8-10.2); NEUT % 88.4 % (42.8-82.8); PLATELET COUNT 135 K/MM3 (134-434); RBC 4.29 M/mm3 (4.00-5.60); RDW 19.9 % (11.9-15.9); WHITE BLOOD COUNT 11.5 K/mm3 (4.0-10.0)
[2017-11-24 21:28] LABS: VENOUS PC02 39.6 mmHg (38-52); VENOUS PH 7.48 (7.32-7.42); VENOUS PO2 87.8 mmHg (28-48)
[2017-11-24 21:50] LABS: ALBUMIN 3.1 g/dl (3.4-5.0); ANION GAP 10 (8-16); BLOOD UREA NITROGEN 18 mg/dL (7-18); CHLORIDE 99 mmol/L (98-107); CO2 28 mmol/L (21-32); CREATININE 3.2 mg/dL (0.7-1.3); GLUCOSE,RANDOM 112 mg/dL (74-106); POTASSIUM 3.4 mmol/L (3.5-5.1); SGOT/AST 21 U/L (15-37); SGPT/ALT 34 U/L (12-78); SODIUM 137 mmol/L (136-145); TOT PROT 7.8 g/dl (6.4-8.2)
[2017-11-24 21:52] LABS: ALK PHOS 177 U/L (45-117)
--- NOTE | 2017-11-24 21:58 | PDOC ---
Attending Attestation - Resident Resident Name: Leyda Rose - ED Attending Attestation I have performed the following: I have examined & evaluated the patient, The case was reviewed & discussed with the resident, I agree w/resident's findings & plan, Exceptions are as noted - HPI HPI: 11/24/17 21:57 Pt with flu like symptoms - Physicial Exam PE: 11/24/17 21:56 *Physical Exam General Appearance: Yes: Appropriately Dressed. No: Apparent Distress, Intoxicated HEENT: positive: EOMI, SHARITA, Normal ENT Inspection, Normal Voice, TMs Normal, Pharynx Normal. negative: Pale Conjunctivae, Photophobia, Scleral Icterus (R), Scleral Icterus (L) Neck: positive: Trachea midline, Normal Thyroid, Supple. negative: Tender, Rigid, Carotid bruit, Stridor, Lymphadenopathy (R), Lymphadenopathy (L), Thyromegaly Respiratory/Chest: positive: Lungs Clear, Normal Breath Sounds. negative: Chest Tender, Respiratory Distress, Accessory Muscle Use, Labored Respiration, RES, Crackles, Rales, Rhonchi, Stridor, Wheezing, Dullness Cardiovascular: positive: Regular Rhythm, Regular Rate, S1, S2. negative: Edema , JVD, Murmur, Bradycardia, Tachycardia Vascular Pulses: Dorsalis-Pedis (R): 2+, Doralis-Pedis (L): 2+ Gastrointestinal/Abdominal: positive: Normal Bowel Sounds, Flat, Soft. negative : Tender, Organomegaly, Pulsatile Mass, Increased Bowel Sounds, Decreased BS, Distended, Guarding, Rebound, Hernia, Hepatomegaly, Spleenomegaly Lymphatic: negative: Adenopathy, Tenderness Musculoskeletal: positive: Normal Inspection. negative: CVA Tenderness, Decreased Range of Motion Extremity: positive: Normal Capillary Refill, Normal Inspection, Normal Range of Motion, Pelvis Stable. negative: Tender, Pedal Edema, Swelling, Erythema Integumentary: positive: Normal Color, Dry, Warm. 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 negative: EOM Palsy, Facial Droop, Sensory Deficit - Medical Decision Making 11/24/17 22:16 Pt treated and released
[2017-11-24] MEDS ORDERED: OSELTAMIVIR PHOSPHATE 75 MG CAPSULE ONE (22:02)
[2017-11-24] MEDS ORDERED: OSELTAMIVIR PHOSPHATE 30 MG CAPSULE PO ONE (22:04)
--- NOTE | 2017-11-24 22:09 | PDOC ---
History of Present Illness - General Chief Complaint: Cold Symptoms Stated Complaint: COLD SYMPTOMS Time Seen by Provider: 11/24/17 19:52 History Source: Patient Exam Limitations: No Limitations - History of Present Illness Initial Comments: 11/24/17 22:06 52 y/o M with PMH ESRD (on dialysis M, W, F; last dialysis session today. Dr. Nolen), DM, HTN, who presents to the ED c/o cough and myalgia over the past two days. As per pt, over the past two days, he has had a nonproductive cough, fever (Tmax 102F), as well as dizziness, chills, and generalized weakness. He did not try to take any medications at home, however his sx were alleviated with the Tylenol that was given in the ED. During this time, pt also endorses nausea (without emesis). Otherwise, denies SOB, chest pain, or diarrhea. PMH: as above PsxH: fistula placement, dialysis port placement (March 2017) meds: "HTN meds" does not know names allergies: PCN- causes edema FH: father- DM, HTN, mother- was on dialysis, renal issues SH: currently on disability. 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 denies cigarette or recreational drug use. Drank alcohol previously- "6 pack twice a week", however stopped drinking 6-7 months ago 11/25/17 04:15 Past History - Past Medical History Allergies/Adverse Reactions: Allergies Allergy/AdvReac Type Severity Reaction Status Date / Time Penicillins Allergy Verified 11/25/17 01:03 Home Medications: Ambulatory Orders Amlodipine Besylate [Norvasc -] 10 mg PO DAILY #30 tab 04/30/17 Lisinopril [Prinivil] 20 mg PO DAILY #30 tab 04/30/17 Metoprolol Tartrate [Lopressor -] 50 mg PO BID #60 tab 04/30/17 Ondansetron [Zofran Odt -] 4 mg SL Q6H PRN #30 od.tablet 08/15/17 Oseltamivir Phosphate [Tamiflu] 30 mg PO BID #10 capsule 11/24/17 Cardiac Disorders: Yes (valvular heart disease) COPD: No Dementia: Yes Diabetes: Yes Dialysis: Yes HTN: Yes - Immunization History Immunization Up to Date: Yes - Suicide/Smoking/Psychosocial Hx Smoking History: Never smoked Have you smoked in the past 12 months: No Information on smoking cessation initiated: No Hx Alcohol Use: No Drug/Substance Use Hx: No Substance Use Type: None Hx Substance Use Treatment: No Review of Systems - Review of Systems Able to Perform ROS?: Yes Is the patient limited Malagasy proficient: No Constitutional: Yes: Malaise, Weakness Respiratory: Yes: Cough ABD/GI: Yes: Nausea All Other Systems: Reviewed and Negative *Physical Exam - Vital Signs Last Vital Signs Temp Pulse Resp BP Pulse Ox 100.4 F H 100 H 21 171/79 95 11/24/17 19:55 11/24/17 19:55 11/24/17 19:55 11/24/17 19:55 11/24/17 19:55 - Physical Exam General Appearance: Yes: Nourished, Mild Distress HEENT: positive: EOMI, SHARITA Neck: positive: Supple Respiratory/Chest: positive: Lungs Clear, Normal Breath Sounds Cardiovascular: positive: Regular Rhythm, S1, S2, Tachycardia Gastrointestinal/Abdominal: positive: Normal Bowel Sounds, Soft 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 ED Treatment Course - LABORATORY CBC & Chemistry Diagram: 11/24/17 21:11 11/24/17 21:11 - ADDITIONAL ORDERS Additional order review: Laboratory Results 11/24/17 11/24/17 11/24/17 21:11 21:11 21:11 VBG pH 7.48 H POC VBG pCO2 39.6 POC VBG pO2 87.8 H Mixed VBG HCO3 29.2 H Sodium 137 Potassium 3.4 L D Chloride 99 Carbon Dioxide 28 Anion Gap 10 BUN 18 D Creatinine 3.2 H D Creat Clearance w eGFR 20.66 Random Glucose 112 H D Lactic Acid 0.8 Calcium 8.0 L Total Bilirubin 1.0 D AST 21 D ALT 34 D Alkaline Phosphatase 177 H D Creatine Kinase 140 Troponin I < 0.02 Total Protein 7.8 Albumin 3.1 L 11/24/17 21:11 RBC 4.29 MCV 78.8 L MCHC 32.6 RDW 19.9 H MPV 8.4 Neutrophils % 88.4 H Lymphocytes % 4.4 L D Monocytes % 5.3 Eosinophils % 1.5 Basophils % 0.4 - Medications Given in the ED: ED Medications Discontinued Medications Generic Name Dose Route Start Last Admin Trade Name Freq PRN Reason Stop Dose Admin Acetaminophen 975 mg 11/24/17 21:08 11/24/17 21:10 Tylenol - PO 11/24/17 21:09 975 mg ONCE ONE Administration Medical Decision Making - Medical Decision Making 11/24/17 22:15 52 y/o M with PMH ESRD (on dialysis M, W, F; last dialysis session today), DM, HTN, who presents to the ED c/o cough and myalgia over the past two days. Differentials - influenza, URI. Will give pt first dose tamiflu 30mg - renally dose. will continue on 5 day course 30mg BID. 11/24/17 23:44 pt with UA with trace leuks, 27 WBCs, diffuse abdominal tenderness - will give levaquin 250mg PO x 1 11/25/17 03:05 pt sx worse - received first dose tamiflu 30mg ESRD pt, septic with fever, tachycardia, white count -11.5 11/25/17 03:38 MBMD sent 11/25/17 04:14 discussed case w/ Dr. Blackwood will place in obs *DC/Admit/Observation/Transfer Diagnosis at time of Disposition: Flu-like symptoms - Discharge Dispostion Condition at time of disposition: Guarded Admit: Yes - Prescriptions Prescriptions: Oseltamivir Phosphate [Tamiflu] 30 mg PO BID #10 capsule - Referrals - Patient Instructions - Post Discharge Activity
[2017-11-24 22:13] LABS: INR 1.21 (0.82-1.09); PROTHROMBIN TIME (PATIENT) 13.7 SEC (9.98-11.88)
[2017-11-24 22:15] LABS: ACTIVATED PTT 32.8 SECONDS (26.9-34.4)
[2017-11-24 23:23] LABS: URINE APPEARANCE CLEAR; URINE BILIRUBIN NEGATIVE (NEGATIVE); URINE BLOOD NEGATIVE (NEGATIVE); URINE COLOR YELLOW; URINE GLUCOSE (UA) 2+ (NEGATIVE); URINE KETONE TRACE (NEGATIVE); URINE LEUK ESTERASE TRACE (NEGATIVE); URINE NITRITE NEGATIVE (NEGATIVE); URINE PROTEIN 3+ (NEGATIVE); URINE UROBILINOGEN NEGATIVE mg/dL (0.2-1.0)
[2017-11-24 23:36] LABS: EPI CELLS RARE /HPF (FEW); GRANULAR CASTS 23 /lpf; URINE BACTERIA RARE /hpf (NONE SEEN); URINE HYALINE CAST 2 /lpf; URINE MUCUS RARE
[2017-11-25] MEDS ORDERED: guaiFENesin/D-M SUGAR-FREE/ACLHOL-FREE 118 ML BOTTLE PO PRN (05:58)
[2017-11-25] MEDS ORDERED: ONDANSETRON 4 MG TABLET PO PRN (06:01)
--- NOTE | 2017-11-25 06:03 | HP ---
CHIEF COMPLAINT: fever, cough PCP: HISTORY OF PRESENT ILLNESS: The patient is a 52 y/o M with PMH ESRD (on dialysis M, W, F; last dialysis session today. Dr. Nolen), DM, HTN, who presents to the ED c/o cough and myalgia over the past two days. The patient's symptoms started with a nonproductive cough, fever (Tmax 102F), as well as dizziness, chills, and generalized weakness. The symptoms got progressively worse and became associated with myalgias. Patient was sent from dialysis today for evaluation. During this time, pt also endorses nausea (without emesis). 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 Otherwise, denies SOB, chest pain, or diarrhea. ER course was notable for: (1) fever to 100.4, tachycardic to 100, BP 171/79 (2) WBC 11.5, potassium 3.4 (3) CXR WNL Recent Travel: none PAST MEDICAL HISTORY: DM HTN ESRD PAST SURGICAL HISTORY: AV fistula placement Social History: Smoking: denies Alcohol: drinks 2 x 6 packs per week, quit 6 months ago Drugs: denies Family History: non-contributory Allergies Penicillins Allergy (Verified 11/25/17 01:03) GENERALIZED EDEMA "MY KIDNEYS FAILED>" HOME MEDICATIONS: Home Medications Medication Instructions Recorded Amlodipine Besylate [Norvasc -] 10 mg PO DAILY #30 tab 04/30/17 Lisinopril [Prinivil] 20 mg PO DAILY #30 tab 04/30/17 Metoprolol Tartrate [Lopressor -] 50 mg PO BID #60 tab 04/30/17 Ondansetron [Zofran Odt -] 4 mg SL Q6H PRN #30 od.tablet 08/15/17 Oseltamivir Phosphate [Tamiflu] 30 mg PO BID #10 capsule 11/24/17 REVIEW OF SYSTEMS CONSTITUTIONAL: Absent: loss of appetite, weight change HEENT: Absent: rhinorrhea, nasal congestion, throat pain, throat swelling, difficulty swallowing, mouth swelling, ear pain, eye pain, visual changes CARDIOVASCULAR: Absent: chest pain, syncope, palpitations, irregular heart rate, lightheadedness , peripheral edema RESPIRATORY: Absent: dyspnea with exertion, orthopnea, wheezing, stridor, hemoptysis GASTROINTESTINAL: Absent: abdominal pain, abdominal distension, nausea, vomiting, diarrhea, constipation, melena, hematochezia GENITOURINARY: Absent: dysuria, frequency, urgency, hesitancy, hematuria, flank pain, genital pain MUSCULOSKELETAL: Absent: joint swelling, back pain, neck pain SKIN: Absent: rash, itching, pallor HEMATOLOGIC/IMMUNOLOGIC: Absent: easy bleeding, easy bruising, lymphadenopathy, frequent infections ENDOCRINE: Absent: unexplained weight gain, unexplained weight loss, heat intolerance, cold intolerance NEUROLOGIC: Absent: headache, focal weakness or paresthesias, dizziness, unsteady gait, seizure, mental status changes, bladder or bowel incontinence PSYCHIATRIC: Absent: anxiety, depression, suicidal or homicidal ideation, hallucinations. PHYSICAL EXAMINATION Vital Signs - 24 hr 11/24/17 19:55 Temperature 100.4 F H Pulse Rate 100 H Respiratory 21 Rate Blood Pressure 171/79 O2 Sat by Pulse 95 Oximetry (%) GENERAL: Awake, alert, and fully oriented. Patient appears tired and coughs violently throughout the interview HEAD: Normal with no signs of trauma. EYES: Pupils equal, round and reactive to light, extraocular movements intact, sclera anicteric, conjunctiva clear. No lid lag. EARS, NOSE, THROAT: Ears normal, nares patent, oropharynx clear without exudates. Moist mucous membranes. NECK: Normal range of motion, supple without lymphadenopathy, JVD, or masses. LUNGS: Breath sounds equal, clear to auscultation bilaterally. No wheezes, and no crackles. No accessory muscle use. HEART: Regular rate and rhythm, normal S1 and S2 without murmur, rub or gallop. ABDOMEN: Soft, nontender, not distended, normoactive bowel sounds, no guarding, no rebound, no masses. No hepatomegaly or splenomegaly. LOWER EXTREMITIES: 2+ pulses, warm, well-perfused. No calf tenderness. 2+ peripheral edema. NEUROLOGICAL: Cranial nerves II-X intact. Normal speech. SKIN: Warm, dry, normal turgor, no rashes or lesions noted, normal capillary refill. Laboratory Results - last 24 hr 11/24/17 11/24/17 11/24/17 21:11 21:11 21:11 WBC 11.5 H RBC 4.29 Hgb 11.0 L D Hct 33.8 L MCV 78.8 L MCH 25.7 D MCHC 32.6 RDW 19.9 H Plt Count 135 D MPV 8.4 Neutrophils % 88.4 H Lymphocytes % 4.4 L D Monocytes % 5.3 Eosinophils % 1.5 Basophils % 0.4 PT with INR 13.70 H INR 1.21 H PTT (Actin FS) 32.8 VBG pH 7.48 H POC VBG pCO2 39.6 POC VBG pO2 87.8 H Mixed VBG HCO3 29.2 H Sodium Potassium Chloride Carbon Dioxide Anion Gap BUN Creatinine Creat Clearance w eGFR Random Glucose Lactic Acid Calcium Total Bilirubin AST ALT Alkaline Phosphatase Creatine Kinase Troponin I Total Protein Albumin Urine Color Urine Appearance Urine pH Ur Specific [place] Urine Protein Urine Glucose (UA) Urine Ketones Urine Blood Urine Nitrite Urine Bilirubin Urine Urobilinogen Ur Leukocyte Esterase Urine WBC (Auto) Urine RBC (Auto) Ur Epithelial Cells Urine Bacteria Hyaline Casts Granular Casts Urine Mucus Blood Type Antibody Screen 11/24/17 11/24/17 11/24/17 21:11 21:11 21:11 WBC RBC Hgb Hct MCV MCH MCHC RDW Plt Count MPV Neutrophils % Lymphocytes % Monocytes % Eosinophils % Basophils % PT with INR INR PTT (Actin FS) VBG pH POC VBG pCO2 POC VBG pO2 Mixed VBG HCO3 Sodium 137 Potassium 3.4 L D Chloride 99 Carbon Dioxide 28 Anion Gap 10 BUN 18 D Creatinine 3.2 H D Creat Clearance w eGFR 20.66 Random Glucose 112 H D Lactic Acid 0.8 Calcium 8.0 L Total Bilirubin 1.0 D AST 21 D ALT 34 D Alkaline Phosphatase 177 H D Creatine Kinase 140 Troponin I < 0.02 Total Protein 7.8 Albumin 3.1 L Urine Color Urine Appearance Urine pH Ur Specific [place] Urine Protein Urine Glucose (UA) Urine Ketones Urine Blood Urine Nitrite Urine Bilirubin Urine Urobilinogen Ur Leukocyte Esterase Urine WBC (Auto) Urine RBC (Auto) Ur Epithelial Cells Urine Bacteria Hyaline Casts Granular Casts Urine Mucus Blood Type O POSITIVE Antibody Screen Negative 11/24/17 23:00 WBC RBC Hgb Hct MCV MCH MCHC RDW Plt Count MPV Neutrophils % Lymphocytes % Monocytes % Eosinophils % Basophils % PT with INR INR PTT (Actin FS) VBG pH POC VBG pCO2 POC VBG pO2 Mixed VBG HCO3 Sodium Potassium Chloride Carbon Dioxide Anion Gap BUN Creatinine Creat Clearance w eGFR Random Glucose Lactic Acid Calcium Total Bilirubin AST ALT Alkaline Phosphatase Creatine Kinase Troponin I Total Protein Albumin Urine Color Yellow Urine Appearance Clear Urine pH 7.0 D Ur Specific [place] 1.017 Urine Protein 3+ H Urine Glucose (UA) 2+ H Urine Ketones Trace H Urine Blood Negative Urine Nitrite Negative Urine Bilirubin Negative Urine Urobilinogen Negative Ur Leukocyte Esterase Trace Urine WBC (Auto) 27 Urine RBC (Auto) 8 Ur Epithelial Cells Rare Urine Bacteria Rare Hyaline Casts 2 Granular Casts 23 Urine Mucus Rare Blood Type Antibody Screen ASSESSMENT/PLAN: The patient is a 52 yo m w/ PMH ESRD, DM, HTN who is being admitted for flu. #Generalized weakness and cough likely 2/2 influenza -Tamiflu every other day after dialysis for a total of 5 days -S/P tamiflu 30 in ED -dextrometorphan PRN cough -respiratory virus PCR -renal consult for dialysis #Hypokalemia -s/p 40meq kcl PO -f/u am labs #FEN -no fluids indicated -monitor potassium -diabetic diet #prophylaxis -SCDs #dispo -admit to med surg Visit type - Emergency Visit Emergency Visit: Yes ED Registration Date: 11/25/17 Care time: The patient presented to the Emergency Department on the above date and was hospitalized for further evaluation of their emergent condition. - New Patient This patient is new to me today: Yes Date on this admission: 11/25/17 - Critical Care Critical Care patient: No Hospitalist Screening - Colonoscopy Questionnaire Colonoscopy Questionnaire: Colonoscopy Questionnaire - Patient: 50 - 75 years old and never had a screening colonoscopy: Unknown History of colon or rectal polyps, or CA: Unknown History of IBD, Crohn's disease or UC: Unknown History of abdominal radiation therapy as a child: Unknown - Relative: 1 with colon or rectal CA, or polyps at age 60 or younger: Unknown Colon or rectal CA diagnosed at age 45 or younger: Unknown Multiple relatives with colon or rectal CA: Unknown - Outcome: Screening Result: Negative Screen
[2017-11-25] MEDS ORDERED: guaiFENesin/D-METHORPHAN HB 10 ML UNIT-DOSE CUPS ONE (06:12)
--- NOTE | 2017-11-25 06:14 | PN ---
Teaching Attending Note Name of Resident: Hamilton Sellers ATTENDING PHYSICIAN STATEMENT I saw and evaluated the patient. Chart, data, imaging reviewed. I reviewed the resident's note and discussed the case with the resident. I agree with the resident's findings and plan as documented. SUBJECTIVE: 52 y/o M with PMH ESRD (on dialysis M, W, F; last dialysis session 11/24. Dr. Nolen), DM, HTN, presented c/o dry cough and myalgia for 2 days. No obvious sick contacts but patient works in [employer] and reports sick people there recently. No recent travels. He did not try to take any antibiotics recently. He denied any dysuria. OBJECTIVE: Last Vital Signs Temp Pulse Resp BP Pulse Ox 98.8 F 88 17 132/59 92 L 11/25/17 06:04 11/25/17 06:04 11/25/17 06:04 11/25/17 06:04 11/25/17 06:04 general - appears acutely ill, dry cough + heent- no sinus tenderness, no pharyngeal injection neck -supple, no jvd cv -s1+s2+ RRR chest- faint crackles b/l abdomen- soft, nt, no masses appreciated ext - left arm AV fistula- good thrill and bruit appreciated Abnormal Lab Results 11/24/17 11/24/17 11/24/17 21:11 21:11 21:11 WBC 11.5 H Hgb 11.0 L D Hct 33.8 L MCV 78.8 L RDW 19.9 H Neutrophils % 88.4 H Lymphocytes % 4.4 L D PT with INR 13.70 H INR 1.21 H VBG pH 7.48 H POC VBG pO2 87.8 H Mixed VBG HCO3 29.2 H Potassium Creatinine Random Glucose Calcium Alkaline Phosphatase Albumin Urine Protein Urine Glucose (UA) Urine Ketones 11/24/17 11/24/17 21:11 23:00 WBC Hgb Hct MCV RDW Neutrophils % Lymphocytes % PT with INR INR VBG pH POC VBG pO2 Mixed VBG HCO3 Potassium 3.4 L D Creatinine 3.2 H D Random Glucose 112 H D Calcium 8.0 L Alkaline Phosphatase 177 H D Albumin 3.1 L Urine Protein 3+ H Urine Glucose (UA) 2+ H Urine Ketones Trace H ASSESSMENT AND PLAN: #52yo man with ESRD, HTN presenting with URI, most likely influenza. Received Tamiflu in ER. Do not suspect pneumonia at this time as CXR is unchanged. -observation -bedrest -drople precautions -blood cultures x2 -tamiflu 30mg PO after HD on HD days for 5 days -respiratory multiplex PCR -tylenol PRN for feve/pain -PO fluid hydration -dextromethorphan for cough suppression #restart home meds #DVT ppx- heparin sc
[2017-11-25] MEDS: INSULIN SLIDING SCALE (NOVOLOG) 1 VIAL SQ SCH ×4 (07:02→22:39)
--- NOTE | 2017-11-25 08:29 | PN ---
<Ruben Rosas - Last Filed: 11/25/17 11:25> Physical Exam: SUBJECTIVE: No OVN events. Patient states that he has been feeling feverish with body aches for 3 days. Denies SOB, chest pain, nausea, vomiting, diarrhea. 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 Reports trying theraflu as an outpatient which made him feel better. States that he gets lasix 20mg on days not on dialysis OBJECTIVE: Vital Signs Period Temp Pulse Resp BP Sys/Benz Pulse Ox Last 24 Hr 98.6 F-100.4 F 88-100 17-21 132-171/59-80 92-99 GEN:A&Ox3 CV: RRR, No murmurs Pulm: CTA, no wheezing, no crackles Abd: soft, nontender, BS present Ext: no edema, 2+ pulses, L sided fistula auscultated in L arm and L shoulder Neuro: CN II-XII intact Laboratory Results - last 24 hr 11/24/17 11/24/17 11/24/17 21:11 21:11 21:11 WBC 11.5 H RBC 4.29 Hgb 11.0 L D Hct 33.8 L MCV 78.8 L MCH 25.7 D MCHC 32.6 RDW 19.9 H Plt Count 135 D MPV 8.4 Neutrophils % 88.4 H Lymphocytes % 4.4 L D Monocytes % 5.3 Eosinophils % 1.5 Basophils % 0.4 PT with INR 13.70 H INR 1.21 H PTT (Actin FS) 32.8 VBG pH 7.48 H POC VBG pCO2 39.6 POC VBG pO2 87.8 H Mixed VBG HCO3 29.2 H Sodium Potassium Chloride Carbon Dioxide Anion Gap BUN Creatinine Creat Clearance w eGFR Random Glucose Lactic Acid Calcium Total Bilirubin AST ALT Alkaline Phosphatase Creatine Kinase Troponin I Total Protein Albumin Urine Color Urine Appearance Urine pH Ur Specific [place] Urine Protein Urine Glucose (UA) Urine Ketones Urine Blood Urine Nitrite Urine Bilirubin Urine Urobilinogen Ur Leukocyte Esterase Urine WBC (Auto) Urine RBC (Auto) Ur Epithelial Cells Urine Bacteria Hyaline Casts Granular Casts Urine Mucus Blood Type Antibody Screen 11/24/17 11/24/17 11/24/17 21:11 21:11 21:11 WBC RBC Hgb Hct MCV MCH MCHC RDW Plt Count MPV Neutrophils % Lymphocytes % Monocytes % Eosinophils % Basophils % PT with INR INR PTT (Actin FS) VBG pH POC VBG pCO2 POC VBG pO2 Mixed VBG HCO3 Sodium 137 Potassium 3.4 L D Chloride 99 Carbon Dioxide 28 Anion Gap 10 BUN 18 D Creatinine 3.2 H D Creat Clearance w eGFR 20.66 Random Glucose 112 H D Lactic Acid 0.8 Calcium 8.0 L Total Bilirubin 1.0 D AST 21 D ALT 34 D Alkaline Phosphatase 177 H D Creatine Kinase 140 Troponin I < 0.02 Total Protein 7.8 Albumin 3.1 L Urine Color Urine Appearance Urine pH Ur Specific [place] Urine Protein Urine Glucose (UA) Urine Ketones Urine Blood Urine Nitrite Urine Bilirubin Urine Urobilinogen Ur Leukocyte Esterase Urine WBC (Auto) Urine RBC (Auto) Ur Epithelial Cells Urine Bacteria Hyaline Casts Granular Casts Urine Mucus Blood Type O POSITIVE Antibody Screen Negative 11/24/17 23:00 WBC RBC Hgb Hct MCV MCH MCHC RDW Plt Count MPV Neutrophils % Lymphocytes % Monocytes % Eosinophils % Basophils % PT with INR INR PTT (Actin FS) VBG pH POC VBG pCO2 POC VBG pO2 Mixed VBG HCO3 Sodium Potassium Chloride Carbon Dioxide Anion Gap BUN Creatinine Creat Clearance w eGFR Random Glucose Lactic Acid Calcium Total Bilirubin AST ALT Alkaline Phosphatase Creatine Kinase Troponin I Total Protein Albumin Urine Color Yellow Urine Appearance Clear Urine pH 7.0 D Ur Specific [place] 1.017 Urine Protein 3+ H Urine Glucose (UA) 2+ H Urine Ketones Trace H Urine Blood Negative Urine Nitrite Negative Urine Bilirubin Negative Urine Urobilinogen Negative Ur Leukocyte Esterase Trace Urine WBC (Auto) 27 Urine RBC (Auto) 8 Ur Epithelial Cells Rare Urine Bacteria Rare Hyaline Casts 2 Granular Casts 23 Urine Mucus Rare Blood Type Antibody Screen Active Medications Generic Name Dose Route Start Last Admin Trade Name Freq PRN Reason Stop Dose Admin Acetaminophen 650 mg 11/25/17 05:48 Tylenol - PO Q4H PRN FEVER Amlodipine Besylate 10 mg 11/25/17 10:00 Norvasc - PO DAILY [facility] Guaifenesin 10 ml 11/25/17 05:58 11/25/17 06:32 Diabetic Tussin Dm - PO 10 ml Q4H PRN Administration COUGH Insulin Aspart 1 vial 11/25/17 07:00 11/25/17 07:02 Novolog Vial Sliding Scale - SQ Not Given ACHS [facility] Protocol Levofloxacin 250 mg 11/25/17 10:00 Levaquin - PO DAILY [facility] Lisinopril 20 mg 11/25/17 10:00 Prinivil PO DAILY [facility] Metoprolol Tartrate 50 mg 11/25/17 10:00 Lopressor - PO BID [facility] Ondansetron HCl 4 mg 11/25/17 06:01 Zofran - PO Q6H PRN [facility]USEA Oseltamivir Phosphate 30 mg 11/26/17 10:00 Tamiflu - PO 12/01/17 09:59 [email or web address] [facility] Potassium Chloride 40 meq 11/25/17 10:00 K-Dur - PO DAILY [facility] IMAGING: CXR 11/24: Imaging reveals a large heart, prominent knob and prominent vignesh. The lungs are well expanded. There is some increased density seen in the left upper lobe periphery. This could represent an infiltrate. This was not present on 05/16. Since that time, the lungs are better aerated. The right line has been removed. The bones and soft tissues remain intact. Impression: Large heart. Possible early left upper lobe infiltrate. If findings do not resolve then further imaging with CT may be of help. ASSESSMENT/PLAN: 52 year old male with a past medical history of ESRD on HD MWF, DM, and hypertension admitted for treatment of influenza #Viral Respiratory Infection: likely 2/2 influenza -CXR possible infiltrate in L upper lobe -Tamiflu every other day after dialysis for a total of 5 days, received 1 dose yesterday - will receive one tomorrow after dialysis -continue levoquin 250mg PO QD -unlikely bacterial pneumonia -dextrometorphan PRN cough -f/u respiratory virus PCR -Dr. Oleary consult appreciated #Hypertension: stable -continue lisinopril 20mg po QD #Hypokalemia: patient is on dialysis -careful with repletion as patient is on dialysis -f/u am labs #FEN -no standing fluids -monitor lyts, patient is on dialysis -diabetic diet #Prophylaxis -SCDs #Disposition -continue to monitor on med-surg Visit type - Emergency Visit Emergency Visit: No - New Patient This patient is new to me today: Yes Date on this admission: 11/25/17 - Critical Care Critical Care patient: No <Solange Agustin - Last Filed: 11/25/17 17:17> Physical Exam: Patient seen and examined with the resident. Patient is doing better on Tamiflu , will continue , possible discharge in am. Vital Signs Temperature 98.9 F 11/25/17 15:53 Pulse Rate 83 11/25/17 15:53 Respiratory Rate 18 11/25/17 15:53 Blood Pressure 137/73 11/25/17 15:53 O2 Sat by Pulse Oximetry (%) 94 L 11/25/17 16:10 CBCD WBC 9.4 K/mm3 (4.0-10.0) 11/25/17 08:15 RBC 4.25 M/mm3 (4.00-5.60) 11/25/17 08:15 Hgb 11.0 GM/dL (11.7-16.9) L 11/25/17 08:15 Hct 34.0 % (35.4-49) L 11/25/17 08:15 MCV 80.1 fl (80-96) 11/25/17 08:15 MCHC 32.4 g/dl (32.0-35.9) 11/25/17 08:15 RDW 19.6 % (11.9-15.9) H 11/25/17 08:15 Plt Count 136 K/MM3 (134-434) 11/25/17 08:15 MPV 8.5 fl (7.5-11.1) 11/25/17 08:15 CMP Sodium 137 mmol/L (136-145) 11/25/17 08:15 Potassium 3.5 mmol/L (3.5-5.1) 11/25/17 08:15 Chloride 97 mmol/L (98-107) L 11/25/17 08:15 Carbon Dioxide 29 mmol/L (21-32) 11/25/17 08:15 Anion Gap 11 (8-16) 11/25/17 08:15 BUN 25 mg/dL (7-18) H D 11/25/17 08:15 Creatinine 4.5 mg/dL (0.7-1.3) H D 11/25/17 08:15 Creat Clearance w eGFR 13.94 (>60) 11/25/17 08:15 Random Glucose 114 mg/dL (74-106) H 11/25/17 08:15 Calcium 7.9 mg/dL (8.5-10.1) L 11/25/17 08:15 Total Bilirubin 0.7 mg/dL (0.2-1.0) D 11/25/17 08:15 AST 17 U/L (15-37) 11/25/17 08:15 ALT 29 U/L (12-78) 11/25/17 08:15 Alkaline Phosphatase 152 U/L (45-117) H 11/25/17 08:15 Total Protein 7.2 g/dl (6.4-8.2) 11/25/17 08:15 Albumin 2.9 g/dl (3.4-5.0) L 11/25/17 08:15 CARDIAC ENZYMES Creatine Kinase 140 IU/L (39-308) 11/24/17 21:11 Troponin I < 0.02 ng/ml (0.00-0.05) 11/24/17 21:11 Current Medications Generic Name Dose Route Start Last Admin Trade Name Freq PRN Reason Stop Dose Admin Acetaminophen 650 mg 11/25/17 05:48 11/25/17 10:19 Tylenol - PO 650 mg Q4H PRN Administration FEVER Amlodipine Besylate 10 mg 11/25/17 10:00 11/25/17 09:55 Norvasc - PO 10 mg DAILY [facility] Administration Guaifenesin 10 ml 11/25/17 05:58 11/25/17 06:32 Diabetic Tussin Dm - PO 10 ml Q4H PRN Administration COUGH Insulin Aspart 1 vial 11/25/17 07:00 11/25/17 17:14 Novolog Vial Sliding Scale - SQ Not Given ACHS [facility] Protocol Lisinopril 20 mg 11/25/17 10:00 11/25/17 09:55 Prinivil PO 20 mg DAILY [facility] Administration Metoprolol Tartrate 50 mg 11/25/17 10:00 11/25/17 09:54 Lopressor - PO 50 mg BID [facility] Administration Ondansetron HCl 4 mg 11/25/17 06:01 Zofran - PO Q6H PRN NAUSEA Oseltamivir Phosphate 30 mg 11/26/17 10:00 Tamiflu - PO 12/01/17 09:59 [email or web address] [facility] Home Medications Medication Instructions Recorded Amlodipine Besylate [Norvasc -] 10 mg PO DAILY #30 tab 04/30/17 Lisinopril [Prinivil] 20 mg PO DAILY #30 tab 04/30/17 Metoprolol Tartrate [Lopressor -] 50 mg PO BID #60 tab 04/30/17 Ondansetron [Zofran Odt -] 4 mg SL Q6H PRN #30 od.tablet 08/15/17 Oseltamivir Phosphate [Tamiflu] 30 mg PO BID #10 capsule 11/24/17 Calcium Acetate 667 mg PO QID 11/25/17 Folic Acid 1 mg PO DAILY 11/25/17 Furosemide 80 mg PO DAILY 11/25/17 Sevelamer Carbonate [Renvela] 800 mg PO DAILY 11/25/17
[2017-11-25 08:35] LABS: BASO % 0.8 % (0-2.0); EOS % 2.6 % (0-4.5); LYMPH % 8.4 % (8-40); MCHC 32.4 g/dl (32.0-35.9); MEAN CELL VOLUME 80.1 fl (80-96); MEAN PLT VOLUME 8.5 fl (7.5-11.1); MONO % 7.5 % (3.8-10.2); NEUT % 80.7 % (42.8-82.8); PLATELET COUNT 136 K/MM3 (134-434); RBC 4.25 M/mm3 (4.00-5.60); RDW 19.6 % (11.9-15.9); WHITE BLOOD COUNT 9.4 K/mm3 (4.0-10.0)
[2017-11-25 09:06] LABS: ALBUMIN 2.9 g/dl (3.4-5.0); ANION GAP 11 (8-16); BILIRUBIN,TOTAL 0.7 mg/dL (0.2-1.0); BLOOD UREA NITROGEN 25 mg/dL (7-18); CALCIUM 7.9 mg/dL (8.5-10.1); CHLORIDE 97 mmol/L (98-107); CO2 29 mmol/L (21-32); CREATININE 4.5 mg/dL (0.7-1.3); GLUCOSE,RANDOM 114 mg/dL (74-106); PHOSPHOROUS 3.9 mg/dL (2.5-4.9); POTASSIUM 3.5 mmol/L (3.5-5.1); SGOT/AST 17 U/L (15-37); SGPT/ALT 29 U/L (12-78); SODIUM 137 mmol/L (136-145); TOT PROT 7.2 g/dl (6.4-8.2)
[2017-11-25 09:07] LABS: ALK PHOS 152 U/L (45-117)
[2017-11-25] MEDS: METOPROLOL TARTRATE 50 MG TABLET (FP) PO SCH ×2 (09:54→22:36)
[2017-11-25] MEDS: LISINOPRIL 20 MG TABLET (FP) PO SCH (09:55)
[2017-11-25] MEDS: amLODIPine BESYLATE 10 MG TABLET (FP) PO SCH (09:55)
[2017-11-25] MEDS ORDERED: POTASSIUM CHLORIDE TABS 20 MEQ TABLET.ER (FP) PO SCH (10:00)
[2017-11-25] MEDS: ACETAMINOPHEN 325 MG TABLET (FP) PO PRN ×2 (10:19→22:42)
[2017-11-25] MEDS ORDERED: ACETAMINOPHEN 325 MG TABLET (FP) ONE (11:12)
--- NOTE | 2017-11-25 11:40 | EKG ---
Test Reason : Blood Pressure : / mmHG Vent. Rate : 095 BPM Atrial Rate : 095 BPM P-R Int : 160 ms QRS Dur : 082 ms QT Int : 360 ms P-R-T Axes : 063 053 023 degrees QTc Int : 452 ms SINUS RHYTHM WITH PREMATURE ATRIAL COMPLEXES POSSIBLE LEFT ATRIAL ENLARGEMENT BORDERLINE ECG WHEN COMPARED WITH ECG OF 15-MAY-2017 19:03, PREMATURE ATRIAL COMPLEXES ARE NOW PRESENT T WAVE INVERSION NOW EVIDENT IN ANTERIOR LEADS Confirmed by SEB HOWELL MD ([id number]) on 11/25/2017 11:40:04 AM Referred By: Confirmed By:SEB HOWELL MD
[2017-11-25 15:53] VITALS: BMI 26.5
--- NOTE | 2017-11-25 15:56 | CONSULT ---
Consult Consult Specialty:: Nephrology Reason for Consultation:: ESRD - History of Present Illness Chief Complaint: fever History of Present Illness: Pt is a 52 year old male with pmhx of ESRD, DM, and HTN who developed fevers and chills in HD. I sent him to the ER for evaluation. I was called to evaluate him for HD. He is on a MWF schedule. His last HD was yesterday. Pt says that he feels better today. He denies fevers or chills. He was treated with tamiflu. He denies shortness of breath. - History Source History Provided By: Patient - Past Medical History Cardio/Vascular: Yes: HTN Renal/: Yes: Renal Inusuff, Hemodialysis Endocrine: Yes: Diabetes Mellitus - Past Surgical History Past Surgical History: Yes: AV Fistula/Graft - Alcohol/Substance Use Hx Alcohol Use: No - Smoking History Smoking history: Never smoked Have you smoked in the past 12 months: No - Social History History of Recent Travel: No Home Medications - Allergies Allergies/Adverse Reactions: Allergies Allergy/AdvReac Type Severity Reaction Status Date / Time Penicillins Allergy Verified 11/25/17 01:03 - Home Medications Home Medications: Ambulatory Orders Amlodipine Besylate [Norvasc -] 10 mg PO DAILY #30 tab 04/30/17 Lisinopril [Prinivil] 20 mg PO DAILY #30 tab 04/30/17 Metoprolol Tartrate [Lopressor -] 50 mg PO BID #60 tab 04/30/17 Ondansetron [Zofran Odt -] 4 mg SL Q6H PRN #30 od.tablet 08/15/17 Oseltamivir Phosphate [Tamiflu] 30 mg PO BID #10 capsule 11/24/17 Calcium Acetate 667 mg PO QID 11/25/17 Folic Acid 1 mg PO DAILY 11/25/17 Furosemide 80 mg PO DAILY 11/25/17 Sevelamer Carbonate [Renvela] 800 mg PO DAILY 11/25/17 Family Disease History - Family Disease History Family Disease History: Diabetes: Mother, Heart Disease: Mother Review of Systems - Review of Systems Constitutional: reports: Chills, Fever Eyes: reports: No Symptoms HENT: reports: No Symptoms Neck: reports: No Symptoms Cardiovascular: reports: No Symptoms Respiratory: reports: Cough Gastrointestinal: reports: No Symptoms Genitourinary: reports: No Symptoms Musculoskeletal: reports: No Symptoms Integumentary: reports: No Symptoms Neurological: reports: No Symptoms Endocrine: reports: No Symptoms Hematology/Lymphatic: reports: No Symptoms Physical Exam Vital Signs: Vital Signs Temperature 99.5 F 11/25/17 14:57 Pulse Rate 83 11/25/17 14:57 Respiratory Rate 16 11/25/17 14:57 Blood Pressure 132/63 11/25/17 14:57 O2 Sat by Pulse Oximetry (%) 95 11/25/17 14:57 Constitutional: Yes: Calm Eyes: Yes: Conjunctiva Clear HENT: Yes: Atraumatic Neck: Yes: Supple Cardiovascular: Yes: S1, S2 Respiratory: Yes: CTA Bilaterally Gastrointestinal: Yes: Soft Renal/: Yes: WNL Musculoskeletal: Yes: WNL Extremities: Yes: WNL Edema: No Neurological: Yes: Oriented Psychiatric: Yes: Oriented Labs: CBC, BMP 11/25/17 08:15 11/25/17 08:15 Laboratory Tests 11/24/17 11/24/17 11/25/17 21:11 21:11 08:15 WBC 11.5 H 9.4 Hgb 11.0 L D 11.0 L Sodium Potassium BUN 18 D Creatinine 3.2 H D 11/25/17 08:15 WBC Hgb Sodium 137 Potassium 3.5 BUN 25 H D Creatinine 4.5 H D Imaging - Results Chest X-ray: Report Reviewed Problem List - Problems (1) Flu-like symptoms Code(s): R68.89 - OTHER GENERAL SYMPTOMS AND SIGNS (2) CAD (coronary artery disease) Code(s): I25.10 - ATHSCL HEART DISEASE OF [place] CORONARY ARTERY W/O ANG PCTRS Qualifiers: Coronary Disease-Associated Artery/Lesion type: [place] artery [place] vs. transplanted heart: [place] heart Associated angina: without angina Qualified Code(s): I25.10 - Atherosclerotic heart disease of [place] coronary artery without angina pectoris (3) ESRD (end stage renal disease) Code(s): N18.6 - END STAGE RENAL DISEASE Assessment/Plan Current Medications Generic Name Dose Route Start Last Admin Trade Name Freq PRN Reason Stop Dose Admin Acetaminophen 650 mg 11/25/17 05:48 11/25/17 10:19 Tylenol - PO 650 mg Q4H PRN Administration FEVER Amlodipine Besylate 10 mg 11/25/17 10:00 11/25/17 09:55 Norvasc - PO 10 mg DAILY LEMUEL Administration Guaifenesin 10 ml 11/25/17 05:58 11/25/17 06:32 Diabetic Tussin Dm - PO 10 ml Q4H PRN Administration COUGH Insulin Aspart 1 vial 11/25/17 07:00 11/25/17 11:17 Novolog Vial Sliding Scale - SQ Not Given ACHS [facility] Protocol Lisinopril 20 mg 11/25/17 10:00 11/25/17 09:55 Prinivil PO 20 mg DAILY LEMUEL Administration Metoprolol Tartrate 50 mg 11/25/17 10:00 11/25/17 09:54 Lopressor - PO 50 mg BID LEMUEL Administration Ondansetron HCl 4 mg 11/25/17 06:01 Zofran - PO Q6H PRN NAUSEA Oseltamivir Phosphate 30 mg 11/26/17 10:00 Tamiflu - PO 12/01/17 09:59 [email or web address] [facility] Potassium Chloride 40 meq 11/25/17 10:00 11/25/17 09:54 K-Dur - PO 40 meq DAILY LEMUEL Administration Impression 1. ESRD 2. fever/chills 3. HTN 4. DM 5. proteinuria 6. anemia Plan - HD in am - cont tamiflu - d/c potassium supplements - resume home meds - will follow
[2017-11-26] MEDS: INSULIN SLIDING SCALE (NOVOLOG) 1 VIAL SQ SCH ×3 (06:06→16:14)
[2017-11-26] MEDS ORDERED: TETRAHYDROZOLINE HCL 1 DROP DROPS OU PRN (08:48)
[2017-11-26] MEDS ORDERED: guaiFENesin/CODEINE 5 ML UNIT-DOSE CUPS PO PRN (11:01)
[2017-11-26] MEDS ORDERED: guaiFENesin/CODEINE 5 ML UNIT-DOSE CUPS PO ONE (11:05)
[2017-11-26] MEDS: METOPROLOL TARTRATE 50 MG TABLET (FP) PO SCH ×2 (11:18→15:57)
[2017-11-26] MEDS: amLODIPine BESYLATE 10 MG TABLET (FP) PO SCH ×2 (11:18→15:57)
[2017-11-26] MEDS: LISINOPRIL 20 MG TABLET (FP) PO SCH ×2 (11:19→15:57)
[2017-11-26] MEDS: OSELTAMIVIR PHOSPHATE 30 MG CAPSULE PO SCH ×2 (11:19→15:57)
--- NOTE | 2017-11-26 14:22 | DS ---
Physical Exam: SUBJECTIVE: Patient seen and examined at bedside. He does not complain of fevers or chills, chest pain, shortness of breath, or muscle aches. Patient only endorses mild cough. OBJECTIVE: Vital Signs Period Temp Pulse Resp BP Sys/Benz Pulse Ox Last 24 Hr 98.5 F-99.5 F 79-94 16-20 129-143/63-81 94-96 PHYSICAL EXAM GEN:A&Ox3 CV: RRR, No murmurs Pulm: CTA, no wheezing, no crackles Abd: soft, nontender, BS present Ext: no edema, 2+ pulses, L sided fistula auscultated in L arm and L shoulder Neuro: CN II-XII intact LABS Laboratory Results - last 24 hr 11/25/17 11/25/17 11/26/17 17:14 22:38 05:35 POC Glucometer 138 140 99 MICROBIOLOGY: 11/24/17 23:00 Urine - Urine Clean Catch Urine Culture - Final NO GROWTH OBTAINED 11/25/17 07:40 Nasopharyngeal Swab Respiratory Virus (PCR) - Preliminary 11/24/17 23:20 Blood - Peripheral Venous Blood Culture - Preliminary NO GROWTH OBTAINED AFTER 24 HOURS, INCUBATION TO CONTINUE FOR 4 DAYS. 11/24/17 23:39 Blood - Peripheral Venous Blood Culture - Preliminary NO GROWTH OBTAINED AFTER 24 HOURS, INCUBATION TO CONTINUE FOR 4 DAYS. HOSPITAL COURSE: Date of Admission:11/25/17 The patient is a 52 year old male with pmh ESRD (M,W,F), DM, HTN, who presented to the ED from dialysis for cough and myalgia over the past two days along with subjective fevers of 102F and weakness. In the ED, patient was febrile at 100.4 , mild tachycardia at 100 and had a leukocytosis of 11.5. Chest Xray showed a possible infiltrate, and thus patietn was given levoquin. He had cultures drawn and started on Tamiflu. Patient was admitted for the treatment of infleunza. His antibiotic was stopped after 1 dose due to low clinical suspicion for pneumonia. Patient clinically improved in 1 day of admission. He received dialysis the day of discharge and did not complain of any chest pain, shortness of breath, fevers, chills, nausea, vomiting. He was given robitussin AC for cough. Patient got dialysis and was discharged on 11/26/17 with instructions to follow with his PCP in a week and to see Dr. Carrington for pulmonology as an outpatient. He was given 3 more doses of tamiflu to take after dialysis. Date of Discharge: 11/26/17 Minutes to complete discharge: 35 Discharge Summary Reason For Visit: INFLUENZA LIKE SYMPTOMS Current Active Problems Flu-like symptoms (Acute) Condition: Improved - Instructions Diet, Activity, Other Instructions: You were admitted to the hospital for the treatment of influenza (the flu) We started you on Tamiflu in the hospital. You received dialysis in the hospital You will need to take more doses of tamiflu outside of the hospital Medical Recommendations: -Please take tamiflu 30mg once a day after dialysis for 3 more doses -continue your home medications -continue dialysis every Wednesday, Wednesday, and Wednesday Referrals: -Make an appointment with your primary care physician within 1 week of discharge -Make an appointment with information architect Dr. Oleary within 1 week of discharge -Please see the dynamometer mechanic Dr. Carrington within 1 week of discharge If you experience fevers, chills, chest pain, shortness of breath, nausea, vomiting, diarrhea, please return to the emergency room immediately. Referrals: Rodolfo Carrington MD [Staff Physician] - 1 Week Juani Oleary MD [Staff Physician] - 1 Week Disposition: HOME - Home Medications Comprehensive Discharge Medication List: Ambulatory Orders Amlodipine Besylate [Norvasc -] 10 mg PO DAILY #30 tab 04/30/17 Lisinopril [Prinivil] 20 mg PO DAILY #30 tab 04/30/17 Metoprolol Tartrate [Lopressor -] 50 mg PO BID #60 tab 04/30/17 Ondansetron [Zofran Odt -] 4 mg SL Q6H PRN #30 od.tablet 08/15/17 Calcium Acetate 667 mg PO QID 11/25/17 Folic Acid 1 mg PO DAILY 11/25/17 Furosemide 80 mg PO DAILY 11/25/17 Sevelamer Carbonate [Renvela -] 800 mg PO DAILY 11/25/17 Guaifenesin AC [Robitussin AC -] 5 ml PO TID PRN #15 liquid MDD 15 11/26/17 Oseltamivir Phosphate [Tamiflu] 30 mg PO BID #3 capsule 11/26/17 This patient is new to me today: No Emergency Visit: No Critical Care patient: No - Discharge Referral Referred to [facility] No
--- NOTE | 2017-11-26 15:32 | PN ---
Progress Note, Physician History of Present Illness: Pt seen and examined at bedside. He is awake and alert. He says that he feels better today. - Current Medication List Current Medications: Active Medications Acetaminophen (Tylenol -) 650 mg PO Q4H PRN PRN Reason: FEVER Last Admin: 11/25/17 22:42 Dose: 650 mg Amlodipine Besylate (Norvasc -) 10 mg PO DAILY [facility] Last Admin: 11/26/17 11:18 Dose: Not Given Guaifenesin/Codeine Phosphate (Robitussin Ac -) 5 ml PO TID PRN PRN Reason: COUGH Stop: 12/01/17 11:00 Insulin Aspart (Novolog Vial Sliding Scale -) 1 vial SQ ACHS [facility] PRN Reason: Protocol Last Admin: 11/26/17 14:49 Dose: Not Given Lisinopril (Prinivil) 20 mg PO DAILY [facility] Last Admin: 11/26/17 11:19 Dose: Not Given Metoprolol Tartrate (Lopressor -) 50 mg PO BID [facility] Last Admin: 11/26/17 11:18 Dose: Not Given Ondansetron HCl (Zofran -) 4 mg PO Q6H PRN PRN Reason: NAUSEA Oseltamivir Phosphate (Tamiflu -) 30 mg PO [email or web address]@1000 [facility] Stop: 12/01/17 09:59 Last Admin: 11/26/17 11:19 Dose: Not Given Tetrahydrozoline HCl (Visine -) 1 drop OU BID PRN PRN Reason: DRY EYES - Objective Vital Signs: Vital Signs Temperature 98.8 F 11/26/17 08:00 Pulse Rate 89 11/26/17 14:15 Respiratory Rate 18 11/26/17 14:15 Blood Pressure 181/82 11/26/17 14:15 O2 Sat by Pulse Oximetry (%) 96 11/26/17 08:00 Constitutional: Yes: Calm Eyes: Yes: Conjunctiva Clear HENT: Yes: Atraumatic Cardiovascular: Yes: S1, S2 Respiratory: Yes: CTA Bilaterally Gastrointestinal: Yes: Soft Genitourinary: Yes: WNL Musculoskeletal: Yes: WNL Edema: No Neurological: Yes: Oriented Psychiatric: Yes: Oriented Labs: CBC, BMP 11/25/17 08:15 11/25/17 08:15 INR, PTT INR 1.21 (0.82-1.09) H 11/24/17 21:11 Problem List - Problems (1) Flu-like symptoms Code(s): R68.89 - OTHER GENERAL SYMPTOMS AND SIGNS (2) CAD (coronary artery disease) Code(s): I25.10 - ATHSCL HEART DISEASE OF [place] CORONARY ARTERY W/O ANG PCTRS Qualifiers: Coronary Disease-Associated Artery/Lesion type: [place] artery [place] vs. transplanted heart: [place] heart Associated angina: without angina Qualified Code(s): I25.10 - Atherosclerotic heart disease of [place] coronary artery without angina pectoris (3) ESRD (end stage renal disease) Code(s): N18.6 - END STAGE RENAL DISEASE Assessment/Plan Current Medications Generic Name Dose Route Start Last Admin Trade Name Freq PRN Reason Stop Dose Admin Acetaminophen 650 mg 11/25/17 05:48 11/25/17 22:42 Tylenol - PO 650 mg Q4H PRN Administration FEVER Amlodipine Besylate 10 mg 11/25/17 10:00 11/26/17 11:18 Norvasc - PO Not Given DAILY [facility] Guaifenesin/Codeine Phosphate 5 ml 11/26/17 11:01 Robitussin Ac - PO 12/01/17 11:00 TID PRN COUGH Insulin Aspart 1 vial 11/25/17 07:00 11/26/17 14:49 Novolog Vial Sliding Scale - SQ Not Given ACHS [facility] Protocol Lisinopril 20 mg 11/25/17 10:00 11/26/17 11:19 Prinivil PO Not Given DAILY [facility] Metoprolol Tartrate 50 mg 11/25/17 10:00 11/26/17 11:18 Lopressor - PO Not Given BID [facility] Ondansetron HCl 4 mg 11/25/17 06:01 Zofran - PO Q6H PRN NAUSEA Oseltamivir Phosphate 30 mg 11/26/17 10:00 11/26/17 11:19 Tamiflu - PO 12/01/17 09:59 Not Given [email or web address] [facility] Tetrahydrozoline HCl 1 drop 11/26/17 08:48 Visine - OU BID PRN DRY EYES Impression 1. ESRD 2. fever/chills 3. HTN 4. DM 5. proteinuria 6. anemia Plan - pt is tolerating HD today - cont current meds - pt has HD scheduled as outpt - can be discharged from renal standpoint after HD - discussed with medical attending - resume home meds - will follow
[2017-11-26] MEDS ORDERED: INSULIN (NOVOLOG) ASPART 100 UNITS/ML 10ML VIAL ONE (15:52)
[2017-11-26] MEDS ORDERED: PT OWN MED DRAWER 7, Y5N ONE (15:53)
[2017-11-26 16:21] VITALS: BP 160/91; PULSE 98; TEMP 98.5
[2017-11-28 06:37] LABS: HBSAG SCREEN Negative (Negative); HEP A AB, IGM Negative (Negative); HEP B CORE AB, TOT Negative (Negative)
== END 2017-11-26 18:39 | disposition home or self-care (01) ==
LOC: JER 19:28 → JERBED 11-25 04:17 → UNDOADMOB 11-25 04:37 → J6S 11-25 15:28
PROVIDERS: ADMIT Internal Medicine; ATTEND Internal Medicine
DX: J11.1 Influenza due to unidentified influenza virus with other respiratory manifestations (principal); I12.0 Hypertensive chronic kidney disease with stage 5 chronic kidney disease or end stage renal disease; E11.22 Type 2 diabetes mellitus with diabetic chronic kidney disease; N18.6 End stage renal disease; Z99.2 Dependence on renal dialysis; F03.90 Unspecified dementia, unspecified severity, without behavioral disturbance, psychotic disturbance, mood disturbance, and anxiety; E87.6 Hypokalemia; I25.10 Atherosclerotic heart disease of native coronary artery without angina pectoris
CPT/HCPCS: 36415; 71045-TC-FY; 71046-TC-FY; 80053; 81003; 81015; 82550; 82803; 82962; 83605; 83735; 84100; 84484; 85025; 85610; 85730; 86704; 86706; 86708; 86850; 86900; 86901; 87040; 87086; 87340; 87633; 93005; 93010; 97116-GP; 97161-GP; 99285-25; G0378

== ENCOUNTER 2018-01-17 21:16 | Emergency (ER) | payer OTHER ==
[2018-01-17 21:34] VITALS: BP 161/79; PULSE 88; TEMP 98.6; BMI 26.9
--- NOTE | 2018-01-17 23:32 | PDOC ---
History of Present Illness - General History Source: Patient Exam Limitations: No Limitations <Jameson Meehan - Last Filed: 01/18/18 02:23> - General History Source: Patient Exam Limitations: No Limitations - History of Present Illness Initial Comments: 01/18/18 02:40 The patient is a 52 year old male, with a significant past medical history of ESRD (on dialysis M, W, F) , DM, HTN who presents to the emergency department with vision changes and elevated BP. Today, patient was unable to receive HD due to elevated BP and was sent to the ED. Patient was driving home when he nocied L sided blurry vision. Patient reports his L eye is cloudy and has a spot. Patient also notes he was not able to determine the street he was on and called his brother in law for assistance. Currently in the ED, patient reports L sided tingling of his forehead forehead. Patient denies any previous history of vision changes. Patient denies any previous history of strokes, blood clots or DVT. Patient denies chest pain, palpitations, diaphoresis, headache or dizziness. Patient denies fever, chills, abdominal pain, nausea, vomit, diarrhea or constipation. Patient denies dysuria, frequency, urgency or hematuria. Patient denies sick contacts or recent travel. Allergies: Penicillins Past surgical history: RT CHEST DILAYSIS CATH, LT ARM GRAFT Social history:Unknown PCP: None Neph: Dr. Oleary <Cassie Santos - Last Filed: 01/18/18 02:40> - General Chief Complaint: Blood Pressure Problem Stated Complaint: Blood Pressure Problem Time Seen by Provider: 01/17/18 22:11 Past History - Past Medical History Cardiac Disorders: No COPD: No Dementia: No Diabetes: Yes Dialysis: Yes Disorders: Yes (dialysis M/W/F) HTN: Yes - Immunization History Immunization Up to Date: Yes - Suicide/Smoking/Psychosocial Hx Smoking History: Never smoked Have you smoked in the past 12 months: No Hx Alcohol Use: No Drug/Substance Use Hx: No Substance Use Type: None Hx Substance Use Treatment: No <Jameson Meehan - Last Filed: 01/18/18 02:23> <Cassie Santos - Last Filed: 01/18/18 02:40> - Past Medical History Allergies/Adverse Reactions: Allergies Allergy/AdvReac Type Severity Reaction Status Date / Time Penicillins Allergy Verified 01/17/18 21:31 Home Medications: Ambulatory Orders Amlodipine Besylate [Norvasc -] 10 mg PO DAILY #30 tab 04/30/17 Lisinopril [Prinivil] 20 mg PO DAILY #30 tab 04/30/17 Metoprolol Tartrate [Lopressor -] 50 mg PO BID #60 tab 04/30/17 Calcium Acetate 667 mg PO QID 11/25/17 Folic Acid 1 mg PO DAILY 11/25/17 Furosemide 80 mg PO DAILY 11/25/17 Sevelamer Carbonate [Renvela -] 800 mg PO DAILY 11/25/17 Review of Systems - Review of Systems Able to Perform ROS?: Yes Comments:: 01/18/18 02:40 All other systems reviewed and are negative except noted in HPI <Cassie Santos - Last Filed: 01/18/18 02:40> *Physical Exam - Vital Signs Last Vital Signs Temp Pulse Resp BP Pulse Ox 98.6 F 88 16 161/79 99 01/17/18 21:33 01/17/18 21:33 01/17/18 21:33 01/17/18 21:33 01/17/18 21:33 <Jameson Meehan - Last Filed: 01/18/18 02:23> - Vital Signs Last Vital Signs Temp Pulse Resp BP Pulse Ox 98.6 F 88 16 161/79 99 01/17/18 21:33 01/17/18 21:33 01/17/18 21:33 01/17/18 21:33 01/17/18 21:33 - Physical Exam Comments: 01/18/18 02:40 GENERAL: The patient is awake, alert, and fully oriented, Nontoxic - in no acute distress. HEAD: Normocephalic, atraumatic. EYES: extraocular movements intact, sclera anicteric, conjunctiva clear. Snellen : 20/200 L, 20/50 R ENT: Normal voice, Moist mucous membranes. NECK: Normal range of motion, No JVD LUNGS: Breath sounds equal, clear to auscultation bilaterally. No wheezes, no rhonchi, no rales. HEART: Regular rate and rhythm, normal S1 and S2 without murmur, rub or gallop. ABDOMEN: Soft, nontender, normoactive bowel sounds. No guarding, no rebound. No masses. No CVA tenderness EXTREMITIES: Normal range of motion, no edema. No clubbing or cyanosis. No cords , erythema, or tenderness. AVG on LUE with thrill NEUROLOGICAL: No facial asymmetry, Normal speech, normal gait. normal rapid alternating movements, normal finger to nose, sensation symmetric throughout, motor 5/5 in upperlower. Normal gait. PSYCH: Normal mood, normal affect. SKIN: Warm, Dry, normal turgor. <Cassie Santos - Last Filed: 01/18/18 02:40> Heart Score/ECG Review - ECG Impressions Comment:: 01/18/18 01:00 Twelve-lead EKG was performed and reviewed by me. There is normal sinus rhythm with a normal rate. Rate of 90 The axis is normal There is normal R wave progression There are no ST or T wave abnormalities. <Jameson Meehan - Last Filed: 01/18/18 02:23> ED Treatment Course - LABORATORY CBC & Chemistry Diagram: 01/18/18 00:20 01/18/18 00:20 - RADIOLOGY Radiology Studies Ordered: Category Date Time Status HEAD CT WITHOUT CONTRAST [CT] Stat CT Scan 01/17/18 23:23 Ordered CHEST X-RAY PORTABLE* [RAD] Stat Radiology 01/17/18 23:01 Ordered <Jameson Meehan Filed: 01/18/18 02:23> - LABORATORY CBC & Chemistry Diagram: 01/18/18 00:20 01/18/18 00:20 - ADDITIONAL ORDERS Additional order review: Laboratory Results 01/18/18 01/18/18 00:20 00:20 Sodium 139 Potassium 4.5 D Chloride 100 Carbon Dioxide 26 Anion Gap 13 BUN 33 H D Creatinine 5.3 H Creat Clearance w eGFR 11.54 Random Glucose 126 H Calcium 8.8 Total Bilirubin 1.0 D AST 24 D ALT 34 Alkaline Phosphatase 231 H D Total Protein 8.1 Albumin 3.3 L Alcohol, Quantitative < 5.0 01/18/18 00:20 RBC 4.33 MCV 84.2 MCHC 32.7 RDW 18.2 H MPV 8.8 Neutrophils % 76.4 Lymphocytes % 9.1 Monocytes % 7.0 Eosinophils % 6.3 H D Basophils % 1.2 <Cassie Santos - Last Filed: 01/18/18 02:40> Medical Decision Making - Medical Decision Making 01/18/18 01:54 52y M hx of ESRD (sp dialysis today) presents with complaint of htn and vision changes. Pt states after dialysis, they noticed his bp was very high, and referred him to the ED - on the way here, henoticed acute change of his vision of his L eye, where the vision was more blurry than usual. No other focal neurologic symptoms. painless vision loss visial acuity 20/200 L eye, 20/50 R eye uncorrected 01/18/18 02:[address] Ramirez (optho) recommends seeing optho tomorrow morning will have pt call her office for appt tomorrow return precautions were discussed I discussed the physical exam findings, ancillary test results and final diagnoses with the patient. I answered all of the patient's questions. The patient was satisfied with the care received and felt comfortable with the discharge plan and treatment plan. The patient will call their primary care physician within 24 hours to arrange follow-up and will return to the Emergency Department with any new, persistent or worsening symptoms. <Jameson Meehan - Last Filed: 01/18/18 02:23> *DC/Admit/Observation/Transfer - Discharge Dispostion Admit: No <Jameson Meehan - Last Filed: 01/18/18 02:23> - Attestations Scribe Attestion: 01/18/18 02:40 Documentation prepared by Cassie Santos, acting as medical aide for Jameson Meehan MD <Cassie Santos - Last Filed: 01/18/18 02:40> Diagnosis at time of Disposition: Blurry vision, left eye - Discharge Dispostion Disposition: HOME Condition at time of disposition: Stable - Referrals Referrals: Kathy Ramirez MD [Staff Physician] - - Patient Instructions Printed Discharge Instructions: DI for High Blood Pressure, DI for Visual Field Disturbances Additional Instructions: Call Dr. Mitchell tomorrow at 9am. She will see you toomorrow for evaluation of your vision loss. If things get worse return to the emergency department immediatley. Print Language: CHINESE
[2018-01-18 01:03] LABS: BASO % 1.2 % (0-2.0); EOS % 6.3 % (0-4.5); HEMATOCRIT 36.4 % (35.4-49); HEMOGLOBIN 11.9 GM/dL (11.7-16.9); LYMPH % 9.1 % (8-40); MCH 27.5 pg (25.7-33.7); MCHC 32.7 g/dl (32.0-35.9); MEAN CELL VOLUME 84.2 fl (80-96); MEAN PLT VOLUME 8.8 fl (7.5-11.1); NEUT % 76.4 % (42.8-82.8); PLATELET COUNT 154 K/MM3 (134-434); RBC 4.33 M/mm3 (4.00-5.60); RDW 18.2 % (11.9-15.9); WHITE BLOOD COUNT 6.4 K/mm3 (4.0-10.0)
[2018-01-18 01:45] LABS: ALBUMIN 3.3 g/dl (3.4-5.0); ALK PHOS 231 U/L (45-117); ANION GAP 13 (8-16); BLOOD UREA NITROGEN 33 mg/dL (7-18); CALCIUM 8.8 mg/dL (8.5-10.1); CHLORIDE 100 mmol/L (98-107); CO2 26 mmol/L (21-32); CREATININE 5.3 mg/dL (0.7-1.3); GLUCOSE,RANDOM 126 mg/dL (74-106); SGPT/ALT 34 U/L (12-78); SODIUM 139 mmol/L (136-145); TOT PROT 8.1 g/dl (6.4-8.2)
[2018-01-18 01:47] LABS: POTASSIUM 4.5 mmol/L (3.5-5.1); SGOT/AST 24 U/L (15-37)
--- NOTE | 2018-01-18 10:14 | EKG ---
Test Reason : Blood Pressure : / mmHG Vent. Rate : 090 BPM Atrial Rate : 090 BPM P-R Int : 164 ms QRS Dur : 084 ms QT Int : 364 ms P-R-T Axes : 062 068 035 degrees QTc Int : 445 ms NORMAL SINUS RHYTHM NORMAL ECG WHEN COMPARED WITH ECG OF 24-NOV-2017 23:21, PREMATURE ATRIAL COMPLEXES ARE NO LONGER PRESENT Confirmed by MD MAGDY, ANABELL ([id number]) on 01/18/2018 10:14:24 AM Referred By: Confirmed By:ANABELL CURRAN MD
== END 2018-01-18 03:33 | disposition home or self-care (01) ==
LOC: JER 21:16
DX: H53.8 Other visual disturbances (principal); I12.0 Hypertensive chronic kidney disease with stage 5 chronic kidney disease or end stage renal disease; E11.22 Type 2 diabetes mellitus with diabetic chronic kidney disease; N18.6 End stage renal disease; N17.8 Other acute kidney failure; Z99.2 Dependence on renal dialysis
CPT/HCPCS: 36415; 70450-TC; 71045-TC-FY; 80053; 80307; 85025; 93005; 93010; 99281-25; 99284-25

== ENCOUNTER 2018-02-25 20:03 | Emergency (ER) | payer OTHER ==
[2018-02-25 20:21] VITALS: TEMP 97.8; BMI 26.3
[2018-02-25] MEDS ORDERED: NITROGLYCERIN SUBLINGUAL 1/150 0.4 MG TAB SL ONE (20:22)
[2018-02-25] MEDS ORDERED: NITROGLYCERIN 2% OINTMENT - 1GM PACKET TD ONE ×2 (20:22→20:59)
--- NOTE | 2018-02-25 21:37 | PDOC ---
History of Present Illness - General History Source: Patient Exam Limitations: No Limitations - History of Present Illness Initial Comments: 02/25/18 23:47 Patient is a 52 year old male with a significant past medical history of Diabetes (Dialysis s/p 7 months), HTN, who was sent to the ED by dialysis center with complaints of high blood pressure. Patient reports undergoing dialysis this afternoon for 3.5 hours when upon completion, he began to experience increased blood pressure, prompting the center to send him to the ED for further evaluation. He reports coming into the ED 1 month ago for similar symptoms after undergoing dialysis. Denies chest pain, sob. Denies fevers, chills. Denies nausea, vomiting. Denies contact with sick individuals, out of state travelling. Denies any other symptoms. Allergies: Penicillin. Social history: No smoking. No alcohol. No illicit drugs. Surgical history: Left arm fistula. PMD: Dr. Oleary <Pablo Carney - Last Filed: 02/25/18 23:47> <Kayla Ramirez - Last Filed: 02/26/18 05:14> - General Chief Complaint: Blood Pressure Problem Stated Complaint: HIGH BP Time Seen by Provider: 02/25/18 20:16 Past History <Pablo Carney - Last Filed: 02/25/18 23:47> - Past Medical History Cardiac Disorders: No COPD: No Dementia: No Diabetes: Yes Dialysis: Yes Disorders: Yes (dialysis M/W/F) HTN: Yes - Immunization History Immunization Up to Date: Yes - Suicide/Smoking/Psychosocial Hx Smoking History: Never smoked Have you smoked in the past 12 months: No Information on smoking cessation initiated: No Hx Alcohol Use: No Drug/Substance Use Hx: No Substance Use Type: None Hx Substance Use Treatment: No <Kayla Ramirez - Last Filed: 02/26/18 05:14> - Past Medical History Allergies/Adverse Reactions: Allergies Allergy/AdvReac Type Severity Reaction Status Date / Time Penicillins Allergy Verified 02/25/18 20:15 Home Medications: Ambulatory Orders Amlodipine Besylate [Norvasc -] 10 mg PO DAILY #30 tab 04/30/17 Lisinopril [Prinivil] 20 mg PO DAILY #30 tab 04/30/17 Metoprolol Tartrate [Lopressor -] 50 mg PO BID #60 tab 04/30/17 Calcium Acetate 667 mg PO QID 11/25/17 Folic Acid 1 mg PO DAILY 11/25/17 Furosemide 80 mg PO DAILY 11/25/17 Sevelamer Carbonate [Renvela -] 800 mg PO TID 11/25/17 Review of Systems - Review of Systems Able to Perform ROS?: Yes Comments:: 02/25/18 23:47 GENERAL/CONSTITUTIONAL: No fever or chills. No weakness. HEAD, EYES, EARS, NOSE AND THROAT: No change in vision. No ear pain or discharge. No sore throat. CARDIOVASCULAR: No chest pain or shortness of breath. RESPIRATORY: No cough, wheezing, or hemoptysis. GASTROINTESTINAL: No nausea, vomiting, diarrhea or constipation. GENITOURINARY: No dysuria, frequency, or change in urination. MUSCULOSKELETAL: No joint or muscle swelling or pain. No neck or back pain. SKIN: No rash NEUROLOGIC: No headache, vertigo, loss of consciousness, or change in strength/ sensation. ENDOCRINE: No increased thirst. No abnormal weight change. HEMATOLOGIC/LYMPHATIC: No anemia, easy bleeding, or history of blood clots. ALLERGIC/IMMUNOLOGIC: No hives or skin allergy. All Other Systems: Reviewed and Negative <Pablo Carney - Last Filed: 02/25/18 23:47> *Physical Exam - Vital Signs Last Vital Signs Temp Pulse Resp BP Pulse Ox 97.8 F 89 16 157/77 95 02/25/18 20:15 02/25/18 21:45 02/25/18 21:45 02/25/18 21:45 02/25/18 20:15 - Physical Exam Comments: 02/25/18 23:48 GENERAL: Awake, alert, and fully oriented, in no acute distress HEAD: +Butterfly malar rash. No signs of trauma EYES: PERRLA, EOMI, sclera anicteric, conjunctiva clear ENT: Auricles normal inspection, hearing grossly normal, nares patent, oropharynx clear without exudates. Moist mucosa NECK: Normal ROM, supple, no lymphadenopathy, JVD, or masses LUNGS: +Crackles in lower lung dorman, bilaterally. Breath sounds equal, No wheezes, HEART: Regular rate and rhythm, normal S1 and S2, no murmurs, rubs or gallops ABDOMEN: Soft, nontender, normoactive bowel sounds. No guarding, no rebound. No masses EXTREMITIES: +Left arm fistula. Normal range of motion, no edema. No clubbing or cyanosis. No cords, erythema, or tenderness NEUROLOGICAL: Cranial nerves II through XII grossly intact. Normal speech, normal gait SKIN: Warm, Dry, normal turgor, no rashes or lesions noted. <Pablo Carney - Last Filed: 02/25/18 23:47> - Vital Signs Last Vital Signs Temp Pulse Resp BP Pulse Ox 97.8 F 95 H 18 192/103 95 02/25/18 20:15 02/25/18 20:15 02/25/18 20:15 02/25/18 20:15 02/25/18 20:15 <Kayla Ramirez - Last Filed: 02/26/18 05:14> Heart Score/ECG Review - ECG Intrepretation Comment:: 02/25/18 23:34 Completed @21:59:51 sinus rhythm with premature atrial complexes Possible left atrial enlargment Borderline ECG Vent. rate 88 bpm WI interval 204 ms QRS duration 84 ms <Pablo Carney - Last Filed: 02/25/18 23:47> ED Treatment Course - Medications Given in the ED: ED Medications Discontinued Medications Generic Name Dose Route Start Last Admin Trade Name Freq PRN Reason Stop Dose Admin Metoprolol Tartrate 50 mg 02/25/18 21:39 02/25/18 21:50 Lopressor - PO 02/25/18 21:40 50 mg ONCE ONE Administration Nitroglycerin 1 inch 02/25/18 20:22 02/25/18 21:06 Nitro-Bid 2% Paste - TD 02/25/18 20:23 1 inch ONCE ONE Administration Nitroglycerin 0.4 mg 02/25/18 20:22 02/25/18 21:06 Nitrostat - SL 02/25/18 20:23 0.4 mg ONCE ONE Administration <Pablo Carney - Last Filed: 02/25/18 23:47> - Medications Given in the ED: ED Medications Discontinued Medications Generic Name Dose Route Start Last Admin Trade Name Freq PRN Reason Stop Dose Admin Nitroglycerin 1 inch 02/25/18 20:22 02/25/18 21:06 Nitro-Bid 2% Paste - TD 02/25/18 20:23 1 inch ONCE ONE Administration Nitroglycerin 0.4 mg 02/25/18 20:22 02/25/18 21:06 Nitrostat - SL 02/25/18 20:23 0.4 mg ONCE ONE Administration <Kayla Ramirez - Last Filed: 02/26/18 05:14> Medical Decision Making - Medical Decision Making 02/26/18 01:26 Pt comes with an episode of elevated BP after dialysis completion. He was treated with 0.2mg clonidine there. Pt has no chest pain, no SOB. He has no complaints. HR is fast and BP is high. He will be given his nightly dose of metoprolol, after the nitro that was given him on arrival. EKG is NSR. We were awaiting UA, but pt has not provided us with a urine specimen. He feels fine and he will be discharged. We will repeat another vital sign prior to d/c. <Kayla Ramirez - Last Filed: 02/26/18 05:14> *DC/Admit/Observation/Transfer - Attestations Scribe Attestion: 02/25/18 23:50 Documentation prepared by Pablo Carney, acting as biomedical service engineer for Kayla Ramirez MD. <Pablo Carney - Last Filed: 02/25/18 23:47> - Discharge Dispostion Decision to Admit order: No <Kayla Ramirez - Last Filed: 02/26/18 05:14> Diagnosis at time of Disposition: Diabetes, Hypertension - Discharge Dispostion Disposition: HOME Condition at time of disposition: Improved - Patient Instructions Printed Discharge Instructions: DI for High Blood Pressure, How to Monitor Your Blood Pressure at Home
[2018-02-25] MEDS ORDERED: METOPROLOL TARTRATE 50 MG TABLET (FP) PO ONE (21:39)
[2018-02-25] MEDS ORDERED: METOPROLOL TARTRATE 50 MG TABLET (FP) ONE (21:48)
[2018-02-26 05:19] VITALS: BP 153/77; PULSE 88
[2018-02-26 05:23] LABS: URINE APPEARANCE CLEAR; URINE BILIRUBIN NEGATIVE (<2.0 mg/dL); URINE COLOR STRAW; URINE GLUCOSE (UA) 1+ (NEGATIVE); URINE KETONE NEGATIVE (NEGATIVE); URINE LEUK ESTERASE NEGATIVE (NEGATIVE); URINE NITRITE NEGATIVE (NEGATIVE); URINE UROBILINOGEN NEGATIVE mg/dL (0.2-1.0)
[2018-02-26 05:24] LABS: URINE PROTEIN 3+ (NEGATIVE)
[2018-02-26 05:27] LABS: URINE BACTERIA RARE /hpf (NONE SEEN); URINE MUCUS RARE
--- NOTE | 2018-02-27 22:22 | EKG ---
Test Reason : Blood Pressure : / mmHG Vent. Rate : 088 BPM Atrial Rate : 088 BPM P-R Int : 204 ms QRS Dur : 084 ms QT Int : 376 ms P-R-T Axes : 068 061 043 degrees QTc Int : 454 ms SINUS RHYTHM WITH PREMATURE ATRIAL COMPLEXES POSSIBLE LEFT ATRIAL ENLARGEMENT BORDERLINE ECG WHEN COMPARED WITH ECG OF 18-JAN-2018 00:39, PREMATURE ATRIAL COMPLEXES ARE NOW PRESENT Confirmed by CHICHO PINON MD ([id number]) on 02/27/2018 10:22:04 PM Referred By: Confirmed By:CHICHO PINON MD
== END 2018-02-26 05:24 | disposition home or self-care (01) ==
LOC: JER 20:03
DX: I10 Essential (primary) hypertension (principal); I12.0 Hypertensive chronic kidney disease with stage 5 chronic kidney disease or end stage renal disease; E11.22 Type 2 diabetes mellitus with diabetic chronic kidney disease; N18.6 End stage renal disease; N17.8 Other acute kidney failure; Z99.2 Dependence on renal dialysis; Z79.84 Long term (current) use of oral hypoglycemic drugs
CPT/HCPCS: 81003; 81015; 93005; 93010; 99283-25

== ENCOUNTER 2018-05-15 08:59 | Emergency (ER) | payer OTHER ==
[2018-05-15 09:17] VITALS: BMI 25.9
--- NOTE | 2018-05-15 09:49 | PDOC ---
Attending Attestation - Resident Resident Name: Vikash Allen - ED Attending Attestation I have performed the following: I have examined & evaluated the patient, The case was reviewed & discussed with the resident, I agree w/resident's findings & plan, Exceptions are as noted - HPI HPI: 05/15/18 10:39 The patient is a 52-year-old male presents to the emergency department with RLQ pain. The patient presents with RLQ and right flank that radiates to his R. testicles, aggravated with sitting with mild relief standing. The patient was seen at the ED with similar complain last week, was admitted to the hospital. The patients CT scan read mild hydronephrosis in the right kidney with ureterectasis. The patient was followed up with a Urologist, Dr. Foley, and Graphic Art Technician, Dr. Oleary during admission. Before finishing his management of care, patient AMAed on 05/13/18. The patient states the symptoms are similar to the last admission, with a mild improvement in the pain severity. The patient reports he has had multiple episodes of nonbloody-bilious emesis, states its usually saliva that comes up. The patient state he is able to tolerate food, without bringing it back up. Denies fever, chills, chest pain, shortness of breath, diarrhea, constipation, dysuria or hematuria. Allergies: Penicillins PMHx: HTN, HLD, DM and ESRD (MWF HD) PSHx: AV fistula SHx: Drinks about 5 glasses of hard drinks at least twice a month. Nonsmoker. No drug use reported. PCP: None reported. - Physicial Exam PE: 05/15/18 12:13 GENERAL: Awake, alert, and fully oriented, in no acute distress HEAD: No signs of trauma EYES: PERRLA, EOMI, sclera anicteric, conjunctiva clear ENT: Auricles normal inspection, hearing grossly normal, nares patent, oropharynx clear without exudates. Moist mucosa NECK: Normal ROM, supple, no lymphadenopathy, JVD, or masses LUNGS: (+) Minimal crackles to the left base. Breath sounds equal, clear to auscultation bilaterally. No wheezing . HEART: Regular rate and rhythm, normal S1 and S2, no murmurs, rubs or gallops ABDOMEN: Soft, nontender, normoactive bowel sounds. No guarding, no rebound. No masses EXTREMITIES: Normal range of motion, no edema. No clubbing or cyanosis. No cords, erythema, or tenderness NEUROLOGICAL: Cranial nerves II through XII grossly intact. Normal speech. SKIN: Warm, Dry, normal turgor, no rashes or lesions noted. - Medical Decision Making 05/15/18 10:40 Documentation prepared by Marissa Smith, acting as biomedical engineering supervisor for Elli Marina MD. <Marissa Smith - Last Filed: 05/15/18 12:13> - Medical Decision Making 05/15/18 12:24 Pt presents to the ED complaining of L flank pain radiating to the left testicle that has been persistent for a week. Recently seen in the ED and admitted with negative work up, except for gallstones. labs are unremarkable. Pain is improving, and may be secondary to gallstones. will discharge home with referral to PCP. <Elli Marina - Last Filed: 05/15/18 12:33>
--- NOTE | 2018-05-15 10:06 | PDOC ---
History of Present Illness - General Chief Complaint: Pain, Acute Stated Complaint: ABD PAIN Time Seen by Provider: 05/15/18 09:29 - History of Present Illness Initial Comments: 05/15/18 10:00 52 y/o male with a history of HTN, HLD, DM, ESRD on dialysis (M, W,F) who presents to the ED with R flank pain, RLQ abd pain, with radiation to the right testicle. He was here last week for the same problem and left AMA. He says things are much better now than they were last week but he came back to the ED bc he still has pain and has not been able to sleep well. He also has still been vomiting non-stop. He claims to have vomited 15 times since he left the hospital. He denies any blood or bile in the vomit. Denies recent fevers, dysuria, hematuria, diarrhea, or constipation. Past History - Past Medical History Allergies/Adverse Reactions: Allergies Allergy/AdvReac Type Severity Reaction Status Date / Time Penicillins Allergy Verified 05/15/18 09:08 Home Medications: Ambulatory Orders Amlodipine Besylate [Norvasc -] 10 mg PO DAILY #30 tab 04/30/17 Calcium Acetate 667 mg PO QID 11/25/17 Furosemide 80 mg PO DAILY 11/25/17 Sevelamer Carbonate [Renvela -] 800 mg PO TID 11/25/17 Carvedilol [Coreg -] 6.25 mg PO BID 05/12/18 Lisinopril [Prinivil] 20 mg PO DAILY 05/12/18 Sildenafil Citrate [Sildenafil] 20 mg PO DAILY 05/12/18 Acetaminophen 500 mg PO DAILY #30 tablet 05/15/18 Acetaminophen 500 mg PO DAILY #30 tablet 05/15/18 Ondansetron HCl [Zofran] 8 mg PO BID #20 tablet 05/15/18 Ondansetron HCl [Zofran] 8 mg PO DAILY #30 tablet 05/15/18 Cardiac Disorders: No COPD: No Dementia: No Diabetes: Yes Dialysis: Yes Disorders: Yes (dialysis M/W/F) HTN: Yes - Immunization History Immunization Up to Date: Yes - Suicide/Smoking/Psychosocial Hx Smoking History: Unknown if ever smoked Have you smoked in the past 12 months: No Hx Alcohol Use: No Drug/Substance Use Hx: No Substance Use Type: None Hx Substance Use Treatment: No Review of Systems - Review of Systems Comments:: 05/15/18 10:06 CONSTITUTIONAL: Positive: Diaphoresis, loss of appetite. Absent: fever, chills, generalized weakness, malaise HEENT: Absent: rhinorrhea, nasal congestion, throat pain, throat swelling, difficulty swallowing, mouth swelling, ear pain, eye pain, visual Changes CARDIOVASCULAR: Absent: chest pain, syncope, palpitations, irregular heart rate, lightheadedness , peripheral edema RESPIRATORY: Absent: cough, shortness of breath, dyspnea with exertion, orthopnea, wheezing, stridor, hemoptysis GASTROINTESTINAL: Positive: Abdominal pain, Nausea, vomiting Absent: abdominal distension, diarrhea, constipation, melena, hematochezia GENITOURINARY: Positive: Flank pain, testicular pain Absent: dysuria, frequency, urgency, hesitancy, hematuria MUSCULOSKELETAL: Absent: myalgia, arthralgia, joint swelling SKIN: Absent: rash, itching, pallor HEMATOLOGIC/IMMUNOLOGIC: Absent: easy bleeding, easy bruising, lymphadenopathy, frequent infections ENDOCRINE: Absent: unexplained weight gain, unexplained weight loss, heat intolerance, cold intolerance NEUROLOGIC: Absent: headache, focal weakness or paresthesias, dizziness, unsteady gait, seizure, mental status changes, bladder or bowel incontinence PSYCHIATRIC: Absent: anxiety, depression, suicidal or homicidal ideation, hallucinations. *Physical Exam - Vital Signs Last Vital Signs Temp Pulse Resp BP Pulse Ox 98 F 74 18 168/88 99 05/15/18 09:05 05/15/18 09:05 05/15/18 09:05 05/15/18 09:05 05/15/18 09:05 - Physical Exam Comments: 05/15/18 10:08 ABDOMINAL: Abdomen is distended. There is significant pain in the RLQ. There is mild pain in the RUQ, No rebound or guarding. Normal BS. TESTICULAR EXAM: The testicles are not painful to palpation. No discolorations. No pain relief on elevation. No hernia appreciated on cough test. PULMONARY: Crackles heard in the Left lower lobe. No evidence of respiratory distress. No wheezing, rales or rhonchi. GENERAL: Patient is lying uncomfortably in bed bc he is in pain. He is not writhing and is not in agony like the prior visit. Well developed, well nourished. Awake and alert. No acute distress. HEENT: Normocephalic, atraumatic. PERRLA, EOMI. No conjunctival pallor. Sclera are non- icteric. Moist mucous membranes. Oropharynx is clear. NECK: Supple. Full ROM. No JVD. No thyromegaly. No lymphadenopathy. CARDIOVASCULAR: Regular rate and rhythm. No murmurs, rubs, or gallops. Distal pulses are 2+ and symmetric. MUSCULOSKELETAL He has R sided CVA tenderness. Normal range of motion at all joints. No bony deformities or tenderness. EXTREMITIES: No cyanosis. No clubbing. No edema. No calf tenderness. SKIN: Warm and dry. Normal capillary refill. No jaundice. NEUROLOGICAL: Alert, awake, appropriate. Cranial nerves 2-12 intact. No deficits to light touch in face, upper extremities and lower extremities. No motor deficits in the in face, upper extremities and lower extremities. Normal speech. Gait is normal without ataxia. PSYCHIATRIC: Cooperative. Good eye contact. Appropriate mood and affect. ED Treatment Course - LABORATORY CBC & Chemistry Diagram: 05/15/18 10:41 05/15/18 10:41 Medical Decision Making - Medical Decision Making 05/15/18 10:15 52 y/o male with a history of HTN, HLD, DM, ESRD on dialysis (M, W,F) who presents to the ED with R flank pain, RLQ abd pain, with radiation to the right testicle. He has significant Nausea and vomiting associated with his pain. He was here last week for the same problem and left AMA. In his last stay - CT showed mild hydronephrosis of the R kidney possibly a residual finding from a recently passed stone. CT also showed gallstones but no evidence of cholecystitis. CT showed normal appendix. DD: Renal Colic, testicular torsion, Appendicitis, Epididymitis, hernia. Clinical picture is most suggestive of renal colic. Unlikely appendicitis given no hx of recent fever, negative rovsig, negative psoas and negative obturator signs. Unlikely epididymitis given lack of relief on testicular raise and no recent fever. Plan: Labs, urine, cxr, analgesia, zofran, re-assess. Patient is trending in the right direction. His urine shows no signs of UTI. CXR negative. Patient is going to be DCed with prescriptions for tylenol and zofran. Advised to follow up with a surgeon in the next 3 days. 05/15/18 10:16 05/15/18 10:26 05/15/18 13:38 05/15/18 13:52 *DC/Admit/Observation/Transfer Diagnosis at time of Disposition: Abdominal pain, Renal colic on right side, ESRD (end stage renal disease) - Discharge Dispostion Disposition: HOME Condition at time of disposition: Stable Decision to Admit order: No - Prescriptions Prescriptions: Acetaminophen 500 mg PO DAILY #30 tablet Acetaminophen 500 mg PO DAILY #30 tablet Ondansetron HCl [Zofran] 8 mg PO BID #20 tablet Ondansetron HCl [Zofran] 8 mg PO DAILY #30 tablet - Referrals Referrals: Mally Maciel MD [Staff Physician] - Abraham Camacho [Non Staff, Medical] - Fawad Viera MD [Staff Physician] - - Patient Instructions Printed Discharge Instructions: Kidney Stones -- Adult, DI for Acute Abdomen Additional Instructions: Please make sure to call up the surgeon we are refering you to in the next 3 days and schedule an appointment to be seen and assessed. Please make sure to go strip picker the pain and nausea medications we are sending to your pharmacy. Come back to the ER if your pain becomes worse, you develop a fever, or have any other concerns. - Post Discharge Activity
[2018-05-15] MEDS ORDERED: morphine CARPU-JECT 4 MG/1 ML DISP.SYRIN IVPUSH ONE (10:24)
[2018-05-15] MEDS ORDERED: ONDANSETRON 4 MG/2 ML VIAL IVPUSH ONE (10:24)
[2018-05-15] MEDS ORDERED: morphine SULFATE 4 MG/ML VIAL ONE (10:31)
[2018-05-15] MEDS ORDERED: ONDANSETRON 4 MG/2 ML VIAL ONE (10:32)
[2018-05-15 10:52] LABS: BASO % 0.6 % (0-2.0); EOS % 3.9 % (0-4.5); HEMATOCRIT 37.1 % (35.4-49); HEMOGLOBIN 12.3 GM/dL (11.7-16.9); LYMPH % 8.7 % (8-40); MCH 28.8 pg (25.7-33.7); MEAN CELL VOLUME 87.2 fl (80-96); MONO % 7.4 % (3.8-10.2); NEUT % 79.4 % (42.8-82.8); PLATELET COUNT 162 K/MM3 (134-434); RBC 4.26 M/mm3 (4.00-5.60); WHITE BLOOD COUNT 8.3 K/mm3 (4.0-10.0)
[2018-05-15 11:14] LABS: ALBUMIN 3.3 g/dl (3.4-5.0); ANION GAP 11 (8-16); BILIRUBIN,TOTAL 0.7 mg/dL (0.2-1.0); BLOOD UREA NITROGEN 28 mg/dL (7-18); CALCIUM 8.6 mg/dL (8.5-10.1); CHLORIDE 101 mmol/L (98-107); CO2 26 mmol/L (21-32); CREATININE 6.4 mg/dL (0.7-1.3); GLUCOSE,RANDOM 116 mg/dL (74-106); LIPASE 76 U/L (73-393); POTASSIUM 4.4 mmol/L (3.5-5.1); SGOT/AST 13 U/L (15-37); SGPT/ALT 19 U/L (12-78); SODIUM 138 mmol/L (136-145); TOT PROT 7.8 g/dl (6.4-8.2)
[2018-05-15 11:15] LABS: ALK PHOS 151 U/L (45-117)
[2018-05-15 13:06] LABS: URINE APPEARANCE SLCLOUDY; URINE BILIRUBIN NEGATIVE (<2.0 mg/dL); URINE COLOR YELLOW; URINE GLUCOSE (UA) 3+ (NEGATIVE); URINE KETONE NEGATIVE (NEGATIVE); URINE LEUK ESTERASE NEGATIVE (NEGATIVE); URINE NITRITE NEGATIVE (NEGATIVE); URINE PROTEIN 3+ (NEGATIVE); URINE UROBILINOGEN NEGATIVE mg/dL (0.2-1.0)
[2018-05-15 13:13] LABS: EPI CELLS RARE /HPF (FEW); URINE BACTERIA RARE /hpf (NONE SEEN); URINE MUCUS RARE
[2018-05-15 13:56] VITALS: BP 158/74; PULSE 68; TEMP 98.1
== END 2018-05-15 13:56 | disposition home or self-care (01) ==
LOC: JER 08:59
PROC: 3E033NZ Introduction of Analgesics, Hypnotics, Sedatives into Peripheral Vein, Percutaneous Approach (ICD-10-PCS; principal; 2018-05-15)
PROC: 3E033GC Introduction of Other Therapeutic Substance into Peripheral Vein, Percutaneous Approach (ICD-10-PCS; 2018-05-15)
DX: N23 Unspecified renal colic (principal); Z87.442 Personal history of urinary calculi; I12.0 Hypertensive chronic kidney disease with stage 5 chronic kidney disease or end stage renal disease; E11.22 Type 2 diabetes mellitus with diabetic chronic kidney disease; N18.6 End stage renal disease; N17.8 Other acute kidney failure; Z99.2 Dependence on renal dialysis; Z79.84 Long term (current) use of oral hypoglycemic drugs; E78.5 Hyperlipidemia, unspecified
CPT/HCPCS: 36415; 71046-TC-FY; 80053; 81003; 81015; 83605; 83690; 85025; 87086; 96374; 96375; 99283-25

== ENCOUNTER 2018-05-21 23:25 | Emergency (ER) | payer OTHER ==
[2018-05-21 23:32] VITALS: BMI 25.9
--- NOTE | 2018-05-22 00:05 | PDOC ---
Attending Attestation - HPI HPI: 05/22/18 00:26 The patient is a 52 year old male, with a significant past medical history of ESRD (on dialysis M, W, F), DM, HTN, who presents to the emergency department with intermittent shortness of breath with lying flat. He states his symptoms are alleviated once he stands up and walks around. He reports this happened a few times today before he finally stood up and called ems at a friends house. Secondarily, he reports some pain and bleeding from his penis s/p some procedure involving his penis at [facility] yesterday. The patient denies chest pain, headache and dizziness. The patient denies fever , chills, nausea, vomit, diarrhea and constipation. The patient denies dysuria, frequency, urgency and hematuria. Allergies: Penicillins Past surgical history: RT CHEST DIALYSIS CATH, LT ARM GRAFT Social history:Unknown PCP: None Neph: Dr. Oleary - Physicial Exam PE: 05/22/18 00:26 ROS: A complete review of 10 out of 10 review of systems is taken and is negative apart from what is previously mentioned below and in the HPI. Adult Physical Exam Vitals: Triage vital signs reviewed General Appearance: No acute distress, well nourished, well developed Head: Atraumatic Eyes: Pupils equal reactive round, extraocular movement intact Neck: Supple; No nuchal rigidity Chest Wall: Nontender Cardiac: Regular rate and rhythm, no murmurs, no rubs, no gallops Lungs: (+) crackles to bilateral bases. good air movement bilaterally Abdomen: Soft, nondistended, normal bowel sounds, nontender to palpation Extremities: Full range of motion to all extremities, no cyanosis, clubbing, or edema Skin: Warm and dry, no rashes or lesions, no rash, no petechiae Neuro: AOX3; Cranial Nerves 2-12 grossly intact, Strength intact to all extremities, Sensation intact to all extremities, Psych: Normal mood, normal affect - Medical Decision Making 05/22/18 00:28 Documentation prepared by Milagros Negro, acting as medical accountant for Shayne Randle MD. <Milagros Negro - Last Filed: 05/22/18 00:26> - Resident Resident Name: Justin Stewart - ED Attending Attestation I have performed the following: I have examined & evaluated the patient, The case was reviewed & discussed with the resident, I agree w/resident's findings & plan, Exceptions are as noted - Medical Decision Making Mild shortness of breath only when patient lays down. No pleuritic shortness of breath. No chest pain. Well-appearing no apparent distress patient did drink several beers this evening EKG demonstrates normal sinus rhythm no ST elevations or T-wave inversions. Given age diabetes hypertension high cholesterol and end-stage renal disease a troponin was ordered which was negative One nebulizer treatment was given patient Now complaining of chills nausea vomiting chest x-ray with questionable findings we'll check chest CT labs cultures lactic CBC observing reassessed Dr. Garrison to follow up patient. <Shayne Randle - Last Filed: 05/23/18 00:01>
[2018-05-22] MEDS ORDERED: ALBUTEROL SO4 0.5 % INH SOLN 2.5 MG/0.5 ML VIAL.NEB. NEB ONE (00:13)
[2018-05-22] MEDS ORDERED: MAG HYDROX/AL HYDROX/SIMETH 30 ML UNIT-DOSE CUP PO ONE (00:14)
[2018-05-22] MEDS ORDERED: MAG HYDROX/AL HYDROX/SIMETH 30 ML UNIT-DOSE CUP ONE (00:19)
[2018-05-22] MEDS ORDERED: ALBUTEROL SO4 0.083% IH SOL 2.5 MG/3 ML VIAL.NEB. NEB ONE (00:19)
[2018-05-22] MEDS ORDERED: ONDANSETRON 4 MG/2 ML VIAL ONE (00:21)
[2018-05-22] MEDS ORDERED: FAMOTIDINE 20 MG/50 ML IVPB 20 MG/50 ML MG IVPB ONE ×2 (00:22→00:43)
[2018-05-22] MEDS ORDERED: ONDANSETRON 4 MG/2 ML VIAL IVPUSH ONE (00:32)
--- NOTE | 2018-05-22 00:32 | PDOC ---
History of Present Illness - General Chief Complaint: Shortness of Breath Stated Complaint: SOB Time Seen by Provider: 05/21/18 23:40 History Source: Patient Exam Limitations: No Limitations - History of Present Illness Initial Comments: 52 y/o male presenting to [facility] ER via ambulance complaining of shortness of breath since this evening. Pt describes the sensation as intermittent air hunger and cough when he lays flat. Notes it improves with standing and walking. Recalls previous episodes a while ago but it stopped; unable to provide further detail. H/o ESRD on dialysis (M,W,F); last run yesterday without complication. Weighs himself daily; weight has been stable for the past few weeks. Prescribed PRN lasix; has not used in weeks. Denies chest pain, palpitations, syncope, or swelling to lower extremity. Endorses chills without fever or diaphoresis. Is additionally endorsing hematuria without dysuria, frequency, or flank pain. Pt was discharged from [facility] yesterday after an unknown urologic procedure - pt only able to recall they put something in my penis in the operating room because I was having kidney stones. Was evaluated at this facility on 15 May 2018 for renal colic. Endorses 1.5 small beers tonight. No tobacco or street drugs. Past History - Past Medical History Allergies/Adverse Reactions: Allergies Allergy/AdvReac Type Severity Reaction Status Date / Time Penicillins Allergy Verified 05/21/18 23:32 Home Medications: Ambulatory Orders Amlodipine Besylate [Norvasc -] 10 mg PO DAILY #30 tab 04/30/17 Calcium Acetate 667 mg PO QID 11/25/17 Furosemide 80 mg PO DAILY 11/25/17 Sevelamer Carbonate [Renvela -] 800 mg PO TID 11/25/17 Carvedilol [Coreg -] 6.25 mg PO BID 05/12/18 Lisinopril [Prinivil] 20 mg PO DAILY 05/12/18 Sildenafil Citrate [Sildenafil] 20 mg PO DAILY 05/12/18 Acetaminophen 500 mg PO DAILY #30 tablet 05/15/18 Acetaminophen 500 mg PO DAILY #30 tablet 05/15/18 Ondansetron HCl [Zofran] 8 mg PO BID #20 tablet 05/15/18 Ondansetron HCl [Zofran] 8 mg PO DAILY #30 tablet 08/19/18 Cardiac Disorders: No COPD: No Dementia: No Diabetes: Yes Dialysis: Yes Disorders: Yes (dialysis M/W/F) HTN: Yes - Immunization History Immunization Up to Date: Yes - Suicide/Smoking/Psychosocial Hx Smoking History: Unknown if ever smoked Have you smoked in the past 12 months: No Hx Alcohol Use: No Drug/Substance Use Hx: No Substance Use Type: None Hx Substance Use Treatment: No Review of Systems - Review of Systems Constitutional: Yes: Chills. No: Diaphoresis, Fever HEENTM: No: Throat Pain, Throat Swelling, Difficulty Swallowing Respiratory: Yes: Cough, Shortness of Breath. No: SOB with Exertion, Productive cough Cardiac (ROS): No: Chest Pain, Edema, Palpitations, Syncope ABD/GI: No: Constipated, Diarrhea, Nausea, Vomiting : Yes: Hematuria. No: Burning, Dysuria, Discharge, Incontinence Musculoskeletal: No: Back Pain Integumentary: No: Bruising, Rash Neurological: No: Weakness Hematologic/Lymphatic: No: Easy Bleeding, Easy Bruising *Physical Exam - Vital Signs Last Vital Signs Temp Pulse Resp BP Pulse Ox 97.7 F 82 18 167/93 98 05/21/18 23:30 05/21/18 23:30 05/21/18 23:30 05/21/18 23:30 05/21/18 23:30 - Physical Exam Comments: Constitutional: Well-developed, well-nourished, non-toxic male in no acute distress. Found semi-fowlers in hospital bed. Alert and oriented x4. Answered all questions appropriately and completely. Speech was mildly slurred otherwise non-labored, non-pressured. HEENT: Normocephalic. No obvious external signs of trauma. Hearing grossly normal. No nasal discharge. Neck is supple, trachea is midline. No JVD. Cardiovascular: Regular rate and regular rhythm. Systolic thrill; no: rubs, clicks, or gallops. Peripheral pulses: Radial pulses full. Dialysis shunt in upper left arm well appearing. Respiratory: Equal chest rise and fall. Clear to auscultation bilaterally. No stridor, no wheezing, no rhonchi. Gastrointestinal: abdomen is soft, non-tender, non-distended. Neuro: Alert and oriented. Moving all four extremities spontaneously. Skin: Warm, dry, and intact. No bruising, rashes, or other lesions. Psych: Affect: appropriate. Mood: normal ED Treatment Course - LABORATORY CBC & Chemistry Diagram: 05/22/18 00:27 - RADIOLOGY Radiology Studies Ordered: Category Date Time Status CHEST PA & LAT [RAD] Stat Radiology 05/22/18 00:02 Ordered Medical Decision Making - Medical Decision Making *Reviewed nursing notes and prior visit documentation. 52 y/o diabetic, ESRD, s/p unknown urologic instrumentation at [facility] complaining of intermittent shortness of breath when laying flat, improves with standing. Endorsing chills. Afebrile orally or rectally. Vitals unremarkable for hypoxia, tachypnea, hypotension or tachycardia. Physical exam unrevealing for acute respiratory or cardiac symptoms. Suspect esophageal reflux inducing laryngeal irritation. Low suspicion for acute CHF exacerbation as pt reports stable weight and only trace pretibial edema. Low suspicion for ACS as pt is without chest pain or other cardiac complaint. Low suspicion for pneumonia as cough is nonproductive, SOB improves with exertion, and pt is afebrile; however pt does have multiple health care contacts. Low suspicion for UTI, suspect hematuria is secondary to recent urologic instrumentation. Low suspicion for asthma or COPD given no history and no wheezing. Low suspicion for electrolyte abnormality. Will obtain BMP, Trop, EKG, and CXR. Ordered albuterol neb, famotidine, and zofran for symptom relief. BMP revealed hyponatremia to 131; does not require correction at this time. Troponin not elevated. EKG: Sinus rhythm at a ventricular rate of 82 bpm. Normal axis. Normal intervals. No ST segment elevation or depression. No peaked T-waves. No pathologic Q waves. Continue to have low suspicion for ACS. CXR: Poor technical quality and therefore difficult to compare to previous film from 6 days ago. Cardiac sillouet is enlarged and unchanged from previous. Possible lower right lobe infiltrate but very difficult to interpret. Will obtain non-contrast chest CT to further evaluate. PT now reporting increased nausea and vomiting. Small amount of clear saliva noted in emesis bag next to pt. States experienced one more episode of brief shortness of breath and that it again resolved when he sat upright. Continues to endorse chills. Given pt's unchanged status and multiple recent hospital encounters and instrumentation, will order CBC, lactate, blood cultures, UA, and urine culture. 05/22/18 02:09 Pt signed out to Dr. Hernández after he was verbally appraised of current condition and pending studies. *DC/Admit/Observation/Transfer Diagnosis at time of Disposition: Shortness of breath - Discharge Dispostion Condition at time of disposition: Good - Referrals - Patient Instructions - Post Discharge Activity
[2018-05-22 00:53] LABS: ANION GAP 11 MMOL/L (8-16); BLOOD UREA NITROGEN 56 mg/dL (7-18); CALCIUM 7.7 mg/dL (8.5-10.1); CHLORIDE 93 mmol/L (98-107); CO2 27 mmol/L (21-32); CREATININE 6.7 mg/dL (0.7-1.3); GLUCOSE,RANDOM 109 mg/dL (74-106); POTASSIUM 4.5 mmol/L (3.5-5.1); SODIUM 131 mmol/L (136-145)
--- NOTE | 2018-05-22 02:11 | PDOC ---
*Physical Exam - Vital Signs Last Vital Signs Temp Pulse Resp BP Pulse Ox 97.7 F 82 18 167/93 98 05/21/18 23:30 05/21/18 23:30 05/21/18 23:30 05/21/18 23:30 05/21/18 23:30 <Kyala Ramirez - Last Filed: 05/22/18 05:42> - Vital Signs Last Vital Signs Temp Pulse Resp BP Pulse Ox 97.7 F 82 18 167/93 98 05/21/18 23:30 05/21/18 23:30 05/21/18 23:30 05/21/18 23:30 05/21/18 23:30 - Physical Exam Comments: 05/22/18 02:[address] Stewart and Dr. Randle. Patient with chills nausea vomting retching recent instrumentation and possible pneumonia: Pending CT scan chest, CBC, Lactic acid, UA, Blood cultures, written for levaquin. If pneumonia seen on CT scan will give ertapenem for HAP given dialysis patient. Will follow <Ab Hernández - Last Filed: 05/22/18 06:11> ED Treatment Course - LABORATORY CBC & Chemistry Diagram: 05/22/18 01:50 05/22/18 00:27 - ADDITIONAL ORDERS Additional order review: Laboratory Results 05/22/18 05/22/18 05/22/18 01:50 00:27 00:27 Sodium 131 L Potassium 4.5 Chloride 93 L Carbon Dioxide 27 Anion Gap 11 BUN 56 H D Creatinine 6.7 H Creat Clearance w eGFR 8.81 Random Glucose 109 H Lactic Acid 0.5 Calcium 7.7 L Troponin I < 0.02 05/22/18 01:50 RBC 3.80 L MCV 86.3 MCHC 33.6 RDW 16.0 H MPV 7.3 L Neutrophils % 68.2 Lymphocytes % 14.0 D Monocytes % 7.7 Eosinophils % 9.0 H D Basophils % 1.1 - Medications Given in the ED: ED Medications Discontinued Medications Generic Name Dose Route Start Last Admin Trade Name Freq PRN Reason Stop Dose Admin Al Hydroxide/Mg Hydroxide 30 ml 05/22/18 00:14 05/22/18 00:42 Mylanta Oral Suspension - PO 05/22/18 00:15 Not Given ONCE ONE Albuterol Sulfate 1 amp 05/22/18 00:13 05/22/18 00:55 Ventolin 0.5% - NEB 05/22/18 00:14 1 amp ONCE ONE Administration Famotidine/Sodium Chloride 20 mg in 50 mls @ 100 mls/hr 05/22/18 00:22 00:55 Pepcid 20 Mg Premixed Ivpb - IVPB 05/22/18 00:51 100 mls/hr ONCE ONE Administration Levofloxacin 500 mg in 100 mls @ 100 mls/hr 05/22/18 01:58 05/22/18 02:25 Levaquin 500 Mg Premixed Ivpb - IVPB 05/22/18 02:57 100 mls/hr ONCE ONE Administration Protocol Ondansetron HCl 4 mg 05/22/18 00:32 05/22/18 00:42 Zofran Injection IVPUSH 05/22/18 00:33 4 mg ONCE ONE Administration <Kayla Ramirez - Last Filed: 05/22/18 05:42> - LABORATORY CBC & Chemistry Diagram: 05/22/18 01:50 05/22/18 00:27 - ADDITIONAL ORDERS Additional order review: Laboratory Results 05/22/18 05/22/18 00:27 00:27 Sodium 131 L Potassium 4.5 Chloride 93 L Carbon Dioxide 27 Anion Gap 11 BUN 56 H D Creatinine 6.7 H Creat Clearance w eGFR 8.81 Random Glucose 109 H Calcium 7.7 L Troponin I < 0.02 - Medications Given in the ED: ED Medications Discontinued Medications Generic Name Dose Route Start Last Admin Trade Name Freq PRN Reason Stop Dose Admin Al Hydroxide/Mg Hydroxide 30 ml 05/22/18 00:14 05/22/18 00:42 Mylanta Oral Suspension - PO 05/22/18 00:15 Not Given ONCE ONE Albuterol Sulfate 1 amp 05/22/18 00:13 05/22/18 00:55 Ventolin 0.5% - NEB 05/22/18 00:14 1 amp ONCE ONE Administration Famotidine/Sodium Chloride 20 mg in 50 mls @ 100 mls/hr 05/22/18 00:22 00:55 Pepcid 20 Mg Premixed Ivpb - IVPB 05/22/18 00:51 100 mls/hr ONCE ONE Administration Ondansetron HCl 4 mg 05/22/18 00:32 05/22/18 00:42 Zofran Injection IVPUSH 05/22/18 00:33 4 mg ONCE ONE Administration <Ab Hernández - Last Filed: 05/22/18 06:11> Medical Decision Making - Medical Decision Making 05/22/18 05:42 Patient Name: EDY CACERES THIS IS A PRELIMINARY REPORT FROM [facility] DATE OF SERVICE: 2018-05-22 03:52:17 IMAGES: 469 EXAM: CHEST CT WITHOUT CONTRAST HISTORY: Rule out pneumonia. Rule out effusions COMPARISON: None. FINDINGS: No pulmonary infiltrates. Trace right pleural effusion. Cardiomegaly. Calcified coronary artery plaques. Trace pericardial fluid. Shotty mediastinal lymph nodes. Note made of cholelithiasis. Advanced upper abdominal vascular calcification noted. There is a bubble of air in the right renal collecting system. Was there instrumentation? Recommend followup/evaluation to determine the cause. Individualized dose optimization techniques were used for this CT. THIS DOCUMENT HAS BEEN ELECTRONICALLY SIGNED <Kayla Ramirez - Last Filed: 05/22/18 05:42> *DC/Admit/Observation/Transfer - Discharge Dispostion Decision to Admit order: No <Kayla Ramirez - Last Filed: 05/22/18 05:42> - Discharge Dispostion Decision to Admit order: No <Ab Hernández - Last Filed: 05/22/18 06:11> Diagnosis at time of Disposition: Shortness of breath, Vomiting - Discharge Dispostion Disposition: HOME Condition at time of disposition: Improved - Patient Instructions Printed Discharge Instructions: DI for Vomiting -- Adult Additional Instructions: if your condition worsens go to the nearest emergency room continue all your home medications Follow up with your primary care doctor a copy of the CT scan results was given to you to show your doctors
[2018-05-22 02:29] LABS: BASO % 1.1 % (0-2.0); HEMATOCRIT 32.8 % (35.4-49); MCHC 33.6 g/dl (32.0-35.9); MEAN CELL VOLUME 86.3 fl (80-96); MEAN PLT VOLUME 7.3 fl (7.5-11.1); MONO % 7.7 % (3.8-10.2); NEUT % 68.2 % (42.8-82.8); PLATELET COUNT 172 K/MM3 (134-434); WHITE BLOOD COUNT 9.3 K/mm3 (4.0-10.0)
[2018-05-22 05:56] VITALS: BP 160/94; PULSE 87; TEMP 98.4
--- NOTE | 2018-05-22 21:56 | EKG ---
Test Reason : Blood Pressure : / mmHG Vent. Rate : 082 BPM Atrial Rate : 082 BPM P-R Int : 156 ms QRS Dur : 086 ms QT Int : 410 ms P-R-T Axes : 047 051 044 degrees QTc Int : 479 ms NORMAL SINUS RHYTHM POSSIBLE LEFT ATRIAL ENLARGEMENT BORDERLINE ECG WHEN COMPARED WITH ECG OF 12-MAY-2018 00:38, NO SIGNIFICANT CHANGE WAS FOUND Confirmed by DARIA CHAUDHARY MD ([id number]) on 05/22/2018 9:56:31 PM Referred By: Confirmed By:DARIA CHAUDHARY MD
== END 2018-05-22 05:56 | disposition home or self-care (01) ==
LOC: JER 23:25
PROC: 3E0F7GC Introduction of Other Therapeutic Substance into Respiratory Tract, Via Natural or Artificial Opening (ICD-10-PCS; principal; 2018-05-21)
PROC: 3E033GC Introduction of Other Therapeutic Substance into Peripheral Vein, Percutaneous Approach (ICD-10-PCS; 2018-05-21)
PROC: 3E03329 Introduction of Other Anti-infective into Peripheral Vein, Percutaneous Approach (ICD-10-PCS; 2018-05-21)
PROC: 3E033GC Introduction of Other Therapeutic Substance into Peripheral Vein, Percutaneous Approach (ICD-10-PCS; 2018-05-21)
DX: R06.02 Shortness of breath (principal); R11.2 Nausea with vomiting, unspecified; I12.0 Hypertensive chronic kidney disease with stage 5 chronic kidney disease or end stage renal disease; E11.22 Type 2 diabetes mellitus with diabetic chronic kidney disease; N18.6 End stage renal disease; N17.8 Other acute kidney failure; Z99.2 Dependence on renal dialysis
CPT/HCPCS: 36415; 71045-TC-FY; 71250-TC; 80048; 83605; 84484; 85025; 87040; 93005; 93010; 94640; 96365; 96367; 96375; 99282-25

== ENCOUNTER 2019-03-22 21:41 | Emergency (ER) | payer OTHER ==
[2019-03-22 21:45] VITALS: BMI 26.9
[2019-03-22] MEDS ORDERED: SODIUM CHLORIDE 1,000 ML IV SCH (21:45)
--- NOTE | 2019-03-22 21:46 | PDOC ---
Rapid Medical Evaluation Time Seen by Provider: 03/22/19 21:43 Medical Evaluation: Allergies Allergy/AdvReac Type Severity Reaction Status Date / Time Penicillins Allergy Verified 05/21/18 23:32 03/22/19 21:43 HPI: concerned about HTN 207/107 at home has headache x1 week s/p dialysis today felt worse PE: No gross deficits ORDERS: Cardiac work up STAT CT head 03/22/19 21:45 Discharge Disposition - Diagnosis Hypertension - Referrals - Patient Instructions - Post Discharge Activity
[2019-03-22 23:17] LABS: BASO % 0.9 % (0-2.0); EOS % 4.9 % (0-4.5); HEMATOCRIT 31.9 % (35.4-49); HEMOGLOBIN 10.5 GM/dL (11.7-16.9); LYMPH % 9.9 % (8-40); MCH 29.9 pg (25.7-33.7); MEAN CELL VOLUME 90.5 fl (80-96); MEAN PLT VOLUME 7.1 fl (7.5-11.1); MONO % 5.9 % (3.8-10.2); NEUT % 78.4 % (42.8-82.8); PLATELET COUNT 157 K/MM3 (134-434); RBC 3.53 M/mm3 (4.00-5.60); WHITE BLOOD COUNT 9.5 K/mm3 (4.0-10.0)
[2019-03-22 23:38] LABS: INR 1.13 (0.83-1.09); PROTHROMBIN TIME (PATIENT) 13.4 SEC (9.7-13.0)
--- NOTE | 2019-03-22 23:41 | PDOC ---
History of Present Illness - General Chief Complaint: Blood Pressure Problem Stated Complaint: HYPERTENSION Time Seen by Provider: 03/22/19 21:43 - History of Present Illness Initial Comments: 03/22/19 23:36 53 yo M with h/o HTN, DM, CAD, CKD ( HD MWF), who p/w headache. Patient reports acute onset headache today while at dialysis. States that he developed bi- frontal, non radiating, pressure, with associated photophobia. No identifiable alleviators. States that he has never experienced headache of this intensity. Denies h/o frequent headaches. Denies head trauma, LOC. Also endorses diffuse Bl leg pain/cramping with no triggers or alleviators. Patient denies neck stiffness, convulsions, scintillating scotomas, palpitations , cough, wheezing, orthopena, PND, N/V, F,C, CP, SOB, urinary complaints, hematuria, BPR, abdominal pain, diarrhea, constipation, lightheadedness, weakness, sensory changes. PMHx: as noted above ROS: as noted SHx: Denies Etoh, IVDA, tobacco use Allergies: NKDA Past History - Past Medical History Allergies/Adverse Reactions: Allergies Allergy/AdvReac Type Severity Reaction Status Date / Time Penicillins Allergy Verified 03/22/19 21:45 Home Medications: Ambulatory Orders Amlodipine Besylate [Norvasc -] 10 mg PO DAILY #30 tab 04/30/17 Calcium Acetate 667 mg PO QID 11/25/17 Furosemide 80 mg PO DAILY 11/25/17 Sevelamer Carbonate [Renvela -] 800 mg PO TID 11/25/17 Carvedilol [Coreg -] 6.25 mg PO BID 05/12/18 Lisinopril [Prinivil] 20 mg PO DAILY 05/12/18 Sildenafil Citrate [Sildenafil] 20 mg PO DAILY 05/12/18 Acetaminophen 500 mg PO DAILY #30 tablet 05/15/18 Acetaminophen 500 mg PO DAILY #30 tablet 05/15/18 Ondansetron HCl [Zofran] 8 mg PO BID #20 tablet 05/15/18 Ondansetron HCl [Zofran] 8 mg PO DAILY #30 tablet 05/15/18 Cardiac Disorders: No COPD: No Dementia: No Diabetes: Yes Dialysis: Yes Disorders: Yes (dialysis M/W/F) HTN: Yes - Immunization History Immunization Up to Date: Yes - Suicide/Smoking/Psychosocial Hx Smoking History: Never smoked Have you smoked in the past 12 months: No Hx Alcohol Use: No Drug/Substance Use Hx: No Substance Use Type: None Hx Substance Use Treatment: No Review of Systems - Review of Systems Comments:: 03/22/19 23:37 GENERAL/CONSTITUTIONAL: No fever or chills. No weakness. HEAD, EYES, EARS, NOSE AND THROAT: No change in vision. No ear pain or discharge. No sore throat. CARDIOVASCULAR: No chest pain or shortness of breath RESPIRATORY: No cough, wheezing, or hemoptysis. GASTROINTESTINAL: No nausea, vomiting, diarrhea or constipation. GENITOURINARY: No dysuria, frequency, or change in urination. MUSCULOSKELETAL: No joint or muscle swelling or pain. No neck or back pain. SKIN: No rash NEUROLOGIC: No headache, vertigo, loss of consciousness, or change in strength/ sensation. ENDOCRINE: No increased thirst. No abnormal weight change HEMATOLOGIC/LYMPHATIC: No anemia, easy bleeding, or history of blood clots. ALLERGIC/IMMUNOLOGIC: No hives or skin allergy. *Physical Exam - Vital Signs Last Vital Signs Temp Pulse Resp BP Pulse Ox 98.8 F 80 18 181/92 H 97 03/22/19 21:43 03/22/19 21:43 03/22/19 21:43 03/22/19 21:43 03/22/19 21:43 - Physical Exam Comments: 03/22/19 23:37 GENERAL: Awake, alert, and fully oriented, in no acute distress HEAD: No signs of trauma, normocephalic, atraumatic EYES: PERRLA, EOMI, sclera anicteric, conjunctiva clear ENT: Auricles normal inspection, hearing grossly normal, nares patent, oropharynx clear without exudates. Moist mucosa NECK: Normal ROM, supple, no lymphadenopathy, JVD, or masses LUNGS: No distress, speaks full sentences, clear to auscultation bilaterally HEART: Regular rate and rhythm, normal S1 and S2, no murmurs, rubs or gallops, peripheral pulses normal and equal bilaterally. ABDOMEN: Soft, nontender, normoactive bowel sounds. No guarding, no rebound. No masses EXTREMITIES : Normal inspection, Normal range of motion, no edema. No clubbing or cyanosis. NEUROLOGICAL: Cranial nerves II through XII grossly intact. Normal speech, normal gait, no focal sensorimotor deficits SKIN: Warm, Dry, normal turgor, no rashes or lesions noted Procedures - Lumbar Puncture Indication: Subarachnoid Hemmorhage CT Scan: Yes Betadine Prep: Yes Position: Right lateral decubitus Site: L3-L4 Local Anesthesia: 1% Lidocaine with epi Lumbar Puncture Kit: Adult Opening Pressure(mmHg): 19 Traumatic Tap: No Tubes Obtained: 4 Clear Fluid: Yes Complications: No ED Treatment Course - LABORATORY CBC & Chemistry Diagram: 03/22/19 23:10 03/22/19 23:10 - ADDITIONAL ORDERS Additional order review: 03/22/19 23:10 RBC 3.53 L MCV 90.5 MCHC 33.0 RDW 15.0 MPV 7.1 L Neutrophils % 78.4 Lymphocytes % 9.9 D Monocytes % 5.9 Eosinophils % 4.9 H Basophils % 0.9 Medical Decision Making - Medical Decision Making 03/22/19 23:41 53 yo M with h/o HTN, DM, CAD, CKD ( HD MWF), who p/w acute onset bi-frontal, non radiating, pressure, with associated photophobia. BP 181/92, vitals otherwise wnl, AF, A&OX3. Physical exam unremarkable. Patient neurologically intact. Denies neck stiffness, convulsions, scintillating scotomas, N/V, F,C, CP , SOB, urinary complaints, hematuria, BPR, abdominal pain, diarrhea, constipation, lightheadedness, weakness, sensory changes. CTH r/o hemorrhage, hematoma, mass effect. Patient non toxic, absent nuchal findings, neg brudinsky , neg kernig. Will provide pain control, reasses. Ed Course: 03/23/19 04:21 EKG: NSR with absent SIA, STD. QT 482. Nml axis. Nml R wave progression. Absent Q waves. 03/23/19 06:17 Laboratory Tests 03/22/19 03/22/19 23:10 23:10 WBC 9.5 Hgb 10.5 L Hct 31.9 L Plt Count 157 Sodium 138 Potassium 3.9 BUN 33.2 H Creatinine 5.8 H Troponin I 0.05 LP perfromed without difficulty. Clear CSF return, opening pressure 19 Patient endorsed to day team Dr. Camacho. Pending LP results. *DC/Admit/Observation/Transfer Diagnosis at time of Disposition: Head ache Hypertension Qualifiers: Hypertension type: unspecified Qualified Code(s): I10 - Essential (primary) hypertension - Discharge Dispostion Disposition: HOME Condition at time of disposition: Stable - Referrals - Patient Instructions Printed Discharge Instructions: DI for High Blood Pressure Additional Instructions: 1) Please follow-up with your primary care doctor in the next 2-3 days. Please call tomorrow to schedule a follow up appointment. If you cannot follow up with your doctor within 1 week please return to the Emergency Department for any urgent issues. 2) Your laboratory / imaging results were normal here in the ER. 3) If you have any worsening of symptoms or any other concerns please return to the ER immediately. Return if worsening symptoms including fevers, headache, vomiting, visual or hearing disturbances, abdominal pain, chest pain, shortness of breath, syncope, dehydration, inability to take things by mouth/vomiting, altered mental status, or worsening concerning symptoms. 4) Please continue taking your home medications as directed. Side effects may include upset stomach, abdominal pain, vomiting, or diarrhea. Do not drink alcohol with your medications. - Post Discharge Activity
[2019-03-22 23:55] LABS: ALBUMIN 3.3 g/dl (3.4-5.0); BILIRUBIN,TOTAL 0.5 mg/dL (0.2-1); BLOOD UREA NITROGEN 33.2 mg/dL (7-18); CALCIUM 8.4 mg/dL (8.5-10.1); CREATININE 5.8 mg/dL (0.55-1.3); POTASSIUM 3.9 mmol/L (3.5-5.1); TOT PROT 7.6 g/dl (6.4-8.2)
[2019-03-23] MEDS ORDERED: METOCLOPRAMIDE HCL INJECTION 10 MG/2 ML VIAL IVPUSH ONE (00:45)
[2019-03-23] MEDS ORDERED: METOCLOPRAMIDE HCL INJECTION 10 MG/2 ML VIAL ONE (00:54)
--- NOTE | 2019-03-23 01:05 | PDOC ---
Attending Attestation - Resident Resident Name: Don Smith - ED Attending Attestation I have performed the following: I have examined & evaluated the patient, The case was reviewed & discussed with the resident, I agree w/resident's findings & plan - HPI HPI: 03/23/19 05:26 53-year-old male with history of hypertension and end-stage renal disease with headache and associated hypertension - Physicial Exam PE: 03/23/19 05:27 Agree with resident exam - Medical Decision Making 03/23/19 05:27 53-year-old male with headache and elevated blood pressure CT scan of the brain shows no significant acute intracranial abnormality Patient had persistent pain despite Reglan and morphine Plan for lumbar puncture and if within normal limits DC home
[2019-03-23 01:30] LABS: EPI CELLS 1.7 /HPF (0-5/HPF); HYALINE CASTS 7 /lpf (0-8); URINE APPEARANCE CLEAR; URINE BACTERIA 16.9 /hpf (NEGATIVE); URINE BILIRUBIN NEGATIVE (NEGATIVE); URINE COLOR YELLOW; URINE GLUCOSE (UA) 2+ (NEGATIVE); URINE KETONE NEGATIVE (NEGATIVE); URINE LEUK ESTERASE TRACE (NEGATIVE); URINE NITRITE NEGATIVE (NEGATIVE); URINE PROTEIN 4+ (NEGATIVE); URINE RBC 12 /hpf (0-4); URINE UROBILINOGEN 0.2 mg/dL (0.2-1.0); URINE WBC 17 /hpf (0-5)
[2019-03-23 04:12] VITALS: TEMP 98.2
[2019-03-23] MEDS ORDERED: amLODIPine BESYLATE 10 MG TABLET (FP) PO ONE (04:32)
[2019-03-23] MEDS ORDERED: amLODIPine BESYLATE 5 MG TABLET (FP) ONE (04:37)
[2019-03-23 05:59] LABS: BF GLUCOSE (CSF ONLY) 77 mg/dL (40-70)
[2019-03-23 07:15] VITALS: BP 179/96; PULSE 84
[2019-03-23 07:18] LABS: CSF COLOR COLORLESS
[2019-03-23 07:19] LABS: CSF APPEARANCE CLEAR; CSF WBC 0
--- NOTE | 2019-03-23 07:33 | PDOC ---
*Physical Exam - Vital Signs Last Vital Signs Temp Pulse Resp BP Pulse Ox 98.2 F 84 20 179/96 H 99 03/23/19 07:00 03/23/19 07:00 03/23/19 06:10 03/23/19 07:00 03/23/19 07:00 - Physical Exam Comments: 03/23/19 08:24 General Appearance: Nourished. No Apparent Distress HEENT: EOMI, SHARITA. No Pharyngeal Erythema, Tonsillar Exudate, Tonsillar Erythema Neck: No Cervical Lymphadenopathy Respiratory/Chest: Lungs Clear, Normal Breath Sounds. No Crackles, Rales, Rhonchi, Wheezing Cardiovascular: Regular Rhythm, Regular Rate. No Murmur, Gallops, Rubs Gastrointestinal/Abdominal: Normal Bowel Sounds, Soft. 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 ED Treatment Course - LABORATORY CBC & Chemistry Diagram: 03/22/19 23:10 03/22/19 23:10 - ADDITIONAL ORDERS Additional order review: Laboratory Results 03/23/19 03/23/19 03/23/19 05:15 02:25 00:05 PT with INR INR PTT (Actin FS) 36.4 Sodium Potassium Chloride Carbon Dioxide Anion Gap BUN Creatinine Est GFR (CKD-EPI)AfAm Est GFR (CKD-EPI)NonAf Random Glucose Calcium Total Bilirubin AST ALT Alkaline Phosphatase Creatine Kinase Troponin I Total Protein Albumin Triglycerides Cholesterol Total LDL Cholesterol HDL Cholesterol Urine Color Yellow Urine Appearance Clear Urine pH 8.0 Ur Specific Merrill 1.017 Urine Protein 4+ H Urine Glucose (UA) 2+ H Urine Ketones Negative Urine Blood 1+ H Urine Nitrite Negative Urine Bilirubin Negative Urine Urobilinogen 0.2 Ur Leukocyte Esterase Trace Urine WBC (Auto) 17 Urine RBC (Auto) 12 Urine Casts (Auto) 7 U Pathogenic Cast Auto No Result Required. U Epithel Cells (Auto) 1.7 U Sm Round Cell (Auto) Few Urine Bacteria (Auto) 16.9 CSF Appearance Clear CSF Color Colorless CSF WBC 0 CSF RBC 3 CSF Neutrophils No Result Required. CSF Lymphocytes No Result Required. CSF Eosinophils No Result Required. CSF Basophils No Result Required. CSF Macrophages No Result Required. CSF Plasma Cells No Result Required. CSF Diff Comment No Result Required. CSF Comment No Result Required. CSF Glucose 77 H CSF Total Protein 62 H Blood Type Antibody Screen 03/22/19 03/22/19 03/22/19 23:10 23:10 23:10 PT with INR 13.40 H INR 1.13 H PTT (Actin FS) Sodium 138 Potassium 3.9 Chloride 102 Carbon Dioxide 30 Anion Gap 7 L BUN 33.2 H Creatinine 5.8 H Est GFR (CKD-EPI)AfAm 12.01 Est GFR (CKD-EPI)NonAf 10.36 Random Glucose 120 H Calcium 8.4 L Total Bilirubin 0.5 AST 12 L ALT 23 Alkaline Phosphatase 121 H Creatine Kinase 50 Troponin I 0.05 Total Protein 7.6 Albumin 3.3 L Triglycerides 78 Cholesterol 121 Total LDL Cholesterol 70 HDL Cholesterol 36 L Urine Color Urine Appearance Urine pH Ur Specific Merrill Urine Protein Urine Glucose (UA) Urine Ketones Urine Blood Urine Nitrite Urine Bilirubin Urine Urobilinogen Ur Leukocyte Esterase Urine WBC (Auto) Urine RBC (Auto) Urine Casts (Auto) U Pathogenic Cast Auto U Epithel Cells (Auto) U Sm Round Cell (Auto) Urine Bacteria (Auto) CSF Appearance CSF Color CSF WBC CSF RBC CSF Neutrophils CSF Lymphocytes CSF Eosinophils CSF Basophils CSF Macrophages CSF Plasma Cells CSF Diff Comment CSF Comment CSF Glucose CSF Total Protein Blood Type O POSITIVE Antibody Screen Negative 03/22/19 23:10 RBC 3.53 L MCV 90.5 MCHC 33.0 RDW 15.0 MPV 7.1 L Neutrophils % 78.4 Lymphocytes % 9.9 D Monocytes % 5.9 Eosinophils % 4.9 H Basophils % 0.9 - Medications Given in the ED: ED Medications Discontinued Medications Generic Name Dose Route Start Last Admin Trade Name Freq PRN Reason Stop Dose Admin Amlodipine Besylate 10 mg 03/23/19 04:32 03/23/19 04:42 Norvasc - PO 03/23/19 04:33 10 mg ONCE ONE Administration Metoclopramide HCl 10 mg 03/23/19 00:45 03/23/19 01:05 Reglan Injection - IVPUSH 03/23/19 00:46 10 mg ONCE ONE Administration Progress Note - Progress Note Progress Note: The patient is a 53 year old male who presents for evaluation of hypertension and headache after dialysis yesterday. The patient's head CT is negative and lab work up has been negative thus far. The patient is pending LP results prior to discharge home. Medical Decision Making - Medical Decision Making 03/23/19 08:26 CSF fluid is unremarkable. We are comfortable discharging the patient home in stable condition. Patient made aware of impression and plan, return precautions discussed including but not limited to worsening pain or symptoms, fevers, or signs of infection, chest pain, respiratory distress, inability to tolerate oral intake, dehydration, syncope, or neurologic changes. The patient is to follow up with PMD as recommended within 1 week, follow up information provided and the patient will call for an appointment. The patient is to take medications as instructed for duration of time and continue with supportive care , avoid triggers and precipitants. Patient is safe for outpatient follow-up. *DC/Admit/Observation/Transfer Diagnosis at time of Disposition: Hypertension Qualifiers: Hypertension type: unspecified Qualified Code(s): I10 - Essential (primary) hypertension Head ache Qualifiers: Headache type: unspecified Headache chronicity pattern: unspecified pattern Intractability: not intractable Qualified Code(s): R51 - Headache - Discharge Dispostion Disposition: HOME Condition at time of disposition: Stable Decision to Admit order: No - Referrals - Patient Instructions Printed Discharge Instructions: DI for High Blood Pressure Additional Instructions: 1) Please follow-up with your primary care doctor in the next 2-3 days. Please call tomorrow to schedule a follow up appointment. If you cannot follow up with your doctor within 1 week please return to the Emergency Department for any urgent issues. 2) Your laboratory / imaging results were normal here in the ER. 3) If you have any worsening of symptoms or any other concerns please return to the ER immediately. Return if worsening symptoms including fevers, headache, vomiting, visual or hearing disturbances, abdominal pain, chest pain, shortness of breath, syncope, dehydration, inability to take things by mouth/vomiting, altered mental status, or worsening concerning symptoms. 4) Please continue taking your home medications as directed. Side effects may include upset stomach, abdominal pain, vomiting, or diarrhea. Do not drink alcohol with your medications. - Post Discharge Activity
[2019-03-23] MEDS ORDERED: LISINOPRIL 20 MG TABLET (FP) PO ONE (08:00)
[2019-03-23] MEDS ORDERED: ACETAMINOPHEN 500 MG TABLET (FP) PO ONE (08:00)
[2019-03-23] MEDS ORDERED: CARVEDILOL 6.25 MG TABLET (FP) PO ONE (08:00)
[2019-03-23] MEDS ORDERED: ACETAMINOPHEN 325 MG TABLET (FP) ONE (08:28)
[2019-03-23] MEDS ORDERED: LISINOPRIL 20 MG TABLET (FP) ONE (08:29)
[2019-03-23] MEDS ORDERED: CARVEDILOL 3.125 MG TABLET (FP) ONE (08:29)
--- NOTE | 2019-03-23 13:38 | EKG ---
Test Reason : Blood Pressure : / mmHG Vent. Rate : 084 BPM Atrial Rate : 084 BPM P-R Int : 162 ms QRS Dur : 076 ms QT Int : 408 ms P-R-T Axes : 047 068 028 degrees QTc Int : 482 ms NORMAL SINUS RHYTHM POSSIBLE LEFT ATRIAL ENLARGEMENT PROLONGED QT ABNORMAL ECG WHEN COMPARED WITH ECG OF 22-MAY-2018 00:27, NO SIGNIFICANT CHANGE WAS FOUND Confirmed by LYNDA OSEGUERA, SEB ([id number]) on 03/23/2019 1:38:30 PM Referred By: Confirmed By:SEB HOWELL MD
== END 2019-03-23 08:34 | disposition home or self-care (01) ==
LOC: JER 21:41
PROC: 3E0337Z Introduction of Electrolytic and Water Balance Substance into Peripheral Vein, Percutaneous Approach (ICD-10-PCS; principal; 2019-03-22)
DX: I13.11 Hypertensive heart and chronic kidney disease without heart failure, with stage 5 chronic kidney disease, or end stage renal disease (principal); E11.22 Type 2 diabetes mellitus with diabetic chronic kidney disease; N18.6 End stage renal disease; N17.8 Other acute kidney failure; Z99.2 Dependence on renal dialysis
CPT/HCPCS: 36415; 70450-TC; 80053; 81003; 82465; 82550; 82945; 83718; 83721; 84157; 84478; 84484; 85025; 85610; 85730; 86850; 86900; 86901; 87070; 87205; 93005; 93010; 99283-25; J7030